=== PATIENT | female | born 1960 | race Caucasian/White ===

== ENCOUNTER → 2017-11-21 11:53 | Outpatient (CLI) | payer BC, SELFPAY ==
[2017-11-21 15:53] LABS: Free T3 1.8 pg/mL (2.18-3.98); T4 Free Direct 1.03 ng/dL (0.76-1.46); Thyroid Stim Hormone (TSH) 3.33 uIU/mL (0.358-3.74)
== END ==
PROVIDERS: Family Provider Family Medicine; PCP Family Medicine; Visit Provider Family Medicine
DX: E03.9 Hypothyroidism, unspecified (principal)
CPT/HCPCS: 36415; 84439; 84443; 84481

== ENCOUNTER → 2018-02-13 14:08 | Outpatient (CLI) | payer BC, SELFPAY ==
[2018-02-13 16:09] LABS: Free T3 2.4 pg/mL (2.18-3.98); T4 Free Direct 1.32 ng/dL (0.76-1.46); Thyroid Stim Hormone (TSH) 0.63 uIU/mL (0.358-3.74)
== END ==
PROVIDERS: Family Provider Family Medicine; PCP Family Medicine; Visit Provider Family Medicine
DX: E03.9 Hypothyroidism, unspecified (principal)
CPT/HCPCS: 36415; 84439; 84443; 84481

== ENCOUNTER → 2018-02-23 15:54 | Outpatient (CLI) | payer BC, SELFPAY ==
--- NOTE | 2018-02-23 15:59 | CT_ITS ---
STUDY: LOW DOSE CT LUNG CANCER SCREENING REASON FOR EXAM: Female, 57 years old. 47 pack-year smoking history. RADIATION DOSAGE (If Supplied By Facility): CTDIvol = ( 3.02 ) mGy, DLP = ( 108.72 ) mGycm TECHNIQUE: No contrast was administered. Low dose technique was utilized (average mAS-38 and kVp 120). 1.25 mm axial source images with a slice interval of 1.25-mm were reconstructed in lung windows. 2.5 mm axial source images with a slice interval of 2.5-mm were reconstructed in lung windows. 5.0 mm axial source images with a slice interval of 5.0-mm were reconstructed in soft tissue windows. Nodule measured using lung windows on PACS and/or independent workstation with automated measurement of minimum and maximum diameter. Nodule measurement reported as average diameter rounded to the nearest whole number. Growth is defined as an increase ins size of greater than 1.5 mm. COMPARISON: December 05, 2016. NODULES: Total lung nodules (excluding granulomas): 0 Emphysema: Is mild hyperexpansion lungs without distinct evidence of emphysema. Endobronchial lesion: No Aorta: There is atherosclerotic changes of the abdominal aorta without aneurysm. Coronary arteries: No evidence of calcification. Heart: Normal Pulmonary artery: Normal Mediastinal nodes: None Other chest and abdominal findings: Minimal degenerative changes of the thoracic spine. CT/Low Dose CT Lung Screening IMPRESSION: Lung-RADS category 1 - Continue annual screening with LDCT in 12 months. IMPORTANT NOTES FOR USE: ACR Lung-RADS Version 1.0 Assessment Categories Release Date: June 21, 2013 Category: Coded 0-4 bases on nodule(s) with highest degree of suspicion. Negative screen is defined as categories 1 and 2; a positive screen is defined as categories 3 and 4. Category 3 and 4A nodules that are unchanged on interval CT should be coded as category 2, and individuals returned to screening in 12 months. Category 4X: Category 3 or 4 nodules with additional imaging findings that increase the suspicion of lung cancer, such as spiculation, GGN that doubles in size in 1 year, enlarged lymph notes, etc. Category Modifiers: S (significant finding unrelated to lung cancer) and C (prior history of treated lung cancer) may be added to the 0-4 Lung-RADS Electronically Signed: Ricardo Flores DO at 23:28 EST Tel [phone], Service support ,
== END ==
PROVIDERS: Family Provider Family Medicine; PCP Family Medicine; Referring Provider Family Medicine; Visit Provider Family Medicine
DX: Z12.2 Encounter for screening for malignant neoplasm of respiratory organs (principal)
CPT/HCPCS: G0297

== ENCOUNTER → 2018-09-04 | Outpatient (CLI) | payer BC, SELFPAY ==
[2018-09-11 11:43] LABS: HPV APTIMA, High Risk Negative (Negative)
== END | disposition home or self-care (01) ==
LOC: BFHLAB 14:54
PROVIDERS: Family Provider Family Medicine; PCP Family Medicine; Visit Provider Family Medicine
DX: Z12.4 Encounter for screening for malignant neoplasm of cervix (principal)
CPT/HCPCS: 88175; G0145

== ENCOUNTER → 2018-09-22 | Outpatient (CLI) | payer BC, SELFPAY ==
--- NOTE | 2018-09-22 16:23 | BI_ITS ---
MAMMOGRAPHY - BILATERAL SCREENING REASON FOR EXAM: Female, 58 years old. Routine annual screening examination. PERTINENT HISTORY: Grandmother with breast cancer. Remote left stereotactic breast biopsy. TECHNIQUE: Digital bilateral breast pee (3D mammographic acquisition) in the CC and MLO projections. 2-D mediolateral oblique (MLO) and craniocaudad (CC) views of both breasts were obtained. CAD: Full Field Digital Mammography with Computer Added Detection was performed. COMPARISON: Comparison is made with prior study dated January 10, 2017 and July 29, 2014. FINDINGS: Breast Composition: There are scattered areas of fibroglandular density. There are no dominant masses or suspicious calcifications. No other significant abnormalities are identified. There has been no significant change since the prior study. BI/SCREEN MAMM (CAD) W/PEE BILAT IMPRESSION: Stable bilateral screening mammogram. Yearly follow-up mammogram recommended. (A) ASSESSMENT CATEGORY: BIRADS Category 1: Negative. A letter regarding these results will be sent to the patient by the facility within 30 days. Approximately 10% of breast cancers are not detected by mammography. A normal mammogram should not delay biopsy of a clinically suspicious abnormality. [id number] Electronically Signed: Leonel Stafford, at 9:22 EDT , Service support ,
== END | disposition home or self-care (01) ==
PROVIDERS: Family Provider Family Medicine; PCP Family Medicine; Referring Provider Family Medicine; Visit Provider Family Medicine
DX: Z12.31 Encounter for screening mammogram for malignant neoplasm of breast (principal)
CPT/HCPCS: 77063; 77067

== ENCOUNTER → 2019-10-08 15:05 | Outpatient (CLI) | payer BC, SELFPAY ==
[2019-10-08 17:09] LABS: Absolute Lymphocyte Count 2.12 X10^3/uL (0.83-4.51); Basophil# 0.02 X10^3/uL; Basophil% 0.3 % (0-1); Eosinophil# 0.12 X10^3/uL; Eosinophils% 1.6 % (0-5); Hemoglobin 13.3 g/dL (12.0-15.0); Lymphocyte # 2.12 X10^3/ul (4.0); Lymphocyte % 27.8 % (19-41); Mean Corp Hgb Conc 31.7 g/dL (32-36); Mean Corpuscular Hgb 28.2 pg (27.0-32.0); Mean Corpuscular Volume 89.2 fL (81-99); Mean Platelet Vol. 10.3 fl (6.2-12.0); Monocyte% 5.2 % (0-10); NRBC Flagged by Analyzer 0 % (0-5); Neutrophil # 4.96 X10^3/uL (2.7-7.7); Platelet Count 224 K/mm3 (150-450); RBC Distribution Width CV 12.9 % (11.6-14.6); RBC Distribution Width SD 42.4 fl (35.1-43.9); Red Blood Count 4.71 M/mm3 (4.2-5.4); White Blood Count 7.6 K/mm3 (4.4-11.0)
[2019-10-08 17:37] LABS: ALB/GLOB Ratio 1.1 RATIO (0.9-2.4); AST(SGOT) 13 U/L (15-37); Alanine Aminotransfer ALT/SGPT 24 U/L (13-56); Alkaline Phosphatase 82 U/L (45-117); Anion Gap 8 (5-15); BUN 17 mg/dL (7-18); BUN/Creat Ratio 18.5 RATIO (10-20); Calcium,Total 8.5 mg/dL (8.5-10.1); Chloride 105 mmol/L (98-107); Creatinine, Serum 0.92 mg/dL (0.55-1.02); EST Glomerular Filtration Rate 67 mL/min (>60); Est Glom Filt Rate - Afr Amer 81 mL/min (>60); Free T3 2.3 pg/mL (2.18-3.98); Globulin 3.6 g/dL (2.2-4.2); Glucose 152 mg/dL (74-106); Potassium 3.3 mmol/L (3.5-5.1); Protein, Total 7.6 g/dL (6.4-8.2); Sodium Level 137 mmol/L (136-145); T4 Free Direct 1.53 ng/dL (0.76-1.46)
== END ==
PROVIDERS: PCP Family Medicine; Visit Provider Family Medicine
DX: E03.9 Hypothyroidism, unspecified (principal); F32.9 Major depressive disorder, single episode, unspecified; K58.9 Irritable bowel syndrome, unspecified
CPT/HCPCS: 36415; 80053; 84439; 84443; 84481; 85025

== ENCOUNTER → 2019-11-17 15:22 | Outpatient (CLI) | payer BC, SELFPAY ==
--- NOTE | 2019-11-17 15:26 | BI_ITS ---
MAMMOGRAPHY - BILATERAL SCREENING REASON FOR EXAM: Female, 59 years old. Routine annual screening examination. PERTINENT HISTORY: Grandmother with breast cancer. TECHNIQUE: Digital bilateral breast pee (3D mammographic acquisition) in the CC and MLO projections. 2-D mediolateral oblique (MLO) and craniocaudad (CC) views of both breasts were obtained. CAD: Full Field Digital Mammography with Computer Added Detection was performed. COMPARISON: Comparison is made with prior study dated 09/22/2018 and 01/10/2017. FINDINGS: Breast Composition: There are scattered areas of fibroglandular density. There are no dominant masses or suspicious calcifications. Stable small benign-appearing bilateral axillary lymph nodes. No other significant abnormalities are identified. There has been no significant change since the prior study. BI/SCREEN MAMM (CAD) W/PEE BILAT IMPRESSION: Stable bilateral screening mammogram. Yearly follow-up mammogram recommended. (A) ASSESSMENT CATEGORY: BIRADS Category 2: Benign. A letter regarding these results will be sent to the patient by the facility within 30 days. Approximately 10% of breast cancers are not detected by mammography. A normal mammogram should not delay biopsy of a clinically suspicious abnormality. [id number] Electronically Signed: Leonel Stafford, at 8:03 EDT , Service support ,
== END ==
PROVIDERS: PCP Family Medicine; Referring Provider Family Medicine; Visit Provider Family Medicine
DX: Z12.31 Encounter for screening mammogram for malignant neoplasm of breast (principal)
CPT/HCPCS: 77063; 77067

== ENCOUNTER → 2020-07-12 13:36 | Outpatient (CLI) | payer BC, SELFPAY ==
[2020-07-12 14:06] LABS: Absolute Lymphocyte Count 2.03 X10^3/uL (0.83-4.51); Absolute Neutrophil Count 4.6 X10^3/uL (2.0-7.7); Basophil# 0.03 X10^3/uL; Basophil% 0.4 % (0-1); Eosinophil# 0.18 X10^3/uL; Eosinophils% 2.5 % (0-5); Hematocrit 40.2 % (37-47); Hemoglobin 12.8 g/dL (12.0-15.0); Lymphocyte # 2.03 X10^3/ul (0.83-4.51); Lymphocyte % 27.7 % (19-41); Mean Corp Hgb Conc 31.8 g/dL (32-36); Mean Corpuscular Hgb 28.1 pg (27.0-32.0); Mean Corpuscular Volume 88.4 fL (81-99); Mean Platelet Vol. 9.8 fl (6.2-12.0); Monocyte# 0.46 X10^3/uL; Monocyte% 6.3 % (0-10); NRBC Flagged by Analyzer 0 % (0-5); Neutrophil # 4.62 X10^3/uL (2.7-7.7); Neutrophil % 62.8 % (47-70); Platelet Count 210 K/mm3 (150-450); RBC Distribution Width CV 12.9 % (11.6-14.6); RBC Distribution Width SD 41.6 fl (35.1-43.9); Red Blood Count 4.55 M/mm3 (4.2-5.4); White Blood Count 7.3 K/mm3 (4.4-11.0)
[2020-07-12 14:47] LABS: AST(SGOT) 11 U/L (15-37); Alanine Aminotransfer ALT/SGPT 23 U/L (13-56); Albumin, Serum 3.7 g/dL (3.2-5.0); Alkaline Phosphatase 80 U/L (45-117); Bilirubin, Direct 0.14 mg/dL (0.00-0.30); Globulin 3.3 g/dL (2.2-4.2)
== END ==
PROVIDERS: PCP Family Medicine; Referring Provider Family Medicine; Visit Provider Family Medicine
DX: R10.12 Left upper quadrant pain (principal); E03.9 Hypothyroidism, unspecified
CPT/HCPCS: 36415; 80076; 84436; 84443; 85025

== ENCOUNTER → 2020-07-15 10:32 | Outpatient (CLI) | payer BC, SELFPAY ==
--- NOTE | 2020-07-15 10:37 | US_ITS ---
EXAM: US ABDOMEN COMPLETE CLINICAL INDICATION: LUQ ABD PAIN TECHNIQUE: Real-time ultrasound of the abdomen with image documentation. This report was created using [employer] report generation technology. COMPARISON: None. FINDINGS: LIVER: Unremarkable. There is normal echotexture. No focal hepatic lesion. No intrahepatic biliary ductal dilation. GALLBLADDER: Gallstones. No gallbladder wall thickening is demonstrated. No pericholecystic fluid. Negative sonographic Flores''s sign. COMMON BILE DUCT: Unremarkable as visualized. The proximal common bile duct is within normal limits for the patient''s age. PANCREAS: Unremarkable as visualized. No focal abnormality is demonstrated in the pancreas. No pancreatic ductal dilatation. KIDNEYS: Unremarkable. There is no hydronephrosis. No shadowing calculus. No focal lesion or perinephric collection is demonstrated. SPLEEN: Unremarkable. The spleen is normal in size and homogeneous in echotexture. AORTA: Unremarkable. Submitted longitudinal images of the intra-abdominal aorta demonstrate no gross abnormalities and are unremarkable. INFERIOR VENA CAVA: Unremarkable. The IVC is patent. FREE FLUID: There is no free fluid. US/Abdomen Complete IMPRESSION: Gallstones. No acute cholecystitis or biliary obstruction. Electronically Signed: Michelet Stafford MD ([place]) at 18:12 EDT , Service support ,
== END ==
PROVIDERS: PCP Family Medicine; Referring Provider Family Medicine; Visit Provider Family Medicine
DX: R10.12 Left upper quadrant pain (principal)
CPT/HCPCS: 76700

== ENCOUNTER 2020-10-25 12:45 | Inpatient (IN) | payer BC, SELFPAY ==
[2020-10-25 12:47] VITALS: BP 135/71; PULSE 82; RESP 17; TEMP 36.2; O2SAT 99; BMI 34.4
--- NOTE | 2020-10-25 13:19 | EKG12_ITS ---
Test Reason : ABNL PAIN Blood Pressure : / mmHG Vent. Rate : 065 BPM Atrial Rate : 065 BPM P-R Int : 150 ms QRS Dur : 090 ms QT Int : 400 ms P-R-T Axes : 044 042 045 degrees QTc Int : 416 ms Normal sinus rhythm Nonspecific T wave abnormality Abnormal ECG Confirmed by GISSELLE SOLIZ, KEY ([id number]), photo editor MELODIE YARBROUGH ([id number]) on 10/26/2020 12:54:36 PM Referred By: MANUEL Confirmed By:LULU PITTS MD
--- NOTE | 2020-10-25 13:19 | CT_ITS ---
STUDY: CT ABDOMEN AND PELVIS WITH CONTRAST REASON FOR EXAM: Female, 60 years old. abd pain -- IV PO Contrast RADIATION DOSAGE (If Supplied By Facility): CTDIvol = ( 16.55 ) mGy, DLP = ( 1129.10 ) mGycm TECHNIQUE: Transaxial images were obtained from the dome of the diaphragm to the symphysis pubis with oral contrast. Oral and amp; IV Gastrografin and amp; 100mL Isovue-300 was administered. Sagittal and coronal images were reconstructed. Individualized dose optimization techniques were used for this CT. COMPARISON: None. FINDINGS: The visualized lung bases are unremarkable. The visualized portions of the heart are within normal limits. Normal liver. Normal gallbladder and extrahepatic biliary system. Normal spleen. There is diffuse enlargement of the pancreas with ysabel-pancreatic edema suggesting acute pancreatitis. No loculated fluid collection to suggest pseudocyst or abscess. Normal enhancement of the pancreas without evidence of necrotizing pancreatitis. Normal bilateral adrenal glands. Normal right kidney. Normal left kidney. Normal visualized stomach. Normal small intestine. There are multiple colonic diverticula consistent with diverticulosis. The appendix is visualized and appears normal. Normal abdominal aorta. Normal inferior vena cava. Normal retroperitoneum. Normal urinary bladder. Prominent left ovarian vein and parametrial veins which can be seen in pelvic congestion syndrome. Normal abdominal wall. Normal osseous structures. CT/Abdomen/Pelvis WITH Contrast IMPRESSION: Acute pancreatitis. No pseudocyst, abscess, or necrotizing pancreatitis. Electronically Signed: Cuba Rosa MD at 15:29 EDT Tel , Service support ,
--- NOTE | 2020-10-25 13:20 | EX.ED.DYSGE1 ---
HPI History of Present Illness Chief Complaint: Abd Pain Informant: patient Onset/Context/Timing Onset: Yesterday Context: Gradual Onset Current Severity: Moderate Maximum Severity: Moderate Narrative Narrative: Patient presents secondary to abdominal pain. She states last evening around 8 PM she developed epigastric abdominal pain. Around 1130 patient's pain started wrapping around both sides. She developed abdominal cramping with nausea, vomiting, and diarrhea. She does report a history of gallstones. No fever or chills. [facility] Medical History (Updated 10/25/20 @ 17:[address] Tanja Buchanan MD) Gallstones Migraines Thyroid activity decreased Home Medications citalopram 20 mg PO DAILY 10/25/20 [History Last Taken Unknown] topiramate 50 mg PO DAILY 10/25/20 [History Last Taken Unknown] Allergy/AdvReac Type Severity Reaction Status Date / Time Penicillins Allergy Anaphylaxis Verified 10/25/20 12:47 erythromycin base AdvReac Upset Verified 10/25/20 12:47 Stomach Social History Smoking Status: Former smoker ROS ROS ED Constitutional Constitutional ED: Denies chills or fever(s) Eyes Eyes: Denies change in vision ENT ENT ED: Denies sore throat Cardiovascular Cardiovascular: Denies chest pain Respiratory/Chest Respiratory/Chest: Denies cough or dyspnea Gastrointestinal Gastrointestinal: Reports abdominal pain, diarrhea, nausea and vomiting Genitourinary Genitourinary ED: Denies dysuria Musculoskeletal Musculoskeletal: Reports back pain Integumentary Denies rash Neurologic Neurologic: Denies headache(s) or weakness Allergic/Immunologic Allergic/Immunologic ED: Denies urticaria EXAM Physical Exam Const Vital Signs: 10/25/20 12:47 10/25/20 15:46 Temperature 97.2 F L Temperature Source Temporal Pulse Rate 82 73 Respiratory Rate 17 16 Blood Pressure 135/71 H 129/74 H Blood Pressure Mean 92 92 Pulse Ox 99 96 Oxygen Delivery Method Room Air Room Air Positive well nourished and well developed General Appearance ED: well developed HEENT Reports normocephalic and head/scalp atraumatic Eyes PERRL and EOMs intact bilaterally Neck supple Chest Wall inspection of chest normal and palpation of chest normal Resp normal respiratory effort and clear to auscultation bilaterally Cardio regular rate and regular rhythm GI Auscultation: hypoactive bowel sounds Palpation: soft and tender other (Diffuse abdominal tenderness to palpation. No guarding or rebound.) Extremity normal to inspection Neuro oriented x3 and no sensory deficits noted Sensorium / Orientation: alert Motor Exam: strength 5/5 throughout Psych mental status grossly normal Skin no rashes or lesions noted MDM MDM MDM Narrative Medical decision making narrative: Patient is given morphine and Zofran for pain. Lab work and CT abdomen pelvis is ordered. When lipase and LFTs returned elevated right upper quadrant ultrasound is also ordered. Lab Data Attestation: I reviewed the patient's lab results. Labs: Laboratory Results - last 24 hr 10/25/20 10/25/20 10/25/20 13:15 13:15 13:15 WBC 12.2 H RBC 4.83 Hgb 13.8 Hct 42.4 MCV 87.8 MCH 28.6 MCHC 32.5 RDW Std Deviation 41.8 RDW Coeff of Deborah 12.9 Plt Count 213 MPV 10.2 Immature Gran % (Auto) 0.400 Neut % (Auto) 91.2 H Lymph % (Auto) 4.9 L Fleming % (Auto) 3.4 Eos % (Auto) 0.0 Baso % (Auto) 0.1 Absolute Neuts (auto) 11.1 H Absolute Lymphs (auto) 0.60 L Nucleated RBC % 0 Sodium 138 Potassium 3.4 L Chloride 107 Carbon Dioxide 23.0 Anion Gap 8 BUN 21 H Creatinine 0.91 Estim Creat Clear Calc 52.65 Est GFR (MDRD) Af Amer 81 Est GFR (MDRD) Non-Af 67 BUN/Creatinine Ratio 23.0 H Glucose 198 H Calcium 8.8 Total Bilirubin 0.80 Direct Bilirubin 0.20 AST 253 H ALT 243 H Alkaline Phosphatase 108 Total Protein 7.5 Albumin 4.0 Globulin 3.5 Lipase 46220 H Urine Color Yellow Urine Clarity Clear Urine pH 6.0 Ur Specific [place] 1.015 Urine Protein 30 H Urine Glucose (UA) Normal Urine Ketones 15 H Urine Occult Blood 25 H Urine Nitrite Negative Urine Bilirubin Negative Urine Urobilinogen 1 H Ur Leukocyte Esterase 100 H Urine RBC 0 SEEN Urine WBC 0-5 SEEN Ur Squamous Epith Cells 0-5 SEEN Urine Bacteria 0 SEEN Urine Mucus 0 SEEN Radiography Diagnostic Testing: Radiology Impression Abdomen/Pelvis CT 10/25/20 13:19 IMPRESSION: Acute pancreatitis. No pseudocyst, abscess, or necrotizing pancreatitis. Electronically Signed: Cuba Rosa MD at 15:29 EDT Tel , Service support , Abdomen Ultrasound 10/25/20 14:18 IMPRESSION: Cholelithiasis. Electronically Signed: Cuba Rosa MD at 15:58 EDT Tel , Service support , EKG Initial EKG: Attestation: I personally reviewed and interpreted this EKG as follows: Interpretation: Sinus Rhythm (Sinus at 65 with nonspecific diffuse T wave flattening.) Treatment and Re-Evaluation Comments:: On repeat evaluation patient is resting more comfortably. Test results discussed with her. She will require hospitalization with pancreatitis. I also spoke with Dr. Baker. He will see her in consult and if LFTs continue to rise we will plan on doing an ERCP tomorrow. Otherwise he will plan to do a cholecystectomy once her pancreatitis improves. Patient discussed with hospitalist for admission to medical floor. Discharge Plan Triage Chief Complaint: Abd Pain ED Provider: Tanja Buchanan Dx/Rx/DC Orders Clinical Impression: Acute pancreatitis Prescriptions: No Action citalopram 20 mg tablet 20 mg PO DAILY RF: 0 topiramate 50 mg tablet 50 mg PO DAILY RF: 0 Primary Care Provider: Maricruz Zavaleta Referrals: Maricruz Zavaleta MD [Primary Care Provider] - Disposition Disposition: Acute Care Hospital [facility]
--- NOTE | 2020-10-25 13:22 | NURSING ---
NO OLD EKGS
[2020-10-25] MEDS: 0.9% Normal Saline 1,000 ML 150 ML IV (13:41)
[2020-10-25] MEDS: Ondansetron 4 MG/2 ML Vial IV (13:42)
[2020-10-25] MEDS: Morphine 4 MG/ML Syringe IV (13:42)
[2020-10-25 13:43] LABS: Bacteria 0 SEEN /hpf (None Seen); Mucous, Urine 0 SEEN /hpf (<or=2+); Red Blood Cells-Urine 0 SEEN /hpf (0-5)
[2020-10-25 13:49] LABS: Absolute Neutrophil Count 11.1 X10^3/uL (2.0-7.7); Basophil# 0.01 X10^3/uL; Basophil% 0.1 % (0-1); Hematocrit 42.4 % (37-47); Hemoglobin 13.8 g/dL (12.0-15.0); Lymphocyte % 4.9 % (19-41); Mean Corp Hgb Conc 32.5 g/dL (32-36); Mean Corpuscular Hgb 28.6 pg (27.0-32.0); Mean Corpuscular Volume 87.8 fL (81-99); Mean Platelet Vol. 10.2 fl (6.2-12.0); Monocyte# 0.41 X10^3/uL; Monocyte% 3.4 % (0-10); NRBC Flagged by Analyzer 0 % (0-5); Neutrophil # 11.08 X10^3/uL (2.7-7.7); Neutrophil % 91.2 % (47-70); POSITIVE DIFFERENTIAL YES; Platelet Count 213 K/mm3 (150-450); RBC Distribution Width CV 12.9 % (11.6-14.6); RBC Distribution Width SD 41.8 fl (35.1-43.9); Red Blood Count 4.83 M/mm3 (4.2-5.4); White Blood Count 12.2 K/mm3 (4.4-11.0)
[2020-10-25 13:50] LABS: Color, Urine Yellow (Yellow); Differential Indicated SCAN CRITERIA MET; Glucose, Dipstick Normal (Normal); Ketone-Dipstick 15 mg/dl (Negative); Leukocyte Esterase-Dipstick 100 /ul (Negative); Nitrite-Dipstick Negative (Negative); Occult Blood-Urine 25 /ul (Negative); Protein-Dipstick 30 mg/dl (Negative); Specific Gravity, Urine 1.015 (1.002-1.030); Urine Bilirubin Dipstick Negative (Negative); Urine Clarity Clear (Clear); Urine Urobilinogen 1 mg/dl (Normal)
[2020-10-25 13:56] LABS: Squamous Epithelial Cells - UA 0-5 SEEN /hpf (5-10); White Blood Cells 0-5 SEEN /hpf (0-5)
[2020-10-25 14:10] LABS: AST(SGOT) 253 U/L (15-37); Alanine Aminotransfer ALT/SGPT 243 U/L (13-56); Alkaline Phosphatase 108 U/L (45-117); Anion Gap 8 (5-15); BUN 21 mg/dL (7-18); Calcium,Total 8.8 mg/dL (8.5-10.1); Chloride 107 mmol/L (98-107); Creatinine, Serum 0.91 mg/dL (0.55-1.02); EST Glomerular Filtration Rate 67 mL/min (>60); Est Glom Filt Rate - Afr Amer 81 mL/min (>60); Estimated Creatinine Clearance 52.65 ml/min; Globulin 3.5 g/dL (2.2-4.2); Glucose 198 mg/dL (74-106); Lipase 10463 U/L (73-393); Potassium 3.4 mmol/L (3.5-5.1); Protein, Total 7.5 g/dL (6.4-8.2); Sodium Level 138 mmol/L (136-145)
--- NOTE | 2020-10-25 14:18 | US_ITS ---
STUDY: ABDOMINAL ULTRASOUND - RIGHT UPPER QUADRANT REASON FOR VISIT: Female, 60 years old abd pain TECHNIQUE: Ultrasound evaluation of the right upper quadrant was performed with real-time and static scott-scale imaging. TECHNICAL QUALITY: Adequate. COMPARISON: CT earlier today, ultrasound 07/15/2020 FINDINGS: Liver: The liver measures 19.8 cm. There is normal echogenicity of the liver. The bile ducts are within normal limits. There is hepatic color flow. The direction of portal flow is hepatopetal. There is no demonstrated mass lesion. Gallbladder: Normal distended gallbladder. The gallbladder wall measures 2 mm. There is a negative sonographic Flores''s sign. There is no pericholecystic fluid. There are multiple echogenic structures within the gallbladder, consistent with multiple gallstones. Common Bile Duct (C.B.D.): The common bile duct measures 6 mm. Pancreas: Normal size of the head, body and tail of the pancreas. There is normal echogenicity of the pancreas. There is no demonstrated pancreatic mass or cyst. Right Kidney: Normal size of the right kidney. The right kidney measures 12.5 cm. Normal renal cortex. The right cortex measures 1.5 cm. There is no demonstrated renal mass or cyst. There is no right hydronephrosis. US/Abdomen Limited IMPRESSION: Cholelithiasis. Electronically Signed: Cuba Rosa MD at 15:58 EDT Tel , Service support ,
[2020-10-25 15:46] VITALS: BP 129/74; PULSE 73; RESP 16; O2SAT 96
--- NOTE | 2020-10-25 17:32 | NURSING ---
MED SURG DR BASS PANCREATITIS
--- NOTE | 2020-10-25 18:03 | PCM.HP.STD ---
[facility] - General General Date of Admission: 10/25/20 HPI Narrative CELSO SHANKAR, is a 60 F who presented to the emergency department [facility] on 10/25/2020 complaining of abdominal pain in the epigastric and left upper quadrant area. She states that she has been having some issues with this previously and saw her PCP for which an ultrasound was done and noted cholelithiasis. That episode resolved and she has been having intermittent right upper quadrant pain but has not really paid much attention to exacerbating or relieving factors. She states last night she had a submarine sandwich. Her symptoms started last night at about 8:00 in the form of epigastric abdominal pain. At 1130 last evening it started wrapping around both sides and radiating to her back. She has had intermittent abdominal cramping with nausea, vomiting and intermittent diarrhea. She is not had much p.o. intake today and states she tried to eat a slice of toast this morning. She denies any fever or chills, chest pain, shortness of breath, melena or hematochezia, tingling numbness or weakness. Her vital signs the emergency department were stable. Her CBC shows a mildly elevated white count at 12.2 with a left shift, but was otherwise unremarkable. Her CMP shows mild hypokalemia with potassium of 3.4, an elevated BUN at 21, elevated AST and ALT that were 253 and 243 respectively, her bilirubin was within normal limits and her alk phos was normal as well, and a lipase of 10,463. Her UA was unremarkable. A CT of her abdomen and pelvis was performed and showed acute pancreatitis with no pseudocyst, abscess, or necrotizing pancreatitis. A right upper quadrant ultrasound was performed and showed cholelithiasis without common bile duct dilation. The case was discussed with Dr. Jovanni albert from general surgery prior to admission and he reported that he would follow her liver enzymes and if they trended down would discuss cholecystectomy with her once her acute pancreatitis was resolved but if her liver enzymes trended up he would pursue an ERCP tomorrow. [facility] Medical History Gallstones Migraines Thyroid activity decreased Home Medications cholecalciferol (vitamin D3) 50 mcg PO DAILY 10/25/20 [History Last Taken 10/24/20] citalopram 20 mg PO DAILY 10/25/20 [History Last Taken Unknown] levothyroxine 125 mcg PO DAILY 10/25/20 [History Last Taken 10/24/20] topiramate 50 mg PO DAILY 10/25/20 [History Last Taken Unknown] Allergy/AdvReac Type Severity Reaction Status Date / Time Penicillins Allergy Anaphylaxis Verified 10/25/20 12:47 erythromycin base AdvReac Upset Verified 10/25/20 12:47 Stomach Family History (Updated 10/25/20 @ 18:[address] Kinjal Beyer DO) Other Hypertension Social History (Updated 10/25/20 @ 18:[address] Kinjal Beyer DO) Smoking Status: Former smoker alcohol intake: current details: Social intake substance use type: does not use ROS Constitutional Constitutional: Denies anorexia, change in weight, chills, fatigue, fever(s), malaise, night sweats, weakness or other Eyes Eyes: Denies blurry vision, change in eye color, change in vision, discharge from eye(s), double vision, erythema, eye pain, loss of vision or other ENT HEENT: Denies abnormal hearing, dysphagia, ear pain, epistaxis, headache(s), hearing loss, nasal congestion, nasal discharge, post nasal drip, sinus pressure, sore throat or other Cardiovascular Cardiovascular: Denies chest pain, claudication, dyspnea on exertion, edema, lightheadedness, orthopnea, palpitations, paroxysmal nocturnal dyspnea, rapid heart rate, syncope or other Respiratory/Chest Respiratory/Chest: Denies cough, dyspnea, excessive phlegm production, hemoptysis, productive cough, shortness of breath at rest, shortness of breath with exertion, wheezing or other Gastrointestinal Gastrointestinal: Reports abdominal pain, diarrhea, nausea and vomiting; Denies coffee ground emesis, constipation, dyspepsia, hematemesis, hematochezia, loose stools, melena or other Genitourinary Genitourinary: Denies burning urination, difficulty urinating, dysuria, hematuria, nocturia, urinary frequency, urinary hesitancy, urinary incontinence, urinary urgency or other Musculoskeletal Musculoskeletal: Denies arthralgias, back pain, joint pain, joint stiffness, joint swelling, myalgias, neck pain or other Neurologic Neurologic: Denies abnormal gait, abnormal speech, confusion, disequilibrium, dizziness, focal weakness, headache(s), numbness, paresthesias, seizure-like activity, seizures, syncope, tingling, tremor(s) or other Psychiatric Psychiatric: Denies anxiety, depression, homicidal ideation, suicidal ideation or other Endocrine Endocrinology: Denies change in body appearance, cold intolerance, excessive sweating, heat intolerance, polydipsia, polyuria or other Hematologic/Lymphatic Hematologic/Lymphatic: Denies anemia, easy bleeding, easy bruising, lymphadenopathy or other Allergic/Immunologic Allergic/Immunologic: Denies rhinitis, hives, eczemia, asthma or other Vital Signs Vital Signs Vital Signs: 10/25/20 12:47 10/25/20 15:46 Temperature 97.2 F L Temperature Source Temporal Pulse Rate 82 73 Respiratory Rate 17 16 Blood Pressure 135/71 H 129/74 H Blood Pressure Mean 92 92 Pulse Ox 99 96 Oxygen Delivery Method Room Air Room Air Weight Weight: 85.3 kg Body Mass Index (BMI) 34.4 Physical Exam Const alert, oriented x3 and well nourished Constitutional Narrative: Obese upper middle-aged white female sitting up in bed, visitor at bedside, patient appears mildly uncomfortable but nontoxic General Appearance: cooperative HEENT normocephalic, head/scalp atraumatic, hearing grossly normal bilaterally and oropharynx normal HEENT Narrative: Mucous membranes are dry, good dentition, Mallampati 2-3 Eyes PERRL, EOMs intact bilaterally and conjunctivae normal Eyes Narrative: No scleral icterus or injection Neck no lymphadenopathy, supple, no JVD and no carotid bruits Neck Narrative: Trachea midline without thyromegaly Resp normal respiratory effort, no retractions, no use of accessory muscles and clear to auscultation bilaterally Auscultation: Negative for crackles, rales, rhonchi or wheezes Cardio regular rate, regular rhythm, S1 normal heart sound, S2 normal heart sound, no murmurs, no rub, no gallops, no clicks and no JVD GI normal to inspection, nondistended, normoactive bowel sounds, soft to palpation and non-distended Palpation: tender epigastric and LUQ Extremity normal to inspection, full ROM and no clubbing, cyanosis or edema Peripheral Pulses: Yes pulses 2+ throughout Skin no rashes or lesions noted, no wounds, skin turgor normal, no jaundice, no petechiae and no mottling Neuro oriented x3, CN's II-XII intact bilaterally, moves all extremities and no focal motor deficits Neuro Narrative: Reflexes 2+ throughout Sensorium / Orientation: awake and alert Speech: speech normal Motor Exam: strength 5/5 throughout Psych affect normal Results Lab / Micro Data Attestation: I reviewed the patient's lab results. Result Diagrams: 10/25/20 13:15 10/25/20 13:15 Labs: Laboratory Results - last 24 hr 10/25/20 13:15: WBC 12.2 H, RBC 4.83, Hgb 13.8, Hct 42.4, MCV 87.8, MCH 28.6, MCHC 32.5, RDW Std Deviation 41.8, RDW Coeff of Deborah 12.9, Plt Count 213, MPV 10.2, Immature Gran % (Auto) 0.400, Neut % (Auto) 91.2 H, Lymph % (Auto) 4.9 L, [place] % (Auto) 3.4, Eos % (Auto) 0.0, Baso % (Auto) 0.1, Absolute Neuts (auto) 11.1 H, Absolute Lymphs (auto) 0.60 L, Nucleated RBC % 0 10/25/20 13:15: Sodium 138, Potassium 3.4 L, Chloride 107, Carbon Dioxide 23.0, Anion Gap 8, BUN 21 H, Creatinine 0.91, Estim Creat Clear Calc 52.65, Est GFR (MDRD) Af Amer 81, Est GFR (MDRD) Non-Af 67, BUN/Creatinine Ratio 23.0 H, Glucose 198 H, Calcium 8.8, Total Bilirubin 0.80, Direct Bilirubin 0.20, AST 253 H, ALT 243 H, Alkaline Phosphatase 108, Total Protein 7.5, Albumin 4.0, Globulin 3.5, Lipase 69470 H 10/25/20 13:15: Urine Color Yellow, Urine Clarity Clear, Urine pH 6.0, Ur Specific [place] 1.015, Urine Protein 30 H, Urine Glucose (UA) Normal, Urine Ketones 15 H, Urine Occult Blood 25 H, Urine Nitrite Negative, Urine Bilirubin Negative, Urine Urobilinogen 1 H, Ur Leukocyte Esterase 100 H, Urine RBC 0 SEEN, Urine WBC 0-5 SEEN, Ur Squamous Epith Cells 0-5 SEEN, Urine Bacteria 0 SEEN, Urine Mucus 0 SEEN Radiology Impression Abdomen/Pelvis CT 10/25/20 13:19 IMPRESSION: Acute pancreatitis. No pseudocyst, abscess, or necrotizing pancreatitis. Electronically Signed: Cuba Rosa MD at 15:29 EDT Tel , Service support , Abdomen Ultrasound 10/25/20 14:18 IMPRESSION: Cholelithiasis. Electronically Signed: Cuba Rosa MD at 15:58 EDT Tel , Service support , Assessment & Plan Assessment/Plan (1) Acute pancreatitis: (2) Hypokalemia: (3) Cholelithiasis: (4) Transaminitis: PLAN: Acute pancreatitis -First episode ever -Lipase greater than 10,000 -Check lipids -IV fluids at 250 cc/h-LR -Dilaudid 1 mg every 4 as needed pain -N.p.o. except for sips and chips -Patient is not a heavy drinker -Suspect related to gallstone possibly passed with elevated transaminases -Repeat CMP in a.m. -Consult general surgery--> if liver enzymes trend up ERCP if patient improves likely outpatient cholecystectomy Hypokalemia -IV potassium replacement 20 mEq -Repeat in a.m. -Check a.m. magnesium Leukocytosis -Mild -Suspect reactive -Follow trend Transaminitis -Trend with repeat in a.m. -See above for plan Cholelithiasis -Cholecystectomy in the future -General surgery is consulted Hypothyroidism -Hold levothyroxine while n.p.o. -If remains n.p.o. greater than 7 days would consider IV dose reduction at 50% History of migraine headaches -Hold Topamax while n.p.o. Depression -Hold citalopram Vitamin D deficiency -Hold cholecalciferol DVT prophylaxis -Lovenox 40 mg daily -SCDs CODE STATUS -Full code Charges/Coding Visit Charges Inpatient E&M: 99206 Init Hosp L3
[2020-10-25 18:32] VITALS: BP 149/72; PULSE 67; RESP 16; TEMP 36.7; O2SAT 98
[2020-10-25 20:10] VITALS: BMI 34.8
[2020-10-25 20:13] VITALS: BP 156/77; PULSE 79; RESP 18; TEMP 36.8; O2SAT 100
[2020-10-25 20:30] VITALS: PULSE 80
[2020-10-25 20:35] VITALS: O2SAT 95
[2020-10-25] MEDS: HYDROmorphone 1 MG/ML Syringe IV (20:37)
[2020-10-25] MEDS: Lactated Ringers 1,000 ML 250 ML IV (20:37)
[2020-10-25] MEDS: 0.9% Saline Lock 10 ML Syringe IV (20:37)
[2020-10-25] MEDS: Potassium Chloride 10mEq/100mL 10 MEQ/100 ML IV.SOLN. 100 MEQ IV BOLUS ×2 (21:35→22:50)
[2020-10-25 21:46] LABS: Bedside Glucose 126 mg/dL (70-110)
--- NOTE | 2020-10-25 22:34 | PCS.PANDOC ---
PANDEMIC DOCUMENTATION INITIATED: Date: 10/09/2020 Time: 190
[2020-10-26] VITALS (15 sets, daily range): BP systolic 126–150; BP diastolic 61–75; PULSE 75–89; RESP 16–18; TEMP 36.8–37.8; O2SAT 92–97; BMI 34.8
[2020-10-26 02:21] LABS: Bedside Glucose 105 mg/dL (70-110)
[2020-10-26] MEDS: Lactated Ringers 1,000 ML 250 ML IV ×2 (02:22→06:09)
[2020-10-26] MEDS: HYDROmorphone 1 MG/ML Syringe IV (02:23)
[2020-10-26] MEDS: 0.9% Saline Lock 10 ML Syringe IV ×2 (02:23→16:56)
[2020-10-26 06:16] LABS: Bedside Glucose 98 mg/dL (70-110)
[2020-10-26 06:29] LABS: Absolute Neutrophil Count 7.8 X10^3/uL (2.0-7.7); Basophil# 0.02 X10^3/uL; Basophil% 0.2 % (0-1); Eosinophil# 0.05 X10^3/uL; Eosinophils% 0.5 % (0-5); Hematocrit 36.5 % (37-47); Hemoglobin 11.6 g/dL (12.0-15.0); Mean Corp Hgb Conc 31.8 g/dL (32-36); Mean Corpuscular Hgb 28.9 pg (27.0-32.0); Mean Corpuscular Volume 90.8 fL (81-99); Mean Platelet Vol. 10.4 fl (6.2-12.0); Monocyte# 0.46 X10^3/uL; Monocyte% 4.6 % (0-10); NRBC Flagged by Analyzer 0 % (0-5); Neutrophil # 7.84 X10^3/uL (2.7-7.7); Neutrophil % 78.3 % (47-70); Platelet Count 177 K/mm3 (150-450); RBC Distribution Width CV 13.2 % (11.6-14.6); Red Blood Count 4.02 M/mm3 (4.2-5.4)
--- NOTE | 2020-10-26 06:35 | EX.PCM.CON.S ---
Assessment & Plan Assessment/Plan (1) Acute pancreatitis: QUALIFIERS: Pancreatitis type: biliary Acute pancreatitis complication: no infection or necrosis Qualified Code(s): K85.10 - Biliary acute pancreatitis without necrosis or infection PLAN: Patient has epigastric pain which is improved since yesterday. CT scan yesterday showed acute pancreatitis. Patient also had significantly elevated lipase. Patient had mildly elevated LFTs. There is no dilation of the common bile duct on CT. Ultrasound showed cholelithiasis. I explained all this to her this morning. Depending on labs that would change the treatment plan. If her LFTs go up I will plan for ERCP this afternoon. If her LFTs remain low and lipase is coming down I will plan for laparoscopic cholecystectomy with cholangiogram this afternoon. I discussed both of these options with her and she is on board for both procedures as needed. Continue n.p.o. with IV fluids. Sergo Baker MD Pager: [facility] [address] [place] [address], [address] [place] [address] Office: HPI Consult Data Date of Consult: 10/26/20 HPI Narrative HPI Narrative: CELSO SHANKAR, is a 60 F who presents with abdominal pain. Patient reports that she started having epigastric pain yesterday which radiated to the back. She does not report any nausea or vomiting. She still having some mild pain this morning but it is improved. No fevers or chills. She does report that she had similar symptoms back in June and had an ultrasound that showed cholelithiasis. [facility] Medical History (Updated 10/26/20 @ 06:[address] Sergo Baker MD) Depression Gallstones Migraines Thyroid activity decreased Home Medications cholecalciferol (vitamin D3) 50 mcg PO DAILY 10/25/20 [History Last Taken 10/24/20] citalopram 20 mg PO DAILY 10/25/20 [History Last Taken 10/24/20] levothyroxine 125 mcg PO DAILY 10/25/20 [History Last Taken 10/24/20] topiramate 50 mg PO DAILY 10/25/20 [History Last Taken 10/24/20] Allergy/AdvReac Type Severity Reaction Status Date / Time Penicillins Allergy Anaphylaxis Verified 10/25/20 12:47 erythromycin base AdvReac Upset Verified 10/25/20 12:47 Stomach Family History (Updated 10/25/20 @ 18:[address] Kinjal Beyer DO) Other Hypertension Surgical History History of colonoscopy Hx of tubal ligation Social History (Updated 10/25/20 @ 18:[address] Kinjal Beyer DO) Smoking Status: Former smoker alcohol intake: current details: Social intake substance use type: does not use ROS Constitutional Constitutional: Denies anorexia or fatigue Eyes Eyes: Denies blurry vision ENT HEENT: Denies abnormal hearing Cardiovascular Cardiovascular: Denies chest pain Respiratory/Chest Respiratory/Chest: Denies cough or dyspnea Gastrointestinal Gastrointestinal: Reports abdominal pain; Denies diarrhea, dysphagia, nausea or vomiting Genitourinary Genitourinary: Denies change in urinary stream Musculoskeletal Musculoskeletal: Denies abnormal gait Integumentary Integumentary: Denies jaundice Neurologic Neurologic: Denies abnormal gait Endocrine Endocrinology: Denies heat intolerance Hematologic/Lymphatic Hematologic/Lymphatic: Denies easy bleeding Physical Exam Const alert and oriented x3 HEENT normocephalic Eyes PERRL Resp normal respiratory effort and normal air movement Cardio regular rate and regular rhythm Rate: regular rate GI soft to palpation and non-distended Palpation: tender epigastric Neuro CN's II-XII intact bilaterally Lab / Micro Data Result Diagrams: 10/26/20 05:40 10/25/20 13:15 Labs: Laboratory Results - last 24 hr 10/25/20 13:15: WBC 12.2 H, RBC 4.83, Hgb 13.8, Hct 42.4, MCV 87.8, MCH 28.6, MCHC 32.5, RDW Std Deviation 41.8, RDW Coeff of Deborah 12.9, Plt Count 213, MPV 10.2, Immature Gran % (Auto) 0.400, Neut % (Auto) 91.2 H, Lymph % (Auto) 4.9 L, [place] % (Auto) 3.4, Eos % (Auto) 0.0, Baso % (Auto) 0.1, Absolute Neuts (auto) 11.1 H, Absolute Lymphs (auto) 0.60 L, Nucleated RBC % 0 10/25/20 13:15: Sodium 138, Potassium 3.4 L, Chloride 107, Carbon Dioxide 23.0, Anion Gap 8, BUN 21 H, Creatinine 0.91, Estim Creat Clear Calc 52.65, Est GFR (MDRD) Af Amer 81, Est GFR (MDRD) Non-Af 67, BUN/Creatinine Ratio 23.0 H, Glucose 198 H, Calcium 8.8, Total Bilirubin 0.80, Direct Bilirubin 0.20, AST 253 H, ALT 243 H, Alkaline Phosphatase 108, Total Protein 7.5, Albumin 4.0, Globulin 3.5, Lipase 54305 H 10/25/20 13:15: Urine Color Yellow, Urine Clarity Clear, Urine pH 6.0, Ur Specific [place] 1.015, Urine Protein 30 H, Urine Glucose (UA) Normal, Urine Ketones 15 H, Urine Occult Blood 25 H, Urine Nitrite Negative, Urine Bilirubin Negative, Urine Urobilinogen 1 H, Ur Leukocyte Esterase 100 H, Urine RBC 0 SEEN, Urine WBC 0-5 SEEN, Ur Squamous Epith Cells 0-5 SEEN, Urine Bacteria 0 SEEN, Urine Mucus 0 SEEN 10/25/20 21:40: POC Glucose 126 H 10/26/20 02:14: POC Glucose 105 10/26/20 05:40: WBC 10.0, RBC 4.02 L, Hgb 11.6 L, Hct 36.5 L, MCV 90.8, MCH 28.9, MCHC 31.8 L, RDW Std Deviation 44.0 H, RDW Coeff of Deborah 13.2, Plt Count 177, MPV 10.4, Immature Gran % (Auto) 0.400, Neut % (Auto) 78.3 H, Lymph % (Auto) 16.0 L, [place] % (Auto) 4.6, Eos % (Auto) 0.5, Baso % (Auto) 0.2, Absolute Neuts (auto) 7.8 H, Absolute Lymphs (auto) 1.60, Nucleated RBC % 0 10/26/20 06:08: POC Glucose 98 Micro: Microbiology 10/25/20 17:50 Nasal Secretion SARS-CoV-2 Antigen (Rapid) - Final Radiology Impression Abdomen/Pelvis CT 10/25/20 13:19 IMPRESSION: Acute pancreatitis. No pseudocyst, abscess, or necrotizing pancreatitis. Electronically Signed: Cuba Rosa MD at 15:29 EDT Tel , Service support , Abdomen Ultrasound 10/25/20 14:18 IMPRESSION: Cholelithiasis. Electronically Signed: Cuba Rosa MD at 15:58 EDT Tel , Service support ,
[2020-10-26 07:06] LABS: ALB/GLOB Ratio 1.2 RATIO (0.9-2.4); AST(SGOT) 75 U/L (15-37); Alanine Aminotransfer ALT/SGPT 141 U/L (13-56); Albumin, Serum 3.2 g/dL (3.2-5.0); Alkaline Phosphatase 79 U/L (45-117); Anion Gap 6 (5-15); BUN 15 mg/dL (7-18); BUN/Creat Ratio 24.9 RATIO (10-20); Calcium,Total 8.1 mg/dL (8.5-10.1); Chloride 109 mmol/L (98-107); EST Glomerular Filtration Rate 108 mL/min (>60); Est Glom Filt Rate - Afr Amer 131 mL/min (>60); Estimated Creatinine Clearance 79.85 ml/min; Globulin 2.7 g/dL (2.2-4.2); Glucose 93 mg/dL (74-106); Lipase 2384 U/L (73-393); Phosphorus 3.4 mg/dL (2.5-4.9); Potassium 3.2 mmol/L (3.5-5.1); Protein, Total 5.9 g/dL (6.4-8.2); Sodium Level 140 mmol/L (136-145); Thyroid Stim Hormone (TSH) 0.72 uIU/mL (0.358-3.74)
--- NOTE | 2020-10-26 08:40 | PN_ITS ---
Progress Note The patient's lipase is decreased and so have her LFTs. Given this I have a lower suspicion for choledocholithiasis and I recommend proceeding with laparoscopic cholecystectomy with cholangiogram. I explained that if choledocholithiasis was demonstrated on cholangiogram I may proceed with laparoscopic common bile duct exploration or proceed with ERCP tomorrow. I discussed the procedure in detail with the patient. I discussed the risks, benefits, and alternatives of the procedure. I discussed the risks including but not limited to bleeding, infection, injury to surrounding organs such as the liver, bile duct, bowels. I also discussed the possibility of laparoscopic common bile duct exploration and the increased risk of perforation of the bile duct with this. I did discuss the possibility of having to convert to an open procedure as well as the possibility that if any injuries occurred this may necessitate further surgery at a tertiary care center. Sergo Baker MD Pager: [facility] [address] [place] [address] [address] [place] [address] Office:
--- NOTE | 2020-10-26 08:43 | PN.HOSP_ITS ---
Subjective Subjective Feels much better. Abdominal pain improved. Notes that she had a similar episode before, but much less severe and resolved in about 3 days. Unknown if she had pancreatic enzymes ordered at that time. States that she does drink, usually on the weekend with 4 beers. Complains of headache, frontal, today. Objective Data Objective Data Vital Signs: Vital Signs Temp Pulse Resp BP Pulse Ox 37.3 C 80 18 126/61 H 95 10/26/20 06:01 10/26/20 06:01 10/26/20 06:01 10/26/20 06:01 10/26/20 06:01 Oxygen Flow Rate (L/min) 2 Oxygen Delivery Method Nasal Cannula Weight: 86.4 kg Body Mass Index (BMI) 34.8 Intake & Output: Intake and Output for Last 24 Hours 10/24/20 10/25/20 10/26/20 23:59 23:59 23:59 Intake Total 1441.67 / 1441.67 1589.16 / 1589.16 Balance 1441.67 / 1441.67 1589.16 / 1589.16 Lab / Micro Data Result Diagrams: 10/26/20 05:40 10/26/20 05:40 Labs: Laboratory Results - last 24 hr 10/25/20 13:15: WBC 12.2 H, RBC 4.83, Hgb 13.8, Hct 42.4, MCV 87.8, MCH 28.6, MCHC 32.5, RDW Std Deviation 41.8, RDW Coeff of [place] 12.9, Plt Count 213, MPV 10.2, Immature Gran % (Auto) 0.400, Neut % (Auto) 91.2 H, Lymph % (Auto) 4.9 L, [place] % (Auto) 3.4, Eos % (Auto) 0.0, Baso % (Auto) 0.1, Absolute Neuts (auto) 11.1 H, Absolute Lymphs (auto) 0.60 L, Nucleated RBC % 0 10/25/20 13:15: Sodium 138, Potassium 3.4 L, Chloride 107, Carbon Dioxide 23.0, Anion Gap 8, BUN 21 H, Creatinine 0.91, Estim Creat Clear Calc 52.65, Est GFR (MDRD) Af Amer 81, Est GFR (MDRD) Non-Af 67, BUN/Creatinine Ratio 23.0 H, Glucose 198 H, Calcium 8.8, Total Bilirubin 0.80, Direct Bilirubin 0.20, AST 253 H, ALT 243 H, Alkaline Phosphatase 108, Total Protein 7.5, Albumin 4.0, Globulin 3.5, Lipase 12902 H 10/25/20 13:15: Urine Color Yellow, Urine Clarity Clear, Urine pH 6.0, Ur Specific [place] 1.015, Urine Protein 30 H, Urine Glucose (UA) Normal, Urine Ketones 15 H, Urine Occult Blood 25 H, Urine Nitrite Negative, Urine Bilirubin Negative, Urine Urobilinogen 1 H, Ur Leukocyte Esterase 100 H, Urine RBC 0 SEEN, Urine WBC 0-5 SEEN, Ur Squamous Epith Cells 0-5 SEEN, Urine Bacteria 0 SEEN, Urine Mucus 0 SEEN 10/25/20 21:40: POC Glucose 126 H 10/26/20 02:14: POC Glucose 105 10/26/20 05:40: WBC 10.0, RBC 4.02 L, Hgb 11.6 L, Hct 36.5 L, MCV 90.8, MCH 28.9, MCHC 31.8 L, RDW Std Deviation 44.0 H, RDW Coeff of [place] 13.2, Plt Count 177, MPV 10.4, Immature Gran % (Auto) 0.400, Neut % (Auto) 78.3 H, Lymph % (Auto) 16.0 L, [place] % (Auto) 4.6, Eos % (Auto) 0.5, Baso % (Auto) 0.2, Absolute Neuts (auto) 7.8 H, Absolute Lymphs (auto) 1.60, Nucleated RBC % 0 10/26/20 05:40: Sodium 140, Potassium 3.2 L, Chloride 109 H, Carbon Dioxide 25.0, Anion Gap 6, BUN 15, Creatinine 0.60, Estim Creat Clear Calc 79.85, Est GFR (MDRD) Af Amer 131, Est GFR (MDRD) Non-Af 108, BUN/Creatinine Ratio 24.9 H, Glucose 93, Calcium 8.1 L, Phosphorus 3.4, Magnesium 2.0, Total Bilirubin 0.60, AST 75 H, ALT 141 H, Alkaline Phosphatase 79, Total Protein 5.9 L, Albumin 3.2, Globulin 2.7, Albumin/Globulin Ratio 1.2, Lipase 2384 H, TSH 0.72 10/26/20 05:40: Hemoglobin A1c 6.0 H 10/26/20 06:08: POC Glucose 98 Micro: Microbiology 10/25/20 17:50 Nasal Secretion SARS-CoV-2 Antigen (Rapid) - Final Radiography Diagnostic Testing: Radiology Impression Abdomen/Pelvis CT 10/25/20 13:19 IMPRESSION: Acute pancreatitis. No pseudocyst, abscess, or necrotizing pancreatitis. Electronically Signed: Cuba Rosa MD at 15:29 EDT Tel , Service support , Abdomen Ultrasound 10/25/20 14:18 IMPRESSION: Cholelithiasis. Electronically Signed: Cuba Rosa MD at 15:58 EDT Tel , Service support , Physical Exam Const alert Resp normal respiratory effort, no use of accessory muscles and clear to auscultation bilaterally Cardio regular rate, regular rhythm, S1 normal heart sound and S2 normal heart sound GI normal to inspection, nondistended, normoactive bowel sounds, soft to palpation and non-distended GI Narrative: slight epigastric tenderness Neuro Sensorium / Orientation: awake and alert Psych affect normal Assessment & Plan Assessment/Plan (1) Acute pancreatitis: QUALIFIERS: Pancreatitis type: biliary Acute pancreatitis complication: no infection or necrosis Qualified Code(s): K85.10 - Biliary acute pancreatitis without necrosis or infection PLAN: 1. acute pancreatitis lipase down from 10,463 to 2384 suspect due to cholelithiasis. Alcohol is certainly on the differential as etiology, but I suspect unlikely at this point. plan for lap filiberto today. on LR, decrease rate from 250 to 150 2. Hypokalemia continue replacement magnesium normal 3. Cholelithiasis no cholecystitis on US lap filiberto today 4. Cephalgia likely multifactorial: illness, poor sleep while in hospital and caffeine WD (does drink coffee daily) acetaminophen no narcotics for headache 5. VTE prophylaxis: LMWH Charges/Coding Visit Charges Inpatient E&M: 40630 Subs Hosp L2
[2020-10-26] MEDS: Acetaminophen 325 MG Tablet 650 MG PO (09:11)
[2020-10-26] MEDS: Potassium Chloride 10mEq/100mL 10 MEQ/100 ML IV.SOLN. 100 MEQ IV BOLUS ×4 (09:13→13:00)
[2020-10-26] MEDS: Lactated Ringers 1,000 ML 150 ML IV ×2 (10:45→18:25)
[2020-10-26 11:26] LABS: Bedside Glucose 101 mg/dL (70-110)
[2020-10-26] MEDS: Ciprofloxacin 400 MG/200 ML BAG 200 MG IV (13:17)
--- NOTE | 2020-10-26 13:45 | GALL_PTH ---
PATIENT: CELSO SHANKAR LOC: MS3 U#:[id number] AGE/SX: 60/F ROOM: MS309 RE10/25/[address]: Dr. Gomez Mantilla DO : 1960 BED: 1 DIS: 10/27/2020 SPEC #: [id number] RECD: 10/26/20 15:17 STATUS: ARIES CORONADO #: [id number] AMADOR: 10/26/20 13:[address]: Sergo Baker DEPT: SURGICAL PATHOLOGY RECD BY: Emma Simeon ENTERED: 10/27/20 09:39 SP TYPE: GALLBLADDE OTHR DR: MD Dr. Gomez Alvarez DO Dr. Hannah Miedel, MD Dr. Kathryn Lee, Tissues: Gallbladder, NOS Procedures: Surgery Specimen Level III Comments: @ Ordering doctor for SUIII edited from to @ nabor KLEIN at 10/27/20 1459 @ Submitting doctor edited from to @ by JEROOD at 10/27/20 1459 HEADER OPERATION: Laparoscopic cholecystectomy with IOC PRE-OP DIAGNOSIS: Acute pancreatitis TISSUE SUBMITTED: Gallbladder MICROSCOPIC DIAGNOSIS Gallbladder, cholecystectomy: Cholesterolosis, chronic cholecystitis and cholelithiasis. AM;am 10/31/20 MICROSCOPIC DESCRIPTION Slides are reviewed. GROSS DESCRIPTION Received is one container labeled with the patient's name and designated gallbladder. The specimen consists of a gallbladder measuring 9 x 3 x 2.5 cm. The external surface is smooth and glistening. Focally, it is granular, hemorrhagic and contains cautery artifact. The lumen of the gallbladder contains yellow-green mucoid bile and multiple chalky, yellow calculi ranging in size from 0.1 to 1.7 cm in greatest dimension. The mucosa is bile-stained and without any mass lesions. The gallbladder wall averages 0.2 cm in thickness and is free of mass lesions. [employer] sections of the gallbladder and the cystic duct at margin of resection are submitted in one cassette. / HAROLDO:johnny 10/27/2020 TC:3 CPT: 62817
--- NOTE | 2020-10-26 13:45 | RAD_ITS ---
INDICATION: IOC EXAMINATION/TECHNIQUE: 2 limited spot intraoperative films are presented for evaluation. Total Fluoroscopic Time: 0:14 minutes/seconds number of Fluoroscopic Images: 2 COMPARISON: CT scan obtained 10/25/2020. FINDINGS: Intraoperative spot fluoroscopic images demonstrate cannulation of the cystic duct with contrast injection, opacification of the cystic duct, time extrahepatic venous system is seen. No filling defects are identified. There is no biliary ductal dilatation. There is free passage into the duodenum. RAD/Cholangiogram/ O R,Initial IMPRESSION: Unremarkable intraoperative cholangiogram. Electronically Signed: Matt Lang MD at 9:48 EDT Tel , Service support ,
[2020-10-26] MEDS: metroNIDAZOLE 500 MG/100 ML BAG 100 MG IV (14:14)
[2020-10-26] MEDS: Bupivacaine Mpf 0.5% 30 ML VIAL (14:40)
--- NOTE | 2020-10-26 14:52 | PCM.OPRPT ---
Problems Associated Problem List Diagnoses (1) Acute pancreatitis: (2) Cholelithiasis: Report of Operation Date of Procedure: 10/26/20 Pre-Operative Diagnosis: Gallstone pancreatitis Post-Operative Diagnosis: Same Surgery/Procedure Performed:: Laparoscopic cholecystectomy with cholangiogram Description of Surgical Findings:: Normal IOC with no common bile duct filling defect and good filling of the duodenum Specimen's removed: Gallbladder and contents Description of Procedure: After obtaining informed consent patient was brought back to the operating room. General anesthesia was induced. The abdomen was prepped and draped in usual sterile fashion. A small midline incision was made superior to the umbilicus and deepened to the level of fascia. The fascia was elevated and incised. Next the peritoneum was elevated and incised in the same fashion. Finger sweep was performed and the Sanders trocar was placed into the abdomen. The balloon was inflated. The abdomen was inflated to 15 mmHg. Next a camera was introduced into the abdomen and the abdomen was inspected. Next under direct visualization three 5-mm ports were placed one subxiphoid and 2 subcostal. Next the gallbladder was elevated and retracted toward the right shoulder. The peritoneum was stripped from the gallbladder. The infundibulum was located and retracted laterally. Next the triangle of Calot was dissected and the cystic duct and cystic artery were identified. Cholangiograms were performed. The Lugo clamp was used to clamp across the infundibulum and the catheter needle was inserted into the gallbladder. Under fluoroscopy contrast was instilled into the gallbladder and the common duct, cystic duct as well as proximal hepatic ducts were identified. There was good filling of the duodenum. There were no filling defects noted in the common bile duct. The clamp was removed as well as the needle and the infundibulum was grasped once more. Three hemolock clips were placed across the cystic duct. The cystic duct was then divided leaving 2 clips on the stump. The cystic artery was clipped and divided in the same fashion. The hook cautery was then used to take the gallbladder off of the gallbladder bed. Hemostasis was obtained. Gallbladder fossa was irrigated and no active bleeding or bile leakage was noted. Next the camera was introduced in the subxiphoid port. An Endopouch bag was placed through the umbilical port and the gallbladder was placed into it. The gallbladder was then removed through the umbilical incision. The camera was then reinserted through the umbilical port. The gallbladder fossa was inspected once more and noted to be hemostatic with no leaking bile. The abdomen was suctioned dry. The 5 mm ports were removed under direct visualization. The umbilical port was then removed and the air was removed from the abdomen. Next using an 0 Vicryl suture the umbilical fascia was closed in a [id number] fashion. The umbilical port site was irrigated local anesthetic was administered to all the incisions. All the incisions were closed with interrupted subcuticular 4-0 Monocryl sutures followed by Steri-Strips and dressings. The patient was awoken and taken to PACU in stable condition. Admit VTE Documentation VTE Mechan Device Prophylaxis: SCD's
--- NOTE | 2020-10-26 15:37 | CASEMGMT ---
RN CM in to pt room, pt remains off of the floor for surgery. Assessment to be deferred to tomorrow.
[2020-10-26 17:00] LABS: Bedside Glucose 132 mg/dL (70-110)
[2020-10-27] VITALS (8 sets, daily range): BP systolic 134–152; BP diastolic 57–73; PULSE 60–81; RESP 12–18; TEMP 36.6–37.3; O2SAT 96–98
[2020-10-27] MEDS: HYDROmorphone 1 MG/ML Syringe IV (01:17)
[2020-10-27] MEDS: Lactated Ringers 1,000 ML 150 ML IV ×2 (01:17→04:35)
[2020-10-27] MEDS: Acetaminophen 325 MG Tablet 650 MG PO (04:35)
[2020-10-27] MEDS: Levothyroxine 125 MCG Tablet PO (04:35)
[2020-10-27 05:47] LABS: AST(SGOT) 48 U/L (15-37); Alanine Aminotransfer ALT/SGPT 102 U/L (13-56); Albumin, Serum 2.9 g/dL (3.2-5.0); Alkaline Phosphatase 71 U/L (45-117); Anion Gap 4 (5-15); BUN 8 mg/dL (7-18); BUN/Creat Ratio 13.9 RATIO (10-20); Chloride 109 mmol/L (98-107); Creatinine, Serum 0.58 mg/dL (0.55-1.02); EST Glomerular Filtration Rate 114 mL/min (>60); Est Glom Filt Rate - Afr Amer 138 mL/min (>60); Globulin 2.8 g/dL (2.2-4.2); Glucose 136 mg/dL (74-106); Lipase 249 U/L (73-393); Potassium 3.7 mmol/L (3.5-5.1); Protein, Total 5.7 g/dL (6.4-8.2); Sodium Level 140 mmol/L (136-145)
--- NOTE | 2020-10-27 07:54 | PN.SURG_ITS ---
Subjective Subjective Patient is doing well today and tolerating clears with no nausea or vomiting. Minimal abdominal pain. Objective Data Objective Data Vital Signs: Vital Signs Temp Pulse Resp BP Pulse Ox 97.8 F 65 18 145/71 H 96 10/27/20 04:25 10/27/20 04:25 10/27/20 04:25 10/27/20 04:25 10/27/20 04:25 Oxygen Flow Rate (L/min) 2 Oxygen Delivery Method Room Air Weight: 190 lb 7.67 oz Body Mass Index (BMI) 34.8 Intake & Output: Intake and Output for Last 24 Hours 10/25/20 10/26/20 10/27/20 23:59 23:59 23:59 Intake Total 1441.67 / 1441.67 4584.16 / 4584.16 2190 / 2190 Output Total 800 / 800 700 / 700 Balance 1441.67 / 1441.67 3784.16 / 3784.16 1490 / 1490 Lab / Micro Data Result Diagrams: 10/26/20 05:40 10/27/20 04:20 Labs: Laboratory Results - last 24 hr 10/26/20 11:21: POC Glucose 101 10/26/20 16:55: POC Glucose 132 H 10/27/20 04:20: Sodium 140, Potassium 3.7, Chloride 109 H, Carbon Dioxide 27.0, Anion Gap 4 L, BUN 8, Creatinine 0.58, Estim Creat Clear Calc 82.60, Est GFR (MDRD) Af Amer 138, Est GFR (MDRD) Non-Af 114, BUN/Creatinine Ratio 13.9, Glucose 136 H, Calcium 8.0 L, Total Bilirubin 0.50, AST 48 H, ALT 102 H, Alkaline Phosphatase 71, Total Protein 5.7 L, Albumin 2.9 L, Globulin 2.8, Albumin/Globulin Ratio 1.0, Lipase 249 Micro: Microbiology 10/25/20 17:50 Nasal Secretion SARS-CoV-2 Antigen (Rapid) - Final Physical Exam Const no apparent distress Resp normal respiratory effort Cardio regular rate GI soft to palpation and non-tender Assessment & Plan Assessment/Plan (1) Acute pancreatitis: QUALIFIERS: Pancreatitis type: biliary Acute pancreatitis complication: no infection or necrosis Qualified Code(s): K85.10 - Biliary acute pancreatitis without necrosis or infection (2) Cholelithiasis: QUALIFIERS: Cholelithiasis location: gallbladder Cholecystitis presence: without cholecystitis Biliary obstruction: without biliary obstruction Qualified Code(s): K80.20 - Calculus of gallbladder without cholecystitis without obstruction PLAN: Patient had laparoscopic cholecystectomy yesterday for gallstone pancreatitis. Intraoperative cholangiogram showed no filling defects in the bi le duct. Patient's LFTs and lipase have returned to normal today and I will start a regular diet. If she tolerates that she can be discharged home today. Sergo Baker MD Pager: [facility] [address] [place] [address], [address] [place] [address] Office:
--- NOTE | 2020-10-27 07:58 | DS.PCM_ITS ---
Providers Date of Admission: 10/25/20 Primary Care Physician: Dr. Maricruz Zavaleta MD Consultations 10/25/20 19:37 Consult: General Surgery Routine Consulting Provider: Sergo Baker Reason for Consult: acute pancreatitis EMERGENT Consult: No MD Notified: Yes Date Notified: 10/25/20 Time Notified: 17:11 Method of Notification: Verbal Comments:: according to hospitalist note, discussed in ER Reason For Visit: ACUTE PANCREATITIS Diagnosis Discharge Diagnosis (1) Acute pancreatitis: Status: Acute Code(s): K85.90 - Acute pancreatitis without necrosis or infection, unspecified Qualifiers: Pancreatitis type: biliary Acute pancreatitis complication: no infection or necrosis Qualified Code(s): K85.10 - Biliary acute pancreatitis without necrosis or infection (2) Cholelithiasis: Status: Acute Code(s): K80.20 - Calculus of gallbladder without cholecystitis without obstruction Qualifiers: Cholelithiasis location: gallbladder Cholecystitis presence: without cholecystitis Biliary obstruction: without biliary obstruction Qualified Cod e(s): K80.20 - Calculus of gallbladder without cholecystitis without obstruction Medications at Discharge Home Medications cholecalciferol (vitamin D3) 50 mcg PO DAILY 10/25/20 citalopram 20 mg PO DAILY 10/25/20 levothyroxine 125 mcg PO DAILY 10/25/20 topiramate 50 mg PO DAILY 10/25/20 acetaminophen [Tylenol] 650 mg PO Q4H PRN PRN #0 tab 10/27/20 oxycodone 5 - 10 mg PO Q6H PRN 5 Days #20 tab 10/27/20 Hospital Course Operations cholecystecomy Procedures None Summary of Care Provided Hospital Course: Patient was admitted with gallstone pancreatitis. The following day her LFTs continue to decrease so she was taken for laparoscopic cholecystectomy with intraoperative cholangiogram. Cholangiogram showed no filling defects in the common bile duct. Following day her LFTs and lipase co ntinued to trend downward and a regular diet was started and she was discharged home once tolerating regular diet. Weight / BMI Weight Weight: 190 lb 7.67 oz Body Mass Index (BMI) 34.8 ABG / Lab / Microbiology Data Result Diagrams: 10/26/20 05:40 10/27/20 04:20 Laboratory: Laboratory Results - last 24 hr 10/26/20 11:21: POC Glucose 101 10/26/20 16:55: POC Glucose 132 H 10/27/20 04:20: Sodium 140, Potassium 3.7, Chloride 109 H, Carbon Dioxide 27.0, Anion Gap 4 L, BUN 8, Creatinine 0.58, Estim Creat Clear Calc 82.60, Est GFR (MDRD) Af Amer 138, Est GFR (MDRD) Non-Af 114, BUN/Creatinine Ratio 13.9, Glucose 136 H, Calcium 8.0 L, Total Bilirubin 0.50, AST 48 H, ALT 102 H, Alkaline Phosphatase 71, Total Protein 5.7 L, Albumin 2.9 L, Globulin 2.8, Alb umin/Globulin Ratio 1.0, Lipase 249 Microbiology: Microbiology 10/25/20 17:50 Nasal Secretion SARS-CoV-2 Antigen (Rapid) - Final D/C Instructions Discharge Diet: Light diet - advance as tolerated Discharge Activity: May Not Drive (for 2-3 days or while taking narcotic pain medications.), May Shower and - (Do not drive, work heavy equipment or sign legal documents for 24 hours.) Return to work on: 10/31/20 Lifting Restrictions: 20 lbs for 2 weeks Additional Activity Instructions: Pain medication may cause nausea. You should typically eat light foods as you take your pain medications. Pain medication may also cause constipation. If this is a problem for you, joesph gatica discuss with your doctor. Call your doctor if your incision/area has: Continuous Slow Oozing, Sudden Increased Bleeding, Increased Pain/ Swelling, Increased Redness, Foul Smelling Discharge and Swelling at the incision site Call your doctor if you observe: Fever of 101 or Higher Suture Line Care: Avoid Pulling/Pushing and Avoid Pinching/Bending Additional Dressing/Incision Instructions: Leave operative bandaids on for 2 days. When you remove dressing, leave Steri-Strips on until your follow-up a ppointment, or until the Steri-Strips fall off on their own. Please Follow Up With: Sergo Baker MD When: Please call to schedule 2 week follow up appointment. [phone] Meaningful Use Info Meaningful Use Diagnoses (Choose all that apply): None applicable Discharge Plan Admission Admit Date/Time: 10/25/20 17:14 Attending Provider: Gomez Mantilla Primary Care Provider: Maricruz Zavaleta Consulting Providers: Sergo Baker Discharge Orders/Prescriptions Prescriptions: New acetaminophen [Tylenol] 325 mg Tablet 650 mg PO Q4H PRN PRN (Reason: Pain Score 1-10) Qty: 0 RF: 0 oxycodone 5 mg tablet 5 - 10 mg PO Q6H PRN (Reason: pain) 5 Days Qty: 20 RF: 0 Continued citalopram 20 mg tablet 20 mg PO DAILY RF: 0 topiramate 50 mg tablet 50 mg PO DAILY RF: 0 levothyroxine 125 mcg tablet 125 mcg PO DAILY RF: 0 cholecalciferol (vitamin D3) 50 mcg (2,000 unit) Capsule 50 mcg PO DAILY RF: 0 Referrals / Follow Up: Maricruz Zavaleta MD [Primary Care Provider] - Disposition Disposition (needs filled in before D/C Order can be placed): Home, Self Care
[2020-10-27] MEDS: oxyCODONE 5 MG Tablet PO ×2 (09:12→13:52)
[2020-10-27] MEDS: Enoxaparin 40 MG/0.4 ML Syringe SC (09:13)
[2020-10-27] MEDS: Citalopram 20 MG Tablet PO (09:13)
[2020-10-27] MEDS: Topiramate 50 MG Tablet PO (09:13)
--- NOTE | 2020-10-27 10:00 | CASEMGMT ---
LUIS SAMPSON Assessment: Face to Face with pt for initial transition planning/care coordination assessment. RN ADRIÁN introduced self and role at [facility], pt voices understanding and consents to assessment. Pt is A/O x4 and answers all questions appropriately at this time. Pt sitting up in bed in no distress and her mother came in during assessment. Care providers, pharmacy, and demographics verified/updated. Admitting Dx: acute pancreatitis PCP:Waqar Specialists: sydnie Castaneda Preferred [facility]acy: [facility] Insurance: [place] Prescription Benefit: yes LW/HPOA: Pt denies having a LW/DPOA or the need for info regarding. LNOK: Rodriguez Sanches, ; Masha Mccarty, mother Living Arrangements: Pt lives with in a single story house with 3 steps to enter. Pt reports being I in ADL's and denies concerns at home. Transportation: Pt drives self and denies issues with transportation. DME/HHC/SNF: Pt denies any DME, previous HHC or SNF stays. Pt reports that she drinks 4-5 bottles of beer on the weekends, denies any cigarette, street or illegal drug use. Pt states she is going to go to her mother's home for a few days as her works second shift and sleeps often during the day. Pt states no further concerns/needs. CM to follow. Advised pt to ask CM if any further question/concerns/needs arise, voices understanding. Pt Goal: To mother's home then home Plan: To mother's home then home
--- NOTE | 2020-10-27 14:17 | PCM.PN.HOSP ---
Subjective Subjective feels good. tolerated oral. Objective Data Objective Data Vital Signs: Vital Signs Temp Pulse Resp BP Pulse Ox 37.3 C 68 18 139/57 H 97 10/27/20 13:54 10/27/20 13:54 10/27/20 13:54 10/27/20 13:54 10/27/20 13:54 Oxygen Flow Rate (L/min) 2 Oxygen Delivery Method Room Air Weight: 86.4 kg Body Mass Index (BMI) 34.8 Intake & Output: Intake and Output for Last 24 Hours 10/25/20 10/26/20 10/27/20 23:59 23:59 23:59 Intake Total 1441.67 / 1441.67 4584.16 / 4584.16 2271 / 2271 Output Total 800 / 800 700 / 700 Balance 1441.67 / 1441.67 3784.16 / 3784.16 1571 / 1571 Lab / Micro Data Result Diagrams: 10/26/20 05:40 10/27/20 04:20 Labs: Laboratory Results - last 24 hr 10/26/20 16:55: POC Glucose 132 H 10/27/20 04:20: Sodium 140, Potassium 3.7, Chloride 109 H, Carbon Dioxide 27.0, Anion Gap 4 L, BUN 8, Creatinine 0.58, Estim Creat Clear Calc 82.60, Est GFR (MDRD) Af Amer 138, Est GFR (MDRD) Non-Af 114, BUN/Creatinine Ratio 13.9, Glucose 136 H, Calcium 8.0 L, Total Bilirubin 0.50, AST 48 H, ALT 102 H, Alkaline Phosphatase 71, Total Protein 5.7 L, Albumin 2.9 L, Globulin 2.8, Albumin/Globulin Ratio 1.0, Lipase 249 Micro: Microbiology 10/25/20 17:50 Nasal Secretion SARS-CoV-2 Antigen (Rapid) - Final Radiography Diagnostic Testing: Radiology Impression Cholangiogram 10/26/20 13:45 IMPRESSION: Unremarkable intraoperative cholangiogram. Electronically Signed: Matt Lang MD at 9:48 EDT Tel , Service support , Physical Exam Const alert and no apparent distress Psych affect normal Assessment & Plan Assessment/Plan (1) Acute pancreatitis: QUALIFIERS: Pancreatitis type: biliary Acute pancreatitis complication: no infection or necrosis Qualified Code(s): K85.10 - Biliary acute pancreatitis without necrosis or infection PLAN: 1. acute pancreatitis lipase down from 10,463 to 249 suspect due to cholelithiasis. Alcohol is certainly on the differential as etiology, but I suspect unlikely at this point. plan for lap filiberto today. on LR, decrease rate from 250 to 150 2. Hypokalemia continue replacement magnesium normal 3. Cholelithiasis no cholecystitis on US lap filiberto 10/26 4. Cephalgia likely multifactorial: illness, poor sleep while in hospital and caffeine WD (does drink coffee daily) acetaminophen no narcotics for headache 5. VTE prophylaxis: LMWH Discharge Charges/Coding Visit Charges Inpatient E&M: 62573 Subs Hosp L1
--- NOTE | 2020-10-31 14:10 | CASEMGMT ---
LUIS SAMPSON Discharge Follow-up Phone Call: ANDRESAmber: Elina Strata: 3 Call Date: 10/31/20 Discharge Date: 10/27/20 Time of Call: 1410 Admitting Diagnosis: acute pancreatitis This RN ADRIÁN attempted to contact pt via phone in follow-up from pt's discharge. A voicemail identified with pt's name was received and message left for pt return a call if she has questions or concerns related to her discharge. Yovany Heart RN CM
== END 2020-10-27 15:07 | disposition home or self-care (01) | DRG 418 ==
LOC: ED 17:27 → MS3 17:41
PROVIDERS: Surgery; Admitting Provider Internal Medicine; Emergency Provider Emergency Medicine; PCP Family Medicine
PROC: 0FT44ZZ Resection of Gallbladder, Percutaneous Endoscopic Approach (ICD-10-PCS; CPT 47610; principal; 2020-10-26 13:25)
DX: K85.10 Biliary acute pancreatitis without necrosis or infection (principal); K80.10 Calculus of gallbladder with chronic cholecystitis without obstruction; E87.6 Hypokalemia; E66.9 Obesity, unspecified; Z68.34 Body mass index [BMI] 34.0-34.9, adult; E03.9 Hypothyroidism, unspecified; E55.9 Vitamin D deficiency, unspecified; F32.9 Major depressive disorder, single episode, unspecified; G43.909 Migraine, unspecified, not intractable, without status migrainosus; Z87.19 Personal history of other diseases of the digestive system; Z79.899 Other long term (current) drug therapy; Z87.891 Personal history of nicotine dependence
CPT/HCPCS: 36415; 74177; 74300; 76000; 76705; 80048; 80053; 80076; 81001; 82962; 83036; 83690; 83735; 84100; 84443; 85025; 87426; 88304; 93005; 97802; 99251; 99284; J7030; J7040; J7120; Q9967; A4216; G0463; J0744; J2405

== ENCOUNTER → 2021-09-07 | Outpatient (CLI) | payer BC, SELFPAY ==
[2021-09-07 09:48] LABS: Absolute Lymphocyte Count 1.71 X10^3/uL (0.83-4.51); Absolute Neutrophil Count 3.8 X10^3/uL (2.0-7.7); Basophil# 0.02 X10^3/uL; Basophil% 0.3 % (0-1); Eosinophil# 0.14 X10^3/uL; Eosinophils% 2.3 % (0-5); Hematocrit 40.9 % (37-47); Hemoglobin 13.3 g/dL (12.0-15.0); Lymphocyte # 1.71 X10^3/ul (0.83-4.51); Lymphocyte % 28.3 % (19-41); Mean Corp Hgb Conc 32.5 g/dL (32-36); Mean Corpuscular Hgb 28.8 pg (27.0-32.0); Mean Corpuscular Volume 88.5 fL (81-99); Mean Platelet Vol. 9.9 fl (6.2-12.0); Monocyte# 0.36 X10^3/uL; NRBC Flagged by Analyzer 0 % (0-5); Neutrophil # 3.79 X10^3/uL (2.7-7.7); Neutrophil % 62.8 % (47-70); Platelet Count 198 K/mm3 (150-450); RBC Distribution Width CV 13.2 % (11.6-14.6); RBC Distribution Width SD 42.7 fl (35.1-43.9); Red Blood Count 4.62 M/mm3 (4.2-5.4)
[2021-09-07 10:13] LABS: Hemoglobin A1c 6.2 % (3.8-5.6)
[2021-09-07 10:27] LABS: ALB/GLOB Ratio 1.2 RATIO (0.9-2.4); AST(SGOT) 10 U/L (15-37); Alanine Aminotransfer ALT/SGPT 18 U/L (13-56); Albumin, Serum 3.7 g/dL (3.2-5.0); Alkaline Phosphatase 80 U/L (45-117); Anion Gap 5 (5-15); BUN 18 mg/dL (7-18); BUN/Creat Ratio 21.7 RATIO (10-20); Calcium,Total 8.3 mg/dL (8.5-10.1); Chloride 110 mmol/L (98-107); Cholesterol 197 mg/dL (200); Creatinine, Serum 0.83 mg/dL (0.55-1.02); EST Glomerular Filtration Rate 75 mL/min (>60); Est Glom Filt Rate - Afr Amer 90 mL/min (>60); Globulin 3.2 g/dL (2.2-4.2); Glucose 102 mg/dL (74-106); High Density Lipoprotein 55 mg/dL; Potassium 3.8 mmol/L (3.5-5.1); Protein, Total 6.9 g/dL (6.4-8.2); Sodium Level 140 mmol/L (136-145); Thyroid Stim Hormone (TSH) 0.54 uIU/mL (0.358-3.74); Triglycerides 147 mg/dL; Very Low Density Lipoprotein 29 mg/dL (5-40)
== END | disposition home or self-care (01) ==
PROVIDERS: PCP Family Medicine; Referring Provider Family Medicine; Visit Provider Family Medicine
DX: R23.3 Spontaneous ecchymoses (principal); E03.9 Hypothyroidism, unspecified; R73.03 Prediabetes
CPT/HCPCS: 36415; 80053; 80061; 83036; 84443; 85025

== ENCOUNTER → 2021-11-02 | Outpatient (CLI) | payer BC, SELFPAY ==
--- NOTE | 2021-11-02 12:45 | BI_ITS ---
MAMMOGRAPHY - BILATERAL SCREENING REASON FOR EXAM: Female, 61 years old. Routine annual screening examination. PERTINENT HISTORY: Grandmother with breast cancer. Remote left stereotactic breast biopsy. TECHNIQUE: Digital bilateral breast pee (3D mammographic acquisition) in the CC and MLO projections. 2-D mediolateral oblique (MLO) and craniocaudad (CC) views of both breasts were obtained. CAD: Full Field Digital Mammography with Computer Added Detection was performed. COMPARISON: Comparison is made with prior study 11/17/2019 and 09/22/2018. FINDINGS: Breast Composition: There are scattered areas of fibroglandular density. There are no dominant masses or suspicious calcifications. A tissue clip marker is seen in the deep central portion of the left breast. No other significant abnormalities are identified. There has been no significant change since the prior study. BI/SCRN MAMM (CAD)W/PEE BILAT IMPRESSION: Stable bilateral screening mammogram. Yearly follow-up mammogram recommended. (A) ASSESSMENT CATEGORY: BIRADS Category 2: Benign. A letter regarding these results will be sent to the patient by the facility within 30 days. Approximately 10% of breast cancers are not detected by mammography. A normal mammogram should not delay biopsy of a clinically suspicious abnormality. [id number] Electronically Signed: Leonel Stafford MD at 14:19 EDT ,
== END | disposition home or self-care (01) ==
PROVIDERS: PCP Family Medicine; Visit Provider Family Medicine
DX: Z12.31 Encounter for screening mammogram for malignant neoplasm of breast (principal)
CPT/HCPCS: 77063; 77067

== ENCOUNTER → 2022-01-04 | Outpatient (CLI) | payer BC, SELFPAY ==
--- NOTE | 2022-01-04 13:04 | CT_ITS ---
STUDY: LOW DOSE CT LUNG CANCER SCREENING REASON FOR EXAM: Female, 61 years old. SCREENING. Patient smoked 1 1/2 packs per day for 35 years. Former smoker. RADIATION DOSAGE (If Supplied By Facility): CTDIvol = ( 3.02 ) mGy, DLP = ( 106.08 ) mGycm TECHNIQUE: No contrast was administered. Low dose technique was utilized (average mAS-38 and kVp 120). 1.25 mm axial source images with a slice interval of 1.25-mm were reconstructed in lung windows. 2.5 mm axial source images with a slice interval of 2.5-mm were reconstructed in lung windows. 5.0 mm axial source images with a slice interval of 5.0-mm were reconstructed in soft tissue windows. COMPARISON: Comparison is made with prior examination dated 02/23/2018. NODULES: Stable 1 mm calcified granuloma in the anterior lateral aspect of the right upper lobe as seen on axial image #67. There is a 1 cm x 1.1 cm pleural-based nodule in the lateral aspect of the lingular segment of the left upper lobe adjacent to the major fissure. This is seen on axial image #150 to and coronal image 134. This is new as compared to prior study. Emphysema: Hyperinflation. Endobronchial lesion: None Aorta: Minimal plaque formation of the aortic arch. CORONARY ARTERIES: Coronary artery calcification is not seen. Heart: Unremarkable Pulmonary artery: Unremarkable Mediastinal nodes: Small mediastinal lymph nodes. Other chest and abdominal findings: CT/Low Dose CT Lung Screening IMPRESSION: Lung-RADS category 4B - Chest CT with or without contrast, PET/CT and/or tissue sampling can be obtained depending on the probability of malignancy and comorbidities. IMPORTANT NOTES FOR USE: ACR Lung-RADS Version 1.1 Assessment Categories Release Date: 2018 Category: Coded 0-4 bases on nodule(s) with highest degree of suspicion. Negative screen is defined as categories 1 and 2; a positive screen is defined as categories 3 and 4. Category 3 and 4A nodules that are unchanged on interval CT should be coded as category 2, and individuals returned to screening in 12 months. Category 4X: Category 3 or 4 nodules with additional imaging findings that increase the suspicion of lung cancer, such as spiculation, GGN that doubles in size in 1 year, enlarged lymph notes, etc. Category Modifiers: S (significant finding unrelated to lung cancer) Electronically Signed: Leonel Stafford MD at 15:03 EST ,
== END | disposition home or self-care (01) ==
LOC: CT 13:01
PROVIDERS: PCP Family Medicine; Referring Provider Family Medicine; Visit Provider Family Medicine
DX: Z87.891 Personal history of nicotine dependence (principal)
CPT/HCPCS: 71271

== ENCOUNTER → 2022-02-15 | Outpatient (CLI) | payer BC, SELFPAY | END | disposition home or self-care (01) | LOC: LABSPEC 15:49 | PROVIDERS: PCP Family Medicine; Referring Provider Family Medicine; Visit Provider Family Medicine | DX: U07.1 COVID-19 (principal) | CPT/HCPCS: 87635; U0003; U0005 ==

== ENCOUNTER → 2022-03-01 | Outpatient (CLI) | payer BC, SELFPAY ==
[2022-03-01 12:50] VITALS: PULSE 59; PULSE 62; PULSE 78; PULSE 79; PULSE 81; O2SAT 98; O2SAT 99
--- NOTE | 2022-03-01 14:59 | PCM.PSN.6M ---
PSN 6 Minute Walk Test 6 Minute Walk Test 6 Minute Walk Test: 6 Minute Walk Test PSN:6-Minute Walk Test Start: 03/01/22 12:49 Freq: Status: Discharge Protocol: [id number] Document 03/01/22 12:50 [email or web address] (Rec: 03/01/22 12:51 JULIO C [id number]) 6 Minute Walk Test Date Performed 03/01/22 Time Performed 12:30 Height 5 ft 2 in Weight: 83.915 kg Weight in Pounds 185.[address]: Allan Prescott Assistive device used: None Pre-test Oxygen Delivery Method Room Air Pulse Ox (%) 99 Pulse Rate (60-100 beats/min) 59 L Dyspnea Mimi Scale (0-10) 0 Exertion Mimi Scale (6-20) 6 1st minute Oxygen Delivery Method Room Air Pulse Ox (%) 99 Pulse Rate (60-100 beats/min) 81 2nd minute Oxygen Delivery Method Room Air Pulse Ox (%) 99 Pulse Rate (60-100 beats/min) 78 3rd minute Oxygen Delivery Method Room Air Pulse Ox (%) 98 Pulse Rate (60-100 beats/min) 79 4th minute Oxygen Delivery Method Room Air Pulse Ox (%) 98 Pulse Rate (60-100 beats/min) 78 5th minute Oxygen Delivery Method Room Air Pulse Ox (%) 98 Pulse Rate (60-100 beats/min) 79 6th minute Oxygen Delivery Method Room Air Pulse Ox (%) 98 Pulse Rate (60-100 beats/min) 81 Dyspnea Mimi Scale (0-10) 2 Exertion Mimi Scale (6-20) 13 Post-test Oxygen Delivery Method Room Air Pulse Ox (%) 98 Pulse Rate (60-100 beats/min) 62 Full Laps Walked 16 Partial Lap, Number of Tiles Walked 43 Total Distance Walked (ft) 987 Interpretation Interpretation: The patient was able to ambulate 987 feet over the course of 6 minutes on room air with no assistive devices or breaks. The patient experienced no significant desaturation or tachycardia during testing. These findings are consistent with a normal walking oximetry. Recommendations Recommendations: No supplemental oxygen is indicated at this time.
== END | disposition home or self-care (01) ==
PROVIDERS: PCP Family Medicine; Visit Provider Internal Medicine Critical Care Medicine
DX: R06.00 Dyspnea, unspecified (principal)
CPT/HCPCS: 94618

== ENCOUNTER → 2022-03-08 | Outpatient (CLI) | payer BC, SELFPAY ==
--- NOTE | 2022-03-08 14:07 | CT_ITS ---
STUDY: CT CHEST WITHOUT CONTRAST REASON FOR EXAM: Female, 61 years old. Lingula nodule 1 cm RADIATION DOSAGE (If Supplied By Facility): CTDIvol = ( 15.75 ) mGy, DLP = ( 562.87 ) mGycm TECHNIQUE: Transaxial imaging was performed without the administration of intravenous contrast material. Individualized dose optimization techniques were used for this CT. COMPARISON: Comparison is made with prior CT scan of the chest dated 01/04/2022. FINDINGS: CHEST Stable 1 cm pleural-based nodule in the lateral aspect of the lingular segment of the left upper lobe adjacent to the major fissure. This is best seen on axial image #73. Stable 1 cm calcified granuloma in the anterior lateral aspect of the right upper lobe on axial image #36. There is no demonstrated pleural abnormality. Normal heart and pericardium. No coronary artery calcification. There are multiple small lymph nodes within the mediastinum, which are normal in size and morphology most compatible with reactive lymph hyperplasia. Normal hilar regions. Normal unenhanced pulmonary arteries. There is atherosclerotic calcification of the aortic arch with tortuosity and elongation of the aortic arch and descending thoracic aorta. Normal osseous structures. Status post cholecystectomy. CT/Chest without Contrast IMPRESSION: Stable examination. Electronically Signed: Leonel Stafford MD at 14:51 EST ,
--- NOTE | 2022-03-09 08:02 | PFT ---
INTRODUCTION: The patient is is a 61-year-old female that presents for pulmonary function studies secondary to a diagnosis of dyspnea. Respiratory therapy reported good patient effort. Bronchodilators were used during testing. INTERPRETATION: Forced expiration spirometry demonstrates no evidence of a large airways obstructive ventilatory defect. There was no significant response to aerosolized bronchodilators. Spirograms are of good quality and plateau normally. Body plethysmography was performed and reveals lung volumes to be within normal limits. Diffusing capacity by single breath CO was likewise within normal limits. IMPRESSION: Grossly normal pulmonary function studies.
== END | disposition home or self-care (01) ==
PROVIDERS: PCP Family Medicine; Visit Provider Internal Medicine Critical Care Medicine
DX: R91.1 Solitary pulmonary nodule (principal); I70.0 Atherosclerosis of aorta; I77.1 Stricture of artery; Z90.49 Acquired absence of other specified parts of digestive tract; R06.00 Dyspnea, unspecified
CPT/HCPCS: 71250; 94060; 94726; 94729

== ENCOUNTER → 2022-07-05 | Outpatient (CLI) | payer BC, SELFPAY ==
--- NOTE | 2022-07-05 15:58 | CT_ITS ---
ACR Level 3 findings have been noted. An addendum which confirms receipt of the report will follow. EXAM: CT CHEST WITHOUT INTRAVENOUS CONTRAST CLINICAL INDICATION: F/U lingular nodule compared to the low-dose exams, the oldest February 23, 2018. TECHNIQUE: Helically acquired images were obtained of the chest without intravenous contrast. This CT exam was performed using one or more of the following dose reduction techniques: automated exposure control, adjustment of the mA and/or kV according to patient size, and/or use of iterative reconstruction technique. RADIATION DOSE: CTDIvol = 14.63 mGy, DLP = 504.41 mGy-cm COMPARISON: March 08, 2022.compared also to the low-dose exams, the oldest February 23, 2018 FINDINGS: LUNGS AND PLEURAL SPACES: Stable juxtapleural left lateral lingular nodule, rounded, measuring 1.3 cm AP by 1.1 cm transverse by 1.3 cm craniocaudal. Stable compared to January 04, 2022 compared to lung windows. It was not present in 2018. Question of mildly spiculated margins, also stable. No additional or new nodules. No pneumothorax. HEART: Unremarkable. Heart size is normal. No pericardial effusion. No significant coronary artery calcifications. MEDIASTINUM: Unremarkable. No mediastinal or hilar adenopathy. Esophagus is unremarkable. No hiatal hernia. THYROID: Unremarkable. No thyroid lesions. BONES/JOINTS: Unremarkable. No suspicious lytic or blastic abnormality. VASCULATURE: Unremarkable. Thoracic aorta is non-dilated. CT/Chest without Contrast IMPRESSION: Stable left juxtapleural lingular nodule with slightly prominent size and slightly spiculated margins. Stable from January 05, 2022, apparently stable for 6 months. 1.3 cm maximum diameter as measured on lung windows. Not present in 2018. RECOMMENDATIONS: 6 months stability is not adequate follow-up time to confirm benign lesion. Strong history of smoking. Mildly irregular and spiculated contour. Consider PET/CT and/or tissue sampling of this mildly spiculated and greater than 1 cm nodule in this high-risk patient. Alternatively, but much less favored, additional short-term follow-up could be considered. Electronically Signed: Elissa Flores MD at 9:46 EDT ,
== END | disposition home or self-care (01) ==
LOC: CT 15:56
PROVIDERS: PCP Family Medicine; Referring Provider Internal Medicine Critical Care Medicine; Visit Provider Internal Medicine Critical Care Medicine
DX: R91.1 Solitary pulmonary nodule (principal)
CPT/HCPCS: 71250

== ENCOUNTER → 2022-12-20 | Outpatient (CLI) | payer BC, SELFPAY ==
[2022-12-20 09:40] LABS: Absolute Lymphocyte Count 1.88 X10^3/uL (0.83-4.51); Absolute Neutrophil Count 3.7 X10^3/uL (2.0-7.7); Basophil# 0.02 X10^3/uL; Basophil% 0.3 % (0-1); Eosinophil# 0.13 X10^3/uL; Eosinophils% 2.1 % (0-5); Hematocrit 40.5 % (37-47); Lymphocyte # 1.88 X10^3/ul (0.83-4.51); Lymphocyte % 30.5 % (19-41); Mean Corp Hgb Conc 32.1 g/dL (32-36); Mean Corpuscular Hgb 28.4 pg (27.0-32.0); Mean Corpuscular Volume 88.4 fL (81-99); Mean Platelet Vol. 9.6 fl (6.2-12.0); Monocyte# 0.38 X10^3/uL; Monocyte% 6.2 % (0-10); NRBC Flagged by Analyzer 0 % (0-5); Neutrophil # 3.73 X10^3/uL (2.7-7.7); Neutrophil % 60.6 % (47-70); Platelet Count 180 K/mm3 (150-450); RBC Distribution Width CV 13.1 % (11.6-14.6); RBC Distribution Width SD 42.2 fl (35.1-43.9); Red Blood Count 4.58 M/mm3 (4.2-5.4); White Blood Count 6.2 K/mm3 (4.4-11.0)
[2022-12-20 10:38] LABS: Vitamin D,25 Hydroxy 40.2 ng/mL
[2022-12-20 10:46] LABS: ALB/GLOB Ratio 1.1 RATIO (0.9-2.4); AST(SGOT) 10 U/L (15-37); Alanine Aminotransfer ALT/SGPT 20 U/L (13-56); Albumin, Serum 3.6 g/dL (3.2-5.0); Alkaline Phosphatase 81 U/L (45-117); Anion Gap 5 (5-15); BUN 15 mg/dL (7-18); Calcium,Total 8.5 mg/dL (8.5-10.1); Chloride 109 mmol/L (98-107); Cholesterol 182 mg/dL (200); Creatinine, Serum 0.94 mg/dL (0.55-1.02); EST Glomerular Filtration Rate 65 mL/min (>60); Est Glom Filt Rate - Afr Amer 78 mL/min (>60); Globulin 3.4 g/dL (2.2-4.2); Glucose 107 mg/dL (74-106); High Density Lipoprotein 61 mg/dL; Potassium 3.6 mmol/L (3.5-5.1); Sodium Level 140 mmol/L (136-145); Thyroid Stim Hormone (TSH) 0.51 uIU/mL (0.358-3.74); Triglycerides 88 mg/dL; Very Low Density Lipoprotein 18 mg/dL (5-40)
--- NOTE | 2022-12-20 12:33 | BI_ITS ---
MAMMOGRAPHY - BILATERAL SCREENING REASON FOR EXAM: Female, 62 years old. Routine annual screening examination. PERTINENT HISTORY: Grandmother with breast cancer. Prior left stereotactic breast biopsy. TECHNIQUE: Digital bilateral breast pee (3D mammographic acquisition) in the CC and MLO projections. 2-D mediolateral oblique (MLO) and craniocaudad (CC) views of both breasts were obtained. CAD: Full Field Digital Mammography with Computer Added Detection was performed. COMPARISON: Comparison is made with prior study dated November 02, 2021 and November 17, 2019. FINDINGS: Breast Composition: There are scattered areas of fibroglandular density. There are no dominant masses or suspicious calcifications. A tissue clip marker is again seen in the deep central lateral aspect of the left breast. No other significant abnormalities are identified. There has been no significant change since the prior study. BI/SCRN MAMM (CAD)W/PEE BILAT IMPRESSION: Stable bilateral screening mammogram. Yearly follow-up mammogram recommended. (A) ASSESSMENT CATEGORY: BIRADS Category 2: Benign. A letter regarding these results will be sent to the patient by the facility within 30 days. Approximately 10% of breast cancers are not detected by mammography. A normal mammogram should not delay biopsy of a clinically suspicious abnormality. [id number] Electronically Signed: Leonel Stafford MD at 13:49 EDT ,
== END | disposition home or self-care (01) ==
LOC: OPBI 12:32
PROVIDERS: PCP Family Medicine; Referring Provider Family Medicine; Visit Provider Family Medicine
DX: Z00.00 Encounter for general adult medical examination without abnormal findings (principal); Z12.31 Encounter for screening mammogram for malignant neoplasm of breast; Z80.3 Family history of malignant neoplasm of breast; E03.9 Hypothyroidism, unspecified; R73.03 Prediabetes
CPT/HCPCS: 36415; 77063; 77067; 80053; 80061; 82306; 84443; 85025

== ENCOUNTER 2023-01-22 13:23 | Day surgery (SDC) | payer BC, SELFPAY ==
[2023-01-22] VITALS (8 sets, daily range): BP systolic 106–141; BP diastolic 55–76; PULSE 61–73; RESP 16–17; TEMP 36.4–36.6; O2SAT 96–98; BMI 35.4
[2023-01-22] MEDS: Lactated Ringers 1,000 ML 15 ML IV (13:58)
--- NOTE | 2023-01-22 15:03 | HP.PCM_ITS ---
History and Physical Date of Admission: 01/22/23 Intake Vital Signs 10/23/2314:40 01/13/2314:17 Height 5 ft 2 in 5 ft 2 in Weight: 188 lb 199 lb BMI 34.4 36.3 BP 144/84 H 131/67 H Blood Pressure Location Lt brachial Rt brachial Position Sitting Sitting Respiration 14 17 Pulse 84 65 Pulse Source Monitor Monitor Temp 97.6 F L 96 F L Temp Source Temporal Temporal Pulse Oximetry (%) 98 99 Oxygen Delivery Method room air room air Intake Visit Reasons: BRB/DARK BM SELF REFERRED Chief Complaint: BRB/dark bm self referred Is patient in pain?: No Allergies Penicillins Allergy (Verified 01/13/23 14:18) Anaphylaxiserythromycin base Adverse Reaction (Verified 01/13/23 14:18) Upset Stomach Medications cholecalciferol (vitamin D3) 50 mcg (2,000 unit) capsule 50 mcg PO DAILY SUPPLEMENT 10/25/20 [History Confirmed 01/13/23] citalopram 20 mg tablet 20 mg PO DAILY DEPRESSION 10/25/20 [History Confirmed 01/13/23] levothyroxine 125 mcg tablet 125 mcg PO DAILY THYROID 10/25/20 [History Confirmed 01/13/23] topiramate 50 mg tablet 50 mg PO DAILY PAIN 10/25/20 [History Confirmed 01/13/23] acetaminophen 325 mg tablet (Tylenol) 650 mg (2 x 325 mg) PO Q4H PRN PRN Pain Score 1-10 #0 tabs 10/27/20 [Rx Confirmed 01/13/23] methylprednisolone 4 mg tablets in a dose pack (Medrol (Derrek)) See Rx Instructions PO PER PKG DIR #21 tabs 10/23/22 [Rx Confirmed 01/13/23] PFSH Medical History (Updated 01/13/23 @ 15:[address] Sergo Baker MD) Cholelithiasis Contact with and (suspected) exposure to other viral communicable diseases Depression Gallstones Migraines Thyroid activity decreased URI (upper respiratory infection) Surgical History History of cholecystectomy (~10/2020) History of colonoscopy Hx of tubal ligation Family History (Updated 01/13/23 @ 14:16 by Masha Garnett) Father Hypertension Social History Smoking Status: Former smoker alcohol intake: current details: Social intake substance use type: does not use HPI HPI HPI: Patient is a 62-year-old female here for referral for colonoscopy. The patient reports her last colonoscopy was 12 years ago. She reports that she is having lower abdominal cramping. She is also seeing dark stools and sometimes she sees some bright red blood. She said her stools have also been pasty. ROS General General: Yes weight change and fatigue; No appetite, colon cancer, breast cancer or weakness HEENT HEENT: No difficulty swallowing, eye injury, eye surgery, swollen glands or hoarseness Endo Endocrine: Yes thyroid disease and diabetes mellitus; No thyroid cancer, Hair loss, heat intolerance or cold intolerance Skin Skin: No rash or changing moles Musc Musculoskeletal: Yes back problems and arthritis; No rheumatoid arthritis, gout or joint pain Cardio Cardiovascular: No murmur, pacemaker, heart disease, atrial fibrillation, high blood pressure, heart attack, heart stent, palpitations, shortness of breat with exertion or chest pain Psych Psychiatric: Yes depression; No anxiety or hearing voices Resp Respiratory: No shortness of breath, No sleep apnea, No cough, No COPD, No asthma, No emphysema and No wheezing Gastro Gastrointestinal: Yes abdominal pain, No nausea or vomiting, Yes diarrhea, Yes constipation, No blood in stool, No acid reflux, No hemorrhoids, No ulcers, Yes gallbladder problem and Yes black,tarry stools Ubaldo Hematologic: No blood thinners, No blood disorders, No bleeding, No anemia and No blood clots Neuro Neurologic: No system reviewed and no additional complaints, except as documented, No as per HPI, No abnormal gait, No abnormal hearing, No abnormal movements, No abnormal speech, No behavioral changes, No burning sensations, No confusion, No convulsions, No disequilibrium, No dizziness, No localized weakness, No frequent falls, No headache(s), No lack of coordination, No loss of vision, No memory loss, No numbness, No other visual disturbances, No radicular pain, No restless legs, No sensory deficit, No syncope, No tingling, No tremor(s), No weakness and No other Exam Const General: cooperative Orientation: alert and oriented x3 HENMT Head: normal to inspection Neck Neck: normal visual inspection and full ROM Chest Chest palpation & inspection: normal inspection of the chest Resp Effort & Inspection: normal respiratory effort Auscultation: clear to auscultation bilaterally Cardio Rate: regular rate Rhythm: regular rhythm GI Inspection: non-distended Palpation: soft and nontender Skin General: no rashes or lesions noted Neuro General: patient alert and patient oriented x3 Extrem General: full ROM Psych Appearance: grossly normal Mental Status: mental status grossly normal Assessment and Plan Assessment and Plan (1) Blood clots in stool: Status: Acute Plan: The patient has been seeing some gross blood in her stool and she has had having some dark stools as well. I recommend that the patient have EGD and colonoscopy to evaluate. I explained endoscopy in detail to the patient. I explained the risks including but not limited to stroke or heart attack with anesthesia, perforation of the GI tract, bleeding, infection. I explained that any of these could necessitate further emergency surgery. The patient understands and all questions were answered sufficiently. The patient wishes to proceed with procedure. Sergo Baker MD Pager: [facility] [address] [place] [address] [address] [place] [address] Office: I have examined the patient and the H&P has been reviewed. There are no clinical changes since date of exam.
--- NOTE | 2023-01-22 15:57 | OP.EGD_ITS ---
Patient Name: Che Sanches Procedure Date: 01/22/2023 3:08 PM Date of : 1960 Age: 62 Procedure: Upper GI endoscopy Indications: Melena Providers: Sergo Baker MD Medicines: Monitored Anesthesia Care Patient Profile: This is a 62 year old female. Refer to note in patient chart for documentation of history and physical. Complications: No immediate complications. Procedure: Pre-Anesthesia Assessment: - Prior to the procedure, a History and Physical was performed, and patient medications and allergies were reviewed. The patient's tolerance of previous anesthesia was also reviewed. The risks and benefits of the procedure and the sedation options and risks were discussed with the patient. All questions were answered, and informed consent was obtained. Prior Anticoagulants: The patient has taken no anticoagulant or antiplatelet agents. After reviewing the risks and benefits, the patient was deemed in satisfactory condition to undergo the procedure. After obtaining informed consent, the endoscope was passed under direct vision. Throughout the procedure, the patient's blood pressure, pulse, and oxygen saturations were monitored continuously. The gastroscope was introduced through the mouth, and advanced to the fourth part of duodenum. The upper GI endoscopy was accomplished without difficulty. The patient tolerated the procedure well. Scope In: 3:32:24 PM Scope Out: 3:34:44 PM Total Procedure Duration Time 0 hours 2 minutes 20 seconds Findings: The esophagus was normal. The stomach was normal. The examined duodenum was normal. Impression: - Normal esophagus. - Normal stomach. - Normal examined duodenum. - No specimens collected. Recommendation: - Discharge patient to home. - Resume previous diet. - Continue present medications. - Refer to a sales agent casualty insurance at appointment to be scheduled. Procedure Code(s): --- Professional --- 05843, Esophagogastroduodenoscopy, flexible, transoral; diagnostic, including collection of specimen(s) by brushing or washing, when performed (separate procedure) Diagnosis Code(s): --- Professional --- K92.1, Melena (includes Hematochezia) CPT copyright 2021 [employer]. All rights reserved. The codes documented in this report are preliminary and upon medical insurance coder review may be revised to meet current compliance requirements. Sergo Baker MD 01/22/2023 3:56:40 PM This report has been signed electronically. Number of Addenda: 0 Note Initiated On: 01/22/2023 3:08 PM
--- NOTE | 2023-01-22 15:57 | OP.CCLET_ITS ---
01/22/2023 Maricruz Zavaleta [place] [id number] [facility] [address] [address] Re : Upper GI endoscopy procedure for Che Sanches Dear Dr. Zavaleta This procedure was performed on Sunday, January 22, 2023. My impressions and recommendations are as follows: Impressions : - Normal esophagus. - Normal stomach. - Normal examined duodenum. - No specimens collected. Recommendations : - Discharge patient to home. - Resume previous diet. - Continue present medications. - Refer to a military education coordinator at appointment to be scheduled. My findings are described in the full procedure note, which is enclosed. If I can be of further assistance, please feel free to contact me at Doctor phone number(s): , Work: . Sincerely, Sergo Baker MD 01/22/2023 3:56:40 PM This report has been signed electronically.
--- NOTE | 2023-01-22 15:59 | OP.CCLET_ITS ---
01/22/2023 Maricruz Zavaleta [place] [id number] [address] Re : Colonoscopy procedure for Che Sanches Dear Dr. Zavaleta This procedure was performed on Sunday, January 22, 2023. My impressions and recommendations are as follows: Impressions : - The entire examined colon is normal on direct and retroflexion views. - Diverticulosis in the sigmoid colon and in the descending colon. - No specimens collected. Recommendations : - Discharge patient to home. - Resume previous diet. - Continue present medications. - Repeat colonoscopy in 10 years for screening purposes. My findings are described in the full procedure note, which is enclosed. If I can be of further assistance, please feel free to contact me at Doctor phone number(s): , Work: . Sincerely, Sergo Baker MD 01/22/2023 3:58:23 PM This report has been signed electronically.
--- NOTE | 2023-01-22 15:59 | OP.COLON_ITS ---
Patient Name: Che Sanches Procedure Date: 01/22/2023 3:36 PM Date of : 1960 Age: 62 Procedure: Colonoscopy Indications: Melena Providers: Sergo Baker MD Medicines: Monitored Anesthesia Care Patient Profile: This is a 62 year old female. Refer to note in patient chart for documentation of history and physical. Last Colonoscopy: more than 3 years ago. Complications: No immediate complications. Estimated blood loss: Minimal. Procedure: Pre-Anesthesia Assessment: - Prior to the procedure, a History and Physical was performed, and patient medications and allergies were reviewed. The patient's tolerance of previous anesthesia was also reviewed. The risks and benefits of the procedure and the sedation options and risks were discussed with the patient. All questions were answered, and informed consent was obtained. Prior Anticoagulants: The patient has taken no anticoagulant or antiplatelet agents. After reviewing the risks and benefits, the patient was deemed in satisfactory condition to undergo the procedure. After I obtained informed consent, the scope was passed under direct vision. Throughout the procedure, the patient's blood pressure, pulse, and oxygen saturations were monitored continuously. The Colonoscope was introduced through the anus and advanced to the cecum, identified by appendiceal orifice and ileocecal valve. The colonoscopy was performed without difficulty. The patient tolerated the procedure well. The quality of the bowel preparation was good. The ileocecal valve, appendiceal orifice, and rectum were photographed. Scope In: 3:37:45 PM Scope Withdrawal Time 0 hours 5 minutes 42 seconds Scope Out: 3:49:23 PM Total Procedure Duration Time 0 hours 11 minutes 38 seconds Findings: The entire examined colon appeared normal on direct and retroflexion views. Many small-mouthed diverticula were found in the sigmoid colon and descending colon. Impression: - The entire examined colon is normal on direct and retroflexion views. - Diverticulosis in the sigmoid colon and in the descending colon. - No specimens collected. Recommendation: - Discharge patient to home. - Resume previous diet. - Continue present medications. - Repeat colonoscopy in 10 years for screening purposes. Procedure Code(s): --- Professional --- 86586, Colonoscopy, flexible; diagnostic, including collection of specimen(s) by brushing or washing, when performed (separate procedure) Diagnosis Code(s): --- Professional --- K92.1, Melena (includes Hematochezia) K57.30, Diverticulosis of large intestine without perforation or abscess without bleeding CPT copyright 2021 [employer]. All rights reserved. The codes documented in this report are preliminary and upon merchandising representative review may be revised to meet current compliance requirements. Sergo Baker MD 01/22/2023 3:58:23 PM This report has been signed electronically. Number of Addenda: 0 Note Initiated On: 01/22/2023 3:36 PM
== END 2023-01-22 17:13 | disposition home or self-care (01) ==
LOC: EN 13:23 → AC 13:25
PROVIDERS: PCP Family Medicine; Referring Provider Family Medicine; Visit Provider Surgery
PROC: 0DJD8ZZ Inspection of Lower Intestinal Tract, Via Natural or Artificial Opening Endoscopic (ICD-10-PCS; CPT 45378; principal; 2023-01-22 14:25)
DX: K92.1 Melena (principal); K57.30 Diverticulosis of large intestine without perforation or abscess without bleeding; Z87.891 Personal history of nicotine dependence; F32.A Depression, unspecified; Z79.899 Other long term (current) drug therapy; G43.909 Migraine, unspecified, not intractable, without status migrainosus; Z90.49 Acquired absence of other specified parts of digestive tract
CPT/HCPCS: 45378; 43235; J7120; J2405

== ENCOUNTER → 2023-12-31 | Outpatient (CLI) | payer BC, SELFPAY ==
--- NOTE | 2023-12-30 16:34 | BI_ITS ---
MAMMOGRAPHY - BILATERAL SCREENING REASON FOR EXAM: Female, 63 years old. Routine annual screening examination. PERTINENT HISTORY: Mother with breast cancer. Prior left stereotactic breast biopsy. TECHNIQUE: Digital bilateral breast pee (3D mammographic acquisition) in the CC and MLO projections. 2-D mediolateral oblique (MLO) and craniocaudad (CC) views of both breasts were obtained. CAD: Full Field Digital Mammography with Computer Added Detection was performed. COMPARISON: Comparison is made with prior study December 20, 2022 and November 02, 2021. FINDINGS: Breast Composition: There are scattered areas of fibroglandular density. There are no dominant masses or suspicious calcifications. A tissue clip marker is seen in the deep central aspect of the left breast. No other significant abnormalities are identified. There has been no significant change since the prior study. BI/SCRN MAMM (CAD)W/PEE BILAT IMPRESSION: Stable bilateral screening mammogram. Yearly follow-up mammogram recommended. (A) ASSESSMENT CATEGORY: BIRADS Category 2: Benign. A letter regarding these results will be sent to the patient by the facility within 30 days. Approximately 10% of breast cancers are not detected by mammography. A normal mammogram should not delay biopsy of a clinically suspicious abnormality. [id number] Electronically Signed: Leonel Stafford MD at 10:01 EST ,
== END | disposition home or self-care (01) ==
LOC: OPBI 07:02
PROVIDERS: PCP Family Medicine; Referring Provider Family Medicine; Visit Provider Family Medicine
DX: Z12.31 Encounter for screening mammogram for malignant neoplasm of breast (principal); Z80.3 Family history of malignant neoplasm of breast
CPT/HCPCS: 77063; 77067

== ENCOUNTER → 2024-01-27 | Outpatient (CLI) | payer BC, SELFPAY ==
[2024-01-27 18:04] LABS: Absolute Lymphocyte Count 2.23 X10^3/uL (0.83-4.51); Basophil# 0.02 X10^3/uL; Basophil% 0.3 % (0-1); Eosinophil# 0.24 X10^3/uL; Eosinophils% 3.5 % (0-5); Hematocrit 38.3 % (37-47); Hemoglobin 12.2 g/dL (12.0-15.0); Lymphocyte # 2.23 X10^3/ul (0.83-4.51); Lymphocyte % 32.7 % (19-41); Mean Corp Hgb Conc 31.9 g/dL (32-36); Mean Corpuscular Volume 87.8 fL (81-99); Mean Platelet Vol. 10.2 fl (6.2-12.0); Monocyte# 0.32 X10^3/uL; Monocyte% 4.7 % (0-10); NRBC Flagged by Analyzer 0 % (0-5); Neutrophil # 3.99 X10^3/uL (2.7-7.7); Neutrophil % 58.7 % (47-70); Platelet Count 206 K/mm3 (150-450); RBC Distribution Width SD 42.1 fl (35.1-43.9); Red Blood Count 4.36 M/mm3 (4.2-5.4); White Blood Count 6.8 K/mm3 (4.4-11.0)
[2024-01-27 18:27] LABS: ALB/GLOB Ratio 1.1 RATIO (0.9-2.4); AST(SGOT) 14 U/L (15-37); Alanine Aminotransfer ALT/SGPT 18 U/L (13-56); Albumin, Serum 3.6 g/dL (3.2-5.0); Alkaline Phosphatase 89 U/L (45-117); Anion Gap 7 (5-15); BUN 14 mg/dL (7-18); BUN/Creat Ratio 17.6 RATIO (10-20); Calcium,Total 8.4 mg/dL (8.5-10.1); Chloride 108 mmol/L (98-107); EST Glomerular Filtration Rate 78 mL/min (>60); Est Glom Filt Rate - Afr Amer 94 mL/min (>60); Globulin 3.2 g/dL (2.2-4.2); Glucose 139 mg/dL (74-106); Potassium 3.5 mmol/L (3.5-5.1); Protein, Total 6.8 g/dL (6.4-8.2); Sodium Level 138 mmol/L (136-145); Thyroid Stim Hormone (TSH) 0.842 uIU/mL (0.358-3.740)
== END | disposition home or self-care (01) ==
LOC: BFHLAB 16:27
PROVIDERS: PCP Family Medicine; Referring Provider Family Medicine; Visit Provider Family Medicine
DX: Z00.00 Encounter for general adult medical examination without abnormal findings (principal); E03.9 Hypothyroidism, unspecified; R73.03 Prediabetes
CPT/HCPCS: 36415; 80053; 84443; 85025

== ENCOUNTER → 2024-02-19 | Outpatient (CLI) | payer BC, SELFPAY ==
--- NOTE | 2024-02-19 17:02 | CT_ITS ---
STUDY: LOW DOSE CT LUNG CANCER SCREENING REASON FOR EXAM: Female, 63 years old. One pack per day smoker x35 years, quit 15 years ago RADIATION DOSAGE (If Supplied By Facility): CTDIvol = ( 4.02 ) mGy, DLP = ( 124.86 ) mGycm TECHNIQUE: No contrast was administered. Low dose technique was utilized (average mAS-38 and kVp 120). 1.25 mm axial source images with a slice interval of 1.25-mm were reconstructed in lung windows. 2.5 mm axial source images with a slice interval of 2.5-mm were reconstructed in lung windows. 5.0 mm axial source images with a slice interval of 5.0-mm were reconstructed in soft tissue windows. COMPARISON: 07/05/2022 FINDINGS: Lung windows show lungs to be normally expanded. There is no organized infiltrate or effusion. There is a stable pleural-based noncalcified lingular nodule again measuring 1.3 cm in greatest dimension. It has not changed in size or shape since the previous study. No new suspicious noncalcified mass or nodule is noted. There is a stable band of scarring in the right lower lobe on axial image 147. Limited soft tissue windows show normal-appearing thyroid gland. No suspicious adenopathy. No calcified coronary vessels are noted. Limited cuts of the upper abdomen do not show a suspicious abnormality. Bony structures show degenerative change CT/Low Dose CT Lung Screening IMPRESSION: Lung-RADS category 4A - Screening at 3 months with LDCT or evaluation with PET/CT may be used. IMPORTANT NOTES FOR USE: ACR Lung-RADS Version 1.1 Assessment Categories Release Date: 2018 Category: Coded 0-4 bases on nodule(s) with highest degree of suspicion. Negative screen is defined as categories 1 and 2; a positive screen is defined as categories 3 and 4. Category 3 and 4A nodules that are unchanged on interval CT should be coded as category 2, and individuals returned to screening in 12 months. Category 4X: Category 3 or 4 nodules with additional imaging findings that increase the suspicion of lung cancer, such as spiculation, GGN that doubles in size in 1 year, enlarged lymph notes, etc. Category Modifiers: S (significant finding unrelated to lung cancer) Electronically Signed: Alfredo Alanis MD at 17:40 EST ,
== END | disposition home or self-care (01) ==
LOC: CT 17:01
PROVIDERS: PCP Family Medicine; Referring Provider Family Medicine; Visit Provider Family Medicine
DX: Z12.2 Encounter for screening for malignant neoplasm of respiratory organs (principal); Z87.891 Personal history of nicotine dependence
CPT/HCPCS: 71271

== ENCOUNTER → 2024-03-25 | Outpatient (CLI) | payer BC, SELFPAY ==
[2024-03-25 18:43] LABS: CRP < 2.90 mg/L (0.0-3.0); Rheumatoid Factor < 10.0 IU/mL (<15)
[2024-03-25 18:59] LABS: Erythrocyte Sedimentation Rate 5 mm/hr (0-30)
[2024-03-27 14:07] LABS: CCP IgG Antibodies 1 units (0-19)
[2024-03-27 17:07] LABS: ANTINUCLEAR ANTIBODIES DIRECT Negative (Negative)
== END | disposition home or self-care (01) ==
LOC: BFHLAB 15:36
PROVIDERS: PCP Family Medicine; Visit Provider Family Medicine
DX: M25.50 Pain in unspecified joint (principal)
CPT/HCPCS: 36415; 85652; 86038; 86140; 86200; 86431

== ENCOUNTER → 2024-05-27 | Outpatient (CLI) | payer BC, SELFPAY ==
--- NOTE | 2024-05-27 16:43 | RAD_ITS ---
EXAM: XR Lumbosacral Spine Flexion/Extension Only, 2 or 3 Views CLINICAL INDICATION: PAIN TECHNIQUE: Lateral flexion/extension views of the lumbar spine and sacrum. COMPARISON: No relevant prior studies available. FINDINGS: VERTEBRAE: Moderate facet arthropathy of L4-S1. Moderate endplate degenerative change and disc disease of L4-S1. No acute fracture. Normal sagittal alignment. No instability. SACRUM/COCCYX: Unremarkable as visualized. No acute fracture. DISC SPACES: No acute findings. No significant narrowing. SOFT TISSUES: Unremarkable. GASTROINTESTINAL TRACT: Fecal retention in the colon consistent with constipation. RAD/L/S Spine Min 4 Views IMPRESSION: 1. Fecal retention in the colon consistent with constipation. 2. Degenerative changes as above. Reading Location: [facility]
== END | disposition home or self-care (01) ==
PROVIDERS: PCP Family Medicine; Referring Provider Family Medicine; Visit Provider Family Medicine
DX: M54.9 Dorsalgia, unspecified (principal)
CPT/HCPCS: 72110

== ENCOUNTER → 2025-01-14 | Outpatient (CLI) | payer BC, SELFPAY ==
[2025-01-14 10:24] LABS: Hematocrit 40.9 % (37-47); Hemoglobin 13.2 g/dL (12.0-15.0); Immature Granulocytes Count 0.020 X10^3/uL (0.0-0.0); Mean Corp Hgb Conc 32.3 g/dL (32-36); Mean Corpuscular Volume 87.6 fL (81-99); Mean Platelet Vol. 10.4 fl (6.2-12.0); NRBC Flagged by Analyzer 0 % (0-5); Platelet Count 209 K/mm3 (150-450); RBC Distribution Width CV 13.1 % (11.6-14.6); RBC Distribution Width SD 41.8 fl (35.1-43.9); Red Blood Count 4.67 M/mm3 (4.2-5.4); White Blood Count 7.0 K/mm3 (4.4-11.0)
[2025-01-14 10:58] LABS: AST(SGOT) 17 U/L (<=31); Alanine Aminotransfer ALT/SGPT 12 U/L (<=34); Albumin, Serum 4.2 g/dL (3.4-4.8); Alkaline Phosphatase 81 U/L (35-104); Anion Gap 11 (5-15); BUN 18 mg/dL (4-19); BUN/Creat Ratio 20.5 RATIO (10-20); Calcium,Total 9.1 mg/dL (7.6-11.0); Carbon Dioxide 22.9 mmol/L (21.0-32.0); Chloride 106 mmol/L (98-108); Cholesterol 176 mg/dL (<=200); Globulin 2.7 g/dL (2.2-4.2); Glucose 118 mg/dL (70-99); Low Density Lipoprotein Calc. 104 mg/dL; Potassium 4.2 mmol/L (3.3-5.1); Triglycerides 87 mg/dL; Very Low Density Lipoprotein 17 mg/dL (5-40); cholesterol:hdl ratio screen 3.14
== END | disposition home or self-care (01) ==
LOC: MTLAB 08:11
PROVIDERS: PCP Internal Medicine; Referring Provider Internal Medicine; Visit Provider Internal Medicine
DX: E11.9 Type 2 diabetes mellitus without complications (principal); E03.9 Hypothyroidism, unspecified
CPT/HCPCS: 36415; 80053; 80061; 84443; 85025

== ENCOUNTER → 2025-01-25 | Outpatient (CLI) | payer BC, SELFPAY ==
--- NOTE | 2025-01-25 16:47 | BI_ITS ---
EXAM: SCRN MAMM (CAD)W/PEE BILAT DATE: 01/25/2025 CLINICAL HISTORY: F, Age 64 y/o , SCREENING Mother with breast cancer. History of prior left stereotactic breast biopsy. TECHNIQUE: Procedure Code: [id number] Modality: MG Procedure: SCRN MAMM (CAD)W/PEE BILAT COMPARISON: Prior exam(s) dated December 20, 2022.. FINDINGS: TISSUE DENSITY: The breasts are almost entirely fatty. Bilateral Breast Mammographic Findings: No significant masses, calcifications or other abnormalities are identified. A tissue clip marker is once again seen in the deep central portion of the left breast. No suspicious masses, areas of developing architectural distortion, or suspicious calcifications. There has been no significant interval change. BI/SCRN MAMM (CAD)W/PEE BILAT IMPRESSION: Stable bilateral screening mammogram. OVERALL FINAL ASSESSMENT BI-RADS 2: BENIGN RECOMMENDATION: Routine annual follow-up in 1 Year Additional Recommendation none A letter with findings and recommendations will be mailed to the patient. Reading Location: [place] [address]
--- OUTSIDE RECORDS SUMMARY | 2025-01-26 07:13 | XMS RPT_ITS | CCD ---
Author Organization [facility] Care Team Providers Care T[employer]or [employer] Name Role Phone Masha Ortiz Unavailable Eliezer Bryant Unavailable Karly Perez Unavailable [facility] Unavailable Carolyn Crowder Unavailable [phone] Ila Christina Unavailable Jose Juan Tesfaye Unavailable Rena Espitia Unavailable Unavailable Ayah Carmen Unavailable Bessy Bazzi Unavailable Unavailable Vanessa August Unavailable Unavailable Unavailable Unavailable Dr. Maricruz Zavaleta Primary Care Provider [phone] Dr. Maricruz Zavaleta Referring Provider Jannette FORENSIC PHOTOGRAPHER, FORENSIC PHOTOGRAPHER-C Elizabeth Clark Attending Provider [phone] Dr. Maricruz Zavaleta Primary Care Provider [phone] Dr. Maricruz Zavaleta Referring Provider [phone] Jannette PADILLA, RANDY-Charleen Clark Attending Provider [phone] Dr. Allan Prescott Attending Provider Dr. Maricruz Zavaleta Primary Care Provider Dr. Maricruz Zavaleta Referring Provider [phone] Allan Prescott Other Provider Dr. Ry Cline Attending Provider Dr. Maricruz Zavaleta Primary Care Provider Dr. Maricruz Zavaleta Referring Provider [phone] GREG Robin Attending Provider Dr. Maricruz Zavaleta Primary Care Provider [phone] Dr. Maricruz Zavaleta Referring Provider GREG Robin Attending Provider Dr. Sergo Baker Attending Provider [phone] Dr. Sergo Baker Other Provider Dr. Maricruz Zavaleta MD Primary Care Provider Dr. Maricruz Zavaleta MD Attending Provider [phone] Dr. Maricruz Zavaleta MD Referring Provider Paulina Anthony Attending Unavailable Maricruz Zavaleta Referring Unavailable Maricruz Zavaleta Primary Care Unavailable Maricruz Zavaleta Primary Care Unavailable Maricruz Zavaleta Attending Unavailable Maricruz Zavaleta Referring Unavailable Maricruz Zavaleta Primary Care Unavailable Maricruz Zavaleta Attending Unavailable Maricruz Zavaleta Attending Unavailable Waqar Maricruz Referring Unavailable Waqar, Maricruz Primary Care Unavailable Maricruz Zavaleta Primary Care Unavailable Maricruz Zavaleta Attending Unavailable Maricruz Zavaleta Referring Unavailable Oleghe, Efewongbe Primary Care Unavailable Oleghe Efewongbe Attending Unavailable Oleghe, Efewongbe Referring Unavailable Allergies Allergy Classification Reported Allergen(s) Allergy Type Date of Onset Reaction(s) Facility (1 source) Chlorpheniramine / Phenylpropanolamine ; Translations: [Allergy *COUGH/COLD/ALLERGY *] Drug Allergy [facility] Work Phone: Comment on above: decongestant (10 sources) Penicillins; Translations: [Penicillins] allergy to substance 09-29-19 Anaphylaxis [facility] Work Phone: Comment on above: anaphylaxis (1 source) Erth allergy to substance [facility] Work Phone: Comment on above: GI upset (8 sources) Erythromycin Drug Allergy 09-29-19 22 Upset Stomach [facility] (1 source) Erythromycin Drug Allergy 01-01-20 25 [facility] Repository Medications Current Medications Medication Drug Class(es) Dates Sig (Normalized) Sig (Original) acetaminophen 325 mg oral tablet (8 sources) Start: 10-27-2020 take 2 tablets by mouth every four hours as needed for pain Acetaminophen (Tylenol) 325 mg Tablet Active 650 mg PO EVERY 4 HOURS NEEDED as needed for Pain Score 1-10 0 October 27, 2020 12:00am cholecalciferol 0.05 mg oral capsule (9 sources) Vitamin D Start: 10-25-2020 take 1 capsule by mouth once daily Cholecalciferol (Vitamin D3) 50 mcg (2,000 unit) Capsule Active 50 ug PO DAILY October 25, 2020 12:00am Start: 01-20-2013 take 2 tablets by mo [facility] once daily VITAMIN D3, 2000UNIT (Oral Tablet Chewable) 2 (two) Tablet Chewable Tablet Chewable qd for 0 days Quantity: 60 {Tablet_Chewable} Refills: 0 Ordered: 28-Apr-2013 Marivel Talbot Start : 20-Jan-2013 Active citalopram 20 mg oral tablet (10 sources) Serotonin Reuptake Inhibitor Start: 10-25-2020 take 1 tablet by mouth once daily Citalopram 20 mg tablet Active 20 mg PO DAILY October 25, 2020 12:00am Start: 06-17-2016 End: 11-04-2016 take 1 tablet by mouth once daily CeleXA 20 MG Oral Tablet 1 (one) Tablet daily for 90 days Quantity: 90 {Tablet} Refills: 2 Ordered: 04-Nov-2016 Masha Ortiz CNP, CNP, Mary E Start : 04-Nov-2016 Active levothyroxine sodium 0.125 mg oral tablet (10 sources) l-Thyroxine Start: 10-25-2020 take 1 tablet by mouth once daily Levothyroxine 125 mcg tablet Active 125 ug PO DAILY October 25, 2020 12:00am Start: 11-04-2016 take 1 tablet by marysol once daily Levothyroxine Sodium 125 MCG Oral Tablet 1 (one) Tablet daily for 90 days Quantity: 90 {QS} Refills: 2 Ordered: 04-Nov-2016 Anujjoy LANDEROS Masha Ortiz TIGRE Masha Clark Start : 04-Nov-2016 Active Start: 03-25-2014 End: 06-28-2014 LEVOTHYROXINE SODIUM, 112MCG (Oral Tablet) 1 tab Tablet qd for 90 days Quantity: 90 {Tablet} Refills: 2 Ordered: 28-Jun-2014 Anujjoy LANDEROS Masha Ortiz TIGRE Masha Clark Start : 25-Mar-2014 End : 28-Jun-2014 Discontinued 24 hr metFORMIN hydrochloride 500 mg extended release oral tablet (2 sources) Biguanide Start: 01-15-2023 take 1 tablet by mouth once daily Metformin 500 mg tablet extended release 24 hr Active 500 mg PO DAILY January 15, 2023 1:00am methylPREDNISolone 4 mg oral tablet (2 sources) Corticosteroid Start: 10-23-2022 take 1 tablet by mouth once Methylprednisolone (Medrol (Jazmin)) 4 mg tablets,dose pack Active 0 PO per package directions October 23, 2022 12:00am PO PER PKG DIR Start: 12-07-2015 End: 12-13-2015 Medrol 4 MG Oral Tablet Ther apy Pack 1 (one) Tab Ther Pack UAD for 6 days Quantity: 1 {Packet} Refills: 0 Ordered: 07-Dec-2015 Samy Ortiz MD Start : 07-Dec-2015 End : 13-Dec-2015 Inactive Comments: UAD Comment on above: UAD topiramate 50 mg oral tablet (9 sources) Start: 10-25-2020 take 1 tablet by mouth once daily Topiramate 50 mg tablet Active 50 mg PO DAILY October 25, 2020 12:00am Start: 02-11-2017 take 1 tablet by marysol th once daily Topiramate 50 MG Oral Tablet 1 (one) Tablet daily for 90 days Quantity: 90 {Tablet} Refills: 3 Ordered: 11-Feb-2017 Anujjyo LANDEROS Masha Clark Kavithacourtney TIGRE Masha Clark Start : 11-Feb-2017 Active Completed/Discontinued Medications Medication Drug Class(es) Dates Sig (Normalized) Sig (Original) acetaminophen 650 mg / propoxyphene napsylate 100 mg oral tablet (1 source) Opioid Agonist Start: 02-15-2008 End: 05-25-2008 take 1 tablet by mouth once as needed, then take 6 tablets by mouth as needed DARVOCET-N 100, 100-650MG (Oral Tablet) 1 (one) Tablet q 6 prn for 0 days Quantity: 60 {Tablet} Refills: 0 Ordered: 15-Feb-2008 Tanja Liz Start : 15-Feb-2008 End : 25-May-2008 Inactive 200 actuat albuterol 0.09 mg/actuat metered dose inhaler (2 sources) beta2-Adrenergic Agonist Start: 06-07-2015 End: 06-17-2016 ProAir HFA 108 (90 Base) MCG/ACT Inhalation Aerosol Solution 2 (two) Aerosol Soln Aerosol Soln q6 hr prn for 0 days Quantity: 1 {Inhaler} Refills: 0 Ordered: 17-Jun-2016 Rena Espitia LPN Start : 07-Jun-2015 End : 17-Jun-2016 Discontinued Start: 12-02-2012 PROVENTIL HFA, 108 (90 Base)MCG/ACT (Inhalation Aerosol Solution) 2 (two) Aerosol Soln qid prn for 0 days Quantity: 1 {Aerosol_Soln} Refills: 3 Ordered: 27-Mar-2015 Tanja Liz Start : 02-Dec-2012 Active bacitracin zinc 0.5 unt/mg topical ointment (1 source) Start: 11-04-2016 Bacitracin 500 UNIT/GM External Ointment 1 (one) Application qhs prn for 0 days Quantity: 3 {Applicator} Refills: 0 Ordered: 04-Nov-2016 Masha Ortiz CNP, CNP, Mary E Start : 04-Nov-2016 Active 120 actuat beclomethasone dipropionate 0.08 mg/actuat metered dose inhaler (1 source) Corticosteroid Start: 01-09-2015 End: 06-17-2016 Qvar 80 MCG/ACT Inhalation Aerosol Solution 2 (two) Aerosol Soln puffs qd for 0 days Quantity: 3 {Inhaler} Refills: 0 Ordered: 17-Jun-2016 Rena Espitia LPN Start : 09-Jan-2015 End : 17-Jun-2016 Discontinued budesonide 0.032 mg/actuat metered dose nasal spray (2 sources) Corticosteroid Start: 06-04-2006 End: 03-09-2007 RHINOCORT AQUA, 32MCG/ACT (Nasal Suspension) 2 sprays Suspension qd for 0 days Quantity: 1 {Suspension} Refills: 3 Ordered: 04-Jun-2006 Tanja Liz Start : 04-Jun-2006 End : 09-Mar-2007 Discontinued End: 03-09-2007 take 1 spray(s) nasal route once daily RHINOCORT, 32MCG/ACT 1 sprays each nostril qd for 0 days Refills: 0 Ordered: 04-Jun-2006 Tanja Liz End : 09-Mar-2007 Discontinued Calcium Citrate-Vitamin D (1 source) Calcium Citrate-Vitamin D 400mg-500mg qd Active cetirizine hydrochloride 10 mg oral tablet (1 source) Histamine-1 Receptor Antagonist End: take 1 tablet by mouth once daily ZYRTEC, 10MG (Oral Tablet) 1 tab qd for 0 days Refills: 0 Ordered: 10-Oct-2009 Tanja Liz End : 02-Dec-2012 Discontinued Comments: This order discontinued per [facility]. Comment on above: This order discontin ued per [facility]. ciprofloxacin 500 mg oral tablet (2 sources) Quinolone Antimicrobial Start: 016 End: take 1 tablet by mouth twice daily Cipro 500 MG Oral Tablet 1 (one) Tablet bid for 10 days Quantity: 20 {Tablet} Refills: 0 Ordered: 31-Aug-2015 Ayah Carmen DO Start : 31-Aug-2015 End : 10-Sep-2015 Inactive Comments: with probiotics Start: 01-21-2007 End: 03-09-2007 take 1 tablet by mouth twice daily CIPRO, 500MG (Oral Tablet) 1 (one) Tablet bid for 0 days Quantity: 20 {Tablet} Refills: 0 Ordered: 21-Jan-2007 Tanja Liz Start : 21-Jan-2007 End : 09-Mar-2007 Discontinued Comment on above: with probiotics cyclobenzaprine hydrochloride 10 mg oral tablet (1 source) Muscle Relaxant Start: 010 End: take 1 tablet by mouth once daily at bedtime as needed FLEXERIL, 10MG (Oral Tablet) 1 (one) Tablet qhs prn for 0 days Quantity: 20 {Tablet} Refills: 0 Ordered: 02-Dec-2012 Tanja Liz Start : 10-Oct-2009 End : 02-Dec-2012 Discontinued Comments: This order discontinued per [facility]. Comment on above: This order discontin ued per [facility]. desloratadine 5 mg oral tablet (2 sources) Histamine-1 Receptor Antagonist Start: 012 End: take 1 tablet by mouth once daily CLARINEX, 5MG (Oral Tablet) 1 (one) Tablet daily for 90 days Quantity: 90 {Tablet} Refills: 0 Ordered: 11-Apr-2011 Tanja Liz Start : 11-Apr-2011 End : 10-Jul-2011 Inactive Comments: Pt needs apt before more refills-jjp Comment on above: Pt needs apt before more refills-jjp diphenhydrAMINE hydrochloride 25 mg oral capsule (1 source) Histamine-1 Receptor Antagonist Start: 014 End: BENADRYL ALLERGY, 25MG (Oral Capsule) 1 (one) Capsule Capsule q6-8 hrs prn for 0 days Quantity: 30 {Capsule} Refills: 0 Ordered: 27-Jun-2014 SlaRena joya LPN Start : 30-Nov-2013 End : 27-Jun-2014 Discontinued DULoxetine 20 mg delayed release oral capsule (1 source) Serotonin and Norepinephrine Reuptake Inhibitor Start: CYMBALTA, 20MG (Oral Capsule Delayed Release Particles) 1 (one) Capsule DR Part bid for 0 days Quantity: 60 {Capsule_DR_Part} Refills: 3 Ordered: 19-Jul-2009 Tanja Liz Start : 25-May-2008 Inactive escitalopram 10 mg oral tablet (1 source) Serotonin Reuptake Inhibitor Start: 007 End: take 1 tablet by mouth once daily LEXAPRO, 10MG (Oral Tablet) 1 Tablet qd for 0 days Quantity: 30 {Tablet} Refills: 3 Ordered: 01-Dec-2006 Tanja Liz Start : 01-Dec-2006 End : 09-Mar-2007 Discontinued 60 actuat fluticasone propionate 0.25 mg/actuat / salmeterol 0.05 mg/actuat dry powder inhaler (1 source) Corticosteroid, beta2-Adrenergic Agonist Start: End: take 1 puff(s) by inhalation twice daily ADVAIR DISKUS, 250-50MCG/DOSE (Inhalation Aerosol Powder Breath Activated) 1 puff Misc bid for 0 days Quantity: 3 {Aero_Pow_Br_Act} Refills: 3 Ordered: 02-Dec-2012 Karly Perez DO Start : 02-Dec-2012 End : 02-Dec-2012 Discontinued gabapentin 100 mg oral capsule (1 source) Anti-epileptic Agent Start: 015 End: take 1 capsule by mouth three times daily, then take 2 capsules by mouth three times daily, then take 3 capsules by mouth three times daily NEURONTIN, 100MG (Oral Capsule) 1 (one) Capsule tid for 3 days for 0 days Quantity: 270 {Capsule} Refills: 2 Ordered: 27-Jun-2014 Rena Espitia LPN Start : 16-Mar-2014 End : 27-Jun-2014 Discontinued Comments: then 2 tid for 3 days then 3 tid Comment on above: then 2 tid for 3 day s then 3 tid levoFLOXacin 500 mg oral tablet (1 source) Quinolone Antimicrobial Start: 016 End: 016 take 1 tablet by mouth once daily LEVAQUIN, 500MG (Oral Tablet) 1 (one) Tablet daily for 10 days Quantity: 10 {Tablet} Refills: 0 Ordered: 07-Jun-2015 Ayah Carmen DO Start : 07-Jun-2015 End : 17-Jun-2015 Inactive meloxicam 7.5 mg oral tablet (1 source) Nonsteroidal Anti-inflammatory Drug Start: 007 End: 007 take 1 tablet by mouth twice daily at mealtime MOBIC, 7.5MG (Oral Tablet) 1 (one) Tablet bid with food for 0 days Quantity: 60 {Tablet} Refills: 0 Ordered: 04-Jun-2006 Dianelys Vaughn Start : 04-Jun-2006 End : 04-Aug-2006 Discontinued mometasone furoate 0.05 mg/actuat metered dose nasal spray (1 source) Corticosteroid Start: 014 End: 017 take 2 spray(s) nasal route once daily Nasonex 50 MCG/ACT Nasal Suspension 2 sprays each nostril Suspension qd for 0 days Quantity: 1 {Unspecified} Refills: 0 Ordered: 17-Jun-2016 Omkar GAUTHIERRena Start : 28-Apr-2013 End : 17-Jun-2016 Discontinued montelukast 10 mg oral tablet (1 source) Leukotriene Receptor Antagonist Start: 014 End: 014 take 1 tablet by mouth once daily at bedtime SINGULAIR, 10MG (Oral Tablet) 1 Tablet qhs for 0 days Quantity: 30 {Tablet} Refills: 3 Ordered: 28-Apr-2013 Chris Karly Start : 28-Apr-2013 End : 28-Apr-2013 Discontinued naproxen sodium 220 mg oral tablet (1 source) Nonsteroidal Anti-inflammatory Drug Start: take 1 tablet by mouth every six hours ALEVE, 220MG (Oral Tablet) 1 (one) Tablet Tablet q6hr for 0 days Quantity: 30 {Tablet} Refills: 0 Ordered: 05-Jul-2014 Rena Espitia LPN Start : 27-Jun-2014 Active oxyCODONE hydrochloride 5 mg oral tablet (8 sources) Opioid Agonist Start: 021 End: take 5-10 mg by mouth every six hours as needed for pain Oxycodone 5 mg tablet Discontinued 5 - 10 mg PO EVERY 6 HOURS as needed for pain 13 07October 27, 2020 November 09, 2020 9:34am predniSONE 20 mg oral tablet (2 sources) Start: 016 End: take 1 tablet by mouth once daily PREDNISONE, 20MG (Oral Tablet) 1 (one) Tablet qd for 5 days Quantity: 5 {Tablet} Refills: 0 Ordered: 07-Jun-2015 Ayah Carmen DO Start : 07-Jun-2015 End : 12-Jun-2015 Inactive Start: 11-30-2013 End: 12-07-2013 take 3 tablets by mouth once daily at mealtime PREDNISONE, 10MG (Oral Tablet) 3 (three) Tablet daily for 7 days Quantity: 21 {Tablet} Refills: 0 Ordered: 30-Nov-2013 Masha Ortiz CNP, CNP, Mary E Start : 30-Nov-2013 End : 07-Dec-2013 Inactive Comments: with food Comment on above: with food traZODone hydrochloride 50 mg oral tablet (2 sources) Serotonin Reuptake Inhibitor Start: 01-21-2007 End: 05-25-2008 TRAZODONE HCL, 50MG (Oral Tablet) 1/2 -1 Tablet qd for 0 days Quantity: 30 {Tablet} Refills: 3 Ordered: 21-Jan-2007 Tanja Liz Start : 21-Jan-2007 End : 25-May-2008 Inactive End: 03-09-2007 take 0.5 tablet by mouth once daily at bedtime as needed TRAZODONE HCL, 100MG (Oral Tablet) 1/2 qhs prn for 0 days Refills: 0 Ordered: 09-Mar-2007 Tanja Liz End : 09-Mar-2007 Discontinued triamcinolone acetonide 0.055 mg/actuat metered dose nasal spray (1 source) Corticosteroid Start: 12-07-2015 Nasacort Aller gy 24HR 55 MCG/ACT Nasal Aerosol 1 (one) Aerosol Aerosol uad for 0 days Quantity: 1 {Each} Refills: 5 Ordered: 17-Jun-2016 Samy Ortiz MD Start : 07-Dec-2015 Active valACYclovir 1000 mg oral tablet (1 source) Herpesvirus Nucleoside Analog DNA Polymerase Inhibitor, Herpes Simplex Virus Nucleoside Analog DNA Polymerase Inhibitor, Herpes Zoster Virus Nucleoside Analog DNA Polymerase Inhibitor Start: 03-16-2014 End: 06-27-2014 VALTREX, 1GM (Oral Tablet) 1 (one) Tablet tab tid for 7 days for 0 days Quantity: 21 {Tablet} Refills: 0 Ordered: 27-Jun-2014 Rena Espitia LPN Start : 16-Mar-2014 End : 27-Jun-2014 Discontinued varenicline 0.5 mg oral tablet (2 sources) Partial Cholinergic Nicotinic Agonist Start: 06-22-2007 End: 05-25-2008 CHANTIX STARTING MONTH JAZMIN, 0.5 MG X 11 &1 MG X 42 (Oral Miscellaneous) 1 (one) Misc as directed for 0 days Quantity: 1 {Misc} Refills: 0 Ordered: 22-Jun-2007 Tanja Liz Start : 22-Jun-2007 End : 25-May-2008 Inactive Start: 06-22-2007 End: 05-25-2008 take 1 tablet by mouth twice daily CHANTIX CONTINUING MONTH JAZMIN, 1MG (Oral Tablet) 1 (one) Tablet bid for 0 days Quantity: 60 {Tablet} Refills: 2 Ordered: 22-Jun-2007 Tanja Liz Start : 22-Jun-2007 End : 25-May-2008 Inactive Problems Active Problems Problem Classification Problem Date Documented Da te Episodic/Chronic Anxiety disorders (1 source) Mixed anxiety and depressive disorder; Translations: [Depression with anxiety] 11-04-2016 Chronic Asthma (18 sources) Asthma; Translations: [Acute exacerbation of asthma] Resolved: 10-10-2009 11-04-2016 Chronic Comment on above: better since not smo shaylee Chronic obstructive pulmonary disease and bronchiectasis (7 sources) Chronic obstructive lung disease; Translations: [Chronic obstructive pulmonary disease, unspecified COPD type] 11-04-2016 Chronic Coronary atherosclerosis and other heart disease (2 sources) Coronary atherosclerosis and other heart disease Diabetes mellitus without complication (1 source) Type 2 diabetes mellitus without complications; Translations: [Type 2 diabetes mellitus without complications] Onset: 12-31-2024 Chronic Disorders of lipid metabolism (1 source) Hypertriglyceridemia; Translations: [High triglycerides] 11-04-2016 Chronic Fluid and electrolyte disorders (8 sources) Hypokalemia; Translations: [Hypokalemia] 11-04-2020 Episodic Gastrointestinal hemorrhage (3 sources) Hematochezia; Translations: [Melena] 01-13-2023 Episodic Headache; including migraine (3 sources) Migraine with aura; Translations: [Migraine] 11-04-2016 Chronic Comment on above: chronic stable-pepe nue present regimen Headache; including migraine (3 sources) Headache; including migraine Immunizations and screening for infectious disease (6 sources) Need for prophylactic vaccination and inoculation against influenza; Translations: [Contact with and (suspected) exposure to other viral communicable diseases] 10-23-2022 Episodic Mood disorders (20 sources) Depression; Translations: [Depressive disorder] 11-04-2016 Chronic Mood disorders (2 sources) Mood disorders Nutritional deficiencies (8 sources) Vitamin D deficiency; Translations: [VITAMIN D DEFICIENCY] 11-04-2016 Chronic Other gastrointestinal disorders (3 sources) Irritable bowel syndrome Chronic Other gastrointestinal disorders (2 sources) Irritable bowel syndrome with diarrhea; Translations: [Irritable bowel syndrome with diarrhea] 11-04-2016 Chronic Comment on above: bid alanna had c olosnocopy Other liver diseases (8 sources) Enzyme level - finding; Translations: [Elevated transaminase measurement] 11-04-2020 Episodic Other lower respiratory disease (8 sources) Dyspnea; Translations: [Dyspnea, unspecified] Resolved: 03-27-2015 03-27-2015 Episodic Other lower respiratory disease (7 sources) Nodule of lung; Translations: [Solitary pulmonary nodule] 01-14-2022 Episodic Comment on above: left lateral lingula r nodule 1.3 cm x 1.1 cm x 1.3 cm Other lower respiratory disease (4 sources) Dyspnea, unspecified; Translations: [Other respiratory abnormalities] Episodic Other lower respiratory disease (4 sources) Solitary pulmonary nodule; Translations: [Solitary pulmonary nodule] Episodic Other nervous system disorders (1 source) Other chronic pain; Translations: [Other chronic pain] Onset: 12-31-2024 Chronic Other nutritional; endocrine; and metabolic disorders (2 sources) Body mass index 30+ - obesity; Translations: [BMI 34.0-34.9,adult] Resolved: 11-04-2016 11-04-2016 Chronic Other screening for suspected conditions (not mental disorders or infectious disease) (6 sources) D-dimer above reference range; Translations: [Thyroid hormone tests abnormal] Onset: 03-17-2024 11-04-2016 Episodic Other upper respiratory disease (12 sources) Allergic rhinitis; Translations: [Allergic rhinitis] Resolved: 08-20-2013 08-13-2017 Chronic Other upper respiratory disease (2 sources) Chronic rhinitis; Translations: [Chronic rhinitis] 11-04-2016 Chronic Other upper respiratory infections (20 sources) Acute sinusitis, unspecified; Translations: [Acute frontal sinusitis] Resolved: 03-27-2015 11-04-2016 Episodic Pancreatic disorders (not diabetes) (8 sources) Acute pancreatitis; Translations: [Acute pancreatitis without necrosis or infection, unspecified] 11-04-2020 Episodic Residual codes; unclassified (7 sources) Hypersomnia; Translations: [Hypersomnia, unspecified] 01-14-2022 Chronic Residual codes; unclassified (4 sources) Hypersomnia, unspecified; Translations: [Hypersomnia, unspecified] Chronic Spondylosis; intervertebral disc disorders; other back problems (3 sources) Cervical radiculopathy; Translations: [Cervical radiculopathy] 11-04-2016 Chronic Spondylosis; intervertebral disc disorders; other back problems (10 sources) Neck pain; Translations: [Low back pain] Onset: 12-31-2024 Resolved: 11-04-2016 06-27-2015 Episodic Substance-related disorders (4 sources) Tobacco use disorder; Translations: [Cigarette smoker ] 07-09-2022 Chronic Comment on above: Quit 2011 Thyroid disorders (20 sources) Acquired hypothyroidism; Translations: [Hypothyroidism] Onset: 12-31-2024 11-04-2016 Chronic Unclassified (4 sources) HYPERGLYCEMIA, NOS (790.6) Unclassified (2 sources) ARTHRALGIAS 719.40 Unclassified (4 sources) screening Resolved: 03-27-2015 03-27-2015 Unclassified (20 sources) Unclassified (2 sources) frozen shoulder 11-04-2016 Unclassified (3 sources) left supraclavicular swelling Resolved: 11-04-2016 08-13-2017 Comment on above: await radiologist fi nal Unclassified (2 sources) Non-smoker; Translations: [Nonsmoker] 11-04-2016 Unclassified (2 sources) right heel pain Resolved: 08-09-2008 08-13-2017 Unclassified (2 sources) tobacco abuse Unclassified (3 sources) change in bowel habits Resolved: 07-20-2008 08-13-2017 Unclassified (3 sources) Rash Unclassified (2 sources) screen Resolved: 07-19-2009 08-13-2017 Unclassified (1 source) Fall, accidental Unclassified (1 source) weight gain Unclassified (3 sources) BMI 34.0-34.9,adult Unclassified (1 source) Varicose vein of leg Unclassified (2 sources) High triglycerides Unclassified (2 sources) Hair loss (Renamed from Loss of hair) Unclassified (1 source) Migraine with aura and without status migrainosus, not intractable Unclassified (1 source) Plantar Fascititis (728.71) Unclassified (2 sources) Female pelvic pain Unclassified (1 source) Low back pain potentially associated with radiculopathy Viral infection (11 sources) Herpes zoster; Translations: [Acute viral disease] Resolved: 03-27-2015 08-13-2017 Episodic Past or Other Problems Problem Classification Problem Date Documented Da te Episodic/Chronic Abdominal pain (5 sources) Abdominal discomfort; Translations: [Pain in pelvis] Resolved: 11-04-2016 08-13-2017 Episodic Comment on above: us neg try culturell e bid and she doesnt want to try other meds now think may be ibs Acute bronchitis (4 sources) Acute bronchitis; Translations: [Acute bronchitis] Onset: 07-31-2009 Resolved: 10-10-2009 10-10-2009 Episodic Administrative/social admission (1 source) Medical examinations/report s status; Translations: [Well woman exam] 11-04-2016 Episodic Asthma (2 sources) Asthma Diabetes mellitus without complication (8 sources) Impaired fasting glycaemia; Translations: [Hyperglycemia] 11-04-2016 Episodic Comment on above: PreDiabetes: HBA1c 5 .9Cut carb External cause codes: Fall (1 source) Accidental fall ; Translations: [Fall, accidental] Resolved: 03-27-2015 03-27-2015 Genitourinary symptoms and ill-defined conditions (8 sources) Dysuria; Translations: [Urinary frequency] Resolved: 08-09-2008 07-20-2008 Episodic Headache; including migraine (6 sources) Headache; Translations: [Headache] Resolved: 11-04-2016 08-13-2017 Episodic Comment on above: offered sinus ct she wants to hold off for now Nonspecific chest pain (6 sources) Chest pain; Translations: [Chest pain] Resolved: 03-27-2015 08-13-2017 Episodic Other bone disease and musculoskeletal deformities (10 sources) Osteopenia; Translations: [Osteopenia] 11-04-2016 Episodic Other circulatory disease (1 source) Abnormal chest sounds; Translations: [Abnormal lung sounds] 11-04-2016 Episodic Other connective tissue disease (2 sources) Swelling of lower limb; Translations: [Leg swelling symptom] Resolved: 11-04-2016 08-13-2017 Episodic Other connective tissue disease (1 source) Spasm of cervical paraspinous muscle; Translations: [Spasm of cervical paraspinous muscle] 11-04-2016 Episodic Other connective tissue disease (1 source) Plantar fasciitis; Translations: [Plantar fasciitis] 11-04-2016 Episodic Other ear and sense organ disorders (1 source) Impacted cerumen; Translations: [Cerumen impaction] Resolved: 10-10-2009 08-13-2017 Episodic Comment on above: irrigation wax curre ttes done without difficulty Other female genital disorders (1 source) Disorder of female genital organs; Translations: [Other specified conditions associated with female genital organs and menstrual cycle] 11-04-2016 Episodic Other inflammatory condition of skin (2 sources) Itching ; Translations: [Itching] Resolved: 03-27-2015 08-13-2017 Episodic Other inflammatory condition of skin (2 sources) Seborrhea; Translations: [Seborrhea] 11-04-2016 Episodic Comment on above: cortaid 10 sparingly to face Other lower respiratory disease (4 sources) Shortness of breath Episodic Other lower respiratory disease (1 source) Dyspnea on exertion; Translations: [Shortness of breath on exertion] 08-31-2015 Episodic Other lower respiratory disease (1 source) Dyspnea at rest; Translations: [Shortness of breath at rest] 11-04-2016 Episodic Other non-traumatic joint disorders (5 sources) Knee pain; Translations: [Knee pain] 11-04-2016 Episodic Comment on above: ibuprofen, ice and r est elevate, did not want MRi yet Other non-traumatic joint disorders (1 source) Joint pain; Translations: [Pain in unspecified joint] 11-04-2016 Episodic Other non-traumatic joint disorders (1 source) Osteophyte of bone; Translations: [Bone spur] 11-04-2016 Episodic Other non-traumatic joint disorders (2 sources) Ankle pain; Translations: [Ankle pain] Resolved: 11-04-2016 08-13-2017 Episodic Comment on above: needs to see Dr. Vera fernandez Other non-traumatic joint disorders (1 source) Pain in unspecified joint; Translations: [Pain in unspecified joint] Onset: 04-09-2024 Episodic Other skin disorders (2 sources) Skin lesion; Translations: [Skin lesion] Resolved: 11-04-2016 08-13-2017 Episodic Other skin disorders (1 source) Eruption; Translations: [Rash] 11-04-2016 Episodic Comment on above: face Other skin disorders (1 source) Loss of hair; Translations: [Hair loss (Renamed from Loss of hair)] 11-04-2016 Episodic Comment on above: improved Residual codes; unclassified (1 source) Tobacco user; Translations: [Tobacco use disorder] Resolved: 12-02-2012 08-13-2017 Chronic Residual codes; unclassified (1 source) Needs influenza immunization; Translations: [Need for prophylactic vaccination and inoculation against influenza] Resolved: 03-27-2015 03-27-2015 Episodic Unclassified (1 source) menopause- get mammo and bone density and come back for female exam Unclassified (2 sources) left shoulder pain Resolved: 08-09-2008 08-13-2017 Comment on above: refer knapic- stop o tc meds Unclassified (1 source) Deliveries (Parity); Translations: [Deliveries (Parity)] 11-04-2016 Comment on above: 3 Unclassified (2 sources) Well Women Exam (V72.31)( Pap, Mammo, Routine Female and Dexa) Unclassified (1 source) EXCESSIVE BODY WEIGHT GAIN (783.1) 11-04-2016 Unclassified (2 sources) History of clinical finding in subject; Translations: [History of nicotine use] 11-04-2016 Unclassified (1 source) Unspecified Diagnosis Unclassified (2 sources) Cervical Spasm (728.85) Unclassified (1 source) Pregnancies (); Translations: [Pregnancies ()] 11-04-2016 Comment on above: 3 Unclassified (1 source) Shingles Unclassified (1 source) Screening status; Translations: [Screening for hyperlipidemia] Resolved: 07-19-2009 08-13-2017 Unclassified (1 source) Bone spur Unclassified (1 source) Abnormal TSH Unclassified (1 source) Cerumen impaction (380.4) Unclassified (1 source) Elevated d-dimer Unclassified (1 source) Abortions/Miscarria ges; Translations: [Abortions/Miscarri ages] 11-04-2016 Comment on above: 2 Unclassified (1 source) Shortness of breath on exertion Unclassified (1 source) Acute bilateral low back pain without sciatica Unclassified (1 source) Well woman exam Unclassified (1 source) Acute non-recurrent frontal sinusitis Unclassified (1 source) Shortness of breath at rest Unclassified (1 source) Abnormal lung sounds Urinary tract infections (3 sources) Urinary tract infectious disease; Translations: [UTI (urinary tract infection)] 11-04-2016 Episodic Varicose veins of lower extremity (1 source) Varicose veins of lower extremity; Translations: [Varicose vein of leg] 11-04-2016 Episodic Comment on above: script give for comp ression stocking Results Test Name Value Interpretation Reference Range Facility Internal Medicine Office Vis sharif 12-31-2024 Internal Medicine Office Visit [id number] [place] [address] OFFICE VISIT Date of Service: 12/31/24 MR#: [id number] Acct: [id number] Name: CHE SANCHES Rep #: [id number] : 1960 Provider: Dr. 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 Required: No Accompanied by: Self Allergies Penicillins Allergy (Verified 12/31/24 13:27) Anaphylaxis erythromycin base Adverse Reaction (Verified 12/31/24 13:27) Upset Stomach Medications ???Medication ???Instructions ???Recorded ???Confirmed ???Type citalopram 20 mg tablet 20 mg PO DAILY DEPRESSION 10/25/20 12/31/24 History levothyroxine 125 mcg tablet 125 mcg PO DAILY THYROID 10/25/20 12/31/24 History topiramate 50 mg tablet 50 mg PO DAILY PAIN 10/25/2012/31 History acetaminophen 325 mg tablet 650 mg (2 x 325 mg) PO Q4H PRN PRN 10/27/20 01/15/23 Rx (Tylenol) Pain Score 1-10 #0 tabs losartan 25 mg tablet 25 mg PO QDAY #30 tabs 12/31/24 Rx metformin 500 mg tablet,extended 500 mg PO QPM #30 tabs 12/31/24 Rx release 24 hr (Glucophage XR) Have you fallen in the past year?: No Nurse's Note: Establish Care, concerns with pre-diabetes, low back pain and IBS PFSH Medical History (Updated 12/31/24 @ 16:[address] Paulina Anthony MD) Family history of early CAD Irritable bowel syndrome Hypertension Bilateral ankle pain Health care maintenance Chronic back pain Hypothyroidism Type 2 diabetes mellitus Wears glasses Post-menopausal Alcohol use Thyroid disease Arthritis Back pain Injury of head and neck History of IBS Former smoker Leg cramps Pre-diabetes Contact with and (suspected) exposure to other viral communicable diseases URI (upper respiratory infection) Depression Cholelithiasis Migraines Gallstones Surgical History History of cholecystectomy ( 10/2020) History of colonoscopy Hx of tubal ligation Family History Father Hypertension Heart disease Mother Arthritis Hypertension Grandmother Breast cancer Daughter Thyroid disorder Social History (Updated 12/31/24 @ 13:35 by Farideh Poole) adopted: No household members: spouse housing: house current occupational status: employed Smoking Status: Former smoker alcohol intake: current details: Social intake substance use type: does not use HPI HPI Chief Complaint: Establish care Details: CHE SANCHES, is a 64-year-old female with HTN, hypothyroidism, and prediabetes presenting to establish care and for evaluation of lower back pain, bilateral ankle pain, bowel irregularity, and fatigue. The patient reports lower back pain radiating to the tailbone, with chronic soreness in the tailbone region. She also experiences bilateral ankle pain, particularly in the mornings, describing difficulty walking upon waking and persistent aching throughout the day. 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 She has tried compression socks and supportive shoes (Skechers) for relief, but the compression socks become uncomfortable after prolonged use. She takes Tylenol as needed for pain. She reports bowel irregularity with frequent, urgent bowel movements, particularly after the first meal of the day, regardless of the type of food consumed. She describes the stools as sometimes watery and difficult to control, with occasional accidents if she cannot reach the bathroom in time. She also experiences abdominal pain associated with these episodes. She reports a pattern of frequent bowel movements for 2-3 days, followed by a day without any bowel movements. She had a colonoscopy a few years ago by Dr. Baker, which reportedly showed no significant concerns She reports fatigue, sometimes falling asleep at work despite sleeping well at night. She has not been screened for sleep apnea but reports snoring when sleeping on her back. She is primarily a side sleeper and does not always feel well-rested upon waking. She reports elevated blood pressure readings at home over the past 6 months, with systolic readings in the 150s when resting and up to the 160s after activity. She does not record her readings. She has been told she is borderline prediabetic, (more content not included)... Normal [facility] L/S Spine Min 4 Viewson L/S Spine Min 4 Views [facility] Imaging Services [address] [place], [place] [id number] L/S Spine Min 4 Views MR#: [id number] Acct: [id number] Name: CHE SANCHES Rep #: [id number] : 1960 F 63 From: Karl Cedeño MD PCP: Dr. Maricruz Zavaleta MD Status: REG CLI Study: L/S Spine Min 4 Views Date of Exam: 05/27/24 Exam# [id number] Ordering Dr: Maricruz Zavaleta MD EXAM: XR Lumbosacral Spine Flexion/Extension Only, 2 or 3 Views CLINICAL INDICATION: PAIN TECHNIQUE: Lateral flexion/extension views of the lumbar spine and sacrum. COMPARISON: No relevant prior studies available. FINDINGS: VERTEBRAE: Moderate facet arthropathy of L4-S1. Moderate endplate degenerative change and disc disease of L4-S1. No acute fracture. Normal sagittal alignment. No instability. SACRUM/COCCYX: Unremarkable as visualized. No acute fracture. DISC SPACES: No acute findings. No significant narrowing. SOFT TISSUES: Unremarkable. GASTROINTESTINAL TRACT: Fecal retention in the colon consistent with constipation. RAD/L/S Spine Min 4 Views IMPRESSION: 1. Fecal retention in the colon consistent with constipation. 2. Degenerative changes as above. Reading Location[facility] CC: Dr. Maricruz Zavaleta MD Biometrics Consultant: Signed Normal [facility] ANTINUCLEAR ANTIBODIES DIREC Ton 03-27-2024 SABRINA,DIRECT Negative Normal Negative [facility] Comment on above: Result Comment: Perf ormed at: - [facility] [address] [id number] Biochemistry Technologist: Joey Doan PhD, Phone: [phone] Performed By: #### L 101.9900, L505.7010, L3100.5475, L501.6710, L4600.0100 #### [facility] Laboratory [address] [facility] [facility] [place], [place], [id number] CCP IgG Antibodieson 025 CCP IgG Ab. 1 units Normal 0-19 [facility] Comment on above: Result Comment: Nega tive <20 Weak positive 20 - 39 Moderate positive 40 - 59 Strong positive >59 Performed at: [facility] [address], [place] [id number] Biochemistry Technologist: Joey Doan PhD, Phone: [phone] Performed By: #### L 101.9900, L505.7010, L3100.5475, L501.6710, L4600.0100 #### [facility] Laboratory [address] [facility] [place], [address] SABRINA serumOrdered By: Maricruz Zavaleta on 03-25-2024 Anti-Nuclear Antibody Screen Negative Negative [facility] Comment on above: Performed at: [facility] [id number] [place] [id number] Director: Joey Doan PhD, Phone: [phone] C-reactive protein measureme nt by high sensitivity methodOrdered By: Maricruz Zavaleta on 03-25-2024 C-Reactive Protein Extended Range < 2.90 mg/L 0.0-3.0 [facility] Comment on above: C-Reactive Protein ( CRP) provides useful information for thediagnosis, therapy and monitoring of inflammatory processesand associated diseases. For the evaluation of Relative Riskfor Cardiovascular Disease, a High Sensitivity CRP (HSCRP)should be ordered. CRPon 03-25-2024 C-REACTIVE PROT < 2.90 Normal 0.0-3.0 [facility] Comment on above: Result Comment: C-Re active Protein (CRP) provides useful information for the diagnosis, therapy and monitoring of inflammatory processes and associated diseases. For the evaluation of Relative Risk for Cardiovascular Disease, a High Sensitivity CRP (HSCRP) should be ordered. Performed By: #### L 101.9900, L505.7010, L3100.5475, L501.6710, L4600.0100 #### [facility] Laboratory [address] [place], [address] Cyclic citrullinated peptide IgG QnOrdered By: Maricruz Zavaleta on 03-25-2024 Cyclic Citrullinated Peptide IgG Ab 1 units 0-19 [facility] Comment on above: Negative <20 Weak po sitive 20 - 39 Moderate positive 40 - 59 Strong positive >59Performed at: [facility] [id number] Director: Joey Doan PhD, Phone: [phone] Erythrocyte Sed Rateon 03-25 SED RATE 5 mm/hr Normal 0- [facility] Comment on above: Performed By: #### L 101.9900, L505.7010, L3100.5475, L501.6710, L4600.0100 #### [facility] Laboratory [address] [place], [address] Erythrocyte sedimentation ra teOrdered By: Maricruz Zavaleta on 03-25-2024 ESR (Bld) [Velocity] 5 mm/h 0-30 [facility] Rheumatoid Factoron 03-25-19 25 RHEUMATOID FAC < 10.0 Normal <15 [facility] Comment on above: Performed By: #### L 101.9900, L505.7010, L3100.5475, L501.6710, L4600.0100 #### [facility] Laboratory [address] [place], [address] Rheumatoid factor measuremen tOrdered By: Maricruz Zavaleta on 03-25-2024 Rheumatoid Factor < 10.0 IU/mL <15 [facility] Low Dose CT Lung Screeningon 02-19-[address] Lung Screening [facility] Imaging Services [address] [place] [address] Lung Screening MR#: [id number] Acct: [id number] Name: CHE SANCHES Rep #: [id number] : 1960 F 63 From: Jericho Alanis MD PCP: Dr. Maricruz Zavaleta MD Status: REG CL Study: Low Dose CT Lung Screening Date of Exam: 02/18 Exam# [id number] Ordering Dr: Maricruz Zavaleta MD [id number] STUDY: LOW DOSE CT LUNG CANCER SCREENING REASON FOR EXAM: Female, 63 years old. One pack per day smoker x35 years, quit 15 years ago RADIATION DOSAGE (If Supplied By Facility): CTDIvol = ( 4.02 ) mGy, DLP = ( 124.86 ) mGycm TECHNIQUE: No contrast was administered. Low dose technique was utilized (average mAS-38 and kVp 120). 1.25 mm axial source images with a slice interval of 1.25-mm were reconstructed in lung windows. 2.5 mm axial source images with a slice interval of 2.5-mm were reconstructed in lung windows. 5.0 mm axial source images with a slice interval of 5.0-mm were reconstructed in soft tissue windows. COMPARISON: 07/05/2022 FINDINGS: Lung windows show lungs to be normally expanded. There is no organized infiltrate or effusion. There is a stable pleural-based noncalcified lingular nodule again measuring 1.3 cm in greatest dimension. It has not changed in size or shape since the previous study. No new suspicious noncalcified mass or nodule is noted. There is a stable band of scarring in the right lower lobe on axial image 147. Limited soft tissue windows show normal-appearing thyroid gland. No suspicious adenopathy. No calcified coronary vessels are noted. Limited cuts of the upper abdomen do not show a suspicious abnormality. Bony structures show degenerative change CT/Low Dose CT Lung Screening IMPRESSION: Lung-RADS category 4A - Screening at 3 months with LDCT or evaluation with PET/CT may be used. IMPORTANT NOTES FOR USE: ACR Lung-RADS Version 1.1 Assessment Categories Release Date: 2018 Category: Coded 0-4 bases on nodule(s) with highest degree of suspicion. Negative screen is defined as categories 1 and 2; a positive screen is defined as categories 3 and 4. Category 3 and 4A nodules that are unchanged on interval CT should be coded as category 2, and individuals returned to screening in 12 months. Category 4X: Category 3 or 4 nodules with additional imaging findings that increase the suspicion of lung cancer, such as spiculation, GGN that doubles in size in 1 year, enlarged lymph notes, etc. Category Modifiers: S (significant finding unrelated to lung cancer) Electronically Signed: Alfredo Alanis MD at 17:40 EST , CC: Dr. Maricruz Zavaleta MD Biometrics Consultant: Signed Normal [facility] CBC W/Diff, Automatedon 12-0 -2023 Absolute Lymph 2.23 X10 3/uL Normal 0.83-4.51 [facility] Comment on above: Performed By: #### L 501.9520, L100.0100, L500.4050 #### [facility] Laboratory [address] [place], [address] Absolute Neut 4.0 X10 3/uL Normal 2.0-7.7 [facility] Comment on above: Performed By: #### L 501.9520, L100.0100, L500.4050 #### [facility] Laboratory [address] [place], [address] Basophils/100 WBC (Bld) 0.3 % Normal 0-1 [facility] Comment on above: Performed By: #### L 501.9520, L100.0100, L500.4050 #### [facility] Laboratory [address] [place], [address] Eosinophils/100 WBC (Bld) 3.5 % Normal 0-5 [facility] Comment on above: Performed By: #### L 501.9520, L100.0100, L500.4050 #### [facility] Laboratory [address] [place], [address] Erythrocyte distribution width (RBC) [Ratio] 13.0 % Normal 11.6-14.6 [facility] Comment on above: Performed By: #### L 501.9520, L100.0100, L500.4050 #### [facility] Laboratory [address] [place], [address] Hematocrit (Bld) [Volume fraction] 38.3 % Normal 37-47 [facility] Comment on above: Performed By: #### L 501.9520, L100.0100, L500.4050 #### [facility] Laboratory [address] [place], [address] Hemoglobin (Bld) [Mass/Vol] 12.2 g/dL Normal 12.0-15.0 [facility] Comment on above: Performed By: #### L 501.9520, L100.0100, L500.4050 #### [facility] Laboratory [address] [place], [address] IG% 0.100 Normal 0.0-0.9 [facility] Comment on above: Result Comment: IG% - Immature Granulocytes (promyelocytes, myelocytes and metamyelocytes) > 1% indicates that a LEFT SHIFT is Present. Performed By: #### L 501.9520, L100.0100, L500.4050 #### [facility] Laboratory [address] [place], [address] Lymphocytes/100 WBC (Bld) 32.7 % Normal 19-41 [facility] Comment on above: Performed By: #### L 501.9520, L100.0100, L500.4050 #### [facility] Laboratory [address] [place], [address] MCH (RBC) [Entitic mass] 28.0 pg Normal 27.0-32.0 [facility] Comment on above: Performed By: #### L 501.9520, L100.0100, L500.4050 #### [facility] Laboratory [address] [place], [address] MCHC (RBC) [Mass/Vol] 31.9 g/dL Low 32-36 [facility] Comment on above: Performed By: #### L 501.9520, L100.0100, L500.4050 #### [facility] Laboratory [address] [place], [address] MCV (RBC) [Entitic vol] 87.8 fL Normal 81-99 [facility] Comment on above: Performed By: #### L 501.9520, L100.0100, L500.4050 #### [facility] Laboratory [address] [place], [address] Monocytes/100 WBC (Bld) 4.7 % Normal 0-10 [facility] Comment on above: Performed By: #### L 501.9520, L100.0100, L500.4050 #### [facility] Laboratory [address] [place], [address] Neutrophils/100 WBC (Bld) 58.7 % Normal 47-70 [facility] Comment on above: Performed By: #### L 501.9520, L100.0100, L500.4050 #### [facility] Laboratory [address] [place], [address] Nucleated RBC (Bld) [#/Vol] 0 10*3/uL Normal 0-5 [facility] Comment on above: Performed By: #### L 501.9520, L100.0100, L500.4050 #### [facility] Laboratory [address] [place], [address] Platelet mean volume (Bld) [Entitic vol] 10.2 fL Normal 6.2-12.0 [facility] Comment on above: Performed By: #### L 501.9520, L100.0100, L500.4050 #### [facility] Laboratory [address] [place], [address] Platelets (Bld) [#/Vol] 206 10*3/uL Normal 150-450 [facility] Comment on above: Performed By: #### L 501.9520, L100.0100, L500.4050 #### [facility] Laboratory [address] [place], [address] RBC (Bld) [#/Vol] 4.36 10*6/uL Normal 4.2-5.4 [facility] Comment on above: Performed By: #### L 501.9520, L100.0100, L500.4050 #### [facility] Laboratory [address] [place], [address] RDW SD 42.1 fl Normal 35.1-43.9 [facility] Comment on above: Performed By: #### L 501.9520, L100.0100, L500.4050 #### [facility] Laboratory [address] [place], [address] WBC (Bld) [#/Vol] 6.8 10*3/uL Normal 4.4-11.0 [facility] Comment on above: Performed By: #### L 501.9520, L100.0100, L500.4050 #### [facility] Laboratory [address] [place], [address] Comprehensive Metabolic Prof ilon 01-27-2024 Albumin [Mass/Vol] 3.6 g/dL Normal 3.2-5.0 [facility] Comment on above: Performed By: #### L [id number], L100.0100, [id number] #### [facility] Laboratory [address] [place], [address] Albumin/Globulin [Mass ratio] 1.1 {ratio} Normal 0.9-2.4 [facility] Comment on above: Performed By: #### L [id number], L100.0100, [id number] #### [facility] [address] [place], [address] ALK P 89 U/L Normal 45-117 [facility] Comment on above: Performed By: #### L [id number], L100.0100, [id number] #### [facility] [address] [place], [address] ALT [Catalytic activity/Vol] 18 U/L Normal 13-56 [facility] Comment on above: Performed By: #### L [id number], L100.0100, [id number] #### [facility] [address] [place], [address] AST [Catalytic activity/Vol] 14 U/L Low 15-37 [facility] Comment on above: Performed By: #### L [id number], L100.0100, [id number] #### [facility] Laboratory [address] [place], [address] Bilirubin [Mass/Vol] 0.30 mg/dL Normal 0.20-1.00 [facility] Comment on above: Result Comment: For patients on eltrombopag therapy, use of Dimension [place] TBIL is not recommended. Performed By: #### L [id number], L100.0100, [id number] #### [facility] [address] [place], [address] BUN/CRE 17.6 RATIO Normal 10-20 [facility] Comment on above: Performed By: #### L [id number], L100.0100, [id number] #### [facility] [address] [place], [address] CA,Total 8.4 mg/dL Low 8.5-10.1 [facility] Comment on above: Performed By: #### L [id number], L100.0100, [id number] #### [facility] [address] [place], [address] Chloride [Moles/Vol] 108 mmol/L High 98-107 [facility] Comment on above: Performed By: #### L [id number], L100.0100, [id number] #### [facility] [address] [place], [address] CO2 [Moles/Vol] 23.0 mmol/L Normal 21.0-32.0 [facility] Comment on above: Performed By: #### L [id number], L100.0100, [id number] #### [facility] Laboratory [address] [place], [address] Creatinine [Mass/Vol] 0.80 mg/dL Normal 0.55-1.02 [facility] Comment on above: Result Comment: The validity of the calculated GFR GFRAA in patients over 70 years has not been determined. Clinical correlation is essential. Performed By: #### L [id number], L100.0100, [id number] #### [facility] [address] [place], [address] EST GFR - AA 94 mL/min Normal >60 [facility] Comment on above: Result Comment: Afri can Citizen [place] GFR Calc Performed By: #### L [id number], L100.0100, [id number] #### [facility] Laboratory [address] [place], [address] GAP 7 Normal 5-15 [facility] Comment on above: Performed By: #### L [id number], L100.0100, [id number] #### [facility] Laboratory [address] [place], [address] GFR/1.73 sq M.predicted among non-blacks MDRD (S/P/Bld) [Vol rate/Area] 78 mL/min/{1.73_m2} Normal >60 [facility] Comment on above: Result Comment: Non- GFR Calc Performed By: #### L [id number], L100.0100, [id number] #### [facility] Laboratory [address] [place], [address] Globulin (S) [Mass/Vol] 3.2 g/dL Normal 2.2-4.2 [facility] Comment on above: Performed By: #### L [id number], L100.0100, [id number] #### [facility] Laboratory [address] [place], [address] Glucose [Mass/Vol] 139 mg/dL High 74-106 [facility] Comment on above: Result Comment: Fast ing Glucose result greater than or equal to 126 mg/dL suggests DIABETES MELLITUS per A.D.A. criteria. Performed By: #### L [id number], L100.0100, [id number] #### [facility] [address] [place], [address] Potassium [Moles/Vol] 3.5 mmol/L Normal 3.5-5.1 [facility] Comment on above: Performed By: #### L [id number], L100.0100, [id number] #### [facility] [address] [place], [address] Sodium [Moles/Vol] 138 mmol/L Normal 136-145 [facility] Comment on above: Performed By: #### L [id number], L100.0100, [id number] #### [facility] Laboratory [address] [place], [address] T PROT 6.8 g/dL Normal 6.4-8.2 [facility] Comment on above: Performed By: #### L [id number], L100.0100, [id number] #### [facility] [address] [place], [address] Urea nitrogen [Mass/Vol] 14 mg/dL Normal 7-18 [facility] Comment on above: Performed By: #### L [id number], L100.0100, [id number] #### [facility] [address] [place], [address] Thyroid Stim Hormone (TSH)on 01-27-2024 TSH 0.842 uIU/mL Normal 0.358-3.74 0 [facility] Comment on above: Performed By: #### L [id number], L100.0100, [id number] #### [facility] [address] [place], [address] Absolute lymphocyte countOrd ered By: Maricruz Zavaleta on 12-20-2022 Lymphocytes Auto (Unsp spec) [#/Vol] 1.88 10*3/uL 0.83-4.51 [facility] Basophil percentageOrdered B y: Maricruz Zavaleta on 12-20-2022 Basophils/100 WBC (Bld) 0.3 % 0-1 [facility] Bilirubin [Mass/Vol] 0.40 mg/dL 0.20-1.00 [facility] Comment on above: For patients on eltr ombopag therapy, use of Dimension [place] TBIL is not recommended. Chloride [Moles/Vol] 109 mmol/L 98-107 [facility] Cholesterol [Mass/Vol] 182 mg/dL <200 [facility] Comment on above: <200 mg/dL Desirable 200-240 mg/dL Borderline >240 mg/dL High Risk Eosinophils/100 WBC (Bld) 2.1 % 0-5 [facility] Glucose [Mass/Vol] 107 mg/dL 74-106 [facility] Comment on above: Fasting Glucose resu lt from 100 to 125 mg/dL suggests IMPAIRED HOMEOSTASIS per A.D.A. criteria. Neutrophils (Bld) [#/Vol] 3.7 10*3/uL 2.0-7.7 [facility] Neutrophils/100 WBC (Bld) 60.6 % 47-70 [facility] Potassium [Moles/Vol] 3.6 mmol/L 3.5-5.1 [facility] Protein [Mass/Vol] 7.0 g/dL 6.4-8.2 [facility] Sodium [Moles/Vol] 140 mmol/L 136-145 [facility] Triglyceride [Mass/Vol] 88 mg/dL <199 [facility] Comment on above: The drugs N-Acetylcy steine and Metamizole may falsely depress this assay.Serum Triglycerides Reference Interval Normal <150 mg/dL Borderline high 150 - 199 mg/dL High 200 - 499 mg/dL Very High > or = 500 mg/dL WBC (Bld) [#/Vol] 6.2 10*3/uL 4.4-11.0 [facility] Blood erythrocytes count (nu mber/volume)Ordered By: Maricruz Zavaleta on 12-20-2022 RBC (Bld) [#/Vol] 4.58 10*6/uL 4.2-5.4 [facility] Blood hemoglobin measurement (mass/volume)Ordered By: Maricruz Zavaleta on 12-20-2022 Hemoglobin (Bld) [Mass/Vol] 13.0 g/dL 12.0-15.0 [facility] Blood lymphocytes/100 leukoc ytesOrdered By: Maricruz Zavaleta on 12-20-2022 Lymphocytes/100 WBC (Bld) 30.5 % 19-41 [facility] Blood monocytes/100 leukocyt esOrdered By: Maricruz Zavaleta on 12-20-2022 Monocytes/100 WBC (Bld) 6.2 % 0-10 [facility] Blood platelet mean volumeOr dered By: Maricruz Zavaleta on 12-20-2022 Platelet mean volume (Bld) [Entitic vol] 9.6 fL 6.2-12.0 [facility] Determination of erythrocyte mean corpuscular volume (MCV)Ordered By: Maricruz Zavaleta on 12-20-2022 MCV (RBC) [Entitic vol] 88.4 fL 81-99 [facility] Hematocrit Auto (Bld) [Volum e fraction]Ordered By: Maricruz Zavaleta on 12-20-2022 Hematocrit (Bld) [Volume fraction] 40.5 % 37-47 [facility] Laboratory - Chemistry and C hemistry - challengeOrdered By: Maricruz Zavaleta on 12-20-2022 ALP [Catalytic activity/Vol] 81 U/L 45-117 [facility] ALT [Catalytic activity/Vol] 20 U/L 13-56 [facility] CO2 [Moles/Vol] 26.0 mmol/L 21.0-32.0 [facility] Globulin (S) [Mass/Vol] 3.4 g/dL 2.2-4.2 [facility] Urea nitrogen/Creatinine [Mass ratio] 16.0 mg/mg 10-20 [facility] Laboratory - Hematology and Cell countsOrdered By: Maricruz Zavaleta on 12-20-2022 Erythrocyte distribution width (RBC) [Entitic vol] 42.2 fL 35.1-43.9 [facility] Erythrocyte distribution width (RBC) [Ratio] 13.1 % 11.6-14.6 [facility] Immature granulocytes/100 WBC (Bld) 0.300 % 0.0-0.9 [facility] Comment on above: IG% - Immature Granu locytes (promyelocytes, myelocytes and metamyelocytes) > 1% indicates that a LEFT SHIFT is Present. MCH (RBC) [Entitic mass] 28.4 pg 27.0-32.0 [facility] Nucleated RBC/100 WBC (Bld) [Ratio] 0 % 0-5 [facility] MCHC Auto (RBC) [Mass/Vol]Or dered By: Maricruz Zavaleta on 12-20-2022 MCHC (RBC) [Mass/Vol] 32.1 g/dL 32-36 [facility] No Panel InformationOrdered By: Maricruz Zavaleta on 12-20-2022 Estimated GFR (MDRD) Amer 78 mL/min >60 [facility] Comment on above: GFR Calc Estimated GFR (MDRD) Non-Af Amer 65 mL/min >60 [facility] Comment on above: Non- GFR Calc Thyroid Stimulating Hormone (TSH) 0.51 uIU/mL 0.358-3.74 [facility] Vitamin D 25-Hydroxy 40.2 ng/mL [facility] Comment on above: Vitamin D 25(OH) Sta tus Range Deficiency <20 ng/mL (50nmol/L) Insufficiency 20 - 30 ng/mL (50 - 75 nmol/L) Sufficiency 30 - 100 ng/mL (75 - 250 nmol/L) Toxicity >100 ng/mL (>250 nmol/L) Platelets bldOrdered By: Franklin Zavaleta on 12-20-2022 Platelets (Bld) [#/Vol] 180 10*3/uL 150-450 [facility] Serum or plasma albumin ottoniel urement (mass/volume)Ordered By: Maricruz Zavaleta on 12-20-2022 Albumin [Mass/Vol] 3.6 g/dL 3.2-5.0 [facility] Serum or plasma albumin/glob ulin mass ratioOrdered By: Maricruz Zavaleta on 12-20-2022 Albumin/Globulin [Mass ratio] 1.1 {ratio} 0.9-2.4 [facility] Serum or plasma calcium ottoniel urement (mass/volume)Ordered By: Maricruz Zavaleta on 12-20-2022 Calcium [Mass/Vol] 8.5 mg/dL 8.5-10.1 [facility] Serum or plasma cholesterol in HDL measurement (mass/volume)Ordered By: aMricruz Zavaleta on 12-20-2022 Cholesterol in HDL [Mass/Vol] 61 mg/dL >40 [facility] Comment on above: The drugs N-Acetylcy steine and Metamizole may falsely depress this assay. Reference Range HDL <40 mg/dL Low HDL Cholesterol HDL >or= 60 mg/dL High HDL Cholesterol Serum or plasma cholesterol in VLDL measurement (mass/volume)Ordered By: Maricruz Zavaleta on 12-20-2022 Cholesterol in VLDL [Mass/Vol] 18 mg/dL 5-40 [facility] Serum or plasma creatinine m easurement (mass/volume)Ordered By: Maricruz Zavaleta on 12-20-2022 Creatinine [Mass/Vol] 0.94 mg/dL 0.55-1.02 [facility] Comment on above: The validity of the calculated GFR & GFRAA in patients over 70 years has not been determined. Clinical correlation is essential. Serum or plasma low density lipoprotein (LDL) cholesterol measurement (mass/volume)Ordered By: Maricruz Zavaleta on 12-20-2022 Cholesterol in LDL [Mass/Vol] 103 mg/dL 0-130 [facility] Serum or plasma urea nitroge n measurement (mass/volume)Ordered By: Maricruz Zavaleta on 12-20-2022 Urea nitrogen [Mass/Vol] 15 mg/dL 7-18 [facility] Thin prep Papanicolaou smear with manual screeningOrdered By: Maricruz Zavaleta on 12-20-2022 Thin prep Papanicolaou smear with manual screening 10 U/L 15-37 [facility] Thin prep Papanicolaou smear with manual screening 5 5-15 [facility] Laboratory - Microbiology an d Antimicrobial susceptibilityOrdered By: Dr. Zavaleta on 02-15-2022 SARS-CoV-2 (COVID-19) RNA LYDIA+probe Ql (Unsp spec) Detected Not Detect [facility] Comment on above: Normal Reference Ran ge: Not DetectedMethod:(RT-PCR) real-time reverse transcriptase PCRLuminex GABE Instrument*The Food and Drug Administration (FDA) has issued an Emergency Use Authorization (EAU) for the GABE SARS-CoV-2 Assay for the rapid detection of the virus that causes COVID-19. This test has been validated, but the FDAs independent review of this validation is pending.*Negative results do not preclude infection and should not be used as the sole basis for treatment or patient management. Optimum specimen types and timing for peak viral levels during infections caused by SARS-CoV-2 have not been determined. Collection of multiple specimens from the same patient may be necessary to detect the virus. The possibility of a false negative result should be considered if the patient has clinical presentation or has had recent exposure. Laboratory - Microbiology an d Antimicrobial susceptibilityon 09-28-2021 SARS-CoV-2 (COVID-19) RNA LYDIA+probe Ql (Unsp spec) Not detected [facility] Work Phone: No Panel Informationon 09-28 POC Nasal Swab Influenza A,B Not detected [facility] Work Phone: POC Nasal Swab RSV Not detected [facility] Work Phone: Absolute lymphocyte counton 09-07-2021 Lymphocytes Auto (Unsp spec) [#/Vol] 1.71 10*3/uL 0.83-4.51 [facility] Work Phone: Basophil percentageon 2021 Basophils/100 WBC (Bld) 0.3 % 0-1 [facility] Work Phone: Bilirubin [Mass/Vol] 0.40 mg/dL 0.20-1.00 [facility] Work Phone: Comment on above: For patients on eltr ombopag therapy, use of Dimension [place] TBIL is not recommended. Chloride [Moles/Vol] 110 mmol/L 98-107 [facility] Work Phone: Cholesterol [Mass/Vol] 197 mg/dL <200 [facility] Work Phone: Comment on above: <200 mg/dL Desirable 200-240 mg/dL Borderline >240 mg/dL High Risk Eosinophils/100 WBC (Bld) 2.3 % 0-5 [facility] Work Phone: Glucose [Mass/Vol] 102 mg/dL 74-106 [facility] Work Phone: Comment on above: Fasting Glucose resu lt from 100 to 125 mg/dL suggests IMPAIRED HOMEOSTASIS per A.D.A. criteria. Neutrophils (Bld) [#/Vol] 3.8 10*3/uL 2.0-7.7 [facility] Work Phone: Neutrophils/100 WBC (Bld) 62.8 % 47-70 [facility] Work Phone: Potassium [Moles/Vol] 3.8 mmol/L 3.5-5.1 [facility] Work Phone: Protein [Mass/Vol] 6.9 g/dL 6.4-8.2 [facility] Work Phone: Sodium [Moles/Vol] 140 mmol/L 136-145 [facility] Work Phone: Triglyceride [Mass/Vol] 147 mg/dL <199 [facility] Work Phone: Comment on above: The drugs N-Acetylcy steine and Metamizole may falsely depress this assay.Serum Triglycerides Reference Interval Normal <150 mg/dL Borderline high 150 - 199 mg/dL High 200 - 499 mg/dL Very High > or = 500 mg/dL WBC (Bld) [#/Vol] 6.0 10*3/uL 4.4-11.0 [facility] Work Phone: Blood erythrocytes count (nu mber/volume)on 09-07-2021 RBC (Bld) [#/Vol] 4.62 10*6/uL 4.2-5.4 [facility] Work Phone: Blood hemoglobin measurement (mass/volume)on 09-07-2021 Hemoglobin (Bld) [Mass/Vol] 13.3 g/dL 12.0-15.0 [facility] Work Phone: Blood lymphocytes/100 leukoc yteson 09-07-2021 Lymphocytes/100 WBC (Bld) 28.3 % 19-41 [facility] Work Phone: Blood monocytes/100 leukocyt eson 09-07-2021 Monocytes/100 WBC (Bld) 6.0 % 0-10 [facility] Work Phone: Blood platelet mean volumeon 09-07-2021 Platelet mean volume (Bld) [Entitic vol] 9.9 fL 6.2-12.0 [facility] Work Phone: Determination of erythrocyte mean corpuscular volume (MCV)on 09-07-2021 MCV (RBC) [Entitic vol] 88.5 fL 81-99 [facility] Work Phone: Hematocrit Auto (Bld) [Volum e fraction]on 09-07-2021 Hematocrit (Bld) [Volume fraction] 40.9 % 37-47 [facility] Work Phone: Laboratory - Chemistry and C hemistry - challengeon 09-07-2021 ALP [Catalytic activity/Vol] 80 U/L 45-117 [facility] Work Phone: ALT [Catalytic activity/Vol] 18 U/L 13-56 [facility] Work Phone: CO2 [Moles/Vol] 25.0 mmol/L 21.0-32.0 [facility] Work Phone: Globulin (S) [Mass/Vol] 3.2 g/dL 2.2-4.2 [facility] Work Phone: Urea nitrogen/Creatinine [Mass ratio] 21.7 mg/mg 10-20 [facility] Work Phone: Laboratory - Hematology and Cell countson 09-07-2021 Erythrocyte distribution width (RBC) [Entitic vol] 42.7 fL 35.1-43.9 [facility] Work Phone: Erythrocyte distribution width (RBC) [Ratio] 13.2 % 11.6-14.6 [facility] Work Phone: Immature granulocytes/100 WBC (Bld) 0.300 % 0.0-0.9 [facility] Work Phone: Comment on above: IG% - Immature Granu locytes (promyelocytes, myelocytes and metamyelocytes) > 1% indicates that a LEFT SHIFT is Present. MCH (RBC) [Entitic mass] 28.8 pg 27.0-32.0 [facility] Work Phone: Nucleated RBC/100 WBC (Bld) [Ratio] 0 % 0-5 [facility] Work Phone: MCHC Auto (RBC) [Mass/Vol]on 09-07-2021 MCHC (RBC) [Mass/Vol] 32.5 g/dL 32-36 [facility] Work Phone: No Panel Informationon 09-07 Estimated GFR (MDRD) Amer 90 mL/min >60 [facility] Work Phone: Comment on above: GFR Calc Estimated GFR (MDRD) Non-Af Amer 75 mL/min >60 [facility] Work Phone: Comment on above: Non- GFR Calc Thyroid Stimulating Hormone (TSH) 0.54 uIU/mL 0.358-3.74 [facility] Work Phone: Platelets bldon 09-07-2021 Platelets (Bld) [#/Vol] 198 10*3/uL 150-450 [facility] Work Phone: Serum or plasma albumin ottoniel urement (mass/volume)on 09-07-2021 Albumin [Mass/Vol] 3.7 g/dL 3.2-5.0 [facility] Work Phone: Serum or plasma albumin/glob ulin mass ratioon 09-07-2021 Albumin/Globulin [Mass ratio] 1.2 {ratio} 0.9-2.4 [facility] Work Phone: Serum or plasma calcium ottoniel urement (mass/volume)on 09-07-2021 Calcium [Mass/Vol] 8.3 mg/dL 8.5-10.1 [facility] Work Phone: Serum or plasma cholesterol in HDL measurement (mass/volume)on 09-07-2021 Cholesterol in HDL [Mass/Vol] 55 mg/dL >40 [facility] Work Phone: Comment on above: The drugs N-Acetylcy steine and Metamizole may falsely depress this assay. Reference Range HDL <40 mg/dL Low HDL Cholesterol HDL >or= 60 mg/dL High HDL Cholesterol Serum or plasma cholesterol in VLDL measurement (mass/volume)on 09-07-2021 Cholesterol in VLDL [Mass/Vol] 29 mg/dL 5-40 [facility] Work Phone: Serum or plasma creatinine m easurement (mass/volume)on 09-07-2021 Creatinine [Mass/Vol] 0.83 mg/dL 0.55-1.02 [facility] Work Phone: Comment on above: The validity of the calculated GFR & GFRAA in patients over 70 years has not been determined. Clinical correlation is essential. Serum or plasma low density lipoprotein (LDL) cholesterol measurement (mass/volume)on 09-07-2021 Cholesterol in LDL [Mass/Vol] 113 mg/dL 0-130 [facility] Work Phone: Serum or plasma urea nitroge n measurement (mass/volume)on 09-07-2021 Urea nitrogen [Mass/Vol] 18 mg/dL 7-18 [facility] Work Phone: Thin prep Papanicolaou smear with manual screeningon 09-07-2021 Thin prep Papanicolaou smear with manual screening 10 U/L 15-37 [facility] Work Phone: Thin prep Papanicolaou smear with manual screening 5 5-15 [facility] Work Phone: Whole blood hemoglobin A1c/t otal hemoglobin ratio (mass fraction)on 09-07-2021 HbA1c (Bld) [Mass fraction] 6.2 % 3.8-5.6 [facility] Work Phone: Comment on above: Normal < 5.7 % Predi abetic 5.7 - 6.4 % Diabetic >or= 6.5 % Please note range changes. CBC W/Diff, AutomatedOrdered By: Waiter/Waitress Formal on 11-25-2016 Absolute Neut 4.1 {X10_3/uL} Normal 2.0-7.7 Compreh ensive Internal Medicine Work Phone: Comment on above: [facility] [address] [place], [address] Basophils/100 WBC (Bld) 0.3 % Normal 0-1 [facility] Work Phone: Comment on above: [facility] [address] [place], [address](264 Eosinophils/100 WBC (Bld) 2.6 % Normal 0-5 [facility] Work Phone: Comment on above: [facility] [address] [place], [address](163) Erythrocyte distribution width (RBC) [Ratio] 13.4 % Normal 11.6-14.6 [facility] Work Phone: Comment on above: [facility] [address] [place], [address] Hematocrit (Bld) [Volume fraction] 39.2 % Normal 37-47 [facility] Work Phone: Comment on above: [facility] [address] [place], [address] Hemoglobin (Bld) [Mass/Vol] 12.5 g/dL Normal 12.0-15.0 [facility] Work Phone: Comment on above: [facility] [address] [place], [address] IM GRAN % 0.000 % Normal 0.0-0.9 [facility] Work Phone: Comment on above: IG% - Immature Granu locytes (promyelocytes, myelocytes andmetamyelocytes) > 1% indicates that a LEFT SHIFT is Present. [place] [address] [place], [address] Lymphocytes (Bld) [#/Vol] 2.08 {X10_3/ul} Normal 0.83-4.51 [facility] Work Phone: Comment on above: [facility] [address] [place], [address] Lymphocytes/100 WBC (Bld) 31.2 % Normal 19-41 [facility] Work Phone: Comment on above: [place] [address] [place], [address] MCH (RBC) [Entitic mass] 28.5 pg Normal 27.0-32.0 [facility] Work Phone: Comment on above: [facility] [address] [place], [address] MCHC (RBC) [Mass/Vol] 31.9 {g/gl} Abnormal 32-36 [facility] Internal Medicine Work Phone: Comment on above: [facility] [address] [place], [address] MCV (RBC) [Entitic vol] 89.3 fL Normal 81-99 [facility] Work Phone: Comment on above: [facility] [address] [place], [address] Monocytes/100 WBC (Bld) 5.0 % Normal 0-10 [facility] Work Phone: Comment on above: [facility] [address] [place], [address] Neutrophils/100 WBC (Bld) 60.9 % Normal 47-70 [facility] Work Phone: Comment on above: [facility] [address] [place], [address] Platelet mean volume (Bld) [Entitic vol] 10.3 fL Normal 6.2-12.0 [facility] Internal Medicine Work Phone: Comment on above: [facility] [address] [place], [address] Platelets (Bld) [#/Vol] 206 10*3/uL Normal 150-450 [facility] Work Phone: Comment on above: [facility] [address] [place], [address] RBC (Bld) [#/Vol] 4.39 {M/mm3} Normal 4.2-5.4 [facility] Internal Medicine Work Phone: Comment on above: [facility] [address] [place], [address] RDW SD 44.1 fL Abnormal 35.1-43.9 [facility] Internal Medicine Work Phone: Comment on above: [facility] [address] [place], [address] WBC (Bld) [#/Vol] 6.7 10*3/uL Normal 4.4-11.0 Compre [facility] Internal Medicine Work Phone: Comment on above: [facility] [address] [place], [place], [id number] Comprehensive Metabolic Prof ilOrdered By: Waiter/Waitress Formal on 11-25-2016 Comprehensive metabolic 2000 panel 81 mL/min Normal Comprehensi ve Internal Medicine Work Phone: Comment on above: Non- GFR Calc [facility] [address] [place], [place], [id number] Comprehensive metabolic 2000 panel 107 mmol/L Normal 98-107 Comprehensi ve Internal Medicine Work Phone: Comment on above: [facility] [address] [place], [place], [id number] Comprehensive metabolic 2000 panel 3.7 mmol/L Normal 3.5-5.1 Comprehensi ve Internal Medicine Work Phone: Comment on above: [facility] [address] [place], [place], [address] Comprehensive metabolic 2000 panel 140 mmol/L Normal 136-145 Comprehensi ve Internal Medicine Work Phone: Comment on above: [facility] [address] [place], [place], [address] Comprehensive metabolic 2000 panel 7.1 g/dL Normal 6.4-8.2 Comprehensi ve Internal Medicine Work Phone: Comment on above: [facility] [address] [place], [place], [address] Comprehensive metabolic 2000 panel 0.30 mg/dL Normal 0.20-1.00 Comprehensi ve Internal Medicine Work Phone: Comment on above: [facility] [address] [place], [place], [address] Comprehensive metabolic 2000 panel 22 U/L Normal 12-78 Comprehensi ve Internal Medicine Work Phone: Comment on above: [facility] [address] [place], [place], [address] Comprehensive metabolic 2000 panel 3.9 g/dL Normal 3.4-5.0 Comprehensi ve Internal Medicine Work Phone: Comment on above: [facility] [address] [place], [place], [address] Comprehensive metabolic 2000 panel 17.8 {RATIO} Normal 10-20 Comprehensi ve Internal Medicine Work Phone: Comment on above: [facility] [address] [place], [place], [address] Comprehensive metabolic 2000 panel 3.2 g/dL Normal 2.3-3.5 Comprehensi ve Internal Medicine Work Phone: Comment on above: [facility] [address] [place], [place], [address] Comprehensive metabolic 2000 panel 1.2 {RATIO} Normal 0.9-2.4 Comprehensi ve Internal Medicine Work Phone: Comment on above: [facility] [address] [place], [place], [address] Comprehensive metabolic 2000 panel 89 mg/dL Normal 70-110 Comprehensi ve Internal Medicine Work Phone: Comment on above: [facility] [address] [place], [place], [address] Comprehensive metabolic 2000 panel 97 mL/min Normal Comprehensi ve Internal Medicine Work Phone: Comment on above: GFR Calc [facility] [address] [place], [place], [address] Comprehensive metabolic 2000 panel 14 mg/dL Normal 7-18 Comprehensi ve Internal Medicine Work Phone: Comment on above: [facility] [address] [place], [place], [address] Comprehensive metabolic 2000 panel 8.6 mg/dL Normal 8.5-10.1 Comprehensi ve Internal Medicine Work Phone: Comment on above: [facility] [address] [place], [address] Comprehensive metabolic 2000 panel 0.79 mg/dL Normal 0.55-1.02 Comprehensi ve Internal Medicine Work Phone: Comment on above: The validity of the calculated GFR AND GFRAA in patients over70 years has not been determined. Clinical correlation isessential. [facility] [address] [place], [address] Comprehensive metabolic 2000 panel 8 1 Normal 5-15 Comprehensi ve Internal Medicine Work Phone: Comment on above: [facility] [address] [place], [place], [address] Comprehensive metabolic 2000 panel 15 U/L Normal 15-37 Comprehensi ve Internal Medicine Work Phone: Comment on above: [facility] [address] [place], [address] Comprehensive metabolic 2000 panel 25.0 mmol/L Normal 21.0-32.0 Comprehensi ve Internal Medicine Work Phone: Comment on above: [facility] [address] [place], [address] Comprehensive metabolic 2000 panel 76 U/L Normal 45-117 Comprehensi ve Internal Medicine Work Phone: Comment on above: [facility] [address] [place], [place], [address] Thyroid Stim Hormone (TSH)Or dered By: Waiter/Waitress Formal on 11-25-2016 TSH Qn 0.48 {uIU/mL} Normal 0.358-3.74 Comprehensi ve Internal Medicine Work Phone: Comment on above: [facility] [address] [place], [place], [address] Vitamin D,25 HydroxyOrdered By: Waiter/Waitress Formal on 11-25-2016 Vitamin D,25 Hydroxy 29.3 ng/mL Normal Comp rehensive Internal Medicine Work Phone: Comment on above: Vitamin D 25(OH) Sta tus Range Deficiency <20 ng/mL (50nmol/L) Insuffciency 20 - 30 ng/mL (50 - 75 nmol/L) Sufficiency 30 - 100 ng/mL (75 - 250 nmol/L) Toxicity >100 ng/mL (>250 nmol/L) [facility] [address] [place], [place], [address] Thyroid Stim Hormone (TSH)Or dered By: Waiter/Waitress Formal on 11-02-2016 TSH Qn 0.51 {uIU/mL} Normal 0.358-3.74 Comprehensi ve Internal Medicine Work Phone: Comment on above: [facility] [address] [place], [place], [address] Blood Glucose , Office ([phone])Ordered By: Dilcia Linares on 12-07-2015 Glucose Glucometer (BldC) [Moles/Vol] 169 1 Normal [facility] Work Phone: Comment on above: not faasting HgA1C , Office ([phone])Ordere d By: Dilcia Linares on 12-07-2015 HbA1c (Bld) [Mass fraction] 5.9 % Normal 4.6 - 7.1 [facility] Work Phone: CBC W/AUTO DIFF WBC ([id number])O rdered By: Waiter/Waitress Formal on 11-30-2015 Basophils (Bld) [#/Vol] 0.0 {x10E3/uL} Normal 0.0-0.2 [facility] Work Phone: Comment on above: PATIENT WAS FASTINGP ERFORMED BY: YVETTE PeñaAncancokathrine CortezUNC Health Nash [id number] Basophils/100 WBC (Bld) 0 % Normal [facility] Work Phone: Comment on above: PATIENT WAS FASTINGP ERFORMED BY: YVETTE PeñaCokathrine Fryox RoadDublin [place] [id number] Eosinophils (Bld) [#/Vol] 0.1 {x10E3/uL} Normal 0.0-0.4 [facility] Work Phone: Comment on above: PATIENT WAS FASTINGP ERFORMED BY: YVETTE [place]iana[place] Qgcmew2239 [address] RoadDublin [place] [id number] Eosinophils/100 WBC (Bld) 2 % Normal [facility] Work Phone: Comment on above: PATIENT WAS FASTINGP ERFORMED BY: YVETTE [facility] Mzjjtv3590 [address] [place] [id number] Erythrocyte distribution width (RBC) [Ratio] 13.7 % Normal 12.3-15.4 [facility] Work Phone: Comment on above: PATIENT WAS FASTINGP ERFORMED BY: YVETTE PeñaChildren[facility] Uzkrag4409 [address] RoadPsychiatric Hospitalin [place] [id number] Hematocrit (Bld) [Volume fraction] 38.2 % Normal 34.0-46.6 [facility] Work Phone: Comment on above: PATIENT WAS FASTINGP ERFORMED BY: YVETTE [facility] Chuiim[address] Roadblin [place] [id number] Hemoglobin (Bld) [Mass/Vol] 12.6 g/dL Normal 11.1-15.9 [facility] Work Phone: Comment on above: PATIENT WAS FASTINGP ERFORMED BY: LabChildren[facility] Ieeben0116 [address] RoadDublin [place] [id number] Immature granulocytes (Bld) [#/Vol] 0.0 {x10E3/uL} Normal 0.0-0.1 [facility] Work Phone: Comment on above: PATIENT WAS FASTINGP ERFORMED BY: LabChildren[facility] Ldqrxd8589 [address] RoadDublin [place] [id number] Immature granulocytes/100 WBC (Bld) 0 % Normal [facility] Work Phone: Comment on above: PATIENT WAS FASTINGP ERFORMED BY: YVETTE [facility] Msshoa5389 [address] RoadDublin [place] [id number] Lymphocytes (Bld) [#/Vol] 1.8 {x10E3/uL} Normal 0.7-3.1 [facility] Work Phone: Comment on above: PATIENT WAS FASTINGP ERFORMED BY: YVETTE [facility] Urfylw5519 [address] RoadDublin [place] [id number] Lymphocytes/100 WBC (Bld) 31 % Normal [facility] Work Phone: Comment on above: PATIENT WAS FASTINGP ERFORMED BY: YVETTE [facility] Yziprv0325 [address] RoadDublin [place] [id number] MCH (RBC) [Entitic mass] 28.6 pg Normal 26.6-33.0 [facility] Internal Medicine Work Phone: Comment on above: PATIENT WAS FASTINGP ERFORMED BY: YVETTE [facility] Bcfivh8355 [address] RoadDublin [place] [id number] MCHC (RBC) [Mass/Vol] 33.0 g/dL Normal 31.5-35.7 [facility] Internal Medicine Work Phone: Comment on above: PATIENT WAS FASTINGP ERFORMED BY: YVETTE [facility] Gaomjo3662 [address] RoadDublin [place] [id number] MCV (RBC) [Entitic vol] 87 fL Normal 79-97 [facility] Work Phone: Comment on above: PATIENT WAS FASTINGP ERFORMED BY: LabChildren[facility] Jxrpmw8376 [address] RoadDublin [place] [id number] Monocytes (Bld) [#/Vol] 0.2 {x10E3/uL} Normal 0.1-0.9 [facility] Work Phone: Comment on above: PATIENT WAS FASTINGP ERFORMED BY: [facility] Vcrtqc8742 [address] RoadDublin [place] [id number] Monocytes/100 WBC (Bld) 4 % Normal [facility] Internal Medicine Work Phone: Comment on above: PATIENT WAS FASTINGP ERFORMED BY: [facility] Hkofqc5255 [address] RoadDublin [place] [id number] Neutrophils (Bld) [#/Vol] 3.8 {x10E3/uL} Normal 1.4-7.0 [facility] Internal Medicine Work Phone: Comment on above: PATIENT WAS FASTINGP ERFORMED BY: YVETTE Shanikathrine Ghuoih3823 [facility]in [place] [id number] Neutrophils/100 WBC (Bld) 63 % Normal [facility] Medicine Work Phone: Comment on above: PATIENT WAS FASTINGP ERFORMED BY: YVETTE Morejonlin6370 [facility] [id number] Platelets (Bld) [#/Vol] 213 {x10E3/uL} Normal 150-379 [facility] Work Phone: Comment on above: PATIENT WAS FASTINGP ERFORMED BY: YVETTE MarianaElizabeth Hebvsr2936 [facility] [id number] RBC (Bld) [#/Vol] 4.41 {x10E6/uL} Normal 3.77-5.28 [facility] Internal Medicine Work Phone: Comment on above: PATIENT WAS FASTINGP ERFORMED BY: YVETTE Morejonlin6370 [facility] [place] [id number] WBC (Bld) [#/Vol] 6.0 {x10E3/uL} Normal 3.4-10.8 [facility] Internal Medicine Work Phone: Comment on above: PATIENT WAS FASTINGP ERFORMED BY: YVETTE Morejonlin6370 [facility] [id number] FREE TRIDOTHYRONINE (T3) ([id number] 361)Ordered By: Waiter/Waitress Formal on 11-30-2015 Free T3 [Mass/Vol] 2.2 pg/mL Normal 2.0-4.4 [facility] Internal Medicine Work Phone: Comment on above: PATIENT WAS FASTINGP ERFORMED BY: YVETTE LabChino Rgxvid9950 [facility] [place] [id number] LIPID PANEL ([id number])Ordered B y: Waiter/Waitress Formal on 11-30-2015 Cholesterol [Mass/Vol] 188 mg/dL Normal 100-199 [facility] Internal Medicine Work Phone: Comment on above: PATIENT WAS FASTINGP ERFORMED BY: CB [facility] Epyefx1919 Grant RoadPsychiatric Hospitalin [place] [id number]; non-emergent till apt Cholesterol in HDL [Mass/Vol] 58 mg/dL Normal [facility] Medicine Work Phone: Comment on above: According to ATP-III Guidelines, HDL-C >59 mg/dL is considered anegative risk factor for CHD. PATIENT WAS FASTINGP ERFORMED BY: CB [facility] Cxaolw1643 Grant RoadUNC Health Nash [id number]; non-emergent till apt Cholesterol in LDL [Mass/Vol] 95 mg/dL Normal 0-99 [facility] Work Phone: Comment on above: PATIENT WAS FASTINGP ERFORMED BY: [facility] Hfnwyd7338 [facility] [id number]; non-emergent till apt Cholesterol in LDL/Cholesterol in HDL [Mass ratio] 1.6 {ratio_units} Normal 0.0-3.2 [facility] Work Phone: Comment on above: LDL/HDL Ratio Men Wo men 1/2 Avg.Risk 1.0 1.5 Avg.Risk 3.6 3.2 2X Avg.Risk 6.2 5.0 3X Avg.Risk 8.0 6.1 PATIENT WAS FASTINGP ERFORMED BY: [facility] Qwulyk1473 [facility] [id number]; non-emergent till apt Cholesterol in VLDL [Mass/Vol] 35 mg/dL Normal 5-40 [facility] Medicine Work Phone: Comment on above: PATIENT WAS FASTINGP ERFORMED BY: CB [facility] Hsojhd9227 [facility] [id number]; non-emergent till apt Triglyceride [Mass/Vol] 175 mg/dL Abnormal 0-149 [facility] Medicine Work Phone: Comment on above: PATIENT WAS FASTINGP ERFORMED BY: CB [facility] Idoojs4628 [facility] [id number]; non-emergent till apt METABOLIC PANEL, COMPREHENSI VE ([id number])Ordered By: Waiter/Waitress Formal on 11-30-2015 Albumin [Mass/Vol] 4.3 g/dL Normal 3.5-5.5 [facility] Internal Medicine Work Phone: Comment on above: PATIENT WAS FASTINGP ERFORMED BY: YVETTE [facility] Orfzox2757 [address] RoadDublin [place] [id number] Albumin/Globulin [Mass ratio] 1.9 {ratio} Normal 1.1-2.5 [facility] Internal Medicine Work Phone: Comment on above: PATIENT WAS FASTINGP ERFORMED BY: CB [facility] Zcfepa2127 [address] RoadDublin [place] [id number] ALP [Catalytic activity/Vol] 69 [iU]/L Normal 39-117 [facility] Work Phone: Comment on above: PATIENT WAS FASTINGP ERFORMED BY: [facility] Udhbyj6716 [address] RoadDublin [place] [id number] ALT [Catalytic activity/Vol] 10 [iU]/L Normal 0-32 [facility] Work Phone: Comment on above: PATIENT WAS FASTINGP ERFORMED BY: [facility] Ruwgwn5620 [address] RoadDublin [place] [id number] AST [Catalytic activity/Vol] 14 [iU]/L Normal 0-40 [facility] Internal Medicine Work Phone: Comment on above: PATIENT WAS FASTINGP ERFORMED BY: [facility] Nwfkty6026 [address] RoadDublin [place] [id number] Bilirubin [Mass/Vol] 0.5 mg/dL Normal 0.0-1.2 [facility] Internal Medicine Work Phone: Comment on above: PATIENT WAS FASTINGP ERFORMED BY: CB [facility] Addnon0348 [address] RoadDublin [place] [id number] Calcium [Mass/Vol] 8.8 mg/dL Normal 8.7-10.2 [facility] Internal Medicine Work Phone: Comment on above: PATIENT WAS FASTINGP ERFORMED BY: CB [facility] Tsuxoy0488 [address] RoadDublin [place] [id number] Chloride [Moles/Vol] 103 mmol/L Normal 97-108 [facility] Internal [facility] Work Phone: Comment on above: Effective December 11, 2015 the reference interval for Chloride, Serum will be changing to: 97 - 106 PATIENT WAS FASTINGP ERFORMED BY: [facility] Juihvm[address]138 [address] [facility]bl[facility] [place] [id number] CO2 [Moles/Vol] 21 mmol/L Normal 18-29 Comprehen [facility] Internal Medicine Work Phone: Comment on above: PATIENT WAS FASTINGP ERFORMED BY: LabAncanco Sinvfs2167 [facility]in [place] [id number] Creatinine [Mass/Vol] 0.85 mg/dL Normal 0.57-1.00 [facility] Internal Medicine Work Phone: Comment on above: PATIENT WAS FASTINGP ERFORMED BY: LabAncanco Akzfnr2156 [facility] [id number] GFR/1.73 sq M predicted among blacks CKD-EPI (S/P/Bld) [Vol rate/Area] 90 mL/min/1.73 Normal [facility] Work Phone: Comment on above: PATIENT WAS FASTINGP ERFORMED BY: LabAncanco Vyseir6457 [facility]in [place] [id number] GFR/1.73 sq M predicted among non-blacks CKD-EPI (S/P/Bld) [Vol rate/Area] 78 mL/min/1.73 Normal [facility] Work Phone: Comment on above: PATIENT WAS FASTINGP ERFORMED BY: LabAncanco Fgjgnj0711 [facility] [id number] Globulin (S) [Mass/Vol] 2.3 g/dL Normal 1.5-4.5 [facility] Work Phone: Comment on above: PATIENT WAS FASTINGP ERFORMED BY: LabAncanco Kodtil0728 [facility] [place] [id number] Glucose [Mass/Vol] 87 mg/dL Normal 65-99 [facility] Internal Medicine Work Phone: Comment on above: PATIENT WAS FASTINGP ERFORMED BY: [employer] Mevosh0907 [facility] [id number] Potassium [Moles/Vol] 3.8 mmol/L Normal 3.5-5.2 [facility] Internal Medicine Work Phone: Comment on above: Effective December 11, 2015 the reference interval for Potassium, Serum will be changing to: 0 - 7 days 3.7 - 5.2 8 - 30 days 3.7 - 6.4 1 - 6 months 3.8 - 6.0 7 months - 1 year 3.8 - 5.3 >1 year 3.5 - 5.2 PATIENT WAS FASTINGP ERFORMED BY: LabAncanco Zkxjql0079 [facility] [id number] Protein [Mass/Vol] 6.6 g/dL Normal 6.0-8.5 [facility] Internal Medicine Work Phone: Comment on above: PATIENT WAS FASTINGP ERFORMED BY: LabAncanco Ummkdo2519 [facility] [id number] Sodium [Moles/Vol] 141 mmol/L Normal 134-144 [facility] Internal Medicine Work Phone: Comment on above: Effective December 11, 2015 the reference interval for Sodium, Serum will be changing to: 136 - 144 PATIENT WAS FASTINGP ERFORMED BY: [employer] Dqxeoo1557 [facility] [id number] Urea nitrogen [Mass/Vol] 13 mg/dL Normal 6-24 [facility] Internal Medicine Work Phone: Comment on above: PATIENT WAS FASTINGP ERFORMED BY: LabAncanco Czjvdc5908 [facility] [id number] Urea nitrogen/Creatinine [Mass ratio] 15 mg/mg Normal 9-23 [facility] Internal Medicine Work Phone: Comment on above: PATIENT WAS FASTINGP ERFORMED BY: LabAncanco Cixmmj0724 [facility] [id number] MICROALBUMINOrdered By: Syst em Grey Inspector on 11-30-2015 Albumin DL <= 20 mg/L (U) [Mass/Vol] 6.8 ug/mL Normal [facility] Work Phone: Comment on above: PATIENT WAS FASTINGP ERFORMED BY: YVETTE [facility] Hxxpby3057 [facility] [id number] Albumin/Creatinine (U) [Mass ratio] 5.0 {mg/g_creat} Normal 0.0-30.0 [facility] Work Phone: Comment on above: PATIENT WAS FASTINGP ERFORMED BY: YVETTE [facility] Zprzzx7175 [facility] [id number] Creatinine (U) [Mass/Vol] 136.0 mg/dL Normal [facility] Work Phone: Comment on above: PATIENT WAS FASTINGP ERFORMED BY: YVETTE [facility] Htmzld0020 [facility] [id number] THYROXINE FREE ([id number])Ordere d By: Waiter/Waitress Formal on 11-30-2015 Free T4 [Mass/Vol] 1.39 ng/dL Normal 0.82-1.77 [facility] Internal Medicine Work Phone: Comment on above: PATIENT WAS FASTINGP ERFORMED BY: [facility]Children[facility] Heggwr6145 [facility] [place] [id number] TSH (THYROID STIMULATING HOR FOREST) ([id number])Ordered By: Waiter/Waitress Formal on 11-30-2015 TSH Qn 0.959 {uIU/mL} Normal 0.450-4.50 0 [facility] Work Phone: Comment on above: PATIENT WAS FASTINGP ERFORMED BY: [facility] Qnufys1932 [facility] [id number] Vitamin D Hydroxy ([id number])Ord ered By: Waiter/Waitress Formal on 11-30-2015 25-Hydroxyvitamin D2+25-Hydroxyvitamin D3 [Mass/Vol] 39.4 ng/mL Normal 30.0-100.0 [facility] Work Phone: Comment on above: Vitamin D deficiency has been defined by the [place] ofMedicine and an Endocrine Society practice guideline as alevel of serum 25-OH vitamin D less than 20 ng/mL (1,2).The Endocrine Society went on to further define vitamin Dinsufficiency as a level between 21 and 29 ng/mL (2).1. IOM ([place] of Medicine). 2010. Dietary reference intakes for calcium and D. [place]: The National Academies Press.2. Markus MF, Vianey STAHL, Eliel LAGUNAS, et al. Evaluation, treatment, and prevention of vitamin D deficiency: an Endocrine Society clinical practice guideline. JCEM. 2010; 96(7):1911-30. PATIENT WAS FASTINGP ERFORMED BY: [email or web address] [place] [id number] URINE SOMMER CULTURE-IDENTIFICA [place] ([id number])Ordered By: Waiter/Waitress Formal on 08-31-2015 Bacteria identified Cx Nom (U) Final report Normal [facility] Work Phone: Comment on above: PATIENT NOT FASTINGP ERFORMED BY: [email or web address] [place] [id number] Information: [id number] Bacteria identified Cx Nom (U) MUG Normal [facility] Work Phone: Comment on above: Mixed urogenital pedro raGreater than 100,000 colony forming units per mL PATIENT NOT FASTINGP ERFORMED BY: [employer] [facility] [place] [id number] Information: [id number] Urinalysis, Office (07997)Or dered By: Lonny Kelly on 08-31-2015 Bilirubin Ql (U) Negative Normal Comprehe nsive Internal Medicine Work Phone: Glucose Test strip (U) [Mass/Vol] Negative Normal [facility] Work Phone: Hemoglobin Ql (U) Negative Normal Compreh ensive Internal Medicine Work Phone: Ketones Ql (U) Negative Normal Comprehens isaiah Internal Medicine Work Phone: Leukocyte esterase Test strip Ql (U) Trace Normal [facility] Work Phone: Nitrite Ql (U) Negative Normal Comprehens [facility] Work Phone: pH (U) 6 [pH] Abnormal [facility] Work Phone: Protein Ql (U) Negative Normal Comprehens [facility] Work Phone: Specific gravity (U) [Rel density] 1.025 1 Normal [facility] Work Phone: Urobilinogen (24H U) [Mass/Time] Normal Normal [facility] Work Phone: IGP, Aptima HPV, rfx 16/18,4 5Ordered By: Waiter/Waitress Formal on 06-27-2015 HPV 16+18+31+33+35+39+45+5 1+52+56+58+59+66+68 DNA Probe+sig amp Ql (Cvx) Negative Normal [facility] Work Phone: Comment on above: This test detects fo urteen high-risk HPV types (16/18/31/33/35/39/45/51/52/56/58/59/66/68) without differentiation. Source.............C ervical;EndocervicalNo. of containers..01 CYTYC Thin Prep VialPATIENT NOT FASTINGPERFORMED BY: =G @Pay120 [employer] [id number] BY: WB @Pay120 [employer] [id number] Microscopic observation Other stain Nom (Unsp spec) . Normal Comprehens [facility] Work Phone: Comment on above: Source.............C ervical;EndocervicalNo. of containers..01 CYTYC Thin Prep VialPATIENT NOT FASTINGPERFORMED BY: =G @Pay120 [employer] [id number] BY: WB [employer] [id number] Pathology report final diagnosis Narrative SPRCS Normal Comprehensiv e Internal Medicine Work Phone: Comment on above: NEGATIVE FOR INTRAEP ITHELIAL LESION AND MALIGNANCY.Satisfactory for evaluation. Endocervical and/or squamous metaplasticcells (endocervical component) are present.Z01.419Bruce Jovanny Jeffries Indoor Landscaper/Gardener (ASCP) Source.............C ervical;EndocervicalNo. of containers..01 CYTYC Thin Prep VialPATIENT NOT FASTINGPERFORMED BY: =G [facility] Xvfkffghlo396 [place] [id number] BY: WB [facility] Ienvkbxrih497 [place] [facility] [place] [id number] IGP, Aptima HPV, rfx 16/18,45 PAPSMR Normal [facility] Work Phone: Comment on above: The Pap smear is a s creening test designed to aid in the detection ofpremalignant and malignant conditions of the uterine cervix. It is not adiagnostic procedure and should not be used as the sole means of detectingcervical cancer. Both false-positive and false-negative reports do occur. .This liquid based ThinPrep(R) pap test was screened with theuse of an image guided system. Source.............C ervical;EndocervicalNo. of containers..01 CYTYC Thin Prep VialPATIENT NOT FASTINGPERFORMED BY: =G [facility] [place] [id number] BY: WB [facility] Kqqpkrsjzb846 [place] [id number] Thin prep Pap (63244) (no ST D testing)Ordered By: Waiter/Waitress Formal on 06-27-2015 Thin prep Pap (30162) (no STD testing) 30-65 Normal [facility] Work Phone: Comment on above: Source.............C ervical;EndocervicalNo. of containers..01 CYTYC Thin Prep VialPATIENT NOT FASTINGPERFORMED BY: =G [facility] Vmewwwsrfh237 [place] [id number] BY: WB [facility] Dcwxrymzuq426 [place] [facility]irarjovanasaint [facility] [place] [id number] Information: [id number] URINE SOMMER CULTURE-IDENTIF[place] (06198)Ordered By: Waiter/Waitress Formal on 03-01-2015 Bacteria identified Cx Nom (U) Final report Abnormal [facility] Work Phone: Comment on above: PATIENT NOT FASTINGP ERFORMED BY: [facility] Ghbtmr3095 [facility] [id number] Information: [id number] Bacteria identified Cx Nom (U) Escherichia coli Abnormal [facility] Work Phone: Comment on above: 3,000 Colonies/mL PATIENT NOT FASTINGP ERFORMED BY: [facility] Bmatat2914 [facility] [id number] Information: [id number] Other Antibiotic [Susc] MIHEAD Normal [facility] Work Phone: Comment on above: S = Susceptible; I = Intermediate; R = Resistant P = Positive; N = Negative MICS are expressed in micrograms per mL Antibiotic RSLT#1 RSLT#2 RSLT#3 RSLT#4Amoxicillin/Clavulanic Acid SAmpicillin SCefepime SCeftriaxone SCefuroxime SCephalothin SCiprofloxacin SErtapenem SGentamicin SImipenem SLevofloxacin SNitrofurantoin SPiperacillin STetracycline STobramycin STrimethoprim/Sulfa S PATIENT NOT FASTINGP ERFORMED BY: [facility] Arutbd0993 [facility] [id number] Information: [id number] Urinalysis, Office (95573)Or dered By: Marivel Talbot on 02-27-2015 Bilirubin Ql (U) Negative Normal Comprehe nsive Internal Medicine Work Phone: Glucose Test strip (U) [Mass/Vol] Negative Normal [facility] Work Phone: Hemoglobin Ql (U) Negative Normal Compreh ensive Internal Medicine Work Phone: Ketones Ql (U) Small Normal Comprehens [facility] Work Phone: Leukocyte esterase Test strip Ql (U) Negative Normal [facility] Work Phone: Nitrite Ql (U) Negative Normal Comprehens [facility] Work Phone: pH (U) 6 [pH] Abnormal [facility] Work Phone: Protein Ql (U) Negative Normal Comprehens [facility] Work Phone: Specific gravity (U) [Rel density] 1.020 1 Normal [facility] Work Phone: Urobilinogen (24H U) [Mass/Time] Normal Normal [facility] Work Phone: D-Dimer Quantitative (DVT/PE )Ordered By: Waiter/Waitress Formal on 11-17-2014 D-Dimer Quantitative (DVT/PE) < 0.27 Abnormal 0.27-0.49 [facility] Work Phone: Comment on above: NORMAL D-Dimer level (<0.50) indicates no DVT or PE. Test performed at:[facility] [address] [place] [address] [id number] DHEA-S (DEHYDROEPIANDROSTERO NE SULFATE) (49780)Ordered By: Waiter/Waitress Formal on 11-17-2014 DHEA-S [Mass/Vol] 56.5 ug/dL Normal 41.2-243.7 [facility] Work Phone: Comment on above: PATIENT NOT FASTINGP ERFORMED BY: [employer].tv70 [facility] [id number] BY: [employer] [address] [id number] FERRITIN (67269)Ordered By: Waiter/Waitress Formal on 11-17-2014 Ferritin [Mass/Vol] 101 ng/mL Normal 15-150 Compr ehensive Internal Medicine Work Phone: Comment on above: PATIENT NOT FASTINGP ERFORMED BY: [employer].tv70 [facility] [id number] BY: [facility] [employer] [id number] Homocysteine, Plasma (80744) Ordered By: Waiter/Waitress Formal on 11-17-2014 Homocysteine [Moles/Vol] 10.0 umol/L Normal 0.0-15.0 [facility] Work Phone: Comment on above: PATIENT NOT FASTINGP ERFORMED BY: CB [facility] Aeahrd5396 Grant RoadDublin [place] [id number] BY: LabCo[address] [id number] IRON (86933)Ordered By: Syst em Grey Inspector on 11-17-2014 Iron [Mass/Vol] 57 ug/dL Normal 35-155 Comprehen [facility] Internal Medicine Work Phone: Comment on above: PATIENT NOT FASTINGP ERFORMED BY: CB [facility] Boetpf9880 Grant RoadDublin [place] [id number] BY: Lab[address] [id number] Metabolic Panel, Comprehensi ve (13205)Ordered By: Waiter/Waitress Formal on 11-17-2014 Albumin [Mass/Vol] 4.5 g/dL Normal 3.5-5.5 [facility] Internal Medicine Work Phone: Comment on above: PATIENT NOT FASTINGP ERFORMED BY: CB [facility] Gwhlnv0453 Grant RoadDublin [place] [id number] BY: Lab[address] [id number] Information: 636190,[id number] Albumin/Globulin [Mass ratio] 2.0 {ratio} Normal 1.1-2.5 [facility] Work Phone: Comment on above: PATIENT NOT FASTINGP ERFORMED BY: CB [facility] Rkrttd3542 Grant RoadDublin [place] [id number] BY: Lab[address] [id number] Information: 482883,[id number] ALP [Catalytic activity/Vol] 71 [iU]/L Normal 39-117 [facility] Work Phone: Comment on above: PATIENT NOT FASTINGP ERFORMED BY: CB [facility] Tyugso1520 Grant RoadDublin [place] [id number] BY: LabCo[address] [id number] Information: 160232,[id number] ALT [Catalytic activity/Vol] 10 [iU]/L Normal 0-32 [facility] Work Phone: Comment on above: PATIENT NOT FASTINGP ERFORMED BY: YVETTE [facility] Fhezfk1030 [facility] [id number] BY: LabCo[address] [id number] Information: 643312,Q69850 AST [Catalytic activity/Vol] 15 [iU]/L Normal 0-40 [facility] Work Phone: Comment on above: PATIENT NOT FASTINGP ERFORMED BY: YVETTE [facility] Bxrhrq4758 [facility] [id number] BY: [address] [id number] Information: 244018,C23741 Bilirubin [Mass/Vol] 0.2 mg/dL Normal 0.0-1.2 [facility] Work Phone: Comment on above: PATIENT NOT FASTINGP ERFORMED BY: YVETTE [facility] Xquozg2724 [facility] [id number] BY: LabCo[address] [id number] Information: 937415,Z92342 Calcium [Mass/Vol] 9.4 mg/dL Normal 8.7-10.2 [facility] Internal Medicine Work Phone: Comment on above: PATIENT NOT FASTINGP ERFORMED BY: CB [facility] Wylgcf7443 [facility] [id number] BY: Lab[address] [id number] Information: 971759,Z52999 Chloride [Moles/Vol] 102 mmol/L Normal 97-108 [facility] Work Phone: Comment on above: PATIENT NOT FASTINGP ERFORMED BY: YVETTE [facility] Omxovy2798 [address] RoadDublin [place] [id number] BY: BN [facility] [address] [id number] Information: 481216,O75306 CO2 [Moles/Vol] 22 mmol/L Normal 18-29 [facility] Internal Medicine Work Phone: Comment on above: PATIENT NOT FASTINGP ERFORMED BY: CB [facility] Aadmee7616 [address] RoadUNC Health Nash [id number] BY: BN [facility] [address] [id number] Information: 952163,I49089 Creatinine [Mass/Vol] 0.84 mg/dL Normal 0.57-1.00 [facility] Internal Medicine Work Phone: Comment on above: PATIENT NOT FASTINGP ERFORMED BY: CB [facility] Pfcokw2468 Grant RoadUNC Health Nash [id number] BY: LabCo[address] [id number] Information: 820210,R47215 GFR/1.73 sq M predicted among blacks CKD-EPI (S/P/Bld) [Vol rate/Area] 92 mL/min/1.73 Normal [facility] Work Phone: Comment on above: PATIENT NOT FASTINGP ERFORMED BY: CB [facility] Gcpdum0481 Grant RoadDuin [place] [id number] BY: [facility] [address] [id number] Information: 482957,F42934 GFR/1.73 sq M predicted among non-blacks CKD-EPI (S/P/Bld) [Vol rate/Area] 80 mL/min/1.73 Normal [facility] Work Phone: Comment on above: PATIENT NOT FASTINGP ERFORMED BY: CB [facility] Veezgr6642 [address] RoadDublin [place] [id number] BY: [facility] [id number] Information: 658053,G29870 Globulin (S) [Mass/Vol] 2.2 g/dL Normal 1.5-4.5 [facility] Internal Medicine Work Phone: Comment on above: PATIENT NOT FASTINGP ERFORMED BY: YVETTE [facility] Eyfrmu3695 [facility] [id number] BY: [facility] [id number] Information: 011596,T17428 Glucose [Mass/Vol] 81 mg/dL Normal 65-99 [facility] Internal Medicine Work Phone: Comment on above: PATIENT NOT FASTINGP ERFORMED BY: YVETTE [facility] Ylfkdx9263 [facility] [id number] BY: Lab[address] [id number] Information: 695274,T76067 Potassium [Moles/Vol] 3.8 mmol/L Normal 3.5-5.2 [facility] Internal Medicine Work Phone: Comment on above: PATIENT NOT FASTINGP ERFORMED BY: YVETTE [facility] Abcfsi2401 [facility] [id number] BY: [facility] [id number] Information: 587934,Z44193 Protein [Mass/Vol] 6.7 g/dL Normal 6.0-8.5 [facility] Internal Medicine Work Phone: Comment on above: PATIENT NOT FASTINGP ERFORMED BY: CB [facility] Xnhcec3440 [facility] [id number] BY: [facility] [id number] Information: 550237,E85781 Sodium [Moles/Vol] 140 mmol/L Normal 134-144 [facility] Internal Medicine Work Phone: Comment on above: PATIENT NOT FASTINGP ERFORMED BY: CB [facility] Enzvyf6339 [facility] [id number] BY: [address] [id number] Information: 994428,O34782 Urea nitrogen [Mass/Vol] 15 mg/dL Normal 6-24 [facility] Work Phone: Comment on above: PATIENT NOT FASTINGP ERFORMED BY: [facility] Tapzdf4503 [facility] [id number] BY: Lab[address] [id number] Information: 946792,Q30402 Urea nitrogen/Creatinine [Mass ratio] 18 mg/mg Normal 9-23 [facility] Work Phone: Comment on above: PATIENT NOT FASTINGP ERFORMED BY: [facility] Qssxox5850 [facility] [id number] BY: [address] [id number] Information: 204795,N52752 Methymalonic Acid, Serum (83 921)Ordered By: Waiter/Waitress Formal on 11-17-2014 Methylmalonate [Moles/Vol] 273 nmol/L Normal 0-378 [facility] Work Phone: Comment on above: PATIENT NOT FASTINGP ERFORMED BY: [facility] Hewqwf0585 [facility] [id number] BY: [address] [id number] PROLACTIN (50946)Ordered By: Waiter/Waitress Formal on 11-17-2014 Prolactin [Mass/Vol] 8.0 ng/mL Normal 4.8-23.3 [facility] Internal Medicine Work Phone: Comment on above: PATIENT NOT FASTINGP ERFORMED BY: [facility] Dglvxb1005 [facility] [id number] BY: [address] [id number] T3, FREE (TRIDOTHYRONINE) (8 6885)Ordered By: Waiter/Waitress Formal on 11-17-2014 Free T3 [Mass/Vol] 2.4 pg/mL Normal 2.0-4.4 [facility] Internal Medicine Work Phone: Comment on above: PATIENT NOT FASTINGP ERFORMED BY: [employer] Fzxpse7980 [facility] [id number] BY: [facility] [employer] [id number] T4, FREE (THYROXINE) (84741) Ordered By: Waiter/Waitress Formal on 11-17-2014 Free T4 [Mass/Vol] 1.52 ng/dL Normal 0.82-1.77 [facility] Internal Medicine Work Phone: Comment on above: PATIENT NOT FASTINGP ERFORMED BY: [employer]tv70 [facility] [id number] BY: [employer] [id number] TESTOSTERONE FREE (48893)Ord ered By: Waiter/Waitress Formal on 11-17-2014 Testosterone Free [Mass/Vol] 0.5 pg/mL Normal 0.0-4.2 [facility] Work Phone: Comment on above: PATIENT NOT FASTINGP ERFORMED BY: [employer]6370 [facility] [id number] BY: [facility] [id number] TSH (84981)Ordered By: Amanda m Grey Inspector on 11-17-2014 TSH Qn 1.990 {uIU/mL} Normal 0.450-4.50 0 [facility] Work Phone: Comment on above: PATIENT NOT FASTINGP ERFORMED BY: [employer]tv70 [facility] [id number] BY: [facility] [id number] VITAMIN B12 AND FOLATES (826 07)Ordered By: Waiter/Waitress Formal on 11-17-2014 Cobalamin (Vitamin B12) [Mass/Vol] 386 pg/mL Normal 211-946 [facility] Work Phone: Comment on above: PATIENT NOT FASTINGP ERFORMED BY: [employer] Kdtnlb2326 [facility] [id number] BY: [facility] [id number] Folate [Mass/Vol] 17.5 ng/mL Normal Compreh ensive Internal Medicine Work Phone: Comment on above: A serum folate rocky ntration of less than 3.1 ng/mL isconsidered to represent clinical deficiency. PATIENT NOT FASTINGP ERFORMED BY: [facility] Xjevgb3613 [facility] CenterNatureWorksAt[facility] Health Mer[facility] [id number] BY: [facility] [id number] CK-MB Quantitative and Index Ordered By: Waiter/Waitress Formal on 07-05-2014 CK.MB [Mass/Vol] 0.8 ng/mL Normal 0.0-5.0 Comprehe nsive Internal Medicine Work Phone: Comment on above: CK-MB and RI Interpr etation MB Relative Index Non-AMI 5 5 > 4 'TROP' Serial specim en #1, #2, #3, or #4: 1'CKMB' Serial Specimen #1, #2 or #3? 1Test performed at:[facility] Tecvwbbnch0[address] [facility] [place] [address] CK-MB Quantitative and Index 83 U/L Normal 26-192 [facility] Work Phone: Comment on above: 'TROP' Serial specim en #1, #2, #3, or #4: 1'CKMB' Serial Specimen #1, #2 or #3? 1Test performed at:[facility] Vsqzaoitmw0242 [facility] [place] [address] D-Dimer Quantitative (DVT/PE )Ordered By: Waiter/Waitress Formal on 07-05-2014 D-Dimer Quantitative (DVT/PE) 0.59 {FEU/ug/m} Abnormal 0.27-0.49 [facility] Work Phone: Comment on above: D-Dimer ELEVATED (>0 .49): Additional studies and clinicalassessments are indicated to conclude diagnosis of:Deep Vein Thrombosis (DVT) or Pulmonary Embolism (PE) Test performed at:[facility] Sbnylqgzrr6452 [facility]. [place], [place] [id number] Myoglobin, SerumOrdered By: Waiter/Waitress Formal on 07-05-2014 Myoglobin, Serum 32 ng/mL Normal 25-58 Comprehe nsive Internal Medicine Work Phone: Comment on above: Performed at: [address] [id number] Director: Valentin Ayala PhD, Phone: [phone] Test performed at:[facility] Syrxvthtmf6173 [facility] [place] [address] Troponin-IOrdered By: Waiter/Waitress Formal on 07-05-2014 Troponin I.cardiac [Mass/Vol] ng/mL Normal [facility] Work Phone: Comment on above: TROPONIN-I EXPECTED VALUES <0.05 NEGATIVE 0.06 - 0.59 AT RISK OF AL > OR = 0.60 SUGGEST AL 'TROP' Serial specim en #1, #2, #3, or #4: 1'CKMB' Serial Specimen #1, #2 or #3? 1Test performed at:[facility] Rnyizybyww8433 [facility] [place] [address] CALCIFEDIOL (74338)Ordered B y: Waiter/Waitress Formal on 06-27-2014 25-Hydroxyvitamin D2+25-Hydroxyvitamin D3 [Mass/Vol] 45.3 ng/mL Normal 30.0-100.0 [facility] Work Phone: Comment on above: Vitamin D deficiency has been defined by the [place] ofMedicine and an Endocrine Society practice guideline as alevel of serum 25-OH vitamin D less than 20 ng/mL (1,2).The Endocrine Society went on to further define vitamin Dinsufficiency as a level between 21 and 29 ng/mL (2).1. IOM ([place] of Medicine). 2010. Dietary reference intakes for calcium and D. [place]: The National Academies Press.2. Markus MF, Vianey NC, Eliel LAGUNAS, et al. Evaluation, treatment, and prevention of vitamin D deficiency: an Endocrine Society clinical practice guideline. JCEM. 2010; 96(7):1911-30. PATIENT WAS FASTINGP ERFORMED BY: [facility] Anhaoq9985 Grant RoadDublin [place] [id number] CBC & PLATELETS (AUTO) (8502 7)Ordered By: Waiter/Waitress Formal on 06-27-2014 Erythrocyte distribution width (RBC) [Ratio] 13.7 % Normal 12.3-15.4 [facility] Internal Medicine Work Phone: Comment on above: PATIENT WAS FASTINGP ERFORMED BY: LabRaise5 Cfwttn3307 [address] RoadDublin [place] [id number] Hematocrit (Bld) [Volume fraction] 36.7 % Normal 34.0-46.6 [facility] Internal Medicine Work Phone: Comment on above: PATIENT WAS FASTINGP ERFORMED BY: [employer] Hlnbjp9476 [address] RoadDublin [place] [id number] Hemoglobin (Bld) [Mass/Vol] 12.5 g/dL Normal 11.1-15.9 [facility] Internal Medicine Work Phone: Comment on above: PATIENT WAS FASTINGP ERFORMED BY: [facility]5 Cemubk8658 [address] RoadDublin [place] [id number] MCH (RBC) [Entitic mass] 28.9 pg Normal 26.6-33.0 [facility] Internal Medicine Work Phone: Comment on above: PATIENT WAS FASTINGP ERFORMED BY: [facility]5 Edjkby7171 [address] RoadD[address] [place] [id number] MCHC (RBC) [Mass/Vol] 34.1 g/dL Normal 31.5-35.7 [facility] Internal Medicine Work Phone: Comment on above: PATIENT WAS FASTINGP ERFORMED BY: [facility]An[facility] Llukdn8534 [address] RoadDublin [place] [id number] MCV (RBC) [Entitic vol] 85 fL Normal 79-97 [facility] Internal Medicine Work Phone: Comment on above: PATIENT WAS FASTINGP ERFORMED BY: YVETTE [facility] Jxsfdd4072 [address] RoadDublin [place] [id number] Platelets (Bld) [#/Vol] 197 {x10E3/uL} Normal 150-379 [facility] Work Phone: Comment on above: PATIENT WAS FASTINGP ERFORMED BY: YVETTE [facility] Mrgseg9889 [address] RoadDublin [place] [id number] RBC (Bld) [#/Vol] 4.33 {x10E6/uL} Normal 3.77-5.28 [facility] Internal [facility] Work Phone: Comment on above: PATIENT WAS FASTINGP ERFORMED BY: YVETTE [facility] Abfkjc4405 [address] RoadDublin [place] [id number] WBC (Bld) [#/Vol] 6.0 {x10E3/uL} Normal 3.4-10.8 [facility] Internal Medicine Work Phone: Comment on above: PATIENT WAS FASTINGP ERFORMED BY: YVETTE [facility] Zjryrx3553 [address] RoadDublin [place] [id number] Lipid Panel (22117)Ordered B y: Waiter/Waitress Formal on 06-27-2014 Cholesterol [Mass/Vol] 163 mg/dL Normal 100-199 [facility] Internal Medicine Work Phone: Comment on above: PATIENT WAS FASTINGP ERFORMED BY: YVETTE LabCokathrine MorejonCaihjk3689 [address] RoadDublin [place] [id number] Cholesterol in HDL [Mass/Vol] 45 mg/dL Normal [facility] Work Phone: Comment on above: According to ATP-III Guidelines, HDL-C >59 mg/dL is considered anegative risk factor for CHD. PATIENT WAS FASTINGP ERFORMED BY: YVETTE [facility] Tgazpr9281 [address] RoadDublin [place] [id number] Cholesterol in LDL [Mass/Vol] 82 mg/dL Normal 0-99 [facility] Work Phone: Comment on above: PATIENT WAS FASTINGP ERFORMED BY: YVETTE [facility] Rwzscp5382 [address] RoadDublin [place] [id number] Cholesterol in LDL/Cholesterol in HDL [Mass ratio] 1.8 {ratio_units} Normal 0.0-3.2 [facility] Work Phone: Comment on above: LDL/HDL Ratio Men Wo men 1/2 Avg.Risk 1.0 1.5 Avg.Risk 3.6 3.2 2X Avg.Risk 6.2 5.0 3X Avg.Risk 8.0 6.1 PATIENT WAS FASTINGP ERFORMED BY: YVETTE [facility] Nxlggy2874 [facility] [id number] Cholesterol in VLDL [Mass/Vol] 36 mg/dL Normal 5-40 [facility] Work Phone: Comment on above: PATIENT WAS FASTINGP ERFORMED BY: YVETTE LabElizabeth MorejonAggxty8284 [facility] [id number] Triglyceride [Mass/Vol] 178 mg/dL Abnormal 0-149 [facility] Work Phone: Comment on above: PATIENT WAS FASTINGP ERFORMED BY: YVETTE LabElizabeth MorejonEtmdxr1136 [facility] [id number] Metabolic Panel, Comprehensi ve (92941)Ordered By: Waiter/Waitress Formal on 06-27-2014 Albumin [Mass/Vol] 4.3 g/dL Normal 3.5-5.5 [facility] Internal Medicine Work Phone: Comment on above: PATIENT WAS FASTINGP ERFORMED BY: YVETTE [facility] Oaqaza3816 [facility] [id number] Information: 466658,Q56143 Albumin/Globulin [Mass ratio] 2.0 {ratio} Normal 1.1-2.5 [facility] Work Phone: Comment on above: PATIENT WAS FASTINGP ERFORMED BY: YVETTE [facility] Uhgrno1443 [facility] [id number] Information: 995538,G74342 ALP [Catalytic activity/Vol] 73 [iU]/L Normal 39-117 [facility] Work Phone: Comment on above: PATIENT WAS FASTINGP ERFORMED BY: YVETTE [facility] Hjnoqt3278 [facility] [id number] Information: [id number] ALT [Catalytic activity/Vol] 14 [iU]/L Normal 0-32 [facility] Internal Medicine Work Phone: Comment on above: PATIENT WAS FASTINGP ERFORMED BY: [facility] Sbhczm9813 [facility] [place] [id number] Information: [id number] AST [Catalytic activity/Vol] 18 [iU]/L Normal 0-40 [facility] Internal Medicine Work Phone: Comment on above: PATIENT WAS FASTINGP ERFORMED BY: [facility] Rptywh5713 [facility] [place] [id number] Information: [id number] Bilirubin [Mass/Vol] 0.4 mg/dL Normal 0.0-1.2 [facility] Work Phone: Comment on above: PATIENT WAS FASTINGP ERFORMED BY: [facility] Yrguyt8378 [facility] [id number] Information: 756988,D05450 Calcium [Mass/Vol] 9.0 mg/dL Normal 8.7-10.2 [facility] Internal Medicine Work Phone: Comment on above: PATIENT WAS FASTINGP ERFORMED BY: [facility] Whpmoy5102 [facility] [id number] Information: [id number],F62166 Chloride [Moles/Vol] 106 mmol/L Normal 97-108 [facility] Internal Medicine Work Phone: Comment on above: PATIENT WAS FASTINGP ERFORMED BY: [facility] Zmmjlj4031 [facility] [place] [id number] Information: 428116,C75243 CO2 [Moles/Vol] 20 mmol/L Normal 18-29 [facility] Internal Medicine Work Phone: Comment on above: PATIENT WAS FASTINGP ERFORMED BY: [facility] Yhgsfj6373 [facility] [place] [id number] Information: 044312,Z92037 Creatinine [Mass/Vol] 0.94 mg/dL Normal 0.57-1.00 [facility] Work Phone: Comment on above: PATIENT WAS FASTINGP ERFORMED BY: YVETTE [facility] Itnyow5509 [facility] [id number] Information: 296923,Z11876 GFR/1.73 sq M predicted among blacks CKD-EPI (S/P/Bld) [Vol rate/Area] 81 mL/min/1.73 Normal [facility] Work Phone: Comment on above: PATIENT WAS FASTINGP ERFORMED BY: YVETTE [facility] Layats9496 [facility] [id number] Information: 182928,M55930 GFR/1.73 sq M predicted among non-blacks CKD-EPI (S/P/Bld) [Vol rate/Area] 70 mL/min/1.73 Normal [facility] Internal Medicine Work Phone: Comment on above: PATIENT WAS FASTINGP ERFORMED BY: YVETTE [facility] Wicuzv5782 [facility] [id number] Information: 254623,V82034 Globulin (S) [Mass/Vol] 2.1 g/dL Normal 1.5-4.5 [facility] Internal Medicine Work Phone: Comment on above: PATIENT WAS FASTINGP ERFORMED BY: [facility] Ujikbe7891 [facility] [id number] Information: 179408,K47126 Glucose [Mass/Vol] 102 mg/dL Abnormal 65-99 [facility] Internal Medicine Work Phone: Comment on above: PATIENT WAS FASTINGP ERFORMED BY: [facility] Zsanbz1125 [facility] [id number] Information: 997309,M31850 Potassium [Moles/Vol] 3.9 mmol/L Normal 3.5-5.2 [facility] Internal Medicine Work Phone: Comment on above: PATIENT WAS FASTINGP ERFORMED BY: [facility]6370 [facility] [id number] Information: 893704,U34215 Protein [Mass/Vol] 6.4 g/dL Normal 6.0-8.5 [facility] Internal Medicine Work Phone: Comment on above: PATIENT WAS FASTINGP ERFORMED BY: [address] [id number] Information: 313504,N64616 Sodium [Moles/Vol] 140 mmol/L Normal 134-144 [facility] Internal Medicine Work Phone: Comment on above: PATIENT WAS FASTINGP ERFORMED BY: [address] [id number] Information: 983204,W57017 Urea nitrogen [Mass/Vol] 16 mg/dL Normal 6-24 [facility] Internal Medicine Work Phone: Comment on above: PATIENT WAS FASTINGP ERFORMED BY: [place] 6510070 [facility] [id number] Information: 887584,B80239 Urea nitrogen/Creatinine [Mass ratio] 17 mg/mg Normal 9-23 [facility] Work Phone: Comment on above: PATIENT WAS FASTINGP ERFORMED BY: [place] 6510070 [facility] [id number] Information: 981240,T29771 TSH (THYROID STIMULATING HOR FOREST) (66083)Ordered By: Waiter/Waitress Formal on 06-27-2014 TSH Qn 6.290 {uIU/mL} Abnormal 0.450-4.50 0 [facility] Work Phone: Comment on above: PATIENT WAS FASTINGP ERFORMED BY: [place] 6510070 [facility] [id number] CBC WITH MANUAL DIFF (55788) Ordered By: Waiter/Waitress Formal on 08-20-2013 Basophils (Bld) [#/Vol] 0.0 {x10E3/uL} Normal 0.0-0.2 [facility] Work Phone: Comment on above: PATIENT NOT FASTINGP ERFORMED BY: YVETTE Mcleod Ofjsaq6227 [facility] [id number] Information: 369458,J66014 Basophils/100 WBC (Bld) 0 % Normal 0-3 [facility] Work Phone: Comment on above: PATIENT NOT FASTINGP ERFORMED BY: [place] 6510070 [facility] [id number] Information: 242101,U55190 Eosinophils (Bld) [#/Vol] 0.1 {x10E3/uL} Normal 0.0-0.4 [facility] Work Phone: Comment on above: PATIENT NOT FASTINGP ERFORMED BY: Shani Iezrfp7486 [facility] [id number] Information: 425628,H61638 Eosinophils/100 WBC (Bld) 2 % Normal 0-5 [facility] Work Phone: Comment on above: PATIENT NOT FASTINGP ERFORMED BY: MarianaBrian V[place] 2831270 [facility] [id number] Information: 941221,J58087 Erythrocyte distribution width (RBC) [Ratio] 14.0 % Normal 12.3-15.4 [facility] Work Phone: Comment on above: PATIENT NOT FASTINGP ERFORMED BY: [address] [id number] Information: 703941,Z99467 Hematocrit (Bld) [Volume fraction] 39.6 % Normal 34.0-46.6 [facility] Work Phone: Comment on above: PATIENT NOT FASTINGP ERFORMED BY: LabBrian Ville 2831270 [facility] [id number] Information: 828245,F84693 Hemoglobin (Bld) [Mass/Vol] 12.7 g/dL Normal 11.1-15.9 [facility] Work Phone: Comment on above: PATIENT NOT FASTINGP ERFORMED BY: CB [facility]6370 [facility] [id number] Information: 631175,R98685 Immature granulocytes (Bld) [#/Vol] 0.0 {x10E3/uL} Normal 0.0-0.1 [facility] Work Phone: Comment on above: PATIENT NOT FASTINGP ERFORMED BY: [facility] HospitalCoMorgan [facility] 9464570 [facility] [id number] Information: 674669,D32525 Immature granulocytes/100 WBC (Bld) 0 % Normal 0-2 [facility] Work Phone: Comment on above: PATIENT NOT FASTINGP ERFORMED BY: [place] 6510070 [facility] [id number] Information: 024530,E15326 Lymphocytes (Bld) [#/Vol] 2.3 {x10E3/uL} Normal 0.7-3.1 [facility] Work Phone: Comment on above: PATIENT NOT FASTINGP ERFORMED BY: [address] [id number] Information: 854757,F11279 Lymphocytes/100 WBC (Bld) 32 % Normal 14-46 [facility] Work Phone: Comment on above: PATIENT NOT FASTINGP ERFORMED BY: [address] [id number] Information: 907970,G14491 MCH (RBC) [Entitic mass] 27.8 pg Normal 26.6-33.0 [facility] Work Phone: Comment on above: PATIENT NOT FASTINGP ERFORMED BY: LabCoMorgan Ville 9464570 [facility] [id number] Information: 909731,[id number] MCHC (RBC) [Mass/Vol] 32.1 g/dL Normal 31.5-35.7 [facility] Internal Medicine Work Phone: Comment on above: PATIENT NOT FASTINGP ERFORMED BY: [facility] Ideadv8273 [facility] [id number] Information: 606934,G86724 MCV (RBC) [Entitic vol] 87 fL Normal 79-97 [facility] Work Phone: Comment on above: PATIENT NOT FASTINGP ERFORMED BY: [facility] Zponfc0439 [facility] [id number] Information: 664219,T48112 Monocytes (Bld) [#/Vol] 0.4 {x10E3/uL} Normal 0.1-0.9 [facility] Work Phone: Comment on above: PATIENT NOT FASTINGP ERFORMED BY: [facility] Aabgfk4381 [facility] [id number] Information: 237570,U17271 Monocytes/100 WBC (Bld) 6 % Normal 4-12 [facility] Work Phone: Comment on above: PATIENT NOT FASTINGP ERFORMED BY: [facility] Scqieh5260 [facility] [id number] Information: 430239,C25487 Neutrophils (Bld) [#/Vol] 4.4 {x10E3/uL} Normal 1.4-7.0 [facility] Work Phone: Comment on above: PATIENT NOT FASTINGP ERFORMED BY: [facility] Devtvj7095 [facility] [id number] Information: 709063,L75836 Neutrophils/100 WBC (Bld) 60 % Normal 40-74 [facility] Work Phone: Comment on above: PATIENT NOT FASTINGP ERFORMED BY: [facility] Havijb0118 [facility] [id number] Information: 719251,R07051 Platelets (Bld) [#/Vol] 208 {x10E3/uL} Normal 150-379 [facility] Work Phone: Comment on above: Please note refere nce interval change PATIENT NOT FASTINGP ERFORMED BY: YVETTE LabCokathrine ByrneWxetnk4066 [facility] [id number] Information: 617149,T59094 RBC (Bld) [#/Vol] 4.57 {x10E6/uL} Normal 3.77-5.28 [facility] Internal Medicine Work Phone: Comment on above: PATIENT NOT FASTINGP ERFORMED BY: YVETTE Byrne6370 [facility] [id number] Information: 849526,U60774 WBC (Bld) [#/Vol] 7.3 {x10E3/uL} Normal 3.4-10.8 [facility] Internal Medicine Work Phone: Comment on above: PATIENT NOT FASTINGP ERFORMED BY: YVETTE Byrne6370 [facility] [id number] Information: 004456,W08903 METABOLIC PANEL, COMPREHENSI VE (34751)Ordered By: Waiter/Waitress Formal on 08-20-2013 Albumin [Mass/Vol] 4.5 g/dL Normal 3.5-5.5 [facility] Internal Medicine Work Phone: Comment on above: PATIENT NOT FASTINGP ERFORMED BY: YVETTE Byrne6370 [facility] [id number] Albumin/Globulin [Mass ratio] 1.8 {ratio} Normal 1.1-2.5 [facility] Internal Medicine Work Phone: Comment on above: PATIENT NOT FASTINGP ERFORMED BY: YVETTE LabCokathrine Aonoxh2712 [facility] [id number] ALP [Catalytic activity/Vol] 65 [iU]/L Normal 39-117 [facility] Work Phone: Comment on above: PATIENT NOT FASTINGP ERFORMED BY: YVETTE LabElizabeth MorejonJqldbh0173 [facility] [id number] ALT [Catalytic activity/Vol] 12 [iU]/L Normal 0-32 [facility] Work Phone: Comment on above: PATIENT NOT FASTINGP ERFORMED BY: YVETTE [facility] Bandrd8135 [address] RoadDublin [place] [id number] AST [Catalytic activity/Vol] 15 [iU]/L Normal 0-40 [facility] Work Phone: Comment on above: PATIENT NOT FASTINGP ERFORMED BY: [facility] Hrftes1421 [address] RoadDublin [place] [id number] Bilirubin [Mass/Vol] 0.4 mg/dL Normal 0.0-1.2 [facility] Work Phone: Comment on above: PATIENT NOT FASTINGP ERFORMED BY: [facility] Gebkio1713 [address] RoadDublin [place] [id number] Calcium [Mass/Vol] 9.4 mg/dL Normal 8.7-10.2 [facility] Internal Medicine Work Phone: Comment on above: PATIENT NOT FASTINGP ERFORMED BY: [facility] Wzxwgd5727 [address] RoadDublin [place] [id number] Chloride [Moles/Vol] 103 mmol/L Normal 97-108 [facility] Internal [facility] Work Phone: Comment on above: PATIENT NOT FASTINGP ERFORMED BY: [facility] Wbpdis7224 [address] RoadDublin [place] [id number] CO2 [Moles/Vol] 20 mmol/L Normal 18-29 [facility] Internal Medicine Work Phone: Comment on above: Please note refere nce interval change PATIENT NOT FASTINGP ERFORMED BY: [facility] Enmslk1397 [address] RoadDublin [place] [id number] Creatinine [Mass/Vol] 0.91 mg/dL Normal 0.57-1.00 [facility] Internal Medicine Work Phone: Comment on above: PATIENT NOT FASTINGP ERFORMED BY: [facility] Hixefb3069 Grant RoadDublin [place] [id number] GFR/1.73 sq M predicted among blacks CKD-EPI (S/P/Bld) [Vol rate/Area] 84 mL/min/1.73 Normal [facility] Internal Medicine Work Phone: Comment on above: PATIENT NOT FASTINGP ERFORMED BY: CB [facility]Children[facility] Nnuwgi5201 [facility] [place] [id number] GFR/1.73 sq M predicted among non-blacks CKD-EPI (S/P/Bld) [Vol rate/Area] 73 mL/min/1.73 Normal [facility] Work Phone: Comment on above: PATIENT NOT FASTINGP ERFORMED BY: [facility]6370 [facility] [place] [id number] Globulin (S) [Mass/Vol] 2.5 g/dL Normal 1.5-4.5 [facility] Internal Medicine Work Phone: Comment on above: PATIENT NOT FASTINGP ERFORMED BY: YVETTE LabChildren[facility] Wwoeov5074 [facility] [place] [id number] Glucose [Mass/Vol] 87 mg/dL Normal 65-99 [facility] Internal Medicine Work Phone: Comment on above: PATIENT NOT FASTINGP ERFORMED BY: [facility]6370 [facility] [place] [id number] Potassium [Moles/Vol] 4.2 mmol/L Normal 3.5-5.2 [facility] Internal Medicine Work Phone: Comment on above: PATIENT NOT FASTINGP ERFORMED BY: [facility]ianaChildren[facility] Edimax4188 [facility] [place] [id number] Protein [Mass/Vol] 7.0 g/dL Normal 6.0-8.5 [facility] Internal Medicine Work Phone: Comment on above: PATIENT NOT FASTINGP ERFORMED BY: [facility]6370 [facility] [place] [id number] Sodium [Moles/Vol] 140 mmol/L Normal 134-144 [facility] Internal Medicine Work Phone: Comment on above: PATIENT NOT FASTINGP ERFORMED BY: LabChildren[facility] Hewdjn7397 [facility] [place] [id number] Urea nitrogen [Mass/Vol] 14 mg/dL Normal 6-24 [facility] Internal Medicine Work Phone: Comment on above: PATIENT NOT FASTINGP ERFORMED BY: YVETTE Shani Xlbdzw4056 [facility]Psychiatric Hospitalin [place] [id number] Urea nitrogen/Creatinine [Mass ratio] 15 mg/mg Normal 9-23 [facility] Work Phone: Comment on above: PATIENT NOT FASTINGP ERFORMED BY: YVETTE Pal Urowme7534 [address] Roadblin [place] [id number] TSH ([id number])Ordered By: Grivye m Grey Inspector on 08-20-2013 TSH Qn 3.340 {uIU/mL} Normal 0.450-4.50 0 [facility] Work Phone: Comment on above: PATIENT NOT FASTINGP ERFORMED BY: YVETTE Shanikathrine MorejonWpodpz3490 [facility] RoadPsychiatric Hospitalin [place] [id number] URINALYSIS ([id number])Ordered By : Waiter/Waitress Formal on 08-20-2013 Appearance (U) Clear Normal Comprehens isaiah Internal Medicine Work Phone: Comment on above: PATIENT NOT FASTINGP ERFORMED BY: YVETTE Shanikathrine MorejonDyaobz6311 [facility] [id number] Information: [id number] Bilirubin Ql (U) Negative Normal Comprehe nsive Internal Medicine Work Phone: Comment on above: PATIENT NOT FASTINGP ERFORMED BY: YVETTE Shanikathrine MorejonIjmuov5721 [facility] [place] [id number] Information: [id number] Color (U) Yellow Normal [facility] Work Phone: Comment on above: PATIENT NOT FASTINGP ERFORMED BY: YVETTE Shani Uosvjr2185 [facility] RoadPsychiatric Hospitalin [place] [id number] Information: Q83477 Glucose Ql (U) Negative Normal Comprehens isaiah Internal Medicine Work Phone: Comment on above: PATIENT NOT FASTINGP ERFORMED BY: YVETTE Shani Fccwgp0778 [address] Roadblin [place] [id number] Information: K38639 Hemoglobin Ql (U) Negative Normal Compreh ensive Internal Medicine Work Phone: Comment on above: PATIENT NOT FASTINGP ERFORMED BY: YVETTE ShaniCape Regional Medical CenterEtszoa7512 [facility] [id number] Information: U24771 Ketones Ql (U) Negative Normal Comprehens isaiah Internal Medicine Work Phone: Comment on above: PATIENT NOT FASTINGP ERFORMED BY: YVETTE Pal Morejonlin6370 [facility] [id number] Information: T45322 Leukocyte esterase Test strip Ql (U) Negative Normal [facility] Work Phone: Comment on above: PATIENT NOT FASTINGP ERFORMED BY: YVETTE Shani Sprary4056 [facility] [id number] Information: W92126 Microscopic observation LM Nom (Urine sed) MICRON Normal [facility] Work Phone: Comment on above: Microscopic follows if indicated. PATIENT NOT FASTINGP ERFORMED BY: YVETTE Shani Bpqdyo7856 [facility] [id number] Information: K90404 Nitrite Ql (U) Negative Normal Comprehens isaiah Internal Medicine Work Phone: Comment on above: PATIENT NOT FASTINGP ERFORMED BY: YVETTE Shani Whpbuj9163 [facility] [id number] Information: A25017 pH (U) 6.5 [pH] Normal 5.0-7.5 [facility] Work Phone: Comment on above: PATIENT NOT FASTINGP ERFORMED BY: YVETTE Shani Nddgpr0591 [facility] [id number] Information: H68408 Protein Ql (U) Negative Normal Comprehens isaiah Internal Medicine Work Phone: Comment on above: PATIENT NOT FASTINGP ERFORMED BY: YVETTE Shani Ffrjmi9516 [facility] [id number] Information: A22666 Specific gravity (U) [Rel density] 1.015 1 Normal 1.005-1.03 0 [facility] Work Phone: Comment on above: PATIENT NOT FASTINGP ERFORMED BY: YVETTE LabCoCape Regional Medical CenterBgfknr3831 [facility] [id number] Information: S42942 Urobilinogen Test strip (U) [Mass/Vol] 0.2 mg/dL Normal 0.0-1.9 Comprehensi Internal Medicine Work Phone: Comment on above: PATIENT NOT FASTINGP ERFORMED BY: [facility] Bvbccc9944 [facility] [id number] Information: D56737 URINE SOMMER CULTURE-IDENTIFICA TN (18061)Ordered By: Waiter/Waitress Formal on 08-20-2013 Bacteria identified Cx Nom (U) Final report Abnormal [facility] Work Phone: Comment on above: PATIENT NOT FASTINGP ERFORMED BY: LabChildren[facility] Wnuxdo7305 [facility] [id number] Bacteria identified Cx Nom (U) Enterococcus faecalis Abnormal Comprehens isaiah Internal Medicine Work Phone: Comment on above: 5,000 Colonies/mLNot e: this isolate is vancomycin-susceptible.This information is provided for epidemiologic purposesonly: vancomycin is not among the antibioticsrecommended for therapy of urinary tract infectionscaused by Enterococcus.For Enterococcus species, cephalosporins, aminoglycosides (except forhigh-level resistance screening), clindamycin, and trimethoprim-sulfamethoxazole are not effective clinically. Fluoroquinolones areused primarily for treating urinary tract infections. (CLSI, Y689-M28,2009) PATIENT NOT FASTINGP ERFORMED BY: [facility] Nijqlc0232 [facility] [id number] Other Antibiotic [Susc] MIHEAD Normal [facility] Work Phone: Comment on above: S = Susceptibl e; I = Intermediate; R = Resistant P = Positive; N = Negative MICS are expressed in micrograms per mL Antibiotic RSLT#1 RSLT#2 RSLT#3 RSLT#4Ciprofloxacin SLevofloxacin SNitrofurantoin SPenicillin STetracycline RVancomycin S PATIENT NOT FASTINGP ERFORMED BY: LabChildren'S [facility] Atigny8032 [facility] [id number] Vitamin D Hydroxy (06932)Ord ered By: Waiter/Waitress Formal on 08-20-2013 25-Hydroxyvitamin D2+25-Hydroxyvitamin D3 [Mass/Vol] 44.8 ng/mL Normal 30.0-100.0 [facility] Work Phone: Comment on above: Vitamin D deficiency has been defined by the [place] ofMedicine and an Endocrine Society practice guideline as alevel of serum 25-OH vitamin D less than 20 ng/mL (1,2).The Endocrine Society went on to further define vitamin Dinsufficiency as a level between 21 and 29 ng/mL (2).1. IOM ([place] of Medicine). 2010. Dietary reference intakes for calcium and D. [place]: The National Academies Press.2. Markus MF, Vianey STAHL, Eliel LAGUNAS, et al. Evaluation, treatment, and prevention of vitamin D deficiency: an Endocrine Society clinical practice guideline. JCEM. 2010; 96(7):1911-30. PATIENT NOT FASTINGP ERFORMED BY: [employer].tv70 [place] [id number] C-REACTIVE PROTEIN (22272)Or dered By: Waiter/Waitress Formal on 12-30-2012 CRP [Mass/Vol] 8.0 mg/L Abnormal 0.0-4.9 [facility] Internal Medicine Work Phone: Comment on above: PATIENT WAS FASTINGP ERFORMED BY: [employer] Wgvxpn5413 AddMyBestblin [place] [id number] LIPID PANEL (18205)Ordered B y: Waiter/Waitress Formal on 12-30-2012 Cholesterol [Mass/Vol] 171 mg/dL Normal 100-199 [facility] Internal Medicine Work Phone: Comment on above: PATIENT WAS FASTINGP ERFORMED BY: [employer] LabRaise5 Zipfab3302 [address] [place]persons[place] [id number] Cholesterol in HDL [Mass/Vol] 55 mg/dL Normal [facility] Work Phone: Comment on above: According to ATP-III Guidelines, HDL-C >59 mg/dL is considered anegative risk factor for CHD. PATIENT WAS FASTINGP ERFORMED BY: Cinem[employer].tv70 [address] [place] [id number] Cholesterol in LDL [Mass/Vol] 92 mg/dL Normal 0-99 [facility] Work Phone: Comment on above: PATIENT WAS FASTINGP ERFORMED BY: YVETTE [facility] Rbrwtp6944 [facility] [place] [id number] Cholesterol in LDL/Cholesterol in HDL [Mass ratio] 1.7 {ratio_units} Normal 0.0-3.2 [facility] Work Phone: Comment on above: PATIENT WAS FASTINGP ERFORMED BY: [facility] Apqyxb5242 [facility] [id number] Cholesterol in VLDL [Mass/Vol] 24 mg/dL Normal 5-40 [facility] Work Phone: Comment on above: PATIENT WAS FASTINGP ERFORMED BY: [facility] Mjofvo6019 [facility] [id number] Triglyceride [Mass/Vol] 118 mg/dL Normal 0-149 [facility] Work Phone: Comment on above: PATIENT WAS FASTINGP ERFORMED BY: YVETTE [facility] Ofhpfg0058 [facility] [id number] METABOLIC PANEL, COMPREHENSI VE (44876)Ordered By: Waiter/Waitress Formal on 12-30-2012 Albumin [Mass/Vol] 4.1 g/dL Normal 3.5-5.5 [facility] Internal Medicine Work Phone: Comment on above: PATIENT WAS FASTINGP ERFORMED BY: [facility] Kxiirh5582 [facility] [id number] Information: ADD [id number] AND DRAW FEE 99 6660 Albumin/Globulin [Mass ratio] 1.5 {ratio} Normal 1.1-2.5 [facility] Work Phone: Comment on above: PATIENT WAS FASTINGP ERFORMED BY: [facility] Exofyy3403 [facility] [id number] Information: ADD [id number] AND DRAW FEE 99 6660 ALP [Catalytic activity/Vol] 76 [iU]/L Normal 39-117 [facility] Work Phone: Comment on above: Please note refere nce interval change PATIENT WAS FASTINGP ERFORMED BY: [facility] Hzvsxh4312 [facility] [id number] Information: ADD G44502 AND DRAW FEE 99 6660 ALT [Catalytic activity/Vol] 10 [iU]/L Normal 0-32 [facility] Work Phone: Comment on above: PATIENT WAS FASTINGP ERFORMED BY: [facility] Owvkxb7675 [facility] [id number] Information: ADD [id number] AND DRAW FEE 99 6660 AST [Catalytic activity/Vol] 13 [iU]/L Normal 0-40 [facility] Internal Medicine Work Phone: Comment on above: PATIENT WAS FASTINGP ERFORMED BY: LabCoCape Regional Medical CenterQvjzzh8103 [facility] [id number] Information: ADD P01312 AND DRAW FEE 99 6660 Bilirubin [Mass/Vol] 0.4 mg/dL Normal 0.0-1.2 [facility] Work Phone: Comment on above: PATIENT WAS FASTINGP ERFORMED BY: LabHenry [facility]6370 [facility] [id number] Information: ADD B41915 AND DRAW FEE 99 6660 Calcium [Mass/Vol] 8.9 mg/dL Normal 8.7-10.2 [facility] Internal Medicine Work Phone: Comment on above: PATIENT WAS FASTINGP ERFORMED BY: [facility] Kgasjq8635 [facility] [id number] Information: ADD [id number] AND DRAW FEE 99 6660 Chloride [Moles/Vol] 107 mmol/L Normal 97-108 [facility] Internal Medicine Work Phone: Comment on above: PATIENT WAS FASTINGP ERFORMED BY: [facility] Vmtyqp1355 [facility] [id number] Information: ADD I22317 AND DRAW FEE 99 6660 CO2 [Moles/Vol] 19 mmol/L Normal 19-28 [facility] Internal Medicine Work Phone: Comment on above: PATIENT WAS FASTINGP ERFORMED BY: CB [facility] Xbqboo5317 [facility] [id number] Information: ADD Q10955 AND DRAW FEE 99 6660 Creatinine [Mass/Vol] 0.91 mg/dL Normal 0.57-1.00 [facility] Internal Medicine Work Phone: Comment on above: PATIENT WAS FASTINGP ERFORMED BY: CB [facility] Udlbxc0837 [facility] [id number] Information: ADD W33553 AND DRAW FEE 99 6660 GFR/1.73 sq M predicted among blacks CKD-EPI (S/P/Bld) [Vol rate/Area] 84 mL/min/1.73 Normal [facility] Work Phone: Comment on above: PATIENT WAS FASTINGP ERFORMED BY: YVETTE [facility] Boqzxo1482 [facility] [id number] Information: ADD O17285 AND DRAW FEE 99 6660 GFR/1.73 sq M predicted among non-blacks CKD-EPI (S/P/Bld) [Vol rate/Area] 73 mL/min/1.73 Normal [facility] Internal Medicine Work Phone: Comment on above: PATIENT WAS FASTINGP ERFORMED BY: YVETTE [facility] Hainau4426 [facility] [id number] Information: ADD R95045 AND DRAW FEE 99 6660 Globulin (S) [Mass/Vol] 2.8 g/dL Normal 1.5-4.5 [facility] Internal Medicine Work Phone: Comment on above: PATIENT WAS FASTINGP ERFORMED BY: CB [facility] Fvskhi9035 [facility] [id number] Information: ADD C44751 AND DRAW FEE 99 6660 Glucose [Mass/Vol] 90 mg/dL Normal 65-99 [facility] Internal Medicine Work Phone: Comment on above: PATIENT WAS FASTINGP ERFORMED BY: CB [facility] Qsjrlm3628 [facility] [id number] Information: ADD Y35818 AND DRAW FEE 99 6660 Potassium [Moles/Vol] 3.9 mmol/L Normal 3.5-5.2 [facility] Internal Medicine Work Phone: Comment on above: PATIENT WAS FASTINGP ERFORMED BY: YVETTE [facility] Klecjt7547 [facility] [id number] Information: ADD K92117 AND DRAW FEE 99 6660 Protein [Mass/Vol] 6.9 g/dL Normal 6.0-8.5 [facility] Internal Medicine Work Phone: Comment on above: PATIENT WAS FASTINGP ERFORMED BY: YVETTE [facility] Tfnnhx7264 [facility] [id number] Information: ADD B49714 AND DRAW FEE 99 6660 Sodium [Moles/Vol] 140 mmol/L Normal 134-144 [facility] Internal Medicine Work Phone: Comment on above: PATIENT WAS FASTINGP ERFORMED BY: YVETTE [facility] Qgutzx1287 [facility] [id number] Information: ADD M65056 AND DRAW FEE 99 6660 Urea nitrogen [Mass/Vol] 15 mg/dL Normal 6-24 [facility] Internal Medicine Work Phone: Comment on above: PATIENT WAS FASTINGP ERFORMED BY: YVETTE [facility] Tjstjb5772 [facility] [id number] Information: ADD M10545 AND DRAW FEE 99 6660 Urea nitrogen/Creatinine [Mass ratio] 16 mg/mg Normal 9- [facility] Internal Medicine Work Phone: Comment on above: PATIENT WAS FASTINGP ERFORMED BY: YVETTE [facility] Uzhbke4704 [facility] [id number] Information: ADD S40168 AND DRAW FEE 99 6660 MICROALBUMINOrdered By: Syst em Grey Inspector on 12-30-2012 Albumin DL <= 20 mg/L (U) [Mass/Vol] 15.9 ug/mL Normal 0.0-17.0 [facility] Internal Medicine Work Phone: Comment on above: PATIENT WAS FASTINGP ERFORMED BY: YVETTE [facility] Ugzlmu2868 Grant RoadDublin [place] [id number] Albumin/Creatinine (U) [Mass ratio] 13.4 {mg/g_creat} Normal 0.0-30.0 [facility] Internal Medicine Work Phone: Comment on above: PATIENT WAS FASTINGP ERFORMED BY: Doremir Music ResearchChildren'S Mer[facility] Lynikq9934 Grant RoadDublin [place] [id number] Creatinine (U) [Mass/Vol] 118.6 mg/dL Normal 15.0-278.0 [facility] Internal Medicine Work Phone: Comment on above: PATIENT WAS FASTINGP ERFORMED BY: LabChildren[facility] Snqxed5356 Grant RoadDublin [place] [id number] RHEUMATOID FACTOR-QUANT (639 70)Ordered By: Waiter/Waitress Formal on 12-30-2012 Rheumatoid factor Qn 7.2 {IU/mL} Normal 0.0-13.9 [facility] Internal Medicine Work Phone: Comment on above: PATIENT WAS FASTINGP ERFORMED BY: [facility] Yaglvx9291 [address] RoadDublin [place] [id number] SED RATE ERYTHROCYTE (16856) Ordered By: Waiter/Waitress Formal on 12-30-2012 ESR (Bld) [Velocity] 3 mm/h Normal 0-40 [facility] Internal Medicine Work Phone: Comment on above: PATIENT WAS FASTINGP ERFORMED BY: [facility] Iacqjw1828 [address] RoadDublin [place] [id number] TSH (91102)Ordered By: Syste m Grey Inspector on 12-30-2012 TSH Qn 2.230 {uIU/mL} Normal 0.450-4.50 0 [facility] Internal Medicine Work Phone: Comment on above: PATIENT WAS FASTINGP ERFORMED BY: [facility] Ljpdco4535 Grant RoadDublin [place] [id number] Vitamin D Hydroxy (24442)Ord ered By: Waiter/Waitress Formal on 12-30-2012 25-Hydroxyvitamin D2+25-Hydroxyvitamin D3 [Mass/Vol] 28.6 ng/mL Abnormal 30.0-100.0 [facility] Work Phone: Comment on above: Vitamin D deficiency has been defined by the [place] ofMedicine and an Endocrine Society practice guideline as alevel of serum 25-OH vitamin D less than 20 ng/mL (1,2).The Endocrine Society went on to further define vitamin Dinsufficiency as a level between 21 and 29 ng/mL (2).1. IOM ([place] of Medicine). 2010. Dietary reference intakes for calcium and D. [place]: The National Academies Press.2. Markus MF, Vianey STAHL, Eliel LAGUNAS, et al. Evaluation, treatment, and prevention of vitamin D deficiency: an Endocrine Society clinical practice guideline. JCEM. 2010; 96(7):1911-30. PATIENT WAS FASTINGP ERFORMED BY: [employer] [facility] Plldrm5263 Grant RoadNatureWorksblin [place] [id number] SABRINA (ANTINUCLEAR ANTIBODY) ( 90865)Ordered By: Waiter/Waitress Formal on 05-07-2010 Nuclear Ab Ql (S) Negative Normal Compreh ensive Internal Medicine Work Phone: Comment on above: PATIENT NOT FASTINGP ERFORMED BY: [employer] LabRaise5 Bxexvx8785 [address] Air[address] [place] [id number] BY: Giraffic [address] [id number] C-REACTIVE PROTEIN (80654)Or dered By: Waiter/Waitress Formal on 05-07-2010 CRP [Mass/Vol] 2.6 mg/L Normal 0.0-4.9 Comprehens [facility] Internal Medicine Work Phone: Comment on above: PATIENT NOT FASTINGP ERFORMED BY: [employer] [facility] Ulsrxp8559 [address] [place] [id number] BY: Gira[employer] [address] [id number] CBC WITH MANUAL DIFF (52354) Ordered By: Waiter/Waitress Formal on 05-07-2010 Basophils (Bld) [#/Vol] 0.0 {x10E3/uL} Normal 0.0-0.2 [facility] Work Phone: Comment on above: PATIENT NOT FASTINGP ERFORMED BY: [employer] LabRaise5 Hxrqik3838 [facility] [id number] BY: [address] [id number] Information: 852736,H60117 Basophils/100 WBC (Bld) 0 % Normal 0-3 [facility] Work Phone: Comment on above: PATIENT NOT FASTINGP ERFORMED BY: [facility]CoCape Regional Medical CenterLzrmzp7140 [facility] [id number] BY: [address] [id number] Information: 937719,T18936 Eosinophils (Bld) [#/Vol] 0.1 {x10E3/uL} Normal 0.0-0.4 [facility] Work Phone: Comment on above: PATIENT NOT FASTINGP ERFORMED BY: [facility]6370 [facility] [id number] BY: [address] [id number] Information: 449807,K08361 Eosinophils/100 WBC (Bld) 2 % Normal 0-7 [facility] Work Phone: Comment on above: PATIENT NOT FASTINGP ERFORMED BY: Lab[facility]6370 [facility] [id number] BY: [address] [id number] Information: 118618,Z09974 Erythrocyte distribution width (RBC) [Ratio] 13.6 % Normal 11.7-15.0 [facility] Work Phone: Comment on above: PATIENT NOT FASTINGP ERFORMED BY: LabCoCape Regional Medical CenterKjkcqj6134 [facility] [id number] BY: [address] [id number] Information: 405492,I82041 Hematocrit (Bld) [Volume fraction] 35.9 % Normal 34.0-44.0 [facility] Work Phone: Comment on above: PATIENT NOT FASTINGP ERFORMED BY: CB [facility] Mybktj9742 [facility] [id number] BY: [address] [id number] Information: 693635,H10343 Hemoglobin (Bld) [Mass/Vol] 12.1 g/dL Normal 11.5-15.0 [facility] Work Phone: Comment on above: PATIENT NOT FASTINGP ERFORMED BY: CB [facility] Hbjvow9394 [facility] [id number] BY: [address] [id number] Information: 121592,S22915 Immature granulocytes (Bld) [#/Vol] 0.0 {x10E3/uL} Normal 0.0-0.1 [facility] Work Phone: Comment on above: PATIENT NOT FASTINGP ERFORMED BY: CB [facility] Meeilt2744 [facility] [id number] BY: [address] [id number] Information: 405318,F32721 Immature granulocytes/100 WBC (Bld) 0 % Normal 0-1 [facility] Work Phone: Comment on above: PATIENT NOT FASTINGP ERFORMED BY: CB [facility] Vwldai2128 [facility] [id number] BY: [address] [id number] Information: 785711,R89881 Lymphocytes (Bld) [#/Vol] 1.6 {x10E3/uL} Normal 0.7-4.5 [facility] Work Phone: Comment on above: PATIENT NOT FASTINGP ERFORMED BY: CB [facility] Tsnucj5853 [facility] [id number] BY: [address] [id number] Information: 811595,Q52620 Lymphocytes/100 WBC (Bld) 26 % Normal 14-46 [facility] Work Phone: Comment on above: PATIENT NOT FASTINGP ERFORMED BY: [facility]CoC[facility] Regional Medical CenterXnokjh7123 [facility] [id number] BY: [address] [id number] Information: 646059,S14274 MCH (RBC) [Entitic mass] 28.7 pg Normal 27.0-34.0 [facility] Work Phone: Comment on above: PATIENT NOT FASTINGP ERFORMED BY: LabCoMorgan [place] 9464570 [facility] [id number] BY: [address] [id number] Information: 677525,C32471 MCHC (RBC) [Mass/Vol] 33.7 g/dL Normal 32.0-36.0 [facility] Internal Medicine Work Phone: Comment on above: PATIENT NOT FASTINGP ERFORMED BY: LabCoM[place] 9464570 [facility] [id number] BY: [address] [id number] Information: 259043,O02955 MCV (RBC) [Entitic vol] 85 fL Normal 80-98 [facility] Work Phone: Comment on above: PATIENT NOT FASTINGP ERFORMED BY: [facility]CoCape Regional Medical CenterZaxqzi7909 [facility] [id number] BY: [address] [id number] Information: 956389,Y01330 Monocytes (Bld) [#/Vol] 0.4 {x10E3/uL} Normal 0.1-1.0 [facility] Work Phone: Comment on above: PATIENT NOT FASTINGP ERFORMED BY: CB [facility] Puggel9903 [facility] [id number] BY: [facility] [address] [id number] Information: 178933,K75061 Monocytes/100 WBC (Bld) 7 % Normal 4-13 [facility] Work Phone: Comment on above: PATIENT NOT FASTINGP ERFORMED BY: CB [facility] Eajwpo9265 [facility] [id number] BY: LabCo[address] [id number] Information: 238480,G74361 Neutrophils (Bld) [#/Vol] 3.9 {x10E3/uL} Normal 1.8-7.8 [facility] Work Phone: Comment on above: PATIENT NOT FASTINGP ERFORMED BY: CB [facility] Fjlpwi3214 [facility] [id number] BY: LabCo[address] [id number] Information: 057071,R08527 Neutrophils/100 WBC (Bld) 65 % Normal 40-74 [facility] Work Phone: Comment on above: PATIENT NOT FASTINGP ERFORMED BY: CB [facility] Jvdwql7764 [facility] [id number] BY: LabCo[address] [id number] Information: 661901,V65584 Platelets (Bld) [#/Vol] 199 {x10E3/uL} Normal 140-415 [facility] Work Phone: Comment on above: PATIENT NOT FASTINGP ERFORMED BY: CB [facility] Gwkcnc0726 [facility] [id number] BY: [address] [id number] Information: 381024,B84585 RBC (Bld) [#/Vol] 4.21 {x10E6/uL} Normal 3.80-5.10 [facility] Work Phone: Comment on above: PATIENT NOT FASTINGP ERFORMED BY: YVETTE LabAncancoCape Regional Medical CenterHtfjij9023 [facility] [id number] BY: [employer] [id number] Information: 852333,L64697 WBC (Bld) [#/Vol] 6.1 {x10E3/uL} Normal 4.0-10.5 [facility] Work Phone: Comment on above: PATIENT NOT FASTINGP ERFORMED BY: YVETTE [employer] Nlkcni9936 [facility] [id number] BY: [facility] [id number] Information: 314146,I17761 CCP Antibodies IgG/IgAOrdere d By: Waiter/Waitress Formal on 05-07-2010 Cyclic citrullinated peptide IgA+IgG IA Qn 1 {units} Normal 0-19 Comprehens [facility] Internal Medicine Work Phone: Comment on above: Negative <20 Weak po sitive 20 - 39 Moderate positive 40 - 59 Strong positive >59 PATIENT NOT FASTINGP ERFORMED BY: YVETTE Profistalin6370 [facility] [id number] BY: [facility] [id number] METABOLIC PANEL, COMPREHENSI VE (27986)Ordered By: Waiter/Waitress Formal on 05-07-2010 Albumin [Mass/Vol] 4.3 g/dL Normal 3.5-5.5 Compre [facility] Internal Medicine Work Phone: Comment on above: PATIENT NOT FASTINGP ERFORMED BY: YVETTE Aligned TeleHealthCape Regional Medical CenterMhfhch3205 [facility] [id number] BY: [employer] [id number] Albumin/Globulin [Mass ratio] 1.8 {ratio} Normal 1.1-2.5 [facility] Work Phone: Comment on above: PATIENT NOT FASTINGP ERFORMED BY: YVETTE [facility] Xfherc6643 [facility] [id number] BY: [address] [id number] ALP [Catalytic activity/Vol] 75 [iU]/L Normal 25-150 [facility] Work Phone: Comment on above: PATIENT NOT FASTINGP ERFORMED BY: YVETTE [facility] Npbklv2117 [facility] [id number] BY: Lab[address] [id number] ALT [Catalytic activity/Vol] 12 [iU]/L Normal 0-40 [facility] Work Phone: Comment on above: PATIENT NOT FASTINGP ERFORMED BY: YVETTE [facility] Vxycpx3638 [facility] [id number] BY: [address] [id number] AST [Catalytic activity/Vol] 13 [iU]/L Normal 0-40 [facility] Work Phone: Comment on above: PATIENT NOT FASTINGP ERFORMED BY: YVETTE [facility] Jtuilv1951 [facility] [id number] BY: [address] [id number] Bilirubin [Mass/Vol] 0.2 mg/dL Normal 0.0-1.2 [facility] Internal Medicine Work Phone: Comment on above: PATIENT NOT FASTINGP ERFORMED BY: YVETTE [facility] Tshjlh8880 [facility] [id number] BY: [address] [id number] Calcium [Mass/Vol] 8.7 mg/dL Normal 8.7-10.2 [facility] Internal Medicine Work Phone: Comment on above: PATIENT NOT FASTINGP ERFORMED BY: YVETTE [facility] Qyxpfx3260 [facility] [id number] BY: [facility]Co[address] [id number] Chloride [Moles/Vol] 105 mmol/L Normal 97-108 [facility] Work Phone: Comment on above: PATIENT NOT FASTINGP ERFORMED BY: CB [facility] Tvpoug3274 [facility] [id number] BY: BN [facility] [address] [id number] CO2 [Moles/Vol] 22 mmol/L Normal 20-32 [facility] Internal Medicine Work Phone: Comment on above: PATIENT NOT FASTINGP ERFORMED BY: CB [facility] Avvbqk4751 [facility] [id number] BY: [facility] [id number] Creatinine [Mass/Vol] 0.75 mg/dL Normal 0.57-1.00 [facility] Internal Medicine Work Phone: Comment on above: PATIENT NOT FASTINGP ERFORMED BY: CB [facility] Tjamic9801 [facility] [id number] BY: [facility]Co[address] [id number] GFR/1.73 sq M predicted among blacks MDRD (S/P/Bld) [Vol rate/Area] mL/min/{1.73_m2} Normal [facility] Work Phone: Comment on above: Note: Persistent red uction for 3 months or more in an eGFR<60 mL/min/1.73 m2 defines CKD. Patients with eGFR values>/=60 mL/min/1.73 m2 may also have CKD if evidence of persistentproteinuria is present. Additional information may be found [email or web address].org. PATIENT NOT FASTINGP ERFORMED BY: CB [facility] Muyqpe2760 [facility] [id number] BY: [address] [id number] GFR/1.73 sq M.predicted MDRD (S/P/Bld) [Vol rate/Area] mL/min/{1.73_m2} Normal [facility] Internal Medicine Work Phone: Comment on above: PATIENT NOT FASTINGP ERFORMED BY: YVETTE [facility] Gtpsey8878 [facility] [id number] BY: Lab[address] [id number] Globulin (S) [Mass/Vol] 2.4 g/dL Normal 1.5-4.5 [facility] Internal Medicine Work Phone: Comment on above: PATIENT NOT FASTINGP ERFORMED BY: YVETTE [facility] Rvqjrq1507 [facility] [id number] BY: [address] [id number] Glucose [Mass/Vol] 93 mg/dL Normal 65-99 [facility] Internal Medicine Work Phone: Comment on above: PATIENT NOT FASTINGP ERFORMED BY: CB [facility] Tgkvcx0263 [facility] [id number] BY: Lab[address] [id number] Potassium [Moles/Vol] 4.0 mmol/L Normal 3.5-5.2 [facility] Internal Medicine Work Phone: Comment on above: PATIENT NOT FASTINGP ERFORMED BY: CB [facility] Lrozjo4117 [facility] [id number] BY: Lab[address] [id number] Protein [Mass/Vol] 6.7 g/dL Normal 6.0-8.5 [facility] Internal Medicine Work Phone: Comment on above: PATIENT NOT FASTINGP ERFORMED BY: CB [facility] Zrplqe5094 [facility] [id number] BY: Lab[address] [id number] Sodium [Moles/Vol] 137 mmol/L Normal 135-145 [facility] Internal Medicine Work Phone: Comment on above: PATIENT NOT FASTINGP ERFORMED BY: YVETTE [facility] Gxdspq1998 [facility] [id number] BY: [address] [id number] Urea nitrogen [Mass/Vol] 16 mg/dL Normal 6-24 [facility] Work Phone: Comment on above: PATIENT NOT FASTINGP ERFORMED BY: CB [facility] Pzuazk6321 [facility] [id number] BY: [address] [id number] Urea nitrogen/Creatinine [Mass ratio] 21 mg/mg Normal 9-23 [facility] Work Phone: Comment on above: PATIENT NOT FASTINGP ERFORMED BY: YVETTE [facility] Ylberd5935 [facility] [id number] BY: [address] [id number] RHEUMATOID FACTOR-QUANT (007 17)Ordered By: Waiter/Waitress Formal on 05-07-2010 Rheumatoid factor Qn 4.5 {IU/mL} Normal 0.0-13.9 [facility] Work Phone: Comment on above: PATIENT NOT FASTINGP ERFORMED BY: YVETTE [facility] Fzgtia7767 [facility] [id number] BY: [address] [id number] SED RATE ERYTHROCYTE (82456) Ordered By: Waiter/Waitress Formal on 05-07-2010 ESR (Bld) [Velocity] 4 mm/h Normal 0-20 [facility] rehensive Internal Medicine Work Phone: Comment on above: PATIENT NOT FASTINGP ERFORMED BY: CB [facility] Pkijvf4021 [facility] [id number] BY: Lab[address] [id number] TSH (00385)Ordered By: Amanda m Grey Inspector on 05-07-2010 TSH Qn 3.400 {uIU/mL} Normal 0.450-4.50 0 [facility] Work Phone: Comment on above: PATIENT NOT FASTINGP ERFORMED BY: [facility] Mpunwb1693 [address] RoadDublin [place] [id number] BY: [facility] Ixpmjnrzig0221 [facility] [id number] CHEST WITH CONTRASTOrdered B y: Waiter/Waitress Formal on 04-02-2010 CHEST WITH CONTRAST See Note Normal Compr ehensive Internal Medicine Work Phone: Comment on above: CLINICAL:Pain and sw elling in the left supraclavicular area. CT CHEST WITH CONTRAST TECHNIQUE:High resolution transaxial imaging was performed following intravenousadministration of 100ml of Isovue-300 contrast material. COMPARISON:None. FINDINGS: The trachea and visualized bronchi are normal. Normal pulmonary parenchyma. There is no demonstrated pleuralabnormality. Normal heart and pericardium. Normal mediastinum. Normal hilar regions. Normal enhancement of the pulmonary arteries. Normal thoracic aorta andvisualized great vessels. Normal osseous structures. IMPRESSION:Normal enhanced CT Chest examination. Dictated on 04/02/10 171 by Feliberto PrinceTranscribed on 04/02/10 183 by ITS IMPORTSign by Feliberto Prince on 04/02/10 183 Sign by: Feliberto Prince TSHOrdered By: System Manage r on 09-29-2009 TSH Qn 3.16 {uIU/mL} Normal 0.358-3.74 Comprehensi ve Internal Medicine Work Phone: VIT D,25 90561Gvtpnbu By: Sy stem Grey Inspector on 09-29-2009 VIT D,25 07245 54.6 ng/mL Normal 32.0-100.0 Comprehens [facility] Internal Medicine Work Phone: Comment on above: Recent studies consi wicho the lower limit of 32.0 ng/mL to deepti threshold for optimal health.Shaan DARDEN. J Nutr. 2004;135(2):317-22.Performed at: - [facility] [id number] Director: Chastity Boston MD, Phone: [phone] CBCD,SMEAR DIFFOrdered By: Lucinda toussainttem Grey Inspector on 07-19-2009 Eosinophils/100 WBC (Bld) 1 % Normal 0-5 [facility] Work Phone: Erythrocyte distribution width (RBC) [Ratio] 13.4 % Normal 11.6-14.6 [facility] Work Phone: Hematocrit (Bld) [Volume fraction] 37.6 % Normal 37-47 [facility] Work Phone: Hemoglobin (Bld) [Mass/Vol] 12.7 g/dL Normal 12.0-16.0 [facility] Work Phone: Lymphocytes/100 WBC (Bld) 27 % Normal 19-41 [facility] Work Phone: MCH (RBC) [Entitic mass] 29.3 pg Normal 27.0-32.0 [facility] Work Phone: MCHC (RBC) [Mass/Vol] 33.8 g/dL Normal 32-36 Com prehensive Internal Medicine Work Phone: MCV (RBC) [Entitic vol] 86.8 fL Normal 81-99 [facility] Work Phone: Monocytes/100 WBC (Bld) 8 % Normal 0-10 [facility] Work Phone: Neutrophils (Bld) [#/Vol] 3.5 3/uL Normal 2.0-7.7 [facility] Work Phone: Platelets (Bld) [#/Vol] 185 10*3/uL Normal 150-450 [facility] Work Phone: Platelets (Bld) [#/Vol] SeeNote Normal [facility] Work Phone: Comment on above: Result: ADEQUATE RBC (Bld) [#/Vol] 4.33 {M/mm3} Normal 4.2-5.4 [facility] Internal Medicine Work Phone: WBC (Bld) [#/Vol] 5.3 10*3/uL Normal 4.4-11.0 [facility] Internal Medicine Work Phone: CBCD,SMEAR DIFF 100 1 Normal [facility] Internal Medicine Work Phone: CBCD,SMEAR DIFF 64 % Normal 47-70 [facility] Internal Medicine Work Phone: COMP METABOLICOrdered By: Collin stem Grey Inspector on 07-19-2009 Albumin [Mass/Vol] 3.9 g/dL Normal 3.4-5.0 [facility] Internal Medicine Work Phone: Albumin/Globulin [Mass ratio] 1.2 {RATIO} Normal 0.9-2.4 [facility] Internal Medicine Work Phone: ALP [Catalytic activity/Vol] 77 U/L Normal 50-136 [facility] Internal Medicine Work Phone: ALT [Catalytic activity/Vol] 18 U/L Normal 12-78 [facility] Internal Medicine Work Phone: Anion gap [Moles/Vol] 10 mmol/L Normal 5-15 [facility] Internal Medicine Work Phone: AST [Catalytic activity/Vol] 8 U/L Abnormal 15-37 [facility] Internal Medicine Work Phone: Bilirubin [Mass/Vol] 0.30 mg/dL Normal 0.00-1.00 [facility] Internal Medicine Work Phone: Calcium [Mass/Vol] 8.7 mg/dL Normal 8.5-10.1 [facility] Internal Medicine Work Phone: Chloride [Moles/Vol] 101 mmol/L Normal 98-107 [facility] Internal Medicine Work Phone: CO2 [Moles/Vol] 27.0 mmol/L Normal 21.0-32.0 [facility] Internal Medicine Work Phone: Creatinine [Mass/Vol] 0.8 mg/dL Normal 0.6-1.0 [facility] Internal Medicine Work Phone: GFR/1.73 sq M predicted among blacks MDRD (S/P/Bld) [Vol rate/Area] 99 mL/min/{1.73_m2} Normal [facility] Internal Medicine Work Phone: GFR/1.73 sq M.predicted MDRD (S/P/Bld) [Vol rate/Area] 82 mL/min/{1.73_m2} Normal [facility] Internal Medicine Work Phone: Globulin (S) [Mass/Vol] 3.3 g/dL Normal 2.7-4.2 [facility] Work Phone: Glucose [Mass/Vol] 91 mg/dL Normal 70-110 [facility] Internal Medicine Work Phone: Potassium [Moles/Vol] 3.9 mmol/L Normal 3.5-5.1 [facility] prehensive Internal Medicine Work Phone: Protein [Mass/Vol] 7.2 g/dL Normal 6.4-8.2 [facility] Internal Medicine Work Phone: Sodium [Moles/Vol] 138 mmol/L Normal 136-145 [facility] Internal Medicine Work Phone: Urea nitrogen [Mass/Vol] 16 mg/dL Normal 7-18 [facility] Work Phone: Urea nitrogen/Creatinine [Mass ratio] 20.0 {RATIO} Normal 10-20 [facility] Work Phone: COMPLETE UAOrdered By: Amanda camacho Grey Inspector on 07-19-2009 Bacteria LM.HPF (Urine sed) [#/Area] RARE Normal [facility] Work Phone: Clarity (U) CLEAR Normal [facility] Work Phone: Color (U) YELLOW Normal [facility] Work Phone: RBC (U) [#/Vol] SeeNote Normal 0-5 [facility] Internal Medicine Work Phone: Comment on above: Result: 0-5 SEEN WBC (Bld) [#/Vol] SeeNote Normal 0-5 Compreh ensive Internal Medicine Work Phone: Comment on above: Result: 0-5 SEEN COMPLETE UA SeeNote Normal [facility] Work Phone: Comment on above: Result: NEGATIVE Result: NORM C+C Result: 0-5 SEEN COMPLETE UA 0 SEEN Normal [facility] Work Phone: COMPLETE UA 6.0 1 Normal 5.0-8.0 [facility] Work Phone: COMPLETE UA <=1.005 Normal 1.002-1.03 0 [facility] Work Phone: COMPLETE UA 0.2 EU/dl Normal 0.2 - 1.0 [facility] Work Phone: LIPIDOrdered By: Masoud stevenson on 07-19-2009 Cholesterol [Mass/Vol] 174 mg/dL [facility] Work Phone: Comment on above: <200 mg/dL Desirable 200-240 mg/dL Borderline>240 mg/dL High Risk Cholesterol in HDL [Mass/Vol] 48 mg/dL Normal [facility] Work Phone: Comment on above: Reference RangeHDL < 40 mg/dL Low HDL CholesterolHDL >or= 60 mg/dL High HDL Cholesterol Cholesterol in LDL [Mass/Vol] 102 mg/dL Normal 0-130 [facility] Work Phone: Cholesterol in VLDL [Mass/Vol] 24 mg/dL Normal 5-40 [facility] Work Phone: Triglyceride [Mass/Vol] 122 mg/dL Normal [facility] Work Phone: Comment on above: Serum Triglycerides Reference IntervalNormal <150 mg/dLBorderline high 150 - 199 mg/dLHigh 200 - 499 mg/dLVery High > or = 500 mg/dL MICROALBOrdered By: Masoud zarco on 07-19-2009 Creatinine [Mass/Vol] 29.2 mg/dL [facility] Work Phone: Creatinine [Mass/Vol] 18.8 {mg/g_CRE} Normal [facility] Work Phone: MICROALB 5.5 mg/L Normal [facility] Work Phone: TSHOrdered By: System Manage r on 07-19-2009 TSH Qn 7.35 {uIU/mL} Abnormal 0.358-3.74 Comprehensi ve Internal Medicine Work Phone: Thin prep Pap ([id number])Ordered By: Masha Ortiz on 01-12-2009 Microscopic observation Other stain Nom (Unsp spec) . Normal [facility]prehens [facility] Internal Medicine Work Phone: Comment on above: Source.............C ervical;EndocervicalLMP / Prev Treat...JYN=[id number]. of containers..01 CYTYC Thin Prep VialPATIENT NOT FASTINGClinical Information: [id number] PERFORMED BY: [employer] [id number] Pathology report final diagnosis Narrative SPRCS Normal Comprehensiv e Internal Medicine Work Phone: Comment on above: NEGATIVE FOR INTRAEP ITHELIAL LESION AND MALIGNANCY.Satisfactory for evaluation. Endocervical and/or squamous metaplasticcells (endocervical component) are present.V72.31 ; Routine gynecological examinationWashington Heater, Indoor Landscaper/Gardener (ASCP) Source.............C ervical;EndocervicalLMP / Prev Treat...[id number]. of containers..01 CYTYC Thin Prep VialPATIENT NOT FASTINGClinical Information: [id number] PERFORMED BY: [employer] [id number] Thin prep Pap ([id number]) PAPSMR Normal Com prehensive Internal Medicine Work Phone: Comment on above: The Pap smear is a s creening test designed to aid in the detection ofpremalignant and malignant conditions of the uterine cervix. It is not adiagnostic procedure and should not be used as the sole means of detectingcervical cancer. Both false-positive and false-negative reports do occur. .The HPV DNA reflex criteria were not met with this specimen resulttherefore, no HPV testing was performed. . Source.............C ervical;EndocervicalLMP / Prev Treat...UEC=[id number]. of containers..01 CYTYC Thin Prep VialPATIENT NOT FASTINGClinical Information: [id number] PERFORMED BY: [employer] [id number] Urinalysis, Office ([id number])Or dered By: Guerda Mcghee on 01-11-2009 Bilirubin Ql (U) Negative Normal Comprehe nsive Internal Medicine Work Phone: Glucose Test strip (U) [Mass/Vol] Negative Normal [facility] Work Phone: Hemoglobin Ql (U) Hemolyzed Trace Normal Co mprehensive Internal Medicine Work Phone: Ketones Ql (U) Negative Normal [facility] Internal Medicine Work Phone: Leukocyte esterase Test strip Ql (U) Trace Normal [facility] Work Phone: Nitrite Ql (U) Negative Normal [facility] Internal Medicine Work Phone: pH (U) 6.5 [pH] Normal [facility] Work Phone: Protein Ql (U) Negative Normal [facility] Internal Medicine Work Phone: Specific gravity (U) [Rel density] 1.025 1 Normal [facility] Work Phone: Urobilinogen (24H U) [Mass/Time] Normal Normal [facility] Work Phone: BILAT SCRN DIGITAL & CADOrde red By: Waiter/Waitress Formal on 11-03-2008 BILAT SCRN DIGITAL & CAD See Note Normal [facility] Work Phone: Comment on above: Exam Number: [id number] MAMMOGRAM, BILATERAL SCREENING DIGITAL AND CAD HISTORYBilateral screening. TECHNIQUEFull field digital images were obtained in mediolateral oblique andcraniocaudal projections. CAD images were reviewed. The current study is compared to the examinations of June 25, 2006, andJun2007. FINDINGSThere is a [id number]-[id number]-chnmeqzb extent of fibroglandular parenchymapresent. There is no skin thickening or retraction, architecturaldistortion, or cluster of suspicious microcalcifications. There eliza stereotactic localization clip in the mid left breast. There is nodominant mass or significant interval change seen. If there is nosuspicious palpable abnormality, followup mammogram in 1 year isrecommended. IMPRESSIONThere is no radiographic evidence of malignancy identified. FINAL ASSESSMENTBenign findings. BIRADS Category 2. A letter regarding these results has been sent to the patient. This interpretation was rendered by a radiologist certified under theMammography Quality Standards Act of 1992 (MQSA). The mammograms werealso examined with computer-aided detection software ([employer] Reported By: CRISTOBAL STONE M.D. BRAIN/HEAD W/WO CONTRASTOrde red By: Waiter/Waitress Formal on 05-28-2008 BRAIN/HEAD W/WO CONTRAST See Note Normal [facility] Work Phone: Comment on above: Exam Number: [id number] Reason for exam: Headache. Technique: CT of the head performed with 5 mm axial images from the skull base to the vertex both before and after the administration of 50 ml of Isovue 370 intravenous contrast. Findings: There is no acute intracranial hemorrhage, midline shift, or mass effect. Lopez-white differentiation is maintained. No abnormal enhancement. Ventricles are appropriate in size and position. Basal cisterns are preserved. Visualized paranasal sinuses and mastoid air cells are clear. No acute or suspicious bony abnormality. IMPRESSION: No acute intracranial process. Reported By: CASA SPEAR M.D. SABRINA-D [id number] By: Syst em Grey Inspector on 01-30-2008 Nuclear Ab Ql (S) 59 AU/mL Normal 0-99 Compreh ensive Internal Medicine Work Phone: Comment on above: Negative <100 Equivo jeff 100 - 120 Positive >120 C-REACTIVE PROTOrdered By: S ystem Grey Inspector on 01-30-2008 CRP [Mass/Vol] 1.88 mg/L Normal 0.0-6.0 [facility] Internal Medicine Work Phone: Comment on above: Test performed using the Dimension C-Reactive ProteinExtended Range assay method. This assay meets the AHA/CDC 2003 recommendations fordetermining patients at high risk for cardiovasculardisease. Reference: High risk CRP >3.0 mg/L CBCD,SMEAR DIFFOrdered By: Lucinda te Grey Inspector on 01-30-2008 Eosinophils/100 WBC (Bld) 4 % Normal 0-5 [facility] Work Phone: Erythrocyte distribution width (RBC) [Ratio] 12.4 % Normal 11.6-14.6 [facility] Work Phone: Hematocrit (Bld) [Volume fraction] 38.3 % Normal 37-47 [facility] Work Phone: Hemoglobin (Bld) [Mass/Vol] 13.0 g/dL Normal 12.0-16.0 [facility] Work Phone: Lymphocytes/100 WBC (Bld) 35 % Normal 19-41 [facility] Internal Medicine Work Phone: MCH (RBC) [Entitic mass] 30.2 pg Normal 27.0-32.0 [facility] Work Phone: MCHC (RBC) [Mass/Vol] 33.9 g/dL Normal 32-36 [facility] prehensive Internal Medicine Work Phone: MCV (RBC) [Entitic vol] 89.0 fL Normal 81-99 [facility] Work Phone: Monocytes/100 WBC (Bld) 4 % Normal 0-10 [facility] Internal Medicine Work Phone: Platelets (Bld) [#/Vol] SeeNote Normal [facility] Internal Medicine Work Phone: Comment on above: Result: ADEQUATE Platelets (Bld) [#/Vol] 204 10*3/uL Normal 150-450 [facility] Internal Medicine Work Phone: RBC (Bld) [#/Vol] 4.30 {M/mm3} Normal 4.2-5.4 Compr ehensive Internal Medicine Work Phone: WBC (Bld) [#/Vol] 5.4 10*3/uL Normal 4.4-11.0 [facility] Work Phone: CBCD,SMEAR DIFF 100 1 Normal [facility] Internal Medicine Work Phone: CBCD,SMEAR DIFF SeeNote Normal [facility] Internal Medicine Work Phone: Comment on above: Result: NORM C+C CBCD,SMEAR DIFF 57 % Normal 47-70 [facility] Internal Medicine Work Phone: COMP METABOLICOrdered By: Collin stem Grey Inspector on 01-30-2008 Albumin [Mass/Vol] 3.9 g/dL Normal 3.4-5.0 [facility] Internal Medicine Work Phone: Albumin/Globulin [Mass ratio] 1.2 {RATIO} Normal 0.9-2.4 [facility] Internal Medicine Work Phone: ALP [Catalytic activity/Vol] 84 U/L Normal 50-136 [facility] Internal Medicine Work Phone: ALT [Catalytic activity/Vol] 28 U/L Abnormal 30-65 [facility] Internal Medicine Work Phone: Anion gap [Moles/Vol] 7 mmol/L Normal 5-15 [facility] prehensive Internal Medicine Work Phone: AST [Catalytic activity/Vol] 15 U/L Normal 15-37 [facility] Internal Medicine Work Phone: Bilirubin [Mass/Vol] 0.47 mg/dL Normal 0.00-1.00 [facility] Work Phone: Calcium [Mass/Vol] 8.9 mg/dL Normal 8.5-10.1 [facility] Internal Medicine Work Phone: Chloride [Moles/Vol] 105 mmol/L Normal 98-107 [facility] Work Phone: CO2 [Moles/Vol] 27.2 mmol/L Normal 21.0-32.0 [facility] Internal Medicine Work Phone: Creatinine [Mass/Vol] 0.7 mg/dL Normal 0.6-1.0 [facility] prehensive Internal Medicine Work Phone: Globulin (S) [Mass/Vol] 3.2 g/dL Normal 2.7-4.2 [facility] Work Phone: Glucose [Mass/Vol] 83 mg/dL Normal 70-110 [facility] Internal Medicine Work Phone: Potassium [Moles/Vol] 3.7 mmol/L Normal 3.5-5.1 [facility] prehensive Internal Medicine Work Phone: Protein [Mass/Vol] 7.1 g/dL Normal 6.4-8.2 [facility] Internal Medicine Work Phone: Sodium [Moles/Vol] 139 mmol/L Normal 136-145 [facility] Internal Medicine Work Phone: Urea nitrogen [Mass/Vol] 16 mg/dL Normal 7-18 [facility] Internal Medicine Work Phone: Urea nitrogen/Creatinine [Mass ratio] 22.9 {RATIO} Abnormal 10-20 [facility] Internal Medicine Work Phone: ESROrdered By: System Manage r on 01-30-2008 ESR (Bld) [Velocity] 5 mm/h Normal 0-20 [facility] rehensive Internal Medicine Work Phone: RA LATEX [id number] By: Collins tem Grey Inspector on 01-30-2008 RA LATEX 6502 7.2 {IU/mL} Normal 0.0-13.9 [facility] Internal Medicine Work Phone: Comment on above: Performed At: [address] [id number] TSHOrdered By: System Manage r on 01-30-2008 TSH Qn 4.15 {uIU/mL} Normal 0.34-4.82 Comprehensi ve Internal Medicine Work Phone: CHEST, PA AND LATERALOrdered By: Waiter/Waitress Formal on 09-23-2007 CHEST, PA AND LATERAL See Note Normal [facility] prehensive Internal Medicine Work Phone: Comment on above: Exam Number: [id number] PA AND LATERAL CHEST CLINICAL STATEMENTChest pain. COMPARISONNone. FINDINGSThere is no focal consolidation, pleural effusion, pneumothorax,pulmonary nodules or pulmonary edema. Cardiac silhouette is withinnormal limits. Degenerative disc disease is seen in the thoracicspine. IMPRESSIONNo acute cardiopulmonary disease. Reported By: SHANITA GREENBERG M.D. BILAT SCRN DIGITAL & CADOrde red By: Waiter/Waitress Formal on 07-28-2007 BILAT SCRN DIGITAL & CAD See Note Normal [facility] Work Phone: Comment on above: Exam Number: [id number] MAMMOGRAM, BILATERAL SCREENING DIGITAL AND CAD HISTORYRoutine screening. Full field digital images were obtained in mediolateral oblique andcraniocaudal projections. CAD images were reviewed. The current study is compared to the examinations of February 2005 andJune 2006. There is moderately dense fibroglandular parenchyma present. There isno skin thickening or retraction, architectural distortion, or clusterof suspicious microcalcifications. There is a stereotacticlocalization clip in the mid-left breast. There are areas ofasymmetric parenchymal density on the right which are stable. Ifthere is no suspicious palpable abnormality, followup mammogram in 1year is recommended. IMPRESSIONThere is no radiographic evidence of malignancy identified. FINAL ASSESSMENTBenign findings. BIRADS Category 2. A letter regarding these results has been sent to the patient. This interpretation was rendered by a radiologist certified under theMammography Quality Standards Act of 1992 (MQSA). The mammograms werealso examined with computer-aided detection software ([employer] Reported By: CRISTOBAL STONE M.D. CBCD,SMEAR DIFFOrdered By: S ystem Grey Inspector on 07-06-2007 Basophils/100 WBC (Bld) 1 % Normal 0-1 [facility] Work Phone: Eosinophils/100 WBC (Bld) 6 % Abnormal 0-5 [facility] Work Phone: Erythrocyte distribution width (RBC) [Ratio] 13.1 % Normal 11.6-14.6 [facility] Work Phone: Hematocrit (Bld) [Volume fraction] 39.6 % Normal 37-47 [facility] Work Phone: Hemoglobin (Bld) [Mass/Vol] 13.9 g/dL Normal 12.0-16.0 [facility] Work Phone: Lymphocytes/100 WBC (Bld) 23 % Normal 19-41 [facility] Work Phone: MCH (RBC) [Entitic mass] 30.9 pg Normal 27.0-32.0 [facility] Internal Medicine Work Phone: MCHC (RBC) [Mass/Vol] 35.1 g/dL Normal 32-36 [facility] Internal Medicine Work Phone: MCV (RBC) [Entitic vol] 88.1 fL Normal 81-99 [facility] Internal Medicine Work Phone: Monocytes/100 WBC (Bld) 3 % Normal 0-10 [facility] Internal Medicine Work Phone: Platelets (Bld) [#/Vol] 225 10*3/uL Normal 150-450 [facility] Internal Medicine Work Phone: Platelets (Bld) [#/Vol] SeeNote Normal [facility] Internal Medicine Work Phone: Comment on above: Result: ADEQUATE RBC (Bld) [#/Vol] 4.49 {M/mm3} Normal 4.2-5.4 [facility] Internal Medicine Work Phone: WBC (Bld) [#/Vol] 7.3 10*3/uL Normal 4.4-11.0 [facility] Internal Medicine Work Phone: CBCD,SMEAR DIFF SeeNote Normal [facility] Internal Medicine Work Phone: Comment on above: Result: NORM C+C CBCD,SMEAR DIFF 100 1 Normal [facility] Internal Medicine Work Phone: CBCD,SMEAR DIFF 64 % Normal 47-70 [facility] Internal Medicine Work Phone: CBCD,SMEAR DIFF 3 % Normal 0-5 [facility] Internal Medicine Work Phone: COMP METABOLICOrdered By: Collin stem Grey Inspector on 07-06-2007 Albumin [Mass/Vol] 4.0 g/dL Normal 3.4-5.0 [facility] Internal Medicine Work Phone: Albumin/Globulin [Mass ratio] 1.3 {RATIO} Normal 0.9-2.4 [facility] Internal Medicine Work Phone: ALP [Catalytic activity/Vol] 67 U/L Normal 50-136 [facility] Internal Medicine Work Phone: ALT [Catalytic activity/Vol] 31 [iU]/L Normal 30-65 [facility] Internal Medicine Work Phone: Anion gap [Moles/Vol] 8 mmol/L Normal 5-15 [facility] prehensive Internal Medicine Work Phone: AST [Catalytic activity/Vol] 17 U/L Normal 15-37 [facility] Internal Medicine Work Phone: Bilirubin [Mass/Vol] 0.33 mg/dL Normal 0.00-1.00 [facility] Work Phone: Calcium [Mass/Vol] 8.7 mg/dL Normal 8.5-10.1 [facility] Internal Medicine Work Phone: Chloride [Moles/Vol] 104 mmol/L Normal 98-107 [facility] Internal Medicine Work Phone: CO2 [Moles/Vol] 26.2 mmol/L Normal 21.0-32.0 [facility] Internal Medicine Work Phone: Creatinine [Mass/Vol] 0.9 mg/dL Normal 0.6-1.0 [facility] Internal Medicine Work Phone: Globulin (S) [Mass/Vol] 3.2 g/dL Normal 2.7-4.2 [facility] Internal Medicine Work Phone: Glucose [Mass/Vol] 85 mg/dL Normal 70-110 [facility] Internal Medicine Work Phone: Potassium [Moles/Vol] 4.0 mmol/L Normal 3.5-5.1 [facility] Internal Medicine Work Phone: Protein [Mass/Vol] 7.2 g/dL Normal 6.4-8.2 [facility] Internal Medicine Work Phone: Sodium [Moles/Vol] 138 mmol/L Normal 136-145 [facility] Internal Medicine Work Phone: Urea nitrogen [Mass/Vol] 13 mg/dL Normal 7-18 [facility] Internal Medicine Work Phone: Urea nitrogen/Creatinine [Mass ratio] 14.4 {RATIO} Normal 10-20 [facility] Work Phone: LIPIDOrdered By: System Mara elva on 07-06-2007 Cholesterol [Mass/Vol] 159 mg/dL Normal Co mprehensive Internal Medicine Work Phone: Comment on above: <200 mg/dL Desirable 200-240 mg/dL Borderline >240 mg/dL High Risk Cholesterol in HDL [Mass/Vol] 59 mg/dL Normal [facility] Work Phone: Comment on above: Reference Range HDL <40 mg/dL Low HDL Cholesterol HDL >or= 60 mg/dL High HDL Cholesterol Cholesterol in LDL [Mass/Vol] 89 mg/dL Normal 0-130 [facility] Work Phone: Cholesterol in VLDL [Mass/Vol] 11 mg/dL Normal 5-40 [facility] Work Phone: Triglyceride [Mass/Vol] 56 mg/dL Normal [facility] Work Phone: Comment on above: Serum Triglycerides Reference Interval Normal <150 mg/dL Borderline high 150 - 199 mg/dL High 200 - 499 mg/dL Very High > or = 500 mg/dL TSHOrdered By: System logolineup r on 07-06-2007 TSH Qn 3.62 {uIU/mL} Normal 0.34-4.82 Comprehensi Internal Medicine Work Phone: URINE SOMMER CULTURE (MAINE COL COUNT) ([id number])Ordered By: Karly Perez on 03-09-2007 Bacteria identified Cx Nom (U) MUG Normal [facility] Work Phone: Comment on above: Mixed urogenital pedro ra25,000-50,000 colony forming units per mL PATIENT NOT FASTINGC linical Information: SRC:UR ADD [id number] PERFORMED BY: YVETTE [employer] Streetfa[employer]HD [facility] [id number] Bacteria identified Cx Nom (U) Final report Normal [facility] Work Phone: Comment on above: PATIENT NOT FASTINGC linical Information: SRC:UR ADD [id number] PERFORMED BY: YVETTE [employer] Streetfa[employer]HD [facility] [id number] Urinalysis, Office ([id number])Or dered By: Tanja Liz on 03-09-2007 Bilirubin Ql (U) Negative Normal Comprehe nsive Internal Medicine Work Phone: Glucose Test strip (U) [Mass/Vol] Negative Normal [facility] Work Phone: Hemoglobin Ql (U) Non Hemolyzed Trace Normal [facility] Work Phone: Ketones Ql (U) Negative Normal [facility] Work Phone: Leukocyte esterase Test strip Ql (U) Trace Normal [facility] Work Phone: Nitrite Ql (U) Negative Normal [facility] Medicine Work Phone: pH (U) 6.5 [pH] Normal [facility] Work Phone: Protein Ql (U) Negative Normal [facility]prehens [facility] Internal Medicine Work Phone: Specific gravity (U) [Rel density] 1.025 1 Normal [facility] Work Phone: Urobilinogen (24H U) [Mass/Time] Normal Normal [facility] Work Phone: CULTURE, URINEOrdered By: Collin stem Grey Inspector on 01-21-2007 Bacteria identified Cx Nom (U) See Note Normal [facility] Work Phone: Comment on above: COLONY COUNT 80,000- 100,000 ORGANISM 1: MIXED GRAM POSITIVE ORGANISMS C-REACTIVE PROTOrdered By: Lucinda ystem Grey Inspector on 08-18-2006 CRP [Mass/Vol] 1.25 mg/L Normal 0.0-6.0 [facility]prehens [facility] Work Phone: Comment on above: Test performed using the Dimension C-Reactive ProteinExtended Range assay method. This assay meets the AHA/CDC 2003 recommendations fordetermining patients at high risk for cardiovasculardisease. Reference: High risk CRP >3.0 mg/L CAOrdered By: Waiter/Waitress Formal on 08-18-2006 Calcium [Mass/Vol] 8.4 mg/dL Abnormal 8.5-10.1 Compre hensive Internal Medicine Work Phone: CBCDOrdered By: System LumaStream er on 08-18-2006 Basophils/100 WBC (Bld) 0.3 % Normal 0-1 [facility] Work Phone: Eosinophils/100 WBC (Bld) 1.9 % Normal 0-5 [facility] Work Phone: Erythrocyte distribution width (RBC) [Ratio] 13.7 % Normal 11.6-14.6 [facility] Work Phone: Hematocrit (Bld) [Volume fraction] 38.7 % Normal 37-47 [facility] Work Phone: Hemoglobin (Bld) [Mass/Vol] 13.1 g/dL Normal 12.0-16.0 [facility] Work Phone: Lymphocytes/100 WBC (Bld) 23.0 % Normal 19-41 [facility] Work Phone: MCH (RBC) [Entitic mass] 30.4 pg Normal 27.0-32.0 [facility] Work Phone: MCHC (RBC) [Mass/Vol] 34.0 g/dL Normal 32-36 [facility] prehensive Internal Medicine Work Phone: MCV (RBC) [Entitic vol] 89.3 fL Normal 81-99 [facility] Work Phone: Monocytes/100 WBC (Bld) 5.5 % Normal 0-10 [facility] Work Phone: Neutrophils/100 WBC (Bld) 69.3 % Normal 47-70 [facility] Work Phone: Platelet mean volume (Bld) [Entitic vol] 8.7 fL Normal 6.5-12.0 Comprehens[facility] e [facility] Work Phone: Platelets (Bld) [#/Vol] 185 10*3/uL Normal 150-450 [facility] Internal Medicine Work Phone: RBC (Bld) [#/Vol] 4.33 {M/mm3} Normal 4.2-5.4 [facility] ehensive Internal Medicine Work Phone: WBC (Bld) [#/Vol] 5.0 10*3/uL Normal 4.4-11.0 [facility] Internal Medicine Work Phone: CREAT,SERUMOrdered By: Syste m Grey Inspector on 08-18-2006 Creatinine [Mass/Vol] 1.0 mg/dL Normal 0.6-1.0 [facility] Work Phone: ESROrdered By: System Manage r on 08-18-2006 ESR (Bld) [Velocity] 4 mm/h Normal 0-20 [facility] Work Phone: LIPIDOrdered By: System [employer] on 08-18-2006 Cholesterol [Mass/Vol] 168 mg/dL Normal [facility] Work Phone: Comment on above: <200 mg/dL Desirable 200-240 mg/dL Borderline >240 mg/dL High Risk Cholesterol in HDL [Mass/Vol] 56 mg/dL Normal [facility] Internal Medicine Work Phone: Comment on above: Reference Range HDL <40 mg/dL Low HDL Cholesterol HDL >or= 60 mg/dL High HDL Cholesterol Cholesterol in LDL [Mass/Vol] 101 mg/dL Normal 0-130 [facility] Internal Medicine Work Phone: Cholesterol in VLDL [Mass/Vol] 11 mg/dL Normal 5-40 [facility] Internal Medicine Work Phone: Triglyceride [Mass/Vol] 55 mg/dL Normal [facility] Internal Medicine Work Phone: Comment on above: Serum Triglycerides Reference Interval Normal <150 mg/dL Borderline high 150 - 199 mg/dL High 200 - 499 mg/dL Very High > or = 500 mg/dL LIVEROrdered By: System [employer] on 08-18-2006 Albumin [Mass/Vol] 4.0 g/dL Normal 3.4-5.0 [facility] Internal Medicine Work Phone: ALP [Catalytic activity/Vol] 55 U/L Normal 50-136 [facility] Work Phone: ALT [Catalytic activity/Vol] 28 [iU]/L Abnormal 30-65 [facility] Work Phone: AST [Catalytic activity/Vol] 17 U/L Normal 15-37 [facility] Work Phone: Bilirubin [Mass/Vol] 0.46 mg/dL Normal 0.00-1.00 Comp rehensive Internal Medicine Work Phone: Bilirubin.direct [Mass/Vol] 0.11 mg/dL Normal 0.00-0.30 [facility] Work Phone: Protein [Mass/Vol] 7.1 g/dL Normal 6.4-8.2 [facility]pre [facility] Work Phone: PHOSOrdered By: System Manag er on 08-18-2006 PHOS 3.3 mg/dL Normal 2.5-4.9 [facility] Work Phone: [id number] By: Lucinda toussainttem Grey Inspector on 08-18-2006 [id number] 31.8 % Normal [facility] Work Phone: [id number] 13.8 % Normal [facility] Work Phone: [id number] 17.7 % Normal [facility] Work Phone: [id number] 26.7 % Normal [facility] Work Phone: [id number] 1.1 mg/dL Normal 0.0-15.0 [facility] Work Phone: [id number] 10.0 % Normal [facility] Work Phone: [id number] By: Lucinda toussainttem Grey Inspector on 08-18-2006 PTH,[id number] 19 pg/mL Normal 12-65 [facility] Work Phone: SPE [id number] By: Waiter/Waitress Formal on 08-18-2006 Albumin [Mass/Vol] 3.8 g/dL Normal 3.2-5.6 [facility] Work Phone: Albumin/Globulin [Mass ratio] 1.2 {ratio} Normal 0.7-2.0 [facility] Work Phone: Globulin (S) [Mass/Vol] 3.1 g/dL Normal 2.0-4.5 [facility] Work Phone: Protein [Mass/Vol] 6.9 g/dL Normal 6.0-8.5 Compre hensive Internal Medicine Work Phone: SPE [id number] Comment Normal [facility] Work Phone: Comment on above: The SPE pattern appe ars essentially unremarkable. Evidenceof monoclonal protein is not apparent. Protein electrophore sis scan will follow via mail orcourier. SPE [id number] 0.2 g/dL Normal 0.1-0.4 [facility] Work Phone: SPE [id number] 0.7 g/dL Normal 0.4-1.2 [facility] Work Phone: SPE [id number] 0.9 g/dL Normal 0.6-1.3 [facility] Work Phone: SPE [id number] 1.2 g/dL Normal 0.5-1.6 [facility] Work Phone: SPE [id number] SeeNote Normal [facility] Work Phone: Comment on above: Result: Not Observed TSHOrdered By: System Manage r on 08-18-2006 TSH Qn 4.22 {uIU/mL} Normal 0.34-4.82 Comprehensi ve Internal Medicine Work Phone: VITD [id number] By: S ystem Grey Inspector on 08-18-2006 Calcidiol [Mass/Vol] 41.9 pg/mL Normal 15.9-55.6 Comp rehensive Internal Medicine Work Phone: Comment on above: Performed At: [address] [id number] At: [facility] [id number] [place], [place] [id number] AMENDED REPORT 08/28/06 1533 VITD [id number] previously reported as: 11.9 L pg/mL Performed At: [address], [place] [id number] At: [facility] [place], [place] [id number] AMENDED REPORT 08/28/06 2012 VITD 1,25 [id number] previously reported as: 41.9 Performed At: [facility] [facility], [place] [id number] At: [facility] [id number] AMENDED REPORT 08/28/06 1533 VITD 1,25 [id number] previously reported as: 11.9 L pg/mL Performed At: [facility] [place], [place] [id number] At: [address] [id number] Fecal Occult Blood , Office ([id number])Ordered By: Megan Santo on 08-12-2006 Hemoglobin.gastrointes tinal Ql (Stl) Negative Normal [facility] Work Phone: DEXA BONE DENSITY STUDY (HP) Ordered By: Waiter/Waitress Formal on 06-25-2006 DEXA BONE DENSITY STUDY (HP) See Note Normal [facility] Work Phone: Comment on above: Exam Number: [id number] BONE DENSITOMETRY HISTORYPostmenopausal. Bone densitometry of the lumbar spine and left hip was performed. Thebest criteria for evaluation of osteoporosis is the T-value whichrepresents the comparison of the patient's bone mass to an expectedpeak bone mass. For most patients, the mean T-value of L1 through L4and the T-value of the total left hip are most useful. In this patient, the mean T-value of L1 through L4 is -1.4, which isin the range of osteopenia.Digital lateral view for evaluation of vertebral deformity only demonstrates mild increase in kyphotic angle at the level of the lowerthoracic vertebral bodies, although no definite compression fracturecan be seen.The T-value of the left femoral neck is -1.2, which is in the range ofosteopenia. T-value of the total left hip is -0.4. which is in thenormal range. IMPRESSION1. There is osteopenia of the lumbar spine. Bone densitometry of the total left hip is in the normal range. Reported By: CRISTOBAL STONE M.D. Exam Number: [id number] MAMMOGRAPHY, BILATERAL SCREENING DIGITAL AND CAD HISTORYRoutine screening. Full field digital images were obtained in mediolateral oblique andcraniocaudal projections. CAD images were reviewed. The current study is compared to the examinations of February 2002,October 2003, April 2004, and February 2005. There is moderately dense fibroglandular parenchyma present. There isno skin thickening or retraction, architectural distortion, or clusterof suspicious microcalcifications. There are areas of asymmetricparenchymal density in the outer half of both breasts. These are mostsimilar to that seen on the examination of June 25, 2002. There is nonew density identified. There is a stereotactic localization clip inthe mid left breast which was present in 2002. If there is nosuspicious palpable abnormality, followup mammogram in 1 year isrecommended. IMPRESSIONThere is no radiographic evidence of malignancy identified. FINAL ASSESSMENTBenign findings. BIRADS Category 2. A letter regarding these results has been sent to the patient. This interpretation was rendered by a radiologist certified under theMammography Quality Standards Act of 1992 (MQSA). The mammograms werealso examined with computer-aided detection software ([employer], [employer] Reported By: CRISTOBAL STONE M.D. C-REACTIVE PROTOrdered By: Lucinda farah Grey Inspector on 01-31-2006 CRP [Mass/Vol] 16.06 mg/L Abnormal 0.0-6.0 [facility] Internal Medicine Work Phone: Comment on above: Test performed using the Dimension C-Reactive ProteinExtended Range assay method. This assay meets the AHA/CDC 2003 recommendations fordetermining patients at high risk for cardiovasculardisease. Reference: High risk CRP >3.0 mg/L Vital Signs Date Time Vital Sign Value Performing Clinician Facility 01-22-2023 16:20-0500 Body temperature 97.8 [degF] Dr. Maricruz Zavaleta Work Phone: [facility] [place] 01-22-2023 16:20-0500 Diastolic blood pressure 60 mm[Hg] Dr. Maricruz Zavaleta Work Phone: [facility] [place] 01-22-2023 16:20-0500 Heart rate 61 /min Dr. Maricruz Zavaleta Work Phone: [facility] [place] 01-22-2023 16:20-0500 Respiratory rate 16 /min Dr. Maricruz Zavaleta Work Phone: [facility] [place] 01-22-2023 16:20-0500 SaO2% (BldA) [Mass fraction] 96 % Dr. Maricruz Zavaleta Work Phone: [facility] [place] 01-22-2023 16:20-0500 Systolic blood pressure 118 mm[Hg] Dr. Maricruz Zavaleta Work Phone: [facility] [place] 01-22-2023 13:50-0500 Body height 157.[address] Maricruz Zavaleta Work Phone: [facility] [place] 01-22-2023 13:50-0500 Body mass index (BMI) [Ratio] 35.4 kg/m2 Dr. Maricruz Zavaleta Work Phone: [facility] [place] 01-22-2023 13:50-0500 Body weight [address] Maricruz Zavaleta Work Phone: [facility] [place] 01-13-2023 14:17-0500 Body mass index (BMI) [Ratio] 36.3 kg/m2 Dr. Maricruz Zavaleta Work Phone: [facility] [place] 01-13-2023 14:17-0500 Body temperature 96 [degF] Dr. Maricruz Zavaleta Work Phone: [facility] [place] 01-13-2023 14:17-0500 Body weight 90.[address] Maricruz Zavaleta Work Phone: [facility] [place] 01-13-2023 14:17-0500 Diastolic blood pressure 67 mm[Hg] Dr. Maricruz Zavaleta Work Phone: [facility] [place] 01-13-2023 14:17-0500 Heart rate 65 /min Dr. Maricruz Zavaleta Work Phone: [facility] [place] 01-13-2023 14:17-0500 Respiratory rate 17 /min Dr. Maricruz Zavaleta Work Phone: [facility] [place] 01-13-2023 14:17-0500 SaO2% (BldA) [Mass fraction] 99 % Dr. Maricruz Zavaleta Work Phone: [facility] [place] 01-13-2023 14:17-0500 Systolic blood pressure 131 mm[Hg] Dr. Maricruz Zavaleta Work Phone: [facility] [place] 10-23-2022 15:40-0400 Body height 157.[address] Maricruz Zavaleta Work Phone: [facility] [place] 10-23-2022 15:40-0400 Body mass index (BMI) [Ratio] 34.4 kg/m2 Dr. Maricruz Zavaleta Work Phone: [facility] [place] 10-23-2022 15:40-0400 Body temperature 97.6 [degF] Dr. Maricruz Zavaleta Work Phone: [facility] [place] 10-23-2022 15:40-0400 Body weight 85.[address] Maricruz Zavaleta Work Phone: [facility] [place] 10-23-2022 15:40-0400 Diastolic blood pressure 84 mm[Hg] Dr. Maricruz Zavaleta Work Phone: [facility] [place] 10-23-2022 15:40-0400 Heart rate 84 /min Dr. Maricruz Zavaleta Work Phone: [facility] [place] 10-23-2022 15:40-0400 Respiratory rate 14 /min Dr. Maricruz Zavaleta Work Phone: [facility] [place] 10-23-2022 15:40-0400 SaO2% (BldA) [Mass fraction] 98 % Dr. Maricruz Zavaleta Work Phone: [facility] [place] 10-23-2022 15:40-0400 Systolic blood pressure 144 mm[Hg] Dr. Maricruz Zavaleta Work Phone: [facility] [place] 03-01-2022 12:50-0500 Body height 157.[address] Maricruz Zavaleta Work Phone: [facility] [place] 03-01-2022 12:50-0500 Body weight 83.[address] Maricruz Zavaleta Work Phone: [facility] [place] 03-01-2022 12:50-0500 Heart rate 59 /min Dr. Maricruz Zavaleta Work Phone: [facility] [place] 03-01-2022 12:50-0500 SaO2% (BldA) [Mass fraction] 99 % Dr. Maricruz Zavaleta Work Phone: [facility] [place] 01-14-2022 11:12-0500 Body height 157.[address] Maricruz Zavaleta Work Phone: [facility] [place] Work Phone: 01-14-2022 11:12-0500 Body mass index (BMI) [Ratio] 34 kg/m2 Dr. Maricruz Zavaleta Work Phone: [facility] [place] 01-14-2022 11:12-0500 Body temperature 98 [degF] Dr. Maricruz Zavaleta Work Phone: [facility] [place] 01-14-2022 11:12-0500 Body weight 84.[address] Maricruz Zavaleta Work Phone: [facility] [place] 01-14-2022 11:12-0500 Diastolic blood pressure 79 mm[Hg] Dr. Maricruz Zavaleta Work Phone: [facility] [place] 01-14-2022 11:12-0500 Heart rate 56 /min Dr. Maricruz Zavaleta Work Phone: [facility] [place] 01-14-2022 11:12-0500 Respiratory rate 16 /min Dr. Maricruz Zavaleta Work Phone: [facility] [place] 01-14-2022 11:12-0500 SaO2% (BldA) [Mass fraction] 98 % Dr. Maricruz Zavaleta Work Phone: [facility] [place] 01-14-2022 11:12-0500 Systolic blood pressure 145 mm[Hg] Dr. Maricruz Zavaleta Work Phone: [facility] [place] 09-28-2021 13:16-0400 Body height 157.[address] Maricruz Zavaleta Work Phone: [facility] [place] Work Phone: 09-28-2021 13:16-0400 Body mass index (BMI) [Ratio] 34.2 kg/m2 Dr. Maricruz Zavaleta Work Phone: [facility] [place] Work Phone: 09-28-2021 13:16-0400 Body temperature 98.6 [degF] Dr. Maricruz Zavaleta Work Phone: [facility] [place] Work Phone: 09-28-2021 13:16-0400 Body weight 84.[address] Maricruz Zavaleta Work Phone: [facility] [place] Work Phone: 09-28-2021 13:16-0400 Diastolic blood pressure 90 mm[Hg] Dr. Maricruz Zavaleta Work Phone: [facility] [place] Work Phone: 09-28-2021 13:16-0400 Heart rate 79 /min Dr. Maricruz Zavaleta Work Phone: [facility] [place] Work Phone: 09-28-2021 13:16-0400 Respiratory rate 16 /min Dr. Maricruz Zavaleta Work Phone: [facility] [place] Work Phone: 09-28-2021 13:16-0400 SaO2% (BldA) [Mass fraction] 97 % Dr. Maricruz Zavaleta Work Phone: [facility] [place] Work Phone: 09-28-2021 13:16-0400 Systolic blood pressure 146 mm[Hg] Dr. Maricruz Zavaleta Work Phone: [facility] [place] Work Phone: 11-04-2016 14:08-0400 BMI (Body Mass Index) 34.93 kg/m2 Masha Diana [facility] Internal Medicine Work Phone: 11-04-2016 14:08-0400 Body Temperature 97.3 [degF] [facility] Internal Medicine Work Phone: 11-04-2016 14:08-0400 Body weight 86.64 kg [facility] Internal Medicine Work Phone: 11-04-2016 14:08-0400 BP Diastolic 80 mm[Hg] [facility] Internal Medicine Work Phone: Comment on above: Patient Position: Sitting; Cuff Location : Left Arm; Cuff Size: Standard 11-04-2016 14:08-0400 BP Systolic 122 mm[Hg] [facility] Internal Medicine Work Phone: Comment on above: Patient Position: Sitting; Cuff Location : Left Arm; Cuff Size: Standard 11-04-2016 14:08-0400 BSA (Body Surface Area) 1.87 m2 [facility] Internal Medicine Work Phone: 11-04-2016 14:08-0400 Height 157.48 cm [facility] Internal Medicine Work Phone: 11-04-2016 14:08-0400 Pulse (Heart Rate) 76 /min [facility] Internal Medicine Work Phone: Comment on above: Pattern: Regular 11-04-2016 14:08-0400 Pulse Oximetry 97 % Masha Ortiz [facility] Internal Medicine Work Phone: Comment on above: Room air 11-04-2016 14:08-0400 Respiratory Rate 18 /min Masha Ortiz [facility] Internal Medicine Work Phone: Comment on above: Pattern: Unlabored 06-17-2016 12:05-0400 BMI (Body Mass Index) 34.75 kg/m2 Masha Ortiz [facility] Internal Medicine Work Phone: 06-17-2016 12:05-0400 Body Temperature 97.7 [degF] Masha Ortiz [facility] Internal Medicine Work Phone: 06-17-2016 12:05-0400 Body weight 86.18 kg Masha Ortiz [facility] Internal Medicine Work Phone: 06-17-2016 12:05-0400 BP Diastolic 78 mm[Hg] Masha Ortiz [facility] Internal Medicine Work Phone: Comment on above: Patient Position: Sitting; Cuff Location : Left Arm; Cuff Size: Standard 06-17-2016 12:05-0400 BP Systolic 116 mm[Hg] Masha Ortiz [facility] Internal Medicine Work Phone: Comment on above: Patient Position: Sitting; Cuff Location : Left Arm; Cuff Size: Standard 06-17-2016 12:05-0400 BSA (Body Surface Area) 1.87 m2 Masha Ortiz [facility] Internal Medicine Work Phone: 06-17-2016 12:05-0400 Height 157.48 cm Masha Ortiz [facility] Medicine Work Phone: 06-17-2016 12:05-0400 Pulse (Heart Rate) 89 /min Masha Ortiz [facility] Internal Medicine Work Phone: Comment on above: Pattern: Regular 06-17-2016 12:05-0400 Pulse Oximetry 97 % Masha Ortiz [facility] Internal Medicine Work Phone: Comment on above: Room air 06-17-2016 12:05-0400 Respiratory Rate 17 /min Masha Ortiz [facility] Internal Medicine Work Phone: Comment on above: Pattern: Unlabored 12-07-2015 10:26-0400 BMI (Body Mass Index) 34.02 kg/m2 Masha colon Internal Medicine Work Phone: 12-07-2015 10:26-0400 Body Temperature 97.7 [degF] Masha Parrish Internal Medicine Work Phone: Comment on above: Method: Temporal 12-07-2015 [id number]:260400 Body weight 84.37 kg Masha Ortiz [facility] Internal Medicine Work Phone: 12-07-2015 10:26-0400 BP Diastolic 76 mm[Hg] Masha Ortiz [facility] Internal Medicine Work Phone: Comment on above: Patient Position: Sitting; Cuff Location : Left Arm; Cuff Size: Standard 12-07-2015 10:26-0400 BP Systolic 124 mm[Hg] Masha Parrish Internal Medicine Work Phone: Comment on above: Patient Position: Sitting; Cuff Location : Left Arm; Cuff Size: Standard 12-07-2015 10:260400 BSA (Body Surface Area) 1.85 m2 Masha Parrish Internal Medicine Work Phone: 12-07-2015 10:26-0400 Height 157.48 cm Masha Parrish Internal Medicine Work Phone: 12-07-2015 10:26-0400 Pulse (Heart Rate) 70 /min Masha Parrish Internal Medicine Work Phone: Comment on above: Pattern: Regular 12-07-2015 10:26-0400 Pulse Oximetry 98 % Masha Ortiz [facility] Internal Medicine Work Phone: Comment on above: Room air 12-07-2015 10:26-0400 Respiratory Rate 16 /min Masha Parrish Internal Medicine Work Phone: Comment on above: Pattern: Unlabored 08-31-2015 13:35-0400 BMI (Body Mass Index) 33.84 kg/m2 Masha colon Internal Medicine Work Phone: 08-31-2015 13:35-0400 Body weight 83.92 kg Masha Parrish Internal Medicine Work Phone: 08-31-2015 13:35-0400 BP Diastolic 78 mm[Hg] Masha Ortiz [facility] Internal Medicine Work Phone: Comment on above: Patient Position: Sitting; Cuff Location : Left Arm; Cuff Size: Large 08-31-2015 13:35-0400 BP Systolic 122 mm[Hg] Masha Ortiz [facility] Internal Medicine Work Phone: Comment on above: Patient Position: Sitting; Cuff Location : Left Arm; Cuff Size: Large 08-31-2015 13:35-0400 BSA (Body Surface Area) 1.85 m2 Masha Ortiz [facility] Internal Medicine Work Phone: 08-31-2015 13:35-0400 Height 157.48 cm Masha Ortiz [facility] Medicine Work Phone: 08-31-2015 13:35-0400 Pulse (Heart Rate) 80 /min Masha Ortiz [facility] Internal Medicine Work Phone: Comment on above: Pattern: Regular 08-31-2015 13:35-0400 Pulse Oximetry 98 % Masha Ortiz [facility] Internal Medicine Work Phone: Comment on above: Room air 08-31-2015 13:35-0400 Respiratory Rate 18 /min Masha Ortiz [facility] Internal Medicine Work Phone: Comment on above: Pattern: Unlabored 06-27-2015 13:35-0400 BMI (Body Mass Index) 33.84 kg/m2 Masha Ortiz [facility] Internal Medicine Work Phone: 06-27-2015 13:35-0400 Body Temperature 98.5 [degF] Masha Ortiz [facility] Internal Medicine Work Phone: Comment on above: Method: Temporal 06-27-2015 13:35-0400 Body weight 83.92 kg Masha Ortiz [facility] Internal Medicine Work Phone: 06-27-2015 13:35-0400 BP Diastolic 62 mm[Hg] Masha Ortiz [facility] Internal Medicine Work Phone: Comment on above: Patient Position: Sitting; Cuff Location : Left Arm; Cuff Size: Standard 06-27-2015 13:35-0400 BP Systolic 120 mm[Hg] Masha Ortiz [facility] Internal Medicine Work Phone: Comment on above: Patient Position: Sitting; Cuff Location : Left Arm; Cuff Size: Standard 06-27-2015 13:35-0400 BSA (Body Surface Area) 1.85 m2 Masha Ortiz [facility] Internal Medicine Work Phone: 06-27-2015 13:35-0400 Height 157.48 cm Masha Ortiz [facility] Medicine Work Phone: 06-27-2015 13:35-0400 Pulse (Heart Rate) 81 /min Masha Ortiz [facility] Internal Medicine Work Phone: Comment on above: Pattern: Regular 06-27-2015 13:35-0400 Pulse Oximetry 98 % Masha Ortiz [facility] Internal Medicine Work Phone: Comment on above: Room air 06-27-2015 13:35-0400 Respiratory Rate 18 /min Masha Ortiz [facility] Internal Medicine Work Phone: Comment on above: Pattern: Unlabored 06-07-2015 10:29-0400 BMI (Body Mass Index) 35.48 kg/m2 Masha Ortiz [facility] Internal Medicine Work Phone: 06-07-2015 10:29-0400 Body Temperature 98 [degF] Masha Ortiz [facility] [facility] Work Phone: Comment on above: Method: Oral 06-07-2015 10:290400 Body weight 88 kg Masha Ortiz [facility] Internal Medicine Work Phone: 06-07-2015 10:29-0400 BP Diastolic 64 mm[Hg] Masha Ortiz [facility] Internal Medicine Work Phone: Comment on above: Patient Position: Sitting; Cuff Location : Left Arm; Cuff Size: Large 06-07-2015 10:29-0400 BP Systolic 110 mm[Hg] Masha Ortiz [facility] Internal Medicine Work Phone: Comment on above: Patient Position: Sitting; Cuff Location : Left Arm; Cuff Size: Large 06-07-2015 10:290400 BSA (Body Surface Area) 1.89 m2 Masha Ortiz [facility] Internal Medicine Work Phone: 06-07-2015 10:29-0400 Height 157.48 cm Masha Ortiz [facility] Internal Medicine Work Phone: 06-07-2015 10:29-0400 Pulse (Heart Rate) 77 /min Masha Ortiz [facility] Internal Medicine Work Phone: Comment on above: Pattern: Regular 06-07-2015 10:29-0400 Pulse Oximetry 98 % Masha Ortiz [facility] Internal Medicine Work Phone: Comment on above: Room air 06-07-2015 10:29-0400 Respiratory Rate 20 /min Masha Ortiz [facility] Internal Medicine Work Phone: Comment on above: Pattern: Unlabored 03-27-2015 13:56-0500 BMI (Body Mass Index) 35.48 kg/m2 Masha rOtiz [facility] Internal Medicine Work Phone: 03-27-2015 13:56-0500 Body Temperature 99.6 [degF] Masha Ortiz [facility] Internal Medicine Work Phone: Comment on above: Method: Temporal 03-27-2015 13:56-0500 Body weight 88 kg Masha Ortiz [facility] Internal Medicine Work Phone: 03-27-2015 13:56-0500 BP Diastolic 60 mm[Hg] Masha Ortiz [facility] Internal Medicine Work Phone: Comment on above: Patient Position: Sitting; Cuff Location : Left Arm; Cuff Size: Large 03-27-2015 13:56-0500 BP Systolic 114 mm[Hg] Masha Ortiz [facility] Internal Medicine Work Phone: Comment on above: Patient Position: Sitting; Cuff Location : Left Arm; Cuff Size: Large 03-27-2015 13:56-0500 BSA (Body Surface Area) 1.89 m2 Masha Ortiz [facility] Internal Medicine Work Phone: 03-27-2015 13:56-0500 Height 157.48 cm Masha Ortiz [facility] Internal Medicine Work Phone: 03-27-2015 13:56-0500 Pulse (Heart Rate) 80 /min Masha Ortiz [facility] Internal Medicine Work Phone: Comment on above: Pattern: Regular 03-27-2015 13:56-0500 Pulse Oximetry 97 % Masha Ortiz [facility] Internal Medicine Work Phone: Comment on above: Room air 03-27-2015 13:56-0500 Respiratory Rate 16 /min Masha Ortiz [facility] Internal Medicine Work Phone: Comment on above: Pattern: Unlabored 02-27-2015 15:10-0500 BMI (Body Mass Index) 35.48 kg/m2 Masha Ortiz [facility] Internal Medicine Work Phone: 02-27-2015 15:10-0500 Body Temperature 98.2 [degF] Masha Ortiz [facility] Internal Medicine Work Phone: Comment on above: Method: Oral 02-27-2015 15:10-0500 Body weight 88 kg Masha Ortiz [facility] Internal Medicine Work Phone: 02-27-2015 15:10-0500 BP Diastolic 68 mm[Hg] Masha Ortiz [facility] Internal Medicine Work Phone: Comment on above: Patient Position: Sitting; Cuff Location : Left Arm; Cuff Size: Standard 02-27-2015 15:10-0500 BP Systolic 130 mm[Hg] Masha Ortiz [facility] Internal Medicine Work Phone: Comment on above: Patient Position: Sitting; Cuff Location : Left Arm; Cuff Size: Standard 02-27-2015 15:10-0500 BSA (Body Surface Area) 1.89 m2 Masha Ortiz [facility] Internal Medicine Work Phone: 02-27-2015 15:10-0500 Height 157.48 cm Masha Ortiz [facility] Internal Medicine Work Phone: 02-27-2015 15:10-0500 Pulse (Heart Rate) 90 /min Masha Ortiz [facility] Internal Medicine Work Phone: Comment on above: Pattern: Regular 02-27-2015 15:10-0500 Respiratory Rate 16 /min Masha Ortiz [facility] Internal Medicine Work Phone: Comment on above: Pattern: Unlabored 05-12-2015 10:31-0400 BMI (Body Mass Index) 35.48 kg/m2 Masha Lin [facility] Internal Medicine Work Phone: 07-05-2014 10:31-0400 Body Temperature 97.6 [degF] Masha [facility]iz [facility] Work Phone: 07-05-2014 10:31-0400 Body weight 88 kg Masha Ortiz [facility] Work Phone: 07-05-2014 10:31-0400 BP Diastolic 68 mm[Hg] Masha Ortiz [facility] Internal Medicine Work Phone: Comment on above: Patient Position: Sitting; Cuff Location : Left Arm; Cuff Size: Standard 07-05-2014 10:31-0400 BP Systolic 116 mm[Hg] Masha Ortiz [facility] Work Phone: Comment on above: Patient Position: Sitting; Cuff Location : Left Arm; Cuff Size: Standard 07-05-2014 10:31-0400 BSA (Body Surface Area) 1.89 m2 Masha Ortiz [facility] Work Phone: 07-05-2014 10:31-0400 Height 157.48 cm Masha Ortiz [facility] Internal Medicine Work Phone: 07-05-2014 10:31-0400 Pulse (Heart Rate) 70 /min Masha Ortiz [facility] Work Phone: Comment on above: Pattern: Regular 07-05-2014 10:31-0400 Pulse Oximetry 98 % Masha Ortiz [facility] Work Phone: Comment on above: Room air 07-05-2014 10:31-0400 Respiratory Rate 18 /min Masha Ortiz [facility] Internal Medicine Work Phone: Comment on above: Pattern: Unlabored 06-27-2014 09:35-0400 BMI (Body Mass Index) 34.93 kg/m2 Masha Lin isaiah Internal Medicine Work Phone: 06-27-2014 09:35-0400 Body Temperature 98.3 [degF] Masha Ortiz [facility] Internal Medicine Work Phone: 06-27-2014 09:35-0400 Body weight 86.64 kg Masha Ortiz [facility] Internal Medicine Work Phone: 06-27-2014 09:35-0400 BP Diastolic 68 mm[Hg] Masha Ortiz [facility] Internal Medicine Work Phone: Comment on above: Patient Position: Sitting; Cuff Location : Left Arm; Cuff Size: Standard 06-27-2014 09:35-0400 BP Systolic 102 mm[Hg] Masha Ortiz [facility] Internal Medicine Work Phone: Comment on above: Patient Position: Sitting; Cuff Location : Left Arm; Cuff Size: Standard 06-27-2014 09:35-0400 BSA (Body Surface Area) 1.87 m2 Masha Ortiz [facility] Internal Medicine Work Phone: 06-27-2014 09:35-0400 Height 157.48 cm Masha Ortiz [facility] Internal Medicine Work Phone: 06-27-2014 09:35-0400 Pulse (Heart Rate) 68 /min Masha Ortiz [facility] Internal Medicine Work Phone: Comment on above: Pattern: Regular 06-27-2014 09:35-0400 Pulse Oximetry 99 % Masha Ortiz [facility] Internal Medicine Work Phone: Comment on above: Room air 06-27-2014 09:35-0400 Respiratory Rate 18 /min Masha Ortiz [facility] Internal Medicine Work Phone: Comment on above: Pattern: Unlabored 03-16-2014 15:10-0500 BMI (Body Mass Index) 34.93 kg/m2 Masha Ortiz [facility] Internal Medicine Work Phone: 03-16-2014 15:10-0500 Body Temperature 97.3 [degF] Masha Ortiz [facility] Internal Medicine Work Phone: 03-16-2014 15:10-0500 Body weight 86.64 kg Masha Ortiz [facility] Internal Medicine Work Phone: 03-16-2014 15:10-0500 BP Diastolic 70 mm[Hg] Masha Ortiz [facility] Internal Medicine Work Phone: Comment on above: Patient Position: Sitting; Cuff Location : Left Arm; Cuff Size: Large 03-16-2014 15:10-0500 BP Systolic 120 mm[Hg] Masha Ortiz [facility] Internal Medicine Work Phone: Comment on above: Patient Position: Sitting; Cuff Location : Left Arm; Cuff Size: Large 03-16-2014 15:10-0500 BSA (Body Surface Area) 1.87 m2 [facility]: 03-16-2014 15:10-0500 Height 157.48 cm [facility]: 03-16-2014 15:10-0500 Pulse (Heart Rate) 70 /min [facility] Work [facility]: Comment on above: Pattern: Regular 03-16-2014 15:10-0500 Respiratory Rate 16 /min [facility] Work [facility]: Comment on above: Pattern: Unlabored 11-30-2013 14:15-0400 BMI (Body Mass Index) 34.75 kg/m2 Masha Ortiz [facility] Internal Medicine Work Phone: 11-30-2013 14:15-0400 Body Temperature 99.1 [degF] [facility] Work [facility]: Comment on above: Method: Oral 11-30-2013 14:15-0400 Body weight 86.18 kg [facility] Work [facility]: 11-30-2013 14:15-0400 BP Diastolic 78 mm[Hg] [facility] Work [facility]: Comment on above: Patient Position: Sitting; Cuff Location : Left Arm; Cuff Size: Standard 11-30-2013 14:15-0400 BP Systolic 122 mm[Hg] [facility] Work [facility]: Comment on above: Patient Position: Sitting; Cuff Location : Left Arm; Cuff Size: Standard 11-30-2013 14:15-0400 BSA (Body Surface Area) 1.87 m2 [facility] Work Phone: 11-30-2013 14:15-0400 Height 157.48 cm Masha Ortiz [facility] Internal Medicine Work Phone: 11-30-2013 14:15-0400 Pulse (Heart Rate) 62 /min Masha Ortiz [facility] Internal Medicine Work Phone: Comment on above: Pattern: Regular 11-30-2013 14:15-0400 Pulse Oximetry 99 % Masha Ortiz [facility] Internal Medicine Work Phone: Comment on above: Room air 11-30-2013 14:15-0400 Respiratory Rate 16 /min Masha Ortiz [facility] Internal Medicine Work Phone: 08-20-2013 10:51-0400 BMI (Body Mass Index) 34.75 kg/m2 Masha Ortiz [facility] Internal Medicine Work Phone: 08-20-2013 10:51-0400 Body Temperature 97.7 [degF] Masha Ortiz [facility] Internal Medicine Work Phone: 08-20-2013 10:51-0400 Body weight 86.18 kg Masha Ortiz [facility] Internal Medicine Work Phone: 08-20-2013 10:51-0400 BP Diastolic 72 mm[Hg] Masha Ortiz [facility] Internal Medicine Work Phone: Comment on above: Patient Position: Sitting; Cuff Location : Left Arm; Cuff Size: Large 08-20-2013 10:51-0400 BP Systolic 116 mm[Hg] Masha Ortiz [facility] Internal Medicine Work Phone: Comment on above: Patient Position: Sitting; Cuff Location : Left Arm; Cuff Size: Large 08-20-2013 10:51-0400 BSA (Body Surface Area) 1.87 m2 Masha Ortiz [facility] Internal Medicine Work Phone: 08-20-2013 10:51-0400 Height 157.48 cm Masha Ortiz [facility] Internal Medicine Work Phone: 08-20-2013 10:51-0400 Pulse (Heart Rate) 58 /min Masha Ortiz [facility] Internal Medicine Work Phone: Comment on above: Pattern: Regular 08-20-2013 10:51-0400 Respiratory Rate 16 /min Masha Ortiz [facility] Internal Medicine Work Phone: Comment on above: Pattern: Unlabored 06-09-2013 11:23-0400 BMI (Body Mass Index) 34.75 kg/m2 Masha Ortiz [facility] Internal Medicine Work Phone: 06-09-2013 11:23-0400 Body Temperature 97.4 [degF] Masha Ortiz [facility] Internal Medicine Work Phone: 06-09-2013 11:23-0400 Body weight 86.18 kg Masha Ortiz [facility] Internal Medicine Work Phone: 06-09-2013 11:23-0400 BP Diastolic 68 mm[Hg] Masha Ortiz [facility] Internal Medicine Work Phone: Comment on above: Patient Position: Sitting; Cuff Location : Left Arm; Cuff Size: Large 06-09-2013 11:23-0400 BP Systolic 108 mm[Hg] Masha Ortiz [facility] Internal Medicine Work Phone: Comment on above: Patient Position: Sitting; Cuff Location : Left Arm; Cuff Size: Large 06-09-2013 11:23-0400 BSA (Body Surface Area) 1.87 m2 Masha Ortiz [facility] Internal Medicine Work Phone: 06-09-2013 11:23-0400 Height 157.48 cm [facility] Work [facility]: 06-09-2013 11:23-0400 Pulse (Heart Rate) 76 /min Masha Ortiz [facility] Internal Medicine Work Phone: Comment on above: Pattern: Regular 06-09-2013 11:23-0400 Respiratory Rate 16 /min Masha Ortiz [facility] Internal Medicine Work Phone: Comment on above: Pattern: Unlabored 04-28-2013 11:15-0500 BMI (Body Mass Index) 34.57 kg/m2 Masha Ortiz [facility] Internal Medicine Work Phone: 04-28-2013 11:15-0500 Body Temperature 98 [degF] Masha [facility] Internal Medicine Work Phone: Comment on above: Method: Oral 04-28-2013 11:15-0500 Body weight 85.73 kg Masha Ortiz [facility] Internal Medicine Work Phone: 04-28-2013 11:15-0500 BP Diastolic 60 mm[Hg] Masha Ortiz [facility] Internal Medicine Work Phone: Comment on above: Patient Position: Sitting; Cuff Location : Left Arm; Cuff Size: Standard 04-28-2013 11:15-0500 BP Systolic 102 mm[Hg] Masha Ortiz [facility] Internal Medicine Work Phone: Comment on above: Patient Position: Sitting; Cuff Location : Left Arm; Cuff Size: Standard 04-28-2013 11:15-0500 BSA (Body Surface Area) 1.87 m2 Masha Ortiz [facility] Internal Medicine Work Phone: 04-28-2013 11:15-0500 Height 157.48 cm [facility] Work Phone: 04-28-2013 11:15-0500 Pulse (Heart Rate) 72 /min Masha Ortiz [facility] Internal Medicine Work Phone: Comment on above: Pattern: Regular 04-28-2013 11:15-0500 Respiratory Rate 16 /min Masha Ortiz [facility] Internal Medicine Work Phone: Comment on above: Pattern: Unlabored 01-20-2013 14:31-0500 BMI (Body Mass Index) 34.02 kg/m2 Masha Ortiz [facility] Internal Medicine Work Phone: 01-20-2013 14:31-0500 Body Temperature 98 [degF] Masha Ortiz [facility] Internal Medicine Work Phone: 01-20-2013 14:31-0500 Body weight 84.37 kg Masha Ortiz [facility] Internal Medicine Work Phone: 01-20-2013 14:31-0500 BP Diastolic 66 mm[Hg] Masha Ortiz [facility] Internal Medicine Work Phone: Comment on above: Patient Position: Sitting; Cuff Location : Left Arm; Cuff Size: Large 01-20-2013 14:31-0500 BP Systolic 104 mm[Hg] Masha Ortiz [facility] Internal Medicine Work Phone: Comment on above: Patient Position: Sitting; Cuff Location : Left Arm; Cuff Size: Large 01-20-2013 14:31-0500 BSA (Body Surface Area) 1.85 m2 Masha Ortiz [facility] Internal Medicine Work Phone: 01-20-2013 14:31-0500 Height 157.48 cm Masha Ortiz [facility] Internal Medicine Work Phone: 01-20-2013 14:31-0500 Pulse (Heart Rate) 64 /min Masha Ortiz [facility] Internal Medicine Work Phone: Comment on above: Pattern: Regular 01-20-2013 14:31-0500 Respiratory Rate 16 /min Masha Ortiz [facility] Internal Medicine Work Phone: Comment on above: Pattern: Unlabored 12-02-2012 11:46-0400 BMI (Body Mass Index) 34.2 kg/m2 Masha Ortiz [facility] Internal Medicine Work Phone: 12-02-2012 11:46-0400 Body Temperature 97.3 [degF] Masha Ortiz [facility] Internal Medicine Work Phone: 12-02-2012 11:46-0400 Body weight 84.82 kg Masha Ortiz [facility] Internal Medicine Work Phone: 12-02-2012 11:46-0400 BP Diastolic 74 mm[Hg] Masha Ortiz [facility] Internal Medicine Work Phone: Comment on above: Patient Position: Sitting; Cuff Location : Left Arm; Cuff Size: Large 12-02-2012 11:46-0400 BP Systolic 122 mm[Hg] Masha Ortiz [facility] Internal Medicine Work Phone: Comment on above: Patient Position: Sitting; Cuff Location : Left Arm; Cuff Size: Large 12-02-2012 11:46-0400 BSA (Body Surface Area) 1.86 m2 Masha Ortiz [facility] Internal Medicine Work Phone: 12-02-2012 11:46-0400 Height 157.48 cm Masha Ortiz [facility] Internal Medicine Work Phone: 12-02-2012 11:46-0400 Pulse (Heart Rate) 60 /min Masha Ortiz [facility] Internal Medicine Work Phone: Comment on above: Pattern: Regular 12-02-2012 11:46-0400 Pulse Oximetry 99 % Masha Ortiz [facility] Internal Medicine Work Phone: Comment on above: Room air 12-02-2012 11:46-0400 Respiratory Rate 18 /min Masha Ortiz [facility] Internal Medicine Work Phone: Comment on above: Pattern: Unlabored 05-07-2010 14:48-0400 BMI (Body Mass Index) 35.4 kg/m2 Masha Ortiz [facility] Internal Medicine Work Phone: 05-07-2010 14:48-0400 Body Temperature 98.1 [degF] Masha Ortiz [facility] Internal Medicine Work Phone: 05-07-2010 14:48-0400 Body weight 87.09 kg Masha Ortiz [facility] Internal Medicine Work Phone: 05-07-2010 14:48-0400 BP Diastolic 80 mm[Hg] Masha Ortiz [facility] Internal Medicine Work Phone: Comment on above: Patient Position: Sitting; Cuff Location : Left Arm; Cuff Size: Standard 05-07-2010 14:48-0400 BP Systolic 120 mm[Hg] Masha Ortiz [facility] Internal Medicine Work Phone: Comment on above: Patient Position: Sitting; Cuff Location : Left Arm; Cuff Size: Standard 05-07-2010 14:48-0400 BSA (Body Surface Area) 1.87 m2 Masha Ortiz [facility] Internal Medicine Work Phone: 05-07-2010 14:48-0400 Height 156.84 cm Masha Ortiz [facility] Internal Medicine Work Phone: 05-07-2010 14:48-0400 Pulse (Heart Rate) 64 /min Masha Oritz [facility] Internal Medicine Work Phone: Comment on above: Pattern: Regular 05-07-2010 14:48-0400 Respiratory Rate 16 /min Masha Ortiz [facility] Internal Medicine Work Phone: Comment on above: Pattern: Unlabored 03-12-2010 15:41-0500 Body Temperature 97.7 [degF] Masha Ortiz [facility] Internal Medicine Work Phone: 03-12-2010 15:41-0500 Body weight 86.18 kg Masha Ortiz [facility] Internal Medicine Work Phone: 03-12-2010 15:41-0500 BP Diastolic 74 mm[Hg] Masha Ortiz [facility] Internal Medicine Work Phone: Comment on above: Patient Position: Sitting; Cuff Location : Left Arm; Cuff Size: Large 03-12-2010 15:41-0500 BP Systolic 110 mm[Hg] Masha Ortiz [facility] Internal Medicine Work Phone: Comment on above: Patient Position: Sitting; Cuff Location : Left Arm; Cuff Size: Large 03-12-2010 15:41-0500 Pulse (Heart Rate) 88 /min Masha Ortiz [facility] Internal Medicine Work Phone: Comment on above: Pattern: Regular 03-12-2010 15:41-0500 Respiratory Rate 18 /min Masha Ortiz [facility] Internal Medicine Work Phone: Comment on above: Pattern: Unlabored 10-10-2009 15:12-0400 Body Temperature 97.1 [degF] Masha Ortiz [facility] Internal Medicine Work Phone: 10-10-2009 15:12-0400 Body weight 83.92 kg Masha Ortiz [facility] Internal Medicine Work Phone: 10-10-2009 15:12-0400 BP Diastolic 76 mm[Hg] Masha Ortiz [facility] Internal Medicine Work Phone: Comment on above: Patient Position: Sitting; Cuff Location : Left Arm; Cuff Size: Standard 10-10-2009 15:12-0400 BP Systolic 124 mm[Hg] Masha Ortiz [facility] Internal Medicine Work Phone: Comment on above: Patient Position: Sitting; Cuff Location : Left Arm; Cuff Size: Standard 10-10-2009 15:12-0400 Pulse (Heart Rate) 72 /min Masha Ortiz [facility] Work Phone: Comment on above: Pattern: Regular 10-10-2009 15:12-0400 Respiratory Rate 18 /min aMsha Ortiz [facility] Medicine Work Phone: Comment on above: Pattern: Unlabored 07-31-2009 08:34-0400 Body Temperature 98.7 [degF] Masha Ortiz [facility] Internal Medicine Work Phone: 07-31-2009 08:34-0400 BP Diastolic 76 mm[Hg] Masha Ortiz [facility] Internal Medicine Work Phone: Comment on above: Patient Position: Sitting; Cuff Location : Left Arm; Cuff Size: Large 07-31-2009 08:34-0400 BP Systolic 108 mm[Hg] Masha Ortiz [facility] Internal Medicine Work Phone: Comment on above: Patient Position: Sitting; Cuff Location : Left Arm; Cuff Size: Large 07-31-2009 08:34-0400 Pulse (Heart Rate) 62 /min Masha Ortiz [facility] Internal Medicine Work Phone: Comment on above: Pattern: Regular 07-31-2009 08:34-0400 Pulse Oximetry 99 % Masha Ortiz [facility] Internal Medicine Work Phone: Comment on above: Room air 07-31-2009 08:34-0400 Respiratory Rate 18 /min Masha Ortiz [facility] Internal Medicine Work Phone: Comment on above: Pattern: Unlabored 07-19-2009 14:37-0400 Body Temperature 97.5 [degF] Masha Ortiz [facility] Internal Medicine Work Phone: 07-19-2009 14:37-0400 Body weight 82.56 kg Masha Ortiz [facility] Internal Medicine Work Phone: 07-19-2009 14:37-0400 BP Diastolic 68 mm[Hg] Masha Ortiz [facility] Internal Medicine Work Phone: Comment on above: Patient Position: Sitting; Cuff Location : Left Arm; Cuff Size: Large 07-19-2009 14:37-0400 BP Systolic 102 mm[Hg] Masha Ortiz [facility] Internal Medicine Work Phone: Comment on above: Patient Position: Sitting; Cuff Location : Left Arm; Cuff Size: Large 07-19-2009 14:37-0400 Pulse (Heart Rate) 66 /min Masha Ortiz [facility] Internal Medicine Work Phone: Comment on above: Pattern: Regular 07-19-2009 14:37-0400 Respiratory Rate 18 /min Masha Ortiz [facility] Internal Medicine Work Phone: Comment on above: Pattern: Unlabored 04-11-2009 14:11-0500 Body weight 82.56 kg Masha Ortiz [facility] Internal Medicine Work Phone: 04-11-2009 14:11-0500 BP Diastolic 64 mm[Hg] Masha Plummerjoy [facility] Internal Medicine Work Phone: Comment on above: Patient Position: Sitting; Cuff Location : Left Arm; Cuff Size: Large 04-11-2009 14:11-0500 BP Systolic 112 mm[Hg] Masha Ortiz [facility] Internal Medicine Work Phone: Comment on above: Patient Position: Sitting; Cuff Location : Left Arm; Cuff Size: Large 04-11-2009 14:11-0500 Pulse (Heart Rate) 72 /min Masha Ortiz [facility] Internal Medicine Work Phone: Comment on above: Pattern: Regular 04-11-2009 14:11-0500 Respiratory Rate 16 /min Masha Ortiz [facility] Internal Medicine Work Phone: Comment on above: Pattern: Unlabored 01-11-2009 14:34-0500 Body Temperature 98.1 [degF] [facility] Work [facility]: Comment on above: Method: Undefined 01-11-2009 14:34-0500 Body weight 82.1 kg Masha Plummerjoy [facility] Internal Medicine Work Phone: 01-11-2009 14:34-0500 BP Diastolic 68 mm[Hg] Masha Plummerjoy [facility] Internal Medicine Work Phone: Comment on above: Patient Position: Sitting; Cuff Location : Left Arm; Cuff Size: Large 01-11-2009 14:34-0500 BP Systolic 128 mm[Hg] [facility] Work Phone: Comment on above: Patient Position: Sitting; Cuff Location : Left Arm; Cuff Size: Large 01-11-2009 14:34-0500 Head Circumference 0 cm Masha Ortiz [facility] Internal Medicine Work Phone: 01-11-2009 14:34-0500 Height 0 cm Masha Ortiz [facility] Internal Medicine Work Phone: 01-11-2009 14:34-0500 Pulse (Heart Rate) 72 /min Masha Ortiz [facility] Internal Medicine Work Phone: Comment on above: Pattern: Regular 01-11-2009 14:34-0500 Respiratory Rate 18 /min Masha Ortiz [facility] Internal Medicine Work Phone: Comment on above: Pattern: Undefined 10-04-2008 14:44-0400 Body Temperature 97.8 [degF] Masha Ortiz [facility] Internal Medicine Work Phone: Comment on above: Method: Undefined 10-04-2008 14:44-0400 Body weight 80.74 kg Masha Ortiz [facility] Internal Medicine Work Phone: 10-04-2008 14:44-0400 BP Diastolic 84 mm[Hg] [facility] Work Phone: Comment on above: Patient Position: Sitting; Cuff Location : Right Arm; Cuff Size: Standard 10-04-2008 14:44-0400 BP Systolic 120 mm[Hg] Masha Ortiz [facility] Internal Medicine Work Phone: Comment on above: Patient Position: Sitting; Cuff Location : Right Arm; Cuff Size: Standard 10-04-2008 14:44-0400 Head Circumference 0 cm Masha Ortiz [facility] Internal Medicine Work Phone: 10-04-2008 14:44-0400 Height 0 cm Masha Plummerjoy [facility] Internal Medicine Work Phone: 10-04-2008 14:44-0400 Pulse (Heart Rate) 64 /min Masha Ortiz [facility] Internal Medicine Work Phone: Comment on above: Pattern: Regular 10-04-2008 14:44-0400 Respiratory Rate 18 /min [facility] Work Phone: Comment on above: Pattern: Undefined 07-20-2008 14:13-0400 Body weight 78.02 kg Masha Ortiz [facility] Internal Medicine Work Phone: 07-20-2008 14:13-0400 BP Diastolic 72 mm[Hg] [facility] Work Phone: Comment on above: Patient Position: Sitting; Cuff Location : Right Arm; Cuff Size: Standard 07-20-2008 14:13-0400 BP Systolic 116 mm[Hg] [facility] Work Phone: Comment on above: Patient Position: Sitting; Cuff Location : Right Arm; Cuff Size: Standard 07-20-2008 14:13-0400 Head Circumference 0 cm [facility] Work Phone: 07-20-2008 14:13-0400 Height 0 cm [facility] Internal Medicine Work Phone: 07-20-2008 14:13-0400 Pulse (Heart Rate) 76 /min [facility] Work Phone: Comment on above: Pattern: Regular 07-20-2008 14:13-0400 Respiratory Rate 16 /min [facility] Work Phone: Comment on above: Pattern: Undefined 05-25-2008 13:33-0400 BMI (Body Mass Index) 31.5 kg/m2 Masha Ortiz [facility] Internal Medicine Work Phone: 05-25-2008 13:33-0400 Body Temperature 97.5 [degF] [facility] Work Phone: Comment on above: Method: Undefined 05-25-2008 13:33-0400 Body weight 79.38 kg [facility] Work Phone: 05-25-2008 13:33-0400 BP Diastolic 70 mm[Hg] [facility] Work Phone: Comment on above: Patient Position: Sitting; Cuff Location : Left Arm; Cuff Size: Large 05-25-2008 13:33-0400 BP Systolic 110 mm[Hg] Masha Ortiz [facility] Internal Medicine Work Phone: Comment on above: Patient Position: Sitting; Cuff Location : Left Arm; Cuff Size: Large 05-25-2008 13:33-0400 BSA (Body Surface Area) 1.82 m2 Masha Ortiz [facility] Internal Medicine Work Phone: 05-25-2008 13:33-0400 Head Circumference 0 cm Masha Ortiz [facility] Internal Medicine Work Phone: 05-25-2008 13:33-0400 Height 158.75 cm Masha Ortiz [facility] Internal Medicine Work Phone: 05-25-2008 13:33-0400 Pulse (Heart Rate) 72 /min Masha Ortiz [facility] Internal Medicine Work Phone: Comment on above: Pattern: Regular 05-25-2008 13:33-0400 Respiratory Rate 18 /min Masha Ortiz [facility] Internal Medicine Work Phone: Comment on above: Pattern: Undefined 02-15-2008 16:52-0500 Body Temperature 97 [degF] Masha Ortiz [facility] Internal Medicine Work Phone: Comment on above: Method: Undefined 02-15-2008 16:52-0500 Body weight 77.57 kg Masha Ortiz [facility] Internal Medicine Work Phone: 02-15-2008 16:52-0500 BP Diastolic 76 mm[Hg] Masha Ortiz [facility] Internal Medicine Work Phone: Comment on above: Patient Position: Sitting; Cuff Location : Right Arm; Cuff Size: Large 02-15-2008 16:52-0500 BP Systolic 124 mm[Hg] Masha Ortiz [facility] Internal Medicine Work Phone: Comment on above: Patient Position: Sitting; Cuff Location : Right Arm; Cuff Size: Large 02-15-2008 16:52-0500 Head Circumference 0 cm Masha Ortiz [facility] Internal Medicine Work Phone: 02-15-2008 16:52-0500 Height 0 cm Masha Ortiz [facility] Internal Medicine Work Phone: 02-15-2008 16:52-0500 Pulse (Heart Rate) 72 /min Masha Ortiz [facility] Internal Medicine Work Phone: Comment on above: Pattern: Regular 02-15-2008 16:52-0500 Respiratory Rate 16 /min Masha Ortiz [facility] Internal Medicine Work Phone: Comment on above: Pattern: Undefined 12-21-2007 15:57-0400 Body Temperature 97.7 [degF] Masha Ortiz [facility] Internal Medicine Work Phone: Comment on above: Method: Undefined 12-21-2007 15:57-0400 Body weight 76.66 kg Masha Ortiz [facility] Internal Medicine Work Phone: 12-21-2007 15:57-0400 BP Diastolic 84 mm[Hg] Masha Ortiz [facility] Internal Medicine Work Phone: Comment on above: Patient Position: Sitting; Cuff Location : Right Arm; Cuff Size: Standard 12-21-2007 15:57-0400 BP Systolic 126 mm[Hg] Masha Ortiz [facility] Internal Medicine Work Phone: Comment on above: Patient Position: Sitting; Cuff Location : Right Arm; Cuff Size: Standard 12-21-2007 15:57-0400 Head Circumference 0 cm Masha Ortiz [facility] Internal Medicine Work Phone: 12-21-2007 15:57-0400 Height 0 cm Masha Ortiz [facility] Internal Medicine Work Phone: 12-21-2007 15:57-0400 Pulse (Heart Rate) 72 /min Masha Ortiz [facility] Internal Medicine Work Phone: Comment on above: Pattern: Regular 12-21-2007 15:57-0400 Respiratory Rate 18 /min Masha Ortiz [facility] Internal Medicine Work Phone: Comment on above: Pattern: Undefined 10-02-2007 14:08-0400 Body Temperature 98.5 [degF] Masha Ortiz [facility] Internal Medicine Work Phone: Comment on above: Method: Undefined 10-02-2007 14:08-0400 Body weight 0 kg Masha Ortiz [facility] Internal Medicine Work Phone: 10-02-2007 14:08-0400 BP Diastolic 78 mm[Hg] Masha Ortiz [facility] Internal Medicine Work Phone: Comment on above: Patient Position: Sitting; Cuff Location : Right Arm; Cuff Size: Standard 10-02-2007 14:08-0400 BP Systolic 114 mm[Hg] Masha Ortiz [facility] Internal Medicine Work Phone: Comment on above: Patient Position: Sitting; Cuff Location : Right Arm; Cuff Size: Standard 10-02-2007 14:08-0400 Head Circumference 0 cm [facility] Work Phone: 10-02-2007 14:08-0400 Height 0 cm [facility] Work Phone: 10-02-2007 14:08-0400 Pulse (Heart Rate) 80 /min Masha Ortiz [facility] Internal Medicine Work Phone: Comment on above: Pattern: Regular 10-02-2007 14:08-0400 Respiratory Rate 16 /min [facility] Work Phone: Comment on above: Pattern: Undefined 09-21-2007 17:17-0400 BMI (Body Mass Index) 29.52 kg/m2 Masha Ortiz [facility] Internal Medicine Work Phone: 09-21-2007 17:17-0400 Body Temperature 98.4 [degF] Masha Ortiz [facility] Internal Medicine Work Phone: Comment on above: Method: Undefined 09-21-2007 17:17-0400 Body weight 74.39 kg [facility] Work Phone: 09-21-2007 17:17-0400 BP Diastolic 78 mm[Hg] [facility] Work Phone: Comment on above: Patient Position: Sitting; Cuff Location : Right Arm; Cuff Size: Standard 09-21-2007 17:17-0400 BP Systolic 122 mm[Hg] [facility] Work Phone: Comment on above: Patient Position: Sitting; Cuff Location : Right Arm; Cuff Size: Standard 09-21-2007 17:17-0400 BSA (Body Surface Area) 1.77 m2 Masha Ortiz [facility] Internal Medicine Work Phone: 09-21-2007 17:17-0400 Head Circumference 0 cm Masha Ortiz [facility] Internal Medicine Work Phone: 09-21-2007 17:17-0400 Height 158.75 cm Masha Ortiz [facility] Internal Medicine Work Phone: 09-21-2007 17:17-0400 Pulse (Heart Rate) 68 /min Masha Ortiz [facility] Internal Medicine Work Phone: Comment on above: Pattern: Regular 09-21-2007 17:17-0400 Respiratory Rate 16 /min Mahsa Ortiz [facility] Internal Medicine Work Phone: Comment on above: Pattern: Undefined 06-22-2007 16:26-0400 Body Temperature 98.1 [degF] Masha Ortiz [facility] Internal Medicine Work Phone: Comment on above: Method: Undefined 06-22-2007 16:26-0400 Body weight 76.2 kg Masha Ortiz [facility] Internal Medicine Work Phone: 06-22-2007 16:26-0400 BP Diastolic 70 mm[Hg] Masha Ortiz [facility] Internal Medicine Work Phone: Comment on above: Patient Position: Sitting; Cuff Location : Left Arm; Cuff Size: Large 06-22-2007 16:26-0400 BP Systolic 110 mm[Hg] Masha Ortiz [facility] Internal Medicine Work Phone: Comment on above: Patient Position: Sitting; Cuff Location : Left Arm; Cuff Size: Large 06-22-2007 16:26-0400 Head Circumference 0 cm Masha Ortiz [facility] Internal Medicine Work Phone: 06-22-2007 16:26-0400 Height 0 cm Masha Ortiz [facility] Internal Medicine Work Phone: 06-22-2007 16:26-0400 Pulse (Heart Rate) 72 /min Masha Ortiz [facility] Internal Medicine Work Phone: Comment on above: Pattern: Regular 06-22-2007 16:26-0400 Respiratory Rate 16 /min Masha Ortiz [facility] Internal Medicine Work Phone: Comment on above: Pattern: Undefined 03-09-2007 15:36-0500 Body Temperature 97.7 [degF] Masha Ortiz [facility] Internal Medicine Work Phone: Comment on above: Method: Oral 03-09-2007 15:36-0500 Body weight 74.84 kg Masha Ortiz [facility] Internal Medicine Work Phone: 03-09-2007 15:36-0500 BP Diastolic 88 mm[Hg] Masha Ortiz [facility] Internal Medicine Work Phone: Comment on above: Patient Position: Sitting; Cuff Location : Right Arm; Cuff Size: Standard 03-09-2007 15:36-0500 BP Systolic 138 mm[Hg] Masha Ortiz [facility] Internal Medicine Work Phone: Comment on above: Patient Position: Sitting; Cuff Location : Right Arm; Cuff Size: Standard 03-09-2007 15:36-0500 Head Circumference 0 cm Masha Ortiz [facility] Internal Medicine Work Phone: 03-09-2007 15:36-0500 Height 0 cm Masha Ortiz [facility] Internal Medicine Work Phone: 03-09-2007 15:36-0500 Pulse (Heart Rate) 72 /min Masha Ortiz [facility] Internal Medicine Work Phone: Comment on above: Pattern: Regular 03-09-2007 15:36-0500 Respiratory Rate 16 /min Masha Ortiz [facility] Internal Medicine Work Phone: Comment on above: Pattern: Unlabored 01-21-2007 16:17-0500 Body Temperature 98.1 [degF] Masha Ortiz [facility] Internal Medicine Work Phone: Comment on above: Method: Oral 01-21-2007 16:17-0500 Body weight 73.48 kg Masha Ortiz [facility] Internal Medicine Work Phone: 01-21-2007 16:17-0500 BP Diastolic 78 mm[Hg] Masha Ortiz [facility] Internal Medicine Work Phone: Comment on above: Patient Position: Sitting; Cuff Location : Right Arm; Cuff Size: Standard 01-21-2007 16:17-0500 BP Systolic 120 mm[Hg] Masha Ortiz [facility] Internal Medicine Work Phone: Comment on above: Patient Position: Sitting; Cuff Location : Right Arm; Cuff Size: Standard 01-21-2007 16:17-0500 Head Circumference 0 cm Masha Ortiz [facility] Internal Medicine Work Phone: 01-21-2007 16:17-0500 Height 0 cm Masha Ortiz [facility] Internal Medicine Work Phone: 01-21-2007 16:17-0500 Pulse (Heart Rate) 72 /min Masha Ortiz [facility] Internal Medicine Work Phone: Comment on above: Pattern: Regular 01-21-2007 16:17-0500 Respiratory Rate 16 /min Masha Ortiz [facility] Internal Medicine Work Phone: Comment on above: Pattern: Unlabored 08-04-2006 15:05-0400 Body Temperature 98.3 [degF] Masha Ortiz [facility] Internal Medicine Work Phone: Comment on above: Method: Oral 08-04-2006 15:05-0400 Body weight 73.48 kg Masha Ortiz [facility] Internal Medicine Work Phone: 08-04-2006 15:05-0400 BP Diastolic 80 mm[Hg] Masha Ortiz [facility] Internal Medicine Work Phone: Comment on above: Patient Position: Sitting; Cuff Location : Left Arm; Cuff Size: Standard 08-04-2006 15:05-0400 BP Systolic 136 mm[Hg] Masha Ortiz [facility] Internal Medicine Work Phone: Comment on above: Patient Position: Sitting; Cuff Location : Left Arm; Cuff Size: Standard 08-04-2006 15:05-0400 Head Circumference 0 cm Masha Ortiz [facility] Internal Medicine Work Phone: 08-04-2006 15:05-0400 Height 0 cm Masha Ortiz [facility] Internal Medicine Work Phone: 08-04-2006 15:05-0400 Pulse (Heart Rate) 72 /min Masha Ortiz [facility] Internal Medicine Work Phone: Comment on above: Pattern: Regular 08-04-2006 15:05-0400 Respiratory Rate 16 /min Masha Ortiz [facility] Internal Medicine Work Phone: Comment on above: Pattern: Unlabored 06-04-2006 15:48-0400 Body Temperature 98 [degF] Masha Ortiz [facility] Internal Medicine Work Phone: Comment on above: Method: Oral 06-04-2006 15:48-0400 Body weight 74.59 kg Masha Ortiz [facility] Internal Medicine Work Phone: 06-04-2006 15:48-0400 BP Diastolic 78 mm[Hg] Masha Ortiz [facility] Internal Medicine Work Phone: Comment on above: Patient Position: Sitting; Cuff Location : Left Arm; Cuff Size: Standard 06-04-2006 15:48-0400 BP Systolic 116 mm[Hg] Masha Ortiz [facility] Internal Medicine Work Phone: Comment on above: Patient Position: Sitting; Cuff Location : Left Arm; Cuff Size: Standard 06-04-2006 15:48-0400 Head Circumference 0 cm Masha Ortiz [facility] Internal Medicine Work Phone: 06-04-2006 15:48-0400 Height 0 cm Masha Ortiz [facility] Internal Medicine Work Phone: 06-04-2006 15:48-0400 Pulse (Heart Rate) 72 /min Masha Ortiz [facility] Internal Medicine Work Phone: Comment on above: Pattern: Regular 06-04-2006 15:48-0400 Respiratory Rate 16 /min Masha Ortiz [facility] Internal Medicine Work Phone: Comment on above: Pattern: Unlabored 11-04-2005 15:03-0400 Body Temperature 98.6 [degF] Masha Ortiz [facility] Internal Medicine Work Phone: Comment on above: Method: Oral 11-04-2005 15:03-0400 Body weight 73.94 kg Masha Ortiz [facility] Internal Medicine Work Phone: 11-04-2005 15:03-0400 BP Diastolic 64 mm[Hg] Masha Ortiz [facility] Internal Medicine Work Phone: Comment on above: Patient Position: Standing; Cuff Locatio n: Left Arm; Cuff Size: Standard 11-04-2005 15:03-0400 BP Systolic 114 mm[Hg] [facility] Internal Medicine Work Phone: Comment on above: Patient Position: Standing; Cuff Locatio n: Left Arm; Cuff Size: Standard 11-04-2005 15:03-0400 Head Circumference 0 cm [facility] Internal Medicine Work Phone: 11-04-2005 15:03-0400 Height 0 cm [facility] Internal Medicine Work Phone: 11-04-2005 15:03-0400 Pulse (Heart Rate) 72 /min [facility] Internal Medicine Work Phone: Comment on above: Pattern: Regular 11-04-2005 15:03-0400 Respiratory Rate 20 /min [facility] Internal Medicine Work Phone: Comment on above: Pattern: Unlabored Encounters Encounter Date Encounter Type Care Provider Facility Start: 01-25-2025 ambulatory [facility] ty:[facility] [place] Start: 12-31-2024 Encounter for genera l adult medical examination without abnormal findings [facility] Start: 12-31-2024 End: 12-31-2024 ambulatory [facility] Facility:[facility] [place] Start: 05-27-2024 End: 05-27-[address] Maricruz Zavaleta MD Work Phone: [facility] [place] Work Phone: Start: 05-27-2024 End: 05-27-[address] Maricruz Zavaleta MD -Radiology, [place] Work Phone: Start: 05-27-2024 End: 05-27-2024 ambulatory Maricruz Zavaleta Facility:[facility] [place] Start: 03-25-2024 End: 03-25-[address] Maricruz Zavaleta MD -Laboratory, [facility] Start: 03-25-2024 End: 03-25-2024 ambulatory Maricruz Zavaleta Facility:[facility] [place] Start: 02-19-2024 End: 02-19-[address] Maricruz Zavaleta MD -Cat Scan, [facility] Work Phone: Start: 02-19-2024 End: 02-19-2024 ambulatory Maricruz Zavaleta Facility:[facility] [place] Start: 01-27-2024 End: 01-27-2024 ambulatory Maricruz Zavaleta Facility:[facility] [place] Start: 01-22-2023 Non-patient / Non-visit Dr. Chauncey Zavaleta Work Phone: [facility] Start: 01-22-2023 End: 01-22-2023 Admission to same day surgery center Dr. Maricruz Zavaleta Work Phone: [facility] [place]-Endoscopy Work Phone: Start: 01-22-2023 End: 01-22-[address] Maricruz Zavaleta Work Phone: [facility] [place] Work Phone: Start: 01-13-2023 End: 01-13-[address] Maricruz Zavaleta Work Phone: [facility] Work Phone: Start: 12-20-2022 End: 12-20-[address] Maricruz Zavaleta Work Phone: [facility] [place] Work Phone: Start: 12-20-2022 End: 12-20-[address] Maricruz Zavaleta Work Phone: [facility] [place]-Outpatient Breast Imaging Work Phone: Start: 10-23-2022 End: 10-23-[address] Maricruz Zavaleta Work Phone: [facility] Work Phone: Start: 03-09-2022 Non-patient / Non-visit Dr. Chauncey Zavaleta Work Phone: [facility] Start: 03-08-2022 End: 03-08-[address] Maricruz Zavaleta Work Phone: [facility] [place] Work Phone: Start: 03-08-2022 End: 03-08-[address] Maricruz Zavaleta Work Phone: [facility] [place]-Pulmonary Services/Neurology Start: 03-01-2022 Non-patient / Non-visit Dr. Chauncey Zavaleta Work Phone: [facility] Start: 03-01-2022 End: 03-01-[address] Maricruz Zavaleta Work Phone: [facility] [place] Work Phone: Start: 03-01-2022 End: 03-01-[address] Maricruz Zavaleta Work Phone: [facility] [place]-Pulmonary Services/Neurology Start: 02-15-2022 End: 02-15-[address] Maricruz Zavaleta Work Phone: [facility] [place] Work Phone: Start: 02-15-2022 End: 02-15-[address] Maricruz Zavaleta Work Phone: [facility] [place]-Laboratory, Specimen Start: 01-14-2022 End: 01-14-[address] Maricruz Zavaleta Work Phone: [facility] [place]-Pulmonary Medicine [facility] Start: 01-04-2022 End: 01-04-[address] Maricruz Zavaleta Work Phone: [facility] [place] Work Phone: Start: 01-04-2022 End: 01-04-[address] Maricruz Zavaleta Work Phone: [facility] [place]-Cat Scan, [facility] Start: 11-02-2021 End: 11-02-[address] Maricruz Zavaleta Work Phone: [facility] [place] Work Phone: Start: 11-02-2021 End: 11-02-[address] Maricruz Zavaleta Work Phone: [facility] [place]-Outpatient Breast Imaging Start: 09-28-2021 End: 09-28-[address] Maricruz Zavaleta Work Phone: [facility] [place] Start: 09-07-2021 End: 09-07-[address] Maircruz Zavaleta Work Phone: [facility] [place]-Laboratory Start: 11-04-2016 End: 11-04-2016 Office outpatient visit 25 minutes Masha Parrish [facility] Start: 06-17-2016 End: 06-17-2016 Office outpatient visit 15 minutes Masha Parrish [facility] Start: 12-07-2015 End: 12-07-2015 Patient encounter procedure Masha Parrish [facility] Start: 08-31-2015 End: 08-31-2015 Office outpatient visit 15 minutes Masha Parrish [facility] Start: 06-27-2015 End: 07-03-2015 Office outpatient visit 25 minutes Masha Parrish [facility] Start: 06-23-2015 End: 06-23-2015 Lab Order Masha Parrish Nurse Discharge Planner al Medicine Start: 06-07-2015 End: 06-08-2015 Office outpatient visit 25 minutes Masha Parrish [facility] Start: 03-27-2015 End: 03-27-2015 Office outpatient visit 25 minutes Masha Parrish [facility] Start: 03-06-2015 End: 03-06-2015 Phone Encounter Masha Parrish Nurse Discharge Planner al Medicine Start: 02-28-2015 End: 02-28-2015 Historical Summary Masha Parrish Nurse Discharge Planner al Medicine Start: 02-27-2015 End: 02-27-2015 Office outpatient visit 25 minutes Masha [facility] Start: 11-17-2014 End: 11-17-2014 Office outpatient visit 25 minutes Masha Parrish [facility] Start: 07-05-2014 End: 07-05-2014 Annotation/Addendum Masha Kavithakrishnajoy Parrish Nurse Discharge Planner al Medicine Start: 07-05-2014 End: 07-05-2014 Office outpatient visit 25 minutes Masha Plummerkrishnajoy Parrish [facility] Start: 06-28-2014 End: 06-29-2014 Annotation/Addendum Masha Plummerkrishnajoy Parrish Nurse Discharge Planner al Medicine Start: 06-27-2014 End: 06-27-2014 Annotation/Addendum Masha Ortiz Shivani Nurse Discharge Planner al Medicine Start: 06-27-2014 End: 06-27-2014 Office outpatient visit 15 minutes Masha Parrish [facility] Start: 03-16-2014 End: 03-17-2014 Office outpatient visit 15 minutes Masha Parrish [facility] Start: 11-30-2013 End: 11-30-2013 Office outpatient visit 15 minutes [facility] Start: 08-20-2013 End: 08-23-2013 Patient encounter procedure [facility] Start: 06-09-2013 End: 06-10-2013 Patient encounter procedure [facility] Start: 04-28-2013 End: 04-28-2013 Patient encounter procedure [facility] Start: 01-20-2013 End: 01-20-2013 Patient encounter procedure [facility] Start: 12-02-2012 End: 12-04-2012 Patient encounter procedure [facility] Start: 05-07-2010 End: 05-08-2010 Patient encounter procedure [facility] Start: 03-12-2010 End: 03-13-2010 Patient encounter procedure Masha Diana [facility] Start: 10-10-2009 End: 10-10-2009 Patient encounter procedure [facility] Start: 07-31-2009 End: 07-31-2009 Patient encounter procedure [facility] Start: 07-19-2009 End: 07-19-2009 Patient encounter procedure [facility] Start: 04-11-2009 End: 04-12-2009 Patient encounter procedure [facility] Start: 01-11-2009 End: 01-11-2009 Office outpatient visit 15 minutes [facility] Start: 10-04-2008 End: 10-04-2008 Patient encounter procedure [facility] Start: 08-09-2008 End: 08-09-2008 Historical Summary Masha Ortiz [facility] Nurse Discharge Planner al [facility] Start: 07-20-2008 End: 07-20-2008 Patient encounter procedure [facility] Start: 05-25-2008 End: 05-26-2008 Patient encounter procedure Masha Ortiz [facility] Start: 02-15-2008 End: 02-15-2008 Patient encounter procedure Masha Ortiz [facility] Start: 12-21-2007 End: 12-21-2007 Patient encounter procedure [facility] Start: 10-02-2007 End: 10-04-2007 Patient encounter procedure [facility] Start: 09-21-2007 End: 09-23-2007 Patient encounter procedure [facility] Start: 06-22-2007 End: 06-23-2007 Patient encounter procedure Masha Ortiz [facility] Start: 03-09-2007 End: 03-09-2007 Patient encounter procedure Masha Ortiz [facility] Start: 01-21-2007 End: 01-21-2007 Patient encounter procedure [facility] Start: 08-12-2006 End: 08-15-2006 Patient encounter procedure [facility] Start: 08-08-2006 End: 08-08-2006 Phone Encounter Masha Ortiz [facility] Nurse Discharge Planner al Medicine Start: 08-04-2006 End: 08-04-2006 Patient encounter procedure [facility] Start: 06-04-2006 End: 06-05-2006 Patient encounter procedure Masha Ortiz [facility] Start: 11-04-2005 End: 11-04-2005 Office outpatient visit 25 minutes Masha Ortiz [facility] Start: 11-03-2005 End: 11-03-2005 Patient encounter procedure Masha Ortiz [facility] Procedures Date Procedure Procedure Detail Performing Clinician Start: 05-27-2024 X-ray of lumbosacral spine Dr. Maricruz Zavaleta MD Work Phone: Start: 02-19-[address] Maricruz Zavaleta MD Work Phone: Start: 01-22-[address] Maricruz Zavaleta Work Phone: Start: 12-20-2022 Screening mammography Suzi Zavaleta Work Phone: Start: 03-08-2022 CT of chest without contrast Dr. Maricruz Zavaleta Work Phone: Start: 01-04-[address] Maricruz Zavaleta Work Phone: Start: 11-02-2021 Screening mammography Suzi Zavaleta Work Phone: Start: 12-07-2015 End: 12-07-2015 Knee 4 or More Views Comments: See Note; NOTES: [facility] Imaging Services [address] [place] [address] Verdana 4d Knee 4 or More Views MR#: [id number] Acct: [id number] Name: CHE SANCHES Rep #: [id number] : 1960 F 55 From: Kwame Johnson MD PCP: Samy Ortiz Status: REG CLI Study: Knee 4 or More Views Date of Exam: 12/07/15 Exam# [id number] Ordering Dr: Samy Ortiz STUDY: X-RAY - LEFT KNEE REASON FOR EXAM: Female, 55 years old. Pain. No injury TECHNIQUE: 4 view(s) of the knee. COMPARISON: None. FINDINGS: Normal visualized distal femur. Normal visualized proximal tibia and fibula. Normal proximal tibiofibular articulation. There is mild degenerative arthrosis of the medial femorotibial compartment. Normal lateral femorotibial compartment. Normal patellofemoral articulation. There is a soft tissue prominence in the suprapatellar region suggesting a small volume joint effusion. The soft tissue structures are unremarkable. RAD/Knee 4 or More Views IMPRESSION: Mild arthrosis of the medial compartment. Small joint effusion Electronically Signed: Kwame Johnson MD, FACR at 16:10 EDT , Service support [phone], CC: Samy Ortiz Biometrics Consultant: Signed Samy Ortiz Work Phone: Start: 06-07-2015 End: 06-07-2015 Spmtry w/vc expiratory pedro w/wo mxml vol vntj _ Ayah Carmen Work Phone: Comment on above: obstruction Start: 03-14-2015 End: 03-14-2015 L/S Spine Min 4 Views Comments: See Note; NOTES: [facility] Imaging Services [address] [place] [address] Verdana 4d L/S Spine Min 4 Views MR#: [id number] Acct: [id number] Name: CHE SANCHES Rep #: [id number] : 1960 F 54 From: Leonel Stafford MD PCP: Karly Perez DO Status: REG CLI Study: L/S Spine Min 4 Views Date of Exam: 03/14/15 Exam# [id number] Ordering Dr: Karly Perez DO STUDY: X-RAY - LUMBAR SPINE REASON FOR EXAM: Female, 54 years old. Low back pain. TECHNIQUE: 5 view(s) of the lumbar spine were obtained including oblique views. COMPARISON: None FINDINGS: Normal lumbar lordosis. There is no substantial scoliosis. There is a normal alignment of the vertebrae. Mild degree of anterior spondylosis and disc space narrowing at the L2-L3, L3-L4, L4-L5 and L5-S1 levels. Facet joint osteoarthritis. The soft tissue structures are unremarkable. IMPRESSION: Degenerative changes of the spine, as detailed above. Electronically Signed: Leonel Stafford MD at 16:01 EST Tel [phone], Service support [phone], RAD/L/S Spine Min 4 Views IMPRESSION: Degenerative changes of the spine, as detailed above. Electronically Signed: Leonel Stafford MD at 16:01 EST Tel [phone], Service support [phone], CC: Karly Perez DO Biometrics Consultant: Signed Karly Perez Work Phone: Start: 03-13-2015 End: 03-14-2015 Transvaginal Non- Comments: See Note; NOTES: [facility] Imaging Services [address] [place] [address] Verdana 4d Transvaginal Non- MR#: [id number] Acct: [id number] Name: CHE SANCHES Rep #: [id number] : 1960 F 54 From: Leonel Stafford MD PCP: Karly Peerz DO Status: REG CLI Study: Transvaginal Non- Date of Exam: 03/13/15 Exam# [id number] Ordering Dr: Karly Perez DO STUDY: ULTRASOUND OF THE FEMALE PELVIS - COMPLETE REASON FOR EXAM: Female, 54 years old. Pelvic pain. LMP: The patient is postmenopausal. TECHNIQUE: Transabdominal and Transvaginal TECHNICAL QUALITY: Adequate. COMPARISON: None. FINDINGS: The uterus is anteverted and is in a midline position. The uterus measures 9.0 cm x 5.2 cm x 2.4 cm. There is a Nabothian cyst of the cervix. Punctate calcifications are seen in the cervical region. The endometrium measures 4.0 mm in thickness, and is hyperechoic. There is no demonstrated endometrial mass. The uterus is of heterogeneous echotexture although no focal fibroid is seen. This is suggestive of fibroid change. I.U.D. - The patient does not have an I.U.D. The right ovary is visualized. The right ovary measures 2.8 cm x 2.1 cm 1.6 cm. There is a dominant follicle within the ovary measuring 1.2 cm x 1.1 cm x 0.9 cm. There is no visualized right adnexal mass or complex lesion. There is normal arterial and normal venous vascularity. The left ovary is visualized. The left ovary measures 2.5 cm x 2.2 cm 1.0 cm. There is no left ovarian cyst or ovarian mass. There is no visualized left adnexal mass or complex lesion. There is normal arterial and normal venous vascularity. There is no fluid in the cul-de-sac. The pre void volume of the bladder was 393 ml. IMPRESSION: The uterus is of heterogeneous echotexture. No focal fibroid is seen. Dominant follicle is seen in the right ovary measuring 1.2 cm x 1.1 cm x 0.9 cm. Electronically Signed: Leonel Stafford MD at 10:06 EST Tel [phone], Service support [phone], CC: Karly Perez DO Biometrics Consultant: Signed Karly Perez Work Phone: Start: 03-13-2015 End: 03-14-2015 Pelvic (Non ) Comments: See Note; NOTES: [facility] Imaging Services [address] [place] [address] Verdana 4d Pelvic (Non ) MR#: [id number] Acct: [id number] Name: CHE SANCHES Rep #: [id number] : 1960 F 54 From: Leonel Stafford MD PCP: Karly Perez DO Status: REG CLI Study: Pelvic (Non ) Date of Exam: 03/13/15 Exam# [id number] Ordering Dr: Karly Perez DO STUDY: ULTRASOUND OF THE FEMALE PELVIS - COMPLETE REASON FOR EXAM: Female, 54 years old. Pelvic pain. LMP: The patient is postmenopausal. TECHNIQUE: Transabdominal and Transvaginal TECHNICAL QUALITY: Adequate. COMPARISON: None. FINDINGS: The uterus is anteverted and is in a midline position. The uterus measures 9.0 cm x 5.2 cm x 2.4 cm. There is a Nabothian cyst of the cervix. Punctate calcifications are seen in the cervical region. The endometrium measures 4.0 mm in thickness, and is hyperechoic. There is no demonstrated endometrial mass. The uterus is of heterogeneous echotexture although no focal fibroid is seen. This is suggestive of fibroid change. I.U.D. - The patient does not have an I.U.D. The right ovary is visualized. The right ovary measures 2.8 cm x 2.1 cm 1.6 cm. There is a dominant follicle within the ovary measuring 1.2 cm x 1.1 cm x 0.9 cm. There is no visualized right adnexal mass or complex lesion. There is normal arterial and normal venous vascularity. The left ovary is visualized. The left ovary measures 2.5 cm x 2.2 cm 1.0 cm. There is no left ovarian cyst or ovarian mass. There is no visualized left adnexal mass or complex lesion. There is normal arterial and normal venous vascularity. There is no fluid in the cul-de-sac. The pre void volume of the bladder was 393 ml. IMPRESSION: The uterus is of heterogeneous echotexture. No focal fibroid is seen. Dominant follicle is seen in the right ovary measuring 1.2 cm x 1.1 cm x 0.9 cm. Electronically Signed: Leonel Stafford MD at 10:06 EST Tel [phone], Service support [phone], CC: Karly Perez DO Biometrics Consultant: Signed Karly Perez Work Phone: Start: 11-22-2014 End: 11-23-2014 Chest PA and Lateral Comments: See Note; NOTES: [facility] Imaging Services [address] [place] [address] Radiology Report MR#: [id number] Acct: [id number] Name: CHE SANCHES Rep #: [id number] : 1960 F 54 From: Syed Zarate DO PCP: Karly Perez DO Status: REG CLI Study: Chest PA and Lateral Date of Exam: 11/22/14 Exam# [id number] Ordering Dr: Ayah Carmen DO STUDY: X-RAY CHEST REASON FOR EXAM: Female, 54 years old. Shortness of breath TECHNIQUE: PA and lateral views of the chest. COMPARISON: CTA chest 07/05/14 FINDINGS: The lungs are slightly hyperinflated. No focal consolidation. There is no demonstrated pleural abnormality. Normal size heart. Normal mediastinum and bryson. Normal visualized pulmonary arteries. Normal visualized aortic arch and descending thoracic aorta. Mild degenerative changes are seen within the thoracic spine. Normal visualized ribs, clavicles, and shoulders. There is no demonstrated abnormality of the visualized soft tissue structures of the upper abdomen. IMPRESSION: Hyperinflation, without focal consolidation. Electronically Signed: Syed Zarate DO at 4:09 EDT Tel , Service support [phone], RAD/Chest PA and Lateral IMPRESSION: Hyperinflation, without focal consolidation. Electronically Signed: Syed Zarate DO at 4:09 EDT Tel , Service support [phone], CC: Karly Perez DO; Ayah Carmen DO Biometrics Consultant: Signed Ayah Carmen Work Phone: Start: 11-17-2014 End: 11-17-2014 Spmtry w/vc expiratory pedro w/wo mxml vol vntj _ Ayah Carmen Work Phone: Comment on above: mild obstruction Start: 11-17-2014 End: 11-17-2014 Ecg routine ecg w/least 12 lds w/i&r [MEASUREMENTS ANALYSIS] Date of Test: 11/17/2014 13:54:28; Heart Rate: 55; MS Interval: 154; QRS: 98; QT Interval: 414; Corrected QT Interval (QTc): 406; P Wave Linwood: 36; QRS Wave Linwood: 32; T Wave Linwood: 29; Blood Pressure: 116/68 [ECG DIAGNOSTIC STATEMENTS] Date of Test: 11/17/2014 13:54:28; Summary: Sinus Bradycardia WITHIN NORMAL LIMITS Ayah Carmen Work Phone: Comment on above: sinus yossi no acute chg Start: 07-29-2014 End: 07-29-2014 Bilat Scrn Digital AND CAD Comments: See Note; NOTES: [facility] Imaging Services [address] [place] [address] Breast Imaging Report MR#: [id number] Acct: [id number] Name: RAADCHE COLE Ly Rep #: [id number] : 1960 F 53 From: Leonel Stafford MD PCP: Karly Perez DO Status: [facility] CL Study: Bilat Scrn Digital AND CAD Date of Exam: 07/29/14 Exam# [id number] Ordering Dr: Masha Ortiz MAMMOGRAPHY - BILATERAL SCREENING REASON FOR EXAM: Female, 53 years old. Routine annual screening examination. PERTINENT HISTORY: Grandmother with breast cancer. Prior left stereotactic breast biopsy. TECHNIQUE: Digital examination. Mediolateral oblique (MLO) and craniocaudad (CC) views of both breasts were obtained. CAD: CAD was performed on this study. COMPARISON: Comparison is made with prior study dated January 13, 2013 and August 06, 2011. FINDINGS: Breast Composition: There are scattered areas of fibroglandular density. There are no dominant masses or suspicious calcifications. No other significant abnormalities are identified. There has been no significant change since the prior study. IMPRESSION: Stable bilateral screening mammogram. Yearly follow-up recommended. (A) ASSESSMENT CATEGORY: BIRADS Category 2: Benign. A letter regarding these results will be sent to the patient by the facility within 30 days. Approximately 10% of breast cancers are not detected by mammography. A normal mammogram should not delay biopsy of a clinically suspicious abnormality. Electronically Signed: Leonel Stafford MD at 13:39 EDT Tel [phone], Service support [phone], CC: Masha Ortiz; Karly Perez DO Biometrics Consultant: Signed Masha Ortiz Work Phone: Start: 07-05-2014 End: 07-06-2014 CTA Chest W/WO Contrast Comments: See Note; NOTES: [facility] Imaging Services [address] [place] [address] CAT Scan Report MR#: [id number] Acct: [id number] Name: CHE SANCHES Rep #: [id number] : 1960 F 53 From: Ricardo Flores DO PCP: Karly Perez DO Status: REG CLI Study: CTA Chest W/WO Contrast Date of Exam: 07/05/14 Exam# [id number] Ordering Dr: Karly Perze DO STUDY: CTA CHEST REASON FOR EXAM: Female, 53 years old. Elevated d-dimer. Left-sided chest pain and shortness of breath for one month. RADIATION DOSAGE (If Supplied By Facility): CTDIvol = ( 15.6 ) mGy, DLP = ( 618.24 ) mGycm TECHNIQUE: The examination was performed with the intravenous administration of 100ML ml of Isovue 370 contrast material. Post-processing of the angiographic images was performed, with multiplanar reformation and 3D reconstruction. COMPARISON: CT of the chest. April 02, 2000. FINDINGS: Normal enhancement of the main pulmonary artery and right and left pulmonary arteries. Normal enhancement of the bilateral peripheral pulmonary arteries. There is no demonstrated pulmonary embolism. Minimal atherosclerotic changes of the aorta without aneurysm. There is no demonstrated aortic dissection. Normal heart and pericardium. Normal mediastinum. Normal hilar regions. Normal visualized trachea and bronchi. The lungs are well expanded. Normal pulmonary parenchyma. Normal pleura. Normal chest wall structures. There are degenerative changes of thoracic spine. Normal visualized upper abdomen. IMPRESSION: Normal CTA chest examination, without a demonstrated pulmonary embolism or arterial dissection. Electronically Signed: Ricardo Flores DO at 16:26 EDT Tel [phone], Service support [phone], CC: Karly Perez DO Biometrics Consultant: Signed Karly Perez Work Phone: Start: 06-27-2014 End: 06-27-2014 Ankle min 3 Views Comments: See Note; NOTES: [facility] Imaging Services [address] [place] [address] Radiology Report MR#: [id number] Acct: [id number] Name: CHE SANCHES Rep #: [id number] : 1960 F 53 From: Leonel Stafford MD PCP: Karly Perez DO Status: REG CLI Study: Ankle min 3 Views Date of Exam: 06/27/14 Exam# [id number] Ordering Dr: Masha Ortiz STUDY: X-RAY - RIGHT ANKLE REASON FOR EXAM: Female, 53 years old. Lateral ankle pain and swelling following a fall. TECHNIQUE: 3 view(s) of the ankle. COMPARISON: None. FINDINGS: Normal visualized distal tibia and fibula. Normal medial and lateral malleoli. Normal tibiotalar articulation and ankle mortise. Plantar spur. Spur at the insertion of the Achilles tendon. Degenerative changes are seen at the level of the tarsal articulations. Soft tissue swelling overlying the lateral malleolus. IMPRESSION: Soft tissue swelling overlying the lateral malleolus. Degenerative changes involving the tarsal articulations. Electronically Signed: Leonel Stafford MD at 10:58 EDT Tel [phone], Service support [phone], RAD/Ankle min 3 Views IMPRESSION: Soft tissue swelling overlying the lateral malleolus. Degenerative changes involving the tarsal articulations. Electronically Signed: Leonel Stafford MD at 10:58 EDT Tel [phone], Service support [phone], CC: Masha Ortiz; Karly Perez DO Biometrics Consultant: Signed Masha Ortiz Work Phone: Start: 09-02-2013 End: 09-03-2013 Pelvic (Non ) Comments: See Note; NOTES: [facility] Imaging Services [address] [place] [address] Ultrasound Report MR#: [id number] Acct: [id number] Name: CHE SANCHES Rep #: [id number] : 1960 F 53 From: Ephraim Sánchez PCP: Karly Perez DO Status: REG CLI Study: Pelvic (Non ) Date of Exam: 09/02/13 Exam# [id number] Ordering Dr: Karly Perez DO STUDY: ULTRASOUND OF THE FEMALE PELVIS - COMPLETE REASON FOR EXAM: Female, 53 years old. LMP: Not recorded pelvic pain and incontinence TECHNIQUE: Transabdominal TECHNICAL QUALITY: Adequate. COMPARISON: None. FINDINGS: The uterus is anteverted and is in a midline position. The uterus measures 8.5 x 3.8 x 2.4 cm. Normal uterine cervix. The endometrium measures 3.4 mm in thickness, and is hyperechoic. There is no demonstrated endometrial mass. There is no demonstrated myometrial mass. I.U.D. - No The right ovary is visualized. The right ovary measures 1.9 x 1.3 x 1.1 cm. There is a 9 mm follicle. There is NO mass. There is no visualized right adnexal mass or complex lesion. There is normal arterial and normal venous vascularity. The left ovary is visualized. The left ovary measures 1.7 x 1.1 x 0.8 cm. There is no left ovarian cyst or ovarian mass. There is no visualized left adnexal mass or complex lesion. There is normal arterial and normal venous vascularity. There is no fluid in the cul-de-sac. IMPRESSION: Normal female pelvis. Electronically Signed: Ephraim Sánchez MD at 7:31 EDT , Service support [phone], CC: Karly Perez DO Biometrics Consultant: Signed Karly Perez Work Phone: Start: 03-17-2013 End: 03-17-2013 PT Discharge Summary Comments: See Note; NOTES: [facility] [address] [place] [address]. [address] [place] [address] Fax REHABILITATION SERVICES DISCHARGE SUMMARY MR#: [id number] Acct: [id number] Name: CHE SANCHES Rep #: [id number] : 1960 52 From: Rodriguez Capone Referring : Karly Perez DO Status: PRE RCR Eval Date: Discharge Date: DATE OF SERVICE: PHYSICIAN: Dr. Karly Perez. This patient by the name Che Sanches was born on 1960 was referred to physical therapy with a diagnosis of back and neck pain. This patient received a total number of only 3 sessions. On the last visit, the patient stated she has little bit less pain, but then canceled and the following day due to back was hurting. At this point, our physical therapy treatment mainly focused on gentle strengthening exercises. We attempted modalities for pain relief as well. At this point, the patient received 3 sessions. We educated the patient on her condition, initiated a home exercise program as well as modalities for pain relief. At this time, to follow up with you as needed. Once again, thank you for this referral. Sincerely, Rodriguez Capone, PT T: NTS JOB: [id number] <Electronically signed by Rodriguez Capone > 03/17/13 1639 CC: * Signed Karly Fragoso [employer] Work Phone: Start: 03-04-2013 End: 03-04-2013 PT Discharge Summary Comments: See Note; NOTES: [facility] [address] [place] [address] Fax REHABILITATION SERVICES DISCHARGE SUMMARY MR#: [id number] Acct: [id number] Name: CHE SANCHES Rep #: [id number] : 1960 52 From: Rodriguez Capone Referring DrRoni: Karly Perez DO Status: PRE RCR Eval Date: Discharge Date: <Electronically signed by Rodriguez Capone > 03/04/13 0842 CC: * Signed Karly Fragoso Match Phone: Start: 01-13-2013 End: 01-13-2013 Bilat Scrn Digital & CAD Comments: See Note; NOTES: [facility] Imaging Services [address] [place] [address] Breast Imaging Report MR#: [id number] Acct: [id number] Name: CHE SANCHES Rep #: [id number] : 1960 F 52 From: Leonel Stafford MD PCP: Status: [facility] CLI Exam# [id number] Ordering Dr: Karly Perez DO MAMMOGRAPHY - BILATERAL SCREENING REASON FOR EXAM: Female, 52 years old. Routine annual screening examination. PERTINENT HISTORY: Grandmother with breast cancer. TECHNIQUE: Digital examination. Mediolateral oblique (MLO) and craniocaudad (CC) views of both breasts were obtained. CAD: CAD was performed on this study. COMPARISON: Comparison is made with prior study dated August 06, 2011 and January 03, 2009. FINDINGS: The breast composition is composed of scattered fibroglandular tissues ranging from 25% to 50% of the breast. There are no dominant masses or suspicious calcifications. No other significant abnormalities are identified. There has been no significant change since the prior study. IMPRESSION: Stable bilateral screening mammogram. Yearly follow-up recommended. (A) ASSESSMENT CATEGORY: BIRADS Category 2: Benign finding(s). A letter regarding these results will be sent to the patient by the facility within 30 days. Approximately 10% of breast cancers are not detected by mammography. A normal mammogram should not delay biopsy of a clinically suspicious abnormality. Signed: Leonel Stafford M.D. January 13, 2013 at 11:18:49 AM EST [phone] Electronically Signed GP/GP If you are the referring physician and would like to consult with the radiologist who provided this interpretation, please contact Leonel Stafford M.D. at [phone]. If this radiologist is unavailable, you will be directed to another radiologist to assist. If you are a patient with a question regarding this report, please contact your referring physician directly. Professional Interpretation Provided By: [employer], Phone , These documents contain legally protected and confidential health information intended only for the use of the individual or entity named above. If you are not the intended recipient, you are hereby notified that any disclosure, copying, distribution, or other use of these documents is strictly prohibited. If you have received this information in error, please notify the sender immediately and arrange for the return or destruction of these documents. CC: Karly Perez DO Biometrics Consultant: Signed Karly Ruiz Phone: Start: 01-13-2013 End: 01-13-2013 Dexa Bone Density Study (HP) Comments: See Note; NOTES: [facility] Imaging Services [address] [place] [id number] Bone Density Report MR#: [id number] Acct: [id number] Name: CHE SANCHES Rep #: [id number] : 1960 F 52 From: Leonel Stafford MD PCP: Status: REG CLI Study: Dexa Bone Density Study () Date of Exam: 01/13/13 Exam# [id number] Ordering Dr: Karly Perez DO STUDY: DUAL ENERGY X-RAY ABSORPTIOMETRY / DXA REASON FOR EXAM: Female, 52 years old. Early menopause. TECHNIQUE: Bone Mineral Density (BMD) measurements of lumbar spine and bilateral hips were obtained. COMPARISON: Comparison is made with prior examination dated June 25, 2006. FINDINGS: Lumbar Spine (L1-L4): g/cm2 (1.119) / T-score (-0.5) / Z-score (0.0) Findings are suggestive of normal bone density with a low fracture risk. Left Femur Total: g/cm2 (0.847) / T-score (-1.3) / Z-score (-0.8) Left Femoral Neck: g/cm2 (0.800) / T-score (-1.7) / Z-score (-0.9) Right Femur Total: g/cm2 (0.877) / T-score (-1.0) / Z-score (-0.5) Right Femoral Neck: g/cm2 (0.766) / T-score (-2.0) / Z-score (-1.1) The T-Scores on the most recent prior examination were: Lumbar Spine (L1-L4): There has been improvement of bone density since the previous examination. Left Femur Total: which represents a worsening of 11.3%. IMPRESSION: The patient is considered osteopenic as outlined below according to World Dirk Organization (WHO) criteria with a moderate fracture risk. There has been worsening of bone density since the previous examination. Reference Information: The T-score is the number of standard deviations above or below the standard which is normal for young adults at their peak bone mineral density. The World Health Organization (WHO) interprets the T-scores as follows: Above -1 Normal bone density Between -1 and -2.5 Osteopenia Equal to / or below -2.5 Osteoporosis As a practical clinical guideline, osteopenia may be graded as follows: Mild -1 through -1.5 Moderate -1.6 through -2.0 Severe -2.1 through -2.4 The Z-score is the number of standard deviations above or below age-matched controls. A Z-score of less than -1.5 would be considered abnormal. References: 1. NIH Osteoporosis and Related Bone Diseases http://www.osteo.org 2. International Society for Clinical Densitometry http://www.iscd.org 3. National Osteoporosis Foundation http://www.nof.org Signed: Leonel Stafford M.D. January 13, 2013 at 3:20:01 PM EST [phone] Electronically Signed GP/GP If you are the referring physician and would like to consult with the radiologist who provided this interpretation, please contact Leonel Stafford M.D. at [phone]. If this radiologist is unavailable, you will be directed to another radiologist to assist. If you are a patient with a question regarding this report, please contact your referring physician directly. Professional Interpretation Provided By: [employer], Phone , These documents contain legally protected and confidential health information intended only for the use of the individual or entity named above. If you are not the intended recipient, you are hereby notified that any disclosure, copying, distribution, or other use of these documents is strictly prohibited. If you have received this information in error, please notify the sender immediately and arrange for the return or destruction of these documents. CC: Karly Perez DO Biometrics Consultant: Signed Karly Perez Work Phone: Start: 01-07-2013 End: 01-07-2013 Inital Evaluation - PT Comments: See Note; NOTES: [facility] [address] [place], [place] [address] Fax REHABILITATION SERVICES INITIAL EVALUATION MR#: [id number] Acct: [id number] Name: CHE SANCHES Rep #: [id number] : 1960 52 From: Rodriguez Capone Referring DrRoni: Karly Perez DO Status: REG RCR Insurance: [employer] TPA Eval Date: DATE OF SERVICE: REFERRING PHYSICIAN: Dr. Perez. SUBJECTIVE: This 52-year-old female by the name of Che Sanches who was born on 1960 was referred to physical therapy with a diagnosis of back and neck pain. This patient has a history of neck pain for many years working at [employer] on bent over position. She has tried physical therapy in the past, which consisted of manual therapy techniques, which helped to reduce her pain. Today, she has increased pain in her thoracic and lumbar as well as her neck, but her thoracic, lumbar is worse. She typically reports this thoracic, lumbar area is described as an ache, soreness and neck has a strain, stiffness. Her pain in her neck is 3/10, in her back, thoracic area is 5/10. These symptoms are worse when she is bending, walking, standing more than a couple of hours, in a forward position where she is in a prolonged period of time, which she is working, lifting, etc. 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 She states she has no leg pain. Occasionally, she has some numbness when she sits. Overall, she does also complain of headaches, occipital to frontal aspect. She has a history of migraines. She did have x-rays that showed some degenerative disk disease. She has no medications prescribed. Her goals are to relieve her discomfort, find out what is causing it and see if I hurt myself and there is any solution. PAST MEDICAL HISTORY: IBS, carpal tunnel syndrome, right foot surgery. SOCIAL HISTORY: . 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 OBJECTIVE: OBSERVATION OF POSTURE: The patient has a mild thoracic kyphosis, swayed spine , rounded shoulders, head forward. GAIT ASSESSMENT: The patient ambulates with normal iggy. PALPATION: Today, the patient has moderate tenderness throughout thoracic, lumbar, rectus spinal muscle group, multifidus, latissimus dorsi region as well, rectus spinal muscle group. NEUROLOGICAL: The patient denies numbness/tingling, although the patient does have occasional numbness in her anterior thighs. Reflexes symmetrically elicited L3 -L4, L4-L5, L5-S1. Upper extremity C5, C6, C7 is intact, 2/3 as well. Heel-toe light touch intact. Myotomes intact. Upper extremity range of motion normal limits. Bilateral lower extremity range of motion within normal limits. STRENGTH: Upper extremity strength is grossly 4/5 for shoulder, elbow and wrist. Secretary Specialist strength is 60 pounds of pressure right and left is 60 pounds of pressure. Lower extremity strength, hip flexors are 4-/5. Otherwise, quadriceps, hamstrings are 4/5. Dorsiflexion on the right is 4-/5, left is 4/5. Lumbar range of motion, flexion is minimal loss, extension moderate loss, side glides minimal loss. Repeated motion: Forward flexion, no effect before and after. Extension is lumbosacral pain, no worse. Double knee to chest, decreases symptoms and tightness, but no better. Repeat extension in lying increases lumbosacral pain, no worse. Cervical range of motion, flexion moderate loss, extension minimal loss, rotation to the right minimally loss. Rotation to the left moderate loss. Lateral flexion moderate loss, retraction minimal loss. Repeated motions for forward flexion, no effect. Retractions occipital pain, no worse. SPECIAL TESTS: Intact heel-toe walking, negative symmetries, PSIS, ASIS, iliac crest are symmetrically intact. There is no leg length discrepancy noted. Quadrant test is negative. Compression distraction negative. Negative ANR. ASSESSMENT AND IMPRESSION: This patient appears to have musculoskeletal tightness as well as soreness in the thoracic and lumbar fascia with dismissed rectus spinal muscle group with tightness in her cervical spine as well with decreased posture as well as decreased abdominal back strength. The patient had difficulty facilitating her transverse muscles as well as multifidus, fair abdominal strength as well. PROBLEM LIST: 1. Decreased home exercise program to self-manage symptoms. 2. Decreased posture mechanics. 3. Increased cervical neck and lumbar pain, thoracic lumbar pain, which impairs function. 4. Loss range of motion of cervical and lumbar motion. 5. Limitation of normal functional activities with job demands, ADLs, housework chores, sleeping postures due to thoracic, lumbar pain. GOALS: 1. The patient will be discharged with prophylaxis home exercise program to help diminish recurrence of symptoms. 2. The patient mild to no tenderness of the thoracic, lumbar myofascial junctions. 3. The patient will be independent with posture body mechanics with all lifting techniques. 4. The patient to reduce cervical, thoracic, lumbar pain by at least 50% or greater to improve function, especially job demands, ADLs to improve overall function and ADLs and housework chores. 5. The patient displays ability to perform housework chores, ADLs, sitting postures with minimal limitations without recurrent symptoms. 6. The patient to improve cervical range of motion to flexion minimally limited as well as lateral flexion, rotation to minimally to mildly limited without recurrent symptoms to return to functional recovery. 7. The patient will be discharged with prophylactic home exercise program to help diminish recurrence of symptoms in back and neck. 8. The patient to have mild to no tenderness to palpation assessment of thoracic lumbar junction. PLAN: Plan of care was reviewed with the patient. We discussed with the patient extensively mechanism of pain. We discussed with the patient basic anatomy of the neck, lumbar spine, possible mechanism of pain. We discussed with the patient disc versus soft tissue. We discussed with the patient benefits of physical therapy. The patient will benefit from skilled physical therapy to reduce tightness and spasms in the thoracic, lumbar area as well as neck pain. Today, we provided the patient with electrical stimulation, moist hot pack x15 minutes. We plan to see this patient 2 times a week for 4 weeks focusing on home exercise program, cervical posture exercises, Janneth exercise, lumbar stabilization for abdominal back strengthening, manual therapy and modalities. Rodriguez Capone, PT T: ISABEL JOB: [id number] <Electronically signed by Rodriguez Capone > 01/07/13 1619 CC: Signed For Medicare only, by signing this I certify the plan of care. ___ Physicians Signature Date Karly Fragoso Fast Work Phone: Plan of Treatment Date Care Activity Detail Author Start: 01-22-2023 Patient discharge [facility] Start: 11-04-2016 Lipid panel LIPID PANEL (10802) [facility] Work Phone: Comment on above: April 2017 Start: 11-04-2016 Blood count complete auto&auto difrntl wbc CBC, Platelets & Auto Diff (14688) [facility] Work Phone: Comment on above: April 2017 Start: 11-04-2016 Comprehensive metabolic panel Metabolic Panel, Comprehensive (58872) [facility] Work Phone: Comment on above: April 2017 Start: 11-04-2016 25 hydroxy includes fractions if performed CALCIFEDIOL (61793) [facility] Work Phone: Comment on above: April 2017 Start: 11-04-2016 TSH Qn TSH (THYROID STIMULATING HORMONE) (59828) [facility] Work Phone: Comment on above: April 2017 Start: 06-17-2016 TSH Qn TSH (THYROID STIMULATING HORMONE) (73093) [facility] Work Phone: Start: 12-07-2015 Urine albumin quantitative MICROALBUMIN: CREATININE RATIO (94859) AND (81261) [facility] Work Phone: Start: 12-07-2015 Cobalamin (Vitamin B12) [Mass/Vol] VITAMIN B12 AND FOLATES (89718) [facility] Work Phone: Start: 12-07-2015 25 hydroxy includes fractions if performed CALCIFEDIOL (36136) [facility] Work Phone: Start: 12-07-2015 TSH Qn TSH (THYROID STIMULATING HORMONE) (07853) [facility] Work Phone: Start: 12-07-2015 Lipid panel LIPID PANEL (73579) [facility] Work Phone: Start: 12-07-2015 Comprehensive metabolic panel METABOLIC PANEL, COMPREHENSIVE (44500) [facility] Work Phone: Start: 12-07-2015 Blood count complete auto&auto difrntl wbc CBC, PLATELETS & AUT DIFF (47208) [facility] Work Phone: Start: 06-23-2015 Free T4 [Mass/Vol] T4, FREE (THYROXINE) (70187) [facility] Work Phone: Start: 06-23-2015 Assay of triiodothyronine t3 free FREE TRIDOTHYRONINE (T3) (83030) [facility] Work Phone: Start: 06-23-2015 TSH Qn TSH (08523) [facility] Work Phone: Start: 03-06-2015 Culture bacterial quanttative colony count urine URINE SOMMER CULTURE-MAINE COL COUNT (40923) [facility] Work Phone: Comment on above: 7 days after finishing atb Start: 11-17-2014 RBC (Bld) [#/Vol] FOLIC ACID-RBC (26283) [facility] Work Phone: Start: 11-17-2014 Fibrin dgradj products d-dimer quantitative D-Dimer (54262) [facility] Work Phone: Start: 07-05-2014 Fibrin dgradj products d-dimer quantitative D-Dimer (67577) [facility] Work Phone: Start: 07-05-2014 Myoglobin [Mass/Vol] MYOGLOBIN (26975) [facility] Work Phone: Start: 07-05-2014 Creatine kinase mb fraction only CPK MB FRACTION (06832) [facility] Work Phone: Start: 07-05-2014 Troponin I.cardiac [Mass/Vol] ASSAY, TROPONIN, QUANTITATIVE (aka Troponin I) (76568) [facility] Work Phone: Start: 06-09-2013 TSH Qn TSH (21540) [facility] Work Phone: Start: 06-09-2013 Comprehensive metabolic panel METABOLIC PANEL, COMPREHENSIVE (23525) [facility] Work Phone: Start: 06-09-2013 25 hydroxy includes fractions if performed Vitamin D Hydroxy (10735) [facility] Work Phone: Start: 12-02-2012 TSH Qn TSH (49508) [facility] Work Phone: Start: 05-07-2010 Cyclic citrullinated peptide antibody CCP ANTIBODY (81545) [facility] Work Phone: Start: 07-19-2009 25 hydroxy includes fractions if performed Vitamin D Hydroxy (09796) [facility] Work Phone: Start: 07-19-2009 TSH Qn TSH (80346) [facility] Work Phone: Start: 04-11-2009 Urnls dip stick/tablet reagent auto microscopy URINALYSIS, W/ MICRO (49242) [facility] Work Phone: Start: 04-11-2009 Urine albumin quantitative MICROALBUMIN: CREATININE RATIO (21684) AND (05645) [facility] Work Phone: Start: 04-11-2009 Blood count manual cell count each CBC WITH MANUAL DIFF (68780) [facility] Work Phone: Start: 04-11-2009 TSH Qn TSH (75892) [facility] Work Phone: Start: 04-11-2009 Lipid panel LIPID PANEL (74282) [facility] Work Phone: Start: 04-11-2009 Comprehensive metabolic panel METABOLIC PANEL, COMPREHENSIVE (79832) [facility] Work Phone: Start: 01-11-2009 Blood occult fecal hgb deter ia qual feces 1-3 FECAL OCCULT HGB ASSAY- tubes sent home (85235) [facility] Work Phone: Start: 12-21-2007 Blood count manual cell count each CBC WITH MANUAL DIFF (47186) [facility] Work Phone: Start: 12-21-2007 Comprehensive metabolic panel METABOLIC PANEL, COMPREHENSIVE (02219) [facility] Work Phone: Start: 12-21-2007 CRP [Mass/Vol] C-REACTIVE PROTEIN (09976) [facility] Work Phone: Start: 12-21-2007 Nuclear Ab IF (S) [Titer] SABRINA (ANTINUCLEAR ANTIBODY) (18644) [facility] Work Phone: Start: 12-21-2007 Rheumatoid factor quantitative RHEUMATOID FACTOR-QUANT (35928) [facility] Work Phone: Start: 12-21-2007 Sedimentation rate rbc non-automated SED RATE ERYTHROCYTE (16977) [facility] Work Phone: Start: 12-21-2007 TSH Qn TSH (56651) [facility] Work Phone: Start: 06-22-2007 Comprehensive metabolic panel METABOLIC PANEL, COMPREHENSIVE (62054) [facility] Work Phone: Start: 06-22-2007 Blood count manual cell count each CBC WITH MANUAL DIFF (81351) [facility] Work Phone: Start: 06-22-2007 Lipid panel LIPID PANEL (01652) [facility] Work Phone: Start: 06-22-2007 TSH Qn TSH (56830) [facility] Work Phone: Start: 01-21-2007 Culture bacterial quanttative colony count urine URINE SOMMER CULTURE (MAINE COL COUNT) (05775) [facility] Work Phone: Start: 01-21-2007 Urnls dip stick/tablet rgnt non-auto w/o micrscp Urinalysis, Office (15810) [facility] Work Phone: Start: 08-08-2006 Lipid panel Lipid Panel (42798) [facility] Work Phone: Start: 08-08-2006 1 25 dihydroxy includes fractions if performed VITAMIN D, 1, 25-DIHYDROXY (79125) [facility] Work Phone: Start: 08-08-2006 Calcium urine quantitative timed specimen URINE CALCIUM MAINE TIMED 24 Hour (14920) [facility] Work Phone: Start: 08-08-2006 TSH Qn TSH (69103) [facility] Work Phone: Start: 08-08-2006 Protein electrophoretic fractj&quantj serum [facility] Work Phone: Start: 08-08-2006 Sedimentation rate rbc non-automated SED RATE ERYTHROCYTE (42289) [facility] Work Phone: Start: 08-08-2006 Phosphate [Mass/Vol] PHOSPHORUS (58062) [facility] Work Phone: Start: 08-08-2006 Assay of parathormone PARATHORMONE (97570) [facility] Work Phone: Start: 08-08-2006 Hepatic function panel HEPATIC FUNCTION PANEL (65355) [facility] Work Phone: Start: 08-08-2006 Creatinine [Mass/Vol] CREATININE BLOOD (07900) [facility] Work Phone: Start: 08-08-2006 Blood count complete automated CBC (AUTO) (10003) [facility] Work Phone: Start: 08-08-2006 Calcium [Mass/Vol] CALCIUM SERUM (96637) [facility] Work Phone: Start: 08-08-2006 CRP [Mass/Vol] C-REACTIVE PROTEIN (13864) [facility] Work Phone: Start: 08-08-2006 ALP [Catalytic activity/Vol] ALKALINE PHOSPHATASE (25062) [facility] Work Phone: Start: 08-04-2006 Blood occult peroxidase actv qual feces 1 deter OCCULT BLOOD FECES SCREEN (74166) [facility] Work Phone: Start: 08-04-2006 Cytp cerv/vag auto thin layer prep mnl screen Thin prep Pap (07522) [facility] Work Phone: Start: 06-04-2006 TSH Qn TSH (78443) [facility] Work Phone: Colonoscopy [facility] CT Chest WO contrast [facility] Work Phone: [facility]: Measurement of [facility] function [facility] Work Phone: Patient referral [facility] Work Phone: [facility] Work Phone: [facility] Work Phone: [facility] Work Phone: [facility] Work Phone: [facility] Work Phone: [facility] Work Phone: [facility] Work Phone: [facility] Work Phone: [facility] Work Phone: [facility] Work Phone: [facility] Work Phone: [facility] Work Phone: [facility] Work Phone: [facility] Work Phone: [facility] Work Phone: [facility] Work Phone: [facility] Work Phone: [facility] Work Phone: [facility] Work Phone: [facility] Work Phone: [facility] Work Phone: [facility] Work Phone: [facility] Work Phone: [facility] Work Phone: [facility] Work Phone: [facility] Work Phone[facility] Work Phone: [facility] Work Phone[facility] Work Phone: [facility] Work Phone: [facility] Work Phone: [facility] Work Phone: [facility] Work Phone: [facility] Work Phone: [facility] Immunizations Immunization Date Immunization Notes Care Provider Fa ellaty 06-13-2020 Covid ([facility]) Dr. Maricruz hollingsworth Work Phone: [facility] 05-14-2020 Covid ([place]) Dr. Maricruz hollingsworth Work Phone: [facility] Payers Date Payer Category Payer Self-pay [id number] 2024 Unknown [id number] Unknown [place] Private Health Insurance [facility] [id number] Unknown ANTHEM [id number] Unknown [facility] PACKAGE [employer] [id number] Unknown [employer] TPA [id number] Unknown [facility] [id number] Unknown [id number] Unknown [id number] 63 Unknown [id number] 63 Unknown [id number] 63 Unknown [id number] 63 Unknown [id number] Social History Date Type Detail Facility Alcohol Use [facility] Work Phone: Start: 09-28-2021 End: 01-15-2023 Tobacco smoking status NHIS Unknown if ever smoked [facility] Start: 1960 Sex Assigned At Female [facility] Start: 01-15-2023 Tobacco smoking status NHIS Ex-smoker (finding) [facility] Start: 06-02-2024 Sex Female (finding) [facility] NEGATED: Highlighted row [facility] Medical Equipment Procedure Code Equipment Code Equipment Original Text Equipment Identifier Dates Total cholecystectomy with exploration of common bile duct Ligation clip, synthetic polymer, non-bioabsorbable [id number] FDA Start: 10-26-2020 Goals Date Patient Goal Desired Activity /State Mental Status Date Assessment Result Facility 01-22-2023 Cognitive function Voice/Name [facility] Work Phone: Clinical Notes 03-09-2022 to 05-28-2024 Note Date & Type Note Facility 05-28-2024 Radiology Diagnostic study note [facility] Imaging Services [address] [place], [place] [address] L/S Spine Min 4 Views MR#: [id number] Acct: [id number] Name: CHE SANCHES Rep #: [id number] : 1960 F 63 From: Yuliet Cedeño MD PCP: Dr. Maricruz Zavaleta MD Status: REG CLI Study:L/S Spine Min 4 Views Date of Exam: 05/27/24 Exam# [id number] Ordering Dr: Jason Zavaleta MD EXAM: XR Lumbosacral Spine Flexion/Extension Only, 2 or 3 Views CLINICAL INDICATION: PAIN TECHNIQUE: Lateral flexion/extension views of the lumbar spine and sacrum. COMPARISON: No relevant prior studies available. FINDINGS: VERTEBRAE: Moderate facet arthropathy of L4-S1. Moderate endplate degenerativechange and disc disease of L4-S1. No acute fracture. Normal sagittal alignment. No instability. SACRUM/COCCYX: Unremarkable as visualized. No acute fracture. DISC SPACES: No acute findings. No significant narrowing. SOFT TISSUES: Unremarkable. GASTROINTESTINAL TRACT: Fecal retention in the colon consistent with constipation. RAD/L/S Spine Min 4 Views IMPRESSION: 1. Fecal retention in the colon consistent with constipation. 2. Degenerative changes as above. Reading [facility] CC: Dr. Maricruz Zavaleta MD ~ Biometrics Consultant: Signed [facility] [place] 01-22-2023 History and physical note Note Date/Time January 22, 2023 3:03pm [facility] Medical Records Department [address] [place] [address] History & Physical Exam 01/22/23 1503 MR#: [id number] Acct: [id number] Name: CHE SANCHES Rep #:[id number] : 1960 62 From: Sergo chang MD PCP: Dr. Maricruz Zavaleta MD Status:[facility] Location: [place] [address] History and Physical Date of Admission: 01/22/23 Intake Vital Signs 10/23/2314:40 01/13/2314:17 Height 5 ft 2 in 5 ft 2 in Weight: 188 lb 199 lb BMI 34.4 36.3 BP 144/84 H 131/67 H Blood Pressure Location Lt brachial Rt brachial Position Sitting Sitting Respiration 14 17 Pulse 84 65 Pulse Source Monitor Monitor Temp 97.6 F L 96 F L Temp Source Temporal Temporal Pulse Oximetry (%) 98 99 Oxygen Delivery Method room air room air Intake Visit Reasons: BRB/DARK BM SELF REFERRED Chief Complaint: BRB/dark bm self referred Is patient in pain?: No Allergies Penicillins Allergy (Verified 01/13/23 14:18) Anaphylaxiserythromycin base Adverse Reaction (Verified 01/13/23 14:18) Upset Stomach Medications cholecalciferol (vitamin D3) 50 mcg (2,000 unit) capsule 50 mcg PO DAILY SUPPLEMENT 10/25/20 [History Confirmed 01/13/23] citalopram 20 mg tablet 20 mg PO DAILY DEPRESSION 10/25/20 [History Confirmed 01/13/23] levothyroxine 125 mcg tablet 125 mcg PO DAILY THYROID 10/25/20 [History Confirmed 01/13/23] topiramate 50 mg tablet 50 mg PO DAILY PAIN 10/25/20 [History Confirmed 01/13/23] acetaminophen 325 mg tablet (Tylenol) 650 mg (2 x 325 mg) PO Q4H PRN PRN Pain Score 1-10 #0 tabs 10/27/20 [Rx Confirmed 01/13/23] methylprednisolone 4 mg tablets in a dose pack (Medrol (Jazmin)) See Rx Instructions PO PER PKG DIR #21 tabs 10/23/22 [Rx Confirmed 01/13/23] PFSH Medical History (Updated 01/13/23 @ 15:[address] Sergo Baker MD) Cholelithiasis Contact with and (suspected) exposure to other viral communicable diseases Depression Gallstones Migraines Thyroid activity decreased URI (upper respiratory infection) Surgical History History of cholecystectomy (~10/2020) History of colonoscopy Hx of tubal ligation Family History (Updated 01/13/23 @ 14:16 by Masha Garnett) Father Hypertension Social History Smoking Status: Former smoker alcohol intake: current details: Social intake substance use type: does not use HPI HPI HPI: Patient is a 62-year-old female here for referral for colonoscopy. The patient reports her last colonoscopy was 12 years ago. She reports that she is having lower abdominal cramping. She is also seeing dark stools and sometimes she seessome bright red blood. She said her stools have also been pasty. ROS General General: Yes weight change and fatigue; No appetite, colon cancer, breast cancer or weakness HEENT HEENT: No difficulty swallowing, eye injury, eye surgery, swollen glands or hoarseness Endo Endocrine: Yes thyroid disease and diabetes mellitus; No thyroid cancer, Hair loss, heat intolerance or cold intolerance Skin Skin: No rash or changing moles Musc Musculoskeletal: Yes back problems and arthritis; No rheumatoid arthritis, gout or joint pain Cardio Cardiovascular: No murmur, pacemaker, heart disease, atrial fibrillation, high blood pressure, heart attack, heart stent, palpitations, shortness of breat withexertion or chest pain Psych Psychiatric: Yes depression; No anxiety or hearing voices Resp Respiratory: No shortness of breath, No sleep apnea, No cough, No COPD, No asthma, No emphysema and No wheezing Gastro Gastrointestinal: Yes abdominal pain, No nausea or vomiting, Yes diarrhea, Yes constipation, No blood in stool, No acid reflux, No hemorrhoids, No ulcers, Yes gallbladder problem and Yes black,tarry stools Ubaldo Hematologic: No blood thinners, No blood disorders, No bleeding, No anemia and No blood clots Neuro Neurologic: No system reviewed and no additional complaints, except as documented, No as per HPI, No abnormal gait, No abnormal hearing, No abnormal movements, No abnormal speech, No behavioral changes, No burning sensations, No confusion, No convulsions, No disequilibrium, No dizziness, No localized weakness, No frequent falls, No headache(s), No lack of coordination, No loss ofvision, No memory loss, No numbness, No other visual disturbances, No radicular pain, No restless legs, No sensory deficit, No syncope, No tingling, No tremor(s), No weakness and No other Exam Const General: cooperative Orientation: alert and oriented x3 HENTX Head: normal to inspection Neck Neck: normal visual inspection and full ROM Chest Chest palpation & inspection: normal inspection of the chest Resp Effort & Inspection: normal respiratory effort Auscultation: clear to auscultation bilaterally Cardio Rate: regular rate Rhythm: regular rhythm GI Inspection: non-distended Palpation: soft and nontender Skin General: no rashes or lesions noted Neuro General: patient alert and patient oriented x3 Extrem General: full ROM Psych Appearance: grossly normal Mental Status: mental status grossly normal Assessment and Plan Assessment and Plan (1) Blood clots in stool: Status: Acute Plan: The patient has been seeing some gross blood in her stool and she has had havingsome dark stools as well. I recommend that the patient have EGD and colonoscopyto evaluate. I explained endoscopy in detail to the patient. I explained the risks including but not limited to stroke or heart attack with anesthesia, perforation of the GI tract, bleeding, infection. I explained that any of thesecould necessitate further emergency surgery. The patient understands and all questions were answered sufficiently. The patient wishes to proceed with procedure. Sergo Baker MD Pager: [facility] [address] [place] [address], [address] [place] [address] Office: I have examined the patient and the H&P has been reviewed. There are no clinicalchanges since date of exam. 01/22/23 1503 <Electronically signed by Sergo Baker MD> Cosigner Signature (if applicable): CC: Dr. Sergo Baker MD; Dr. Maricruz Zavaleta MD~ Signed [facility] Work Phone: [phone] 621-692511-29-2023 [facility] Procedure note [facility] [place]11-29-2023 Procedure [facility]-09-2022 [facility] Diagnosis Onset Date Resolution Status Acute viral syndrome acute Sore throat (viral) acute [facility] Work Phone: Evaluation note* Diagnosis Onset Date Resolution Status Acute viral syndrome acute Sore throat (viral) acute Dyspnea acute Hypersomnia acute Lung nodule acute [facility] [place] Work Phone: Evaluation note* Diagnosis Onset Date Resolution Status Dyspnea acute Hypersomnia acute Lung nodule acute [facility] [place] Work Phone: Evaluation note* Diagnosis Onset Date Resolution Status Contact with and (suspected) exposure to other viral communicable diseases acute URI (upper respiratory infection) acute [facility] Work Phone: Evaluation note* Diagnosis Onset Date Resolution Status Contact with and (suspected) exposure to other viral communicable diseases acute URI (upper respiratory infection) acute Blood clots in stool acute [facility] Work Phone: Evaluation noteNo assessment information available [facility] Work Phone: Reason for referral (narrative)No reason for referral information [facility]WReg[facility] Work Phone: Family History No Family History Records FoundUnknown Family Member Name Dates Details Daughter 1 Comments:papillary thyroid c ancer Status:Active Family Members In General Comments:Father AL @ age 46, smoker & HTN Status:Active Relationship Condition Age at Onset Recorded Date/T bhargav Not Specified Hypertension Unknown Relationship Condition Age at Onset Recorded Date/T bhargav father Hypertension Unknown Instructions Name Dates Details Depression : How to access h ealth information online Indication:Depression Depression : How to access h ealth information online - Detail Indication:Depression Depression : Patient Instruc tions Indication:Depression Acquired hypothyroidism : Ho w to access health information online Indication:Acquired hypothyroidism Acquired hypothyroidism : Ho w to access health information online - Detail Indication:Acquired hypothyroidism Acquired hypothyroidism : Greg jackson Instructions Indication:Acquired hypothyroidism Impaired fasting glucose : H ow to access health information online Indication:Impaired fasting glucose Impaired fasting glucose : H ow to access health information online - Detail Indication:Impaired fasting glucose Impaired fasting glucose : P atient Instructions Indication:Impaired fasting glucose UTI (urinary tract infection ) : How to access health information online Indication:UTI (urinary tract infection) UTI (urinary tract infection ) : How to access health information online - Detail Indication:UTI (urinary tract infection) UTI (urinary tract infection ) : Patient Instructions Indication:UTI (urinary tract infection) Well woman exam : Patient In structions Indication:Well woman exam Depression with anxiety : Ho w to access health information online Indication:Depression with anxiety Depression with anxiety : Ho w to access health information online - Detail Indication:Depression with anxiety Depression with anxiety : Greg jackson Instructions Indication:Depression with anxiety Urinary frequency : How to a ccess health information online Indication:Urinary frequency Urinary frequency : How to a ccess health information online - Detail Indication:Urinary frequency Urinary frequency : Patient Instructions Indication:Urinary frequency Shortness of breath on exert ion : How to access health information online Indication:Shortness of breath on exertion Shortness of breath on exert ion : How to access health information online - Detail Indication:Shortness of breath on exertion Shortness of breath on exert ion : Patient Instructions Indication:Shortness of breath on exertion Rash : Patient Instructions Indication:Rash Chronic rhinitis : Patient I nstructions Indication:Chronic rhinitis Headache : Patient Instructi ons Indication:Headache Chronic low back pain : Yarely ent Instructions Indication:Chronic low back pain Chronic obstructive pulmonar y disease, unspecified COPD type : Patient Instructions Indication:Chronic obstructive pulmonary disease, unspecified COPD type Chief Complaint and Reason for Visit Chief Complaint COVID 19 SCREENING Reason for Visit Acute viral syndrome Sore throat (viral) Chief Complaint COVID 19 SCREENING LUNG CANCER SCREENING Lung Nodule Reason for Visit Acute viral syndrome Sore throat (viral) Dyspnea Hypersomnia Lung nodule Chief Complaint SCREENING LUNG CANCER SCREENING Lung Nodule Reason for Visit Dyspnea Hypersomnia Lung nodule Chief Complaint SCREENING LUNG CANCER SCREENING Lung Nodule DYSPNEA Reason for Visit Dyspnea Hypersomnia Lung nodule Chief Complaint LUNG CANCER SCREENIN G Lung Nodule DYSPNEA DYSPNEA R06.00 R06.00 Reason for Visit Dyspnea Hypersomnia Lung nodule Chief Complaint SINUS CONGESTION/LAGUNAS SCREEN Reason for Visit Contact with and (madrid spected) exposure to other viral communicable diseases URI (upper respiratory infection) Chief Complaint SINUS CONGESTION/LAGUNAS SCREEN BRB/DARK BM SELF REFERRED Reason for Visit Contact with and (madrid spected) exposure to other viral communicable diseases URI (upper respiratory infection) Blood clots in stool Chief Complaint Admit Date FORMER SMOKER, LUNG CANCER SCREENING Jan 4:55pm Advance Directives No Advanced Directives Records Found Advance Directive Response Recorded Date/ Time Living Will No October 25 021 8:28pm Power of Casket Assembler No October 25, 2020 8:28pm Advance Directive Response Recorded Date/ Time Living Will No October 25 021 7:28pm Power of Casket Assembler No October 25, 2020 7:28pm Advance Directive Response Recorded Date/ Time Living Will No October 23 3:27pm Power of Casket Assembler No October 23 2 023 3:27pm Advance Directive Response Recorded Date/ Time Living Will No January 15 2 023 12:21pm Power of Casket Assembler No January 15, 2023 12:21pm Summary Purpose Additional Source Comments Goals (unrecognized section and content) Goals may be documented in a n alternate sectionGoals may be documented in an alternate sectionGoals may be documented in an alternate sectionGoals may be documented in an alternate sectionGoals may be documented in an alternate sectionGoals may be documented in an alternate sectionGoals may be documented in an alternate section Care Teams (unrecognized sec tion and content) Team Status: Active Member Role Status Dates Dr. Maricruz Zavaleta MD Family Provider Active Dr. Maricruz Zavaleta MD Primary Care Provider Active Team Status: Inactive Member Role Status Dates Dr. Maricruz Zavaleta MD [facility], [facility] Active Dr. Allan Prescott MD Attending Provider Active Team Status: Active Member Role Status Dates Dr. Maricruz Zavaleta MD Primary Care Provider Active Dr. Allan Prescott MD Attending Provider, Other [facility] er Active Team Status: Active Member Role Status Dates Dr. Maricruz Zavaleta MD Primary Care Provider Active Dr. Allan Prescott MD Other Provider Active Dr. Ry Cline DO Attending Provider Active Team Status: Inactive Member Role Status Dates Dr. Maricruz Zavaleta MD Primary Care Prov ider, Attending Provider, Referring Provider Active Team Status: Inactive Member Role Status Dates Dr. Maricruz Zavaleta MD Primary Care Provider Active Dr. Allan Prescott MD Attending Provider Active Team Status: Inactive Member Role Status Dates Dr. Maricruz Zavaleta MD Primary Care Provider, Referrin g Provider Active Gonzalo Devine PA, PA Active Sohan Walters PA, PA Attending Provider Active Team Status: Inactive Member Role Status Dates Dr. Maricruz Zavaleta MD Primary Care Provider, Referrin g Provider Active Dr. Sergo Baker MD Attending Provider Active Team Status: Active Member Role Status Dates Dr. Maricruz Zavaleta MD Primary Care Provider, Referrin g Provider Active Dr. Sergo Baker MD Attending Provider, Other Provider Active Team Status: Inactive Member Role Status Dates Dr. Maricruz Zavaleta MD Primary Care Provider Active Start: February 19, 2024 End: February 19, 2024 Dr. Maricruz Zavaleta MD Attending Provider Active Start: February 19, 2024 End: February 19, 2024 Dr. Maricruz Zavaleta MD Referring Provider Active Start: February 19, 2024 End: February 19, 2024 Team Status: Inactive Member Role Status Dates Dr. Maricruz Zavaleta MD Primary Care Provider Active Start: March 25, 2024 End: March 25, 2024 Dr. Maricruz Zavaleta MD Attending Provider Active Start: March 25, 2024 End: March 25, 2024 Team Status: Inactive Member Role Status Dates Dr. Maricruz Zavaleta MD Primary Care Provider Active Start: May 27, 2024 End: May 27, 2024 Dr. Maricruz Zavaleta MD Attending Provider Active Start: May 27, 2024 End: May 27, 2024 Dr. Maricruz Zavaleta MD Referring Provider Active Start: May 27, 2024 End: May 27, 2024 INFORMATION SOURCE (unrecogn ized section and content) DATE CREATED AUTHOR 01/04/2025 [facility] FOR RECORDS PERTAINING TO PATIENTS WHO ARE OR HAVE BEEN ENROLLED IN A CHEMICAL DEPENDENCY/SUBSTANCEABUSE PROGRAM, SOME INFORMATION MAY BE OMITTED. This clinical summary was aggregated from multiple sources. Caution should be exercised in using it in the provision of clinical care. This summary normalizes information from multiple sources, and as a consequence, information in this document may materially change the coding, format and clinical context of patient data. In addition, data may be omitted in some cases. CLINICAL DECISIONS SHOULD BE BASED ON THE PRIMARY CLINICAL RECORDS. [facility], [facility]. provides no warranty or guarantee of the accuracy or completeness of information in this document.
== END | disposition home or self-care (01) ==
LOC: OPBI 01-26 07:09
PROVIDERS: PCP Internal Medicine; Referring Provider Internal Medicine; Visit Provider Internal Medicine
DX: Z12.31 Encounter for screening mammogram for malignant neoplasm of breast (principal)
CPT/HCPCS: 77063; 77067

== ENCOUNTER → 2025-02-11 | Outpatient (CLI) | payer BC, SELFPAY ==
[2025-02-11 11:05] LABS: Mucous, Urine 0 SEEN /hpf (<or=2+); Red Blood Cells-Urine 0 SEEN /hpf (0-5)
[2025-02-11 12:30] LABS: Color, Urine Yellow (Yellow); Glucose, Dipstick Normal (Normal); Ketone-Dipstick Negative (Negative); Leukocyte Esterase-Dipstick Negative /ul (Negative); Nitrite-Dipstick Negative (Negative); Occult Blood-Urine Negative /ul (Negative); Protein-Dipstick Negative (Negative); Specific Gravity, Urine 1.010 (1.002-1.030); Urine Bilirubin Dipstick Negative (Negative)
[2025-02-11 12:38] LABS: Squamous Epithelial Cells - UA 0-5 SEEN /hpf (5-10)
[2025-02-11 13:04] LABS: Creatinine, Urine (random) 127.00 mg/dL (28.00-217.00); Microalbumin,Random Urine < 12.0 mg/L (<20 mg/L)
== END | disposition home or self-care (01) ==
LOC: MTLAB 10:56
PROVIDERS: PCP Internal Medicine; Referring Provider Internal Medicine; Visit Provider Internal Medicine
DX: E11.9 Type 2 diabetes mellitus without complications (principal)
CPT/HCPCS: 36415; 81001; 82043; 82570